=== PATIENT | female | born 1950 | race Caucasian/White ===

== ENCOUNTER → 2016-12-02 | Outpatient (CLI) | payer OTHER ==
[~2016-12-02] MED LIST: ADAL40KI INJ; ALBUAER2 INH; AMIT50TA3 PO; ASPI81TA28 PO; ATOR-14 PO; BENA20TA14 PO; BIOT1CAP3 PO; BUME1TAB PO; BUTA1CAP17 PO; CARB50TA3 PO; CITA20TA9 PO; CLOT10TR2 MT; CLX/20 PO; CMD5 PO; CYAN100073 OG; ENTA200T PO; ERGO500037 PO; EXLP95 TOP; FERR1TAB13 PO; FLUO20CA35 PO; FLUT115A INH; FOLI1TAB8 PO; GLIP1TAB61 PO; HYDR-3419 PO; INSU1INJ15 SQ; INSU3INJ3 SQ; INSUINJ14 SC; ISOS60TA25 PO; LEVE500T PO; LEVO25TA PO; LSX40 PO; METF-384 PO; METH2.5T PO; METO2.5T PO; MRLP17X PO; MULT-506 PO; NRN/300 PO; NTRSL3 UT; OMEP20TA PO; OXGN; POTA-74 PO; RANO500T PO; SPIR25TA PO; SUMA50TA15 PO; WARF-283 PO; WARF2.5T8 PO; WARF5TAB90 PO; [UNRECOGNIZED DRUG - CODE] PO
[2016-12-02 12:55] LABS: BASO % 0.4 %; BASO ABS # 0.03 K/uL (0-0.2); EOS % 2.3 %; HEMATOCRIT 33.1 % (37-47); IG% 0.5 %; LYMPH % 23.5 %; LYMPH ABS # 1.76 K/uL (1.2-3.4); MEAN CELL VOLUME 91.2 fL (80-100); MEAN CORPUSCULAR HEMOGLOBIN 28.7 pg (25-34); MEAN PLATELET VOLUME 9.1 fL (7.4-10.4); MONO % 5.6 %; NEUT % 67.7 %; PLATELET COUNT 214 K/uL (130-400); RED BLOOD COUNT 3.63 M/uL (4.2-5.4); WHITE BLOOD COUNT 7.49 K/uL (4.8-10.8)
[2016-12-02 13:08] LABS: MEAN CORPUSCULAR HGB CONC 31.4 g/dl (32-36)
[2016-12-02 13:16] LABS: ANISOCYTOSIS PRESENT; COMPLETE YES; OVALOCYTES 1+; POLYCHROMASIA 1+
--- NOTE | 2016-12-02 13:24 | DIAGNOSTIC IMAGING REPORT ---
CHEST 2 VIEWS ROUTINE CLINICAL HISTORY: PT TO LAB FIRST, STAT ALSO dyspnea. Pneumonitis. COMPARISON STUDY: 09/02/2016 FINDINGS: The bones soft tissues and hemidiaphragms are normal. The cardiomediastinal silhouette is normal. The lungs are clear. The pulmonary vasculature is normal. Old fracture left clavicle as well as several left ribs unchanged. IMPRESSION: Negative chest. Electronically signed by: Darvin Mesa M.D. 12/02/2016 1:23 PM
[2016-12-02 13:29] LABS: ALB/GLOB RATIO 0.9 (0.9-2); ALKALINE PHOSPHATASE 103 U/L (45-117); ALT/SGPT 8 U/L (12-78); AST/SGOT 16 U/L (15-37); BLOOD UREA NITROGEN 37 mg/dl (7-18); BUN/CREATININE RATIO 17.8 (10-20); CALCIUM 8.7 mg/dl (8.5-10.1); CARBON DIOXIDE 24 mmol/L (21-32); CHLORIDE 108 mmol/L (98-107); GLUCOSE 211 mg/dl (70-99); POTASSIUM 4.5 mmol/L (3.5-5.1); SODIUM 141 mmol/L (136-145)
== END | disposition home or self-care (01) ==
LOC: C.RAD 12:34
PROVIDERS: ATTEND Family Medicine
DX: D68.59 Other primary thrombophilia (principal); K62.5 Hemorrhage of anus and rectum; J69.0 Pneumonitis due to inhalation of food and vomit

== ENCOUNTER 2016-12-03 17:32 | Emergency (ER) | payer OTHER ==
[~2016-12-03 17:32] MED LIST changes: -BENA20TA14 PO; -BUME1TAB PO; -CITA20TA9 PO; -CYAN100073 OG; -EXLP95 TOP; -METO2.5T PO; -MRLP17X PO; -OXGN; -WARF-283 PO; -WARF2.5T8 PO
[2016-12-03 17:48] VITALS: TEMP 37.5; Ht 149.9 cm
[2016-12-03] MEDS ORDERED: SODIUM CHLORIDE 0.9% 250ML 250 ML IV STA (19:22)
--- NOTE | 2016-12-03 19:49 | DIAGNOSTIC IMAGING REPORT ---
CHEST ONE VIEW PORTABLE CLINICAL HISTORY: cp dyspnea COMPARISON STUDY: 12/02/2016 FINDINGS: Lungs are clear. No evidence for cardiac enlargement. Diaphragms smooth. Old left rib fractures. Old left clavicular fracture. IMPRESSION: No acute process Electronically signed by: Darvin Mesa M.D. 12/03/2016 7:47 PM
[2016-12-03 20:57] LABS: BASO % 0.4 %; BASO ABS # 0.03 K/uL (0-0.2); EOS % 3.2 %; IG% 0.6 %; LYMPH % 32.1 %; LYMPH ABS # 2.17 K/uL (1.2-3.4); MEAN CELL VOLUME 93.4 fL (80-100); MEAN CORPUSCULAR HEMOGLOBIN 28.8 pg (25-34); MEAN CORPUSCULAR HGB CONC 30.9 g/dl (32-36); MONO % 11.2 %; NEUT % 52.5 %; PLATELET COUNT 235 K/uL (130-400); RED BLOOD COUNT 3.64 M/uL (4.2-5.4); WHITE BLOOD COUNT 6.77 K/uL (4.8-10.8)
[2016-12-03 21:12] LABS: PARTIAL THROMBOPLASTIN RATIO 1.2; PROTHROMBIN TIME (PATIENT) 22.3 SECONDS (9.0-12.0)
[2016-12-03 21:16] LABS: BLOOD UREA NITROGEN 23 mg/dl (7-18); BUN/CREATININE RATIO 16.6 (10-20); CALCIUM 8.6 mg/dl (8.5-10.1); CARBON DIOXIDE 26 mmol/L (21-32); CHLORIDE 110 mmol/L (98-107); GLUCOSE 192 mg/dl (70-99); POTASSIUM 4.1 mmol/L (3.5-5.1); SODIUM 144 mmol/L (136-145)
[2016-12-03 21:56] LABS: ANISOCYTOSIS PRESENT; COMPLETE YES; POLYCHROMASIA 1+
--- NOTE | 2016-12-03 22:13 | DIAGNOSTIC IMAGING REPORT ---
BILATERAL LOWER EXTREMITY VENOUS DOPPLER HISTORY: Pain. Edema. eval for dv COMPARISON STUDY: None. FINDINGS: There is normal compressibility, flow, and augmentation within the bilateral lower extremity deep venous systems. IMPRESSION: No DVT within the right or left lower extremity. Electronically signed by: Darvin Mesa M.D. 12/03/2016 10:11 PM
[2016-12-03 22:22] VITALS: BP 159/72; PULSE 88; O2SAT 95
--- NOTE | 2016-12-03 23:25 | EMERGENCY ROOM VISIT NOTE ---
History Report prepared by Andrea: La Bertrand Under the Supervision of: Dr. Dominick Martin M.D. First contact with patient: 19:12 Chief Complaint: REFERRED BY DOCTOR Stated Complaint: LOW KIDNEY FUNCTION History of Present Illness The patient is a 66 year old female who presents to the Emergency Room with complaints of an episode of low kidney function beginning yesterday. The patient states that she had a doctors appointment yesterday and had a creatinine level of 2.1. She states that she has been urinating less frequently over the last few weeks despite being on Lasix. She notes that she is on 60mg of Lasix a day and Coumadin. The patient's daughter notes that the patient has not been eating or drinking much at all. The patient notes that she has had chronic leg swelling which has recently improved. She notes some shortness of breath which is also chronic for her. She also notes when asked that she has had intermittent brief jabbing chest pain over the sternum over the past several days. She states it's very transient and she has no chest pain now. Her daughter states that the chest pain is not new. She has had similar chest pain for a long time. She does have a history of pulmonary embolism but is taking Coumadin. She denies any fever, vomiting, and diarrhea. Source of History: patient Onset: yesterday Position: other (global) Quality: other (elevated creatinine) Timing: other (episode) Associated Symptoms: + SOB, + chest pain, No diarrhea, No fevers, No vomiting Note: The patient notes associated leg swelling and urinary infrequency. Review of Systems See HPI for pertinent positives & negatives. A total of 10 systems reviewed and were otherwise negative. Past Medical & Surgical Medical Problems: (1) Anemia (2) Asthma (3) Chest pain (4) Colitis (5) Crohn's disease (6) Diabetes mellitus (7) GI bleeding (8) Hypertension (9) Hypothyroidism (10) Lower GI bleed (11) Personal history of DVT (deep vein thrombosis) (12) Pulmonary embolism Family History Cancer Diabetes mellitus Gallbladder disease Heart disease Hypertension Lung disease Social History Smoking Status: Former Smoker Alcohol Use: none Drug Use: none Marital Status: single Housing Status: lives alone Occupation Status: disabled Current/Historical Medications Scheduled Adalimumab (Humira Pen), 40 MG INJ [id number] Albuterol (Ventolin Hfa), 2 PUFFS INH TID Amitriptyline Hcl (Amitriptyline Hcl), 50 MG PO HS Aspirin (Aspirin Ec), 81 MG PO DAILY Atorvastatin (Lipitor), 10 MG PO HS Benazepril Hcl (Lotensin), 40 MG PO DAILY Biotin (Biotin), 5,000 MCG PO PRN Carbidopa-Levodopa (Carbidopa/Levodopa Er), 25-100 MG PO QID Entacapone (Comtan), 200 MG PO QID Ergocalciferol (Vitamin D 23255 Unit), 50,000 UNIT PO MONTHLY Ferrous Sulfate (Kp Ferrous Sulfate), 1 TAB PO DAILY Fluoxetine (Prozac), 20 MG PO DAILY Folic Acid (Folvite), 3 MG PO DAILY Furosemide (Furosemide), 60 MG PO DAILY Gabapentin (Neurontin), 300 MG PO TID Glipizide Xl (Glucotrol Xl), 10 MG PO BID Insulin Aspart Penfill (Novolog Penfill), 0 SC ACHS Insulin Detemir (Levemir Pen), 10 UNIT SQ QAM Insulin Detemir (Levemir Flextouch), 10-14 UNITS SQ QPM Isosorbide Mononitrate Ext Rel (Imdur Ext Rel), 60 MG PO QAM Levetiractam (Levetiracetam), 500 MG PO BID Levothyroxine Sodium (Synthroid), 25 MCG PO DAILY Metformin Hcl (Glucophage), 1,000 MG PO BID Methotrexate Sodium (Methotrexate), 20 MG PO WK Multivitamin (Multivitamin), 1 TAB PO DAILY Omeprazole (Omeprazole), 20 MG PO DAILY Ranolazine (Ranexa), 500 MG PO BID Warfarin Sod (Coumadin), 7.5 MG PO THURSDAY AND THURSDAY Warfarin Sodium (Coumadin), 5 MG PO 5XWK Scheduled PRN Fluticasone-Salmeterol 115/21 Mcg (Advair Hfa 115/21 Mcg), 2 PUFF INH BID PRN for SOB/Wheezing Hydrocodon/Acetaminophen 5MG/300MG (Vicodin (5MG/300MG)), 1 TAB PO Q4H PRN for Pain Nitroglycerin (Nitrostat), 0.3 MG UT UD PRN Potassium Chloride (Potassium Chloride Er), 10 MEQ PO DAILY PRN for PRN Sumatriptan Succinate (Imitrex), 50 MG PO DAILY PRN for Headache Allergies Coded Allergies: Penicillins (Verified Allergy, Intermediate, HIVES, 12/03/16) Sulfa Antibiotics (Verified Allergy, Intermediate, HIVES, 12/03/16) Lactose. (Verified Allergy, Mild, diarrhea, 12/03/16) Latex (Verified Allergy, Unknown, ., 12/03/16) Adhesives (Verified Adverse Reaction, Severe, "THEY EAT MY SKIN.", 12/03/16) Iodinated Diagnostic Agents (Verified Adverse Reaction, Intermediate, Vomiting, 12/03/16) Quinolones (Verified Adverse Reaction, Mild, YEAST INFECTION, 12/03/16) Ba Pepper (Verified Adverse Reaction, Unknown, GREEN PEPPER = MIGRAINE HEADACHE, 12/03/16) Cephalosporins (Verified Adverse Reaction, Unknown, 12/03/16) Physical Exam Vital Signs Date Time Temp Pulse Resp B/P Pulse Ox O2 Delivery O2 Flow Rate FiO2 12/03/16 22:22 88 20 159/72 95 Room Air 12/03/16 20:41 78 12/03/16 20:05 77 18 131/91 94 12/03/16 17:48 37.5 82 16 128/68 94 Room Air Physical Exam Constitutional: Vital signs reviewed. Eyes: Pupils are equal round reactive to light. Conjunctiva are noninjected. ENT: Pharynx is clear without erythema or exudate. Mucous membranes are moist. Neck supple without meningeal signs. Respiratory: Scattered expiratory wheezing bilaterally. Breath sounds are equal bilaterally. Cardiovascular: Regular rate and rhythm. No rubs or gallops. GI: Soft, nondistended and nontender. Bowel sounds are present. Musculoskeletal: Bilateral pitting edema to the lower extremities. Integumentary: No cyanosis. Neurological: The patient is awake and alert. No focal deficits. Psychiatric: Normal affect. Medical Decision & Procedures ER Provider Diagnostic Interpretation: X-ray results as stated below per interpretation by me and the radiologist: CHEST ONE VIEW PORTABLE FINDINGS: Lungs are clear. No evidence for cardiac enlargement. Diaphragms smooth. Old left rib fractures. Old left clavicular fracture. IMPRESSION: No acute process Electronically signed by: Darvin Mesa M.D. 12/03/2016 7:47 PM BILATERAL LOWER EXTREMITY VENOUS DOPPLER FINDINGS: There is normal compressibility, flow, and augmentation within the bilateral lower extremity deep venous systems. IMPRESSION: No DVT within the right or left lower extremity. Electronically signed by: Darvin Mesa M.D. 12/03/2016 10:11 PM Laboratory Results 12/03/16 20:40 Red Blood Count 3.64, Mean Corpuscular Volume 93.4, Mean Corpuscular Hemoglobin 28.8, Mean Corpuscular Hemoglobin Concent 30.9, Mean Platelet Volume 9.0, Neutrophils (%) (Auto) 52.5, Lymphocytes (%) (Auto) 32.1, Monocytes (%) (Auto) 11.2, Eosinophils (%) (Auto) 3.2, Basophils (%) (Auto) 0.4, Neutrophils # (Auto ) 3.55, Lymphocytes # (Auto) 2.17, Monocytes # (Auto) 0.76, Eosinophils # (Auto ) 0.22, Basophils # (Auto) 0.03 12/03/16 20:40 Test 12/03/16 20:40 12/03/16 20:49 White Blood Count 6.77 K/uL (4.8-10.8) Red Blood Count 3.64 M/uL (4.2-5.4) Hemoglobin 10.5 g/dL (12.0-16.0) Hematocrit 34.0 % (37-47) Mean Corpuscular Volume 93.4 fL (80-100) Mean Corpuscular Hemoglobin 28.8 pg (25-34) Mean Corpuscular Hemoglobin Concent 30.9 g/dl (32-36) Platelet Count 235 K/uL (130-400) Mean Platelet Volume 9.0 fL (7.4-10.4) Neutrophils (%) (Auto) 52.5 % Lymphocytes (%) (Auto) 32.1 % Monocytes (%) (Auto) 11.2 % Eosinophils (%) (Auto) 3.2 % Basophils (%) (Auto) 0.4 % Neutrophils # (Auto) 3.55 K/uL (1.4-6.5) Lymphocytes # (Auto) 2.17 K/uL (1.2-3.4) Monocytes # (Auto) 0.76 K/uL (0.11-0.59) Eosinophils # (Auto) 0.22 K/uL (0-0.5) Basophils # (Auto) 0.03 K/uL (0-0.2) RDW Standard Deviation 74.7 fL (36.4-46.3) RDW Coefficient of Variation 22.2 % (11.5-14.5) Immature Granulocyte % (Auto) 0.6 % Immature Granulocyte # (Auto) 0.04 K/uL (0.00-0.02) Polychromasia 1+ Anisocytosis PRESENT Prothrombin Time 22.3 SECONDS (9.0-12.0) Prothromb Time International Ratio 2.0 (0.9-1.1) Activated Partial Thromboplast Time 31.7 SECONDS (21.0-31.0) Partial Thromboplastin Ratio 1.2 Anion Gap 8.0 mmol/L (3-11) Estimated GFR () 44.9 Estimated GFR (Non- 38.8 BUN/Creatinine Ratio 16.6 (10-20) Calcium Level 8.6 mg/dl (8.5-10.1) Bedside Troponin I 0.000 ng/ml (0-0.045) KY-Ddx-E-Type Natriuretic Peptide 284 pg/ml (0-900) Laboratory results as reviewed by me. Medications Administered Medications (Trade) Dose Ordered Sig/Mariella Route Start Time Stop Time Status Last Admin Dose Admin Sodium Chloride (Nss 250ml) 250 ml @ 999 mls/hr Q16M STAT IV 12/03/16 19:22 12/03/16 19:37 DC 12/03/16 19:22 999 MLS/HR ECG Indication: chest pain Rate (beats per minute): 78 Rhythm: normal sinus Findings: LAFB, RBBB Comparison ECG Date: 09/2016 Change: The RBBB was present September 2016. ED Course 1911: The patient was evaluated in room A4B. A complete history and physical exam was performed. 1921: Sodium Chloride 250 ml @ 999 mls/hr IV. 2121: I talk to the patient about her test results. The plan is to send her home if the US is negative. The patient and her family do not want a CT of her chest because she had problems with her kidneys last time she got a CT scan. 2217: I talked to the patient about her test results. She will follow up with her doctor tomorrow. 2221: Upon reevaluation, the patient appeared to have improvement of her symptoms. I discussed klaudiaight's findings with the patient. She verbalized agreement of the treatment plan. The patient was discharged home. Medical Decision This is a 66-year-old female who presents with increased creatinine, chest pain and leg swelling. Differential diagnosis includes kidney failure, dehydration, hyperkalemia, pulmonary embolism, DVT, NE, CHF, dependent edema. I did perform a limited focused review of portions of the patient's old chart on the electronic medical record. The patient had blood work yesterday that showed a creatinine of 2.1. Her creatinine in September was 0.88. I did evaluate the patient as noted above. She is presenting with elevated creatinine yesterday. She states that she has not been drinking very much or eating very much. She is on 60 of Lasix daily. She also complained of some chest pain but her family states that she has had this for some time and it is not unusual for her. She also has baseline shortness of breath. IV access was established. I did order and personally review the patient's 12-lead EKG and chest x-ray as described above. There is no evidence of acute ischemia on 12- lead EKG. Her chest x-ray does not show any pulmonary edema. She was given normal saline 250 mL IV. I did order and review the patient's blood work as noted in the electronic medical record. BNP and troponin are nonelevated. Her creatinine is 1.4 which is improved since yesterday. Her potassium is unremarkable. Her INR is 2.0. I did order an ultrasound of lower extremities. I did review the images myself as well as the radiology report as described above. There is no evidence of DVT. I did discuss the test results with the patient and her family. While the patient did complain of intermittent chest pain, she states it is brief and she has had this in the past. I have a low suspicion for pulmonary embolus given she is on Coumadin and her INR is 2.0. I did discuss this with the family and they agreed that a CT would not be a good idea she has had problems with her kidneys in the past from IV contrast. Given she was sent here for an issue with her creatinine I did feel it was not prudent to perform a CT. They were in agreement. Again they stated that the chest pain is an ongoing issue for her pain. Given her creatinine has improved today she does not require hospital admission. She did not wish to be admitted in any case. She will increase her fluid intake at home and follow up tomorrow with her doctor. Impression Primary Impression: Creatinine elevation Additional Impressions: Dependent edema, Precordial chest pain Scribe Attestation The scribe's documentation has been prepared under my direct and personally reviewed by me in its entirety. I confirm that the note above accurately reflects all work, treatment, procedures, and medical decision making performed by me. Departure Information Dispostion Home / Self-Care Referrals Sandra Scott D.O. (PCP) Forms HOME CARE DOCUMENTATION FORM, IMPORTANT VISIT INFORMATION, WORK / SCHOOL INSTRUCTIONS Patient Instructions A Signature Page, Chest Pain - [facility], ED Edema Legs Bilateral, My [facility] Additional Instructions You have been examined and treated today on an emergency basis only. This is not a substitute for, or an effort to provide, complete comprehensive medical care. It is impossible to recognize and treat all injuries or illnesses in a single emergency department visit. It is therefore important that you follow up closely with your physician. Call as soon as possible for an appointment. Have your doctor repeat your creatinine. Increase her fluid intake. Return for worsening symptoms or if you develop lightheadedness, profuse sweating, decreased urination or any other concerning symptoms.
[2016-12-15] MEDS ORDERED: BUME1TAB PO (11:16)
[2017-03-12] MEDS ORDERED: EXLP95 TOP (10:40)
[2017-03-12] MEDS ORDERED: CITA20TA9 PO (10:40)
[2017-04-01] MEDS ORDERED: BENA20TA14 PO (12:25)
[2017-06-29] MEDS ORDERED: WARF2.5T8 PO (12:08)
[2017-07-27] MEDS ORDERED: CYAN100073 OG (11:14)
[2017-07-27] MEDS ORDERED: BUME1TAB PO (11:14)
[2017-07-27] MEDS ORDERED: MRLP17X PO (11:14)
[2017-07-27] MEDS ORDERED: HYDR-3419 PO (11:14)
[2017-07-27] MEDS ORDERED: WARF-283 PO (11:18)
[2017-09-03] MEDS ORDERED: WARF2.5T8 PO (11:43)
== END 2016-12-03 22:35 | disposition home or self-care (01) ==
LOC: C.EDB 17:34 → C.EDA 22:35
DX: R79.89 Other specified abnormal findings of blood chemistry (principal); R60.0 Localized edema; R07.2 Precordial pain; Z86.711 Personal history of pulmonary embolism; J45.909 Unspecified asthma, uncomplicated; K50.90 Crohn's disease, unspecified, without complications; E11.9 Type 2 diabetes mellitus without complications; I10 Essential (primary) hypertension; E03.9 Hypothyroidism, unspecified; Z86.718 Personal history of other venous thrombosis and embolism; Z79.01 Long term (current) use of anticoagulants; Z79.82 Long term (current) use of aspirin; Z79.899 Other long term (current) drug therapy; Z80.9 Family history of malignant neoplasm, unspecified; Z83.3 Family history of diabetes mellitus; Z82.49 Family history of ischemic heart disease and other diseases of the circulatory system; Z83.6 Family history of other diseases of the respiratory system; Z87.891 Personal history of nicotine dependence

== ENCOUNTER → 2016-12-25 | Outpatient (CLI) | payer OTHER ==
[~2016-12-25] MED LIST changes: +BENA20TA14 PO; +BUME1TAB PO; -BUTA1CAP17 PO; +CITA20TA9 PO; -CLOT10TR2 MT; -CLX/20 PO; +CYAN100073 OG; +EXLP95 TOP; +FOLI1TAB7 PO; -FOLI1TAB8 PO; -LSX40 PO; +METO2.5T PO; +MRLP17X PO; +OXGN; -SPIR25TA PO; +WARF-283 PO; +WARF2.5T8 PO
--- NOTE | 2016-12-25 11:08 | DIAGNOSTIC IMAGING REPORT ---
DOUBLE CONTRAST BARIUM ENEMA CLINICAL HISTORY: Rectal bleeding. Incomplete colonoscopy. COMPARISON STUDY: Abdominal CT dated 11/16/2015. TECHNIQUE: An AP screen roller radiograph is performed. A rectal tube was then placed and a double contrast barium enema was attempted. Barium was infused into the colon under gravity. There is suboptimal double contrast, as the patient could not tolerate distention and the air continuously leaked from the colon. The patient was unable to fully cooperate for the examination and could not stand or roll on her stomach. Spot compression views and overhead radiographs were obtained. FINDINGS: An abdominal screen roller radiograph shows a nonobstructed abdominal bowel gas pattern. There was no evidence of intraperitoneal free air. No abnormal abdominal calcifications are identified. The skeletal structures are osteopenic. There is advanced lumbosacral spondylosis, as well as advanced arthritic change in the hips. There is normal contrast filling of the colon. There is no evidence of stricture or obvious evidence of mass lesion. The mucosal pattern is suboptimally assessed. There are scattered colonic diverticula. There is mild tortuosity of the sigmoid colon. Fluoroscopy time: 3.9 minutes. Fluoroscopic images: 14 IMPRESSION: 1. Suboptimal examination due to limited patient cooperation/mobility and inability to maintain gas throughout the colon which degraded the double contrast component of the study. 2. There is no evidence of obstruction or stricture. No obvious mass lesion is identified. 3. Mild colonic diverticulosis is observed. Dictated: 12/25/2016 10:28 AM Transcribed: 12/25/2016 10:46 AM [facility] Electronically signed by: Dashawn Wilburn M.D. 12/25/2016 11:10 AM Dictated Date/Time: 12/25/2016 10:28 AM
== END | disposition home or self-care (01) ==
LOC: C.RAD 09:27
PROVIDERS: ATTEND Internal Medicine Gastroenterology
DX: K62.5 Hemorrhage of anus and rectum (principal); Z87.19 Personal history of other diseases of the digestive system

== ENCOUNTER → 2017-01-23 | Outpatient (CLI) | payer OTHER ==
[~2017-01-23] MED LIST changes: -CMD5 PO
[2017-01-23 17:26] LABS: BLOOD UREA NITROGEN 26 mg/dl (7-18); BUN/CREATININE RATIO 18.6 (10-20); CALCIUM 8.6 mg/dl (8.5-10.1); CARBON DIOXIDE 26 mmol/L (21-32); CHLORIDE 104 mmol/L (98-107); GLUCOSE 222 mg/dl (70-99); MAGNESIUM 1.8 mg/dl (1.8-2.4); POTASSIUM 4.1 mmol/L (3.5-5.1); SODIUM 138 mmol/L (136-145)
[2017-01-23 17:27] LABS: PHOSPHORUS 3.4 mg/dl (2.5-4.9)
== END | disposition home or self-care (01) ==
LOC: C.LABPBG 11:55
PROVIDERS: ATTEND Internal Medicine Nephrology
DX: R60.0 Localized edema (principal)

== ENCOUNTER → 2017-02-16 | Outpatient (CLI) | payer OTHER ==
[2017-02-16 13:02] LABS: BLOOD UREA NITROGEN 19 mg/dl (7-18); BUN/CREATININE RATIO 16.1 (10-20); CALCIUM 8.4 mg/dl (8.5-10.1); CARBON DIOXIDE 28 mmol/L (21-32); CHLORIDE 107 mmol/L (98-107); GLUCOSE 224 mg/dl (70-99); MAGNESIUM 1.7 mg/dl (1.8-2.4); SODIUM 141 mmol/L (136-145)
[2017-02-16 13:03] LABS: PHOSPHORUS 2.6 mg/dl (2.5-4.9)
== END | disposition home or self-care (01) ==
LOC: C.LABPBG 10:31
PROVIDERS: ATTEND Internal Medicine Nephrology
DX: N17.9 Acute kidney failure, unspecified (principal)

== ENCOUNTER → 2017-03-30 | Outpatient (CLI) | payer OTHER ==
[~2017-03-30] MED LIST changes: -FLUO20CA35 PO
[2017-03-30 12:40] LABS: BASO % 0.3 %; BASO ABS # 0.02 K/uL (0-0.2); COMPLETE YES; EOS % 1.8 %; HEMATOCRIT 36.9 % (37-47); IG% 0.4 %; LYMPH ABS # 1.97 K/uL (1.2-3.4); MEAN CELL VOLUME 98.7 fL (80-100); MEAN CORPUSCULAR HEMOGLOBIN 30.7 pg (25-34); MEAN CORPUSCULAR HGB CONC 31.2 g/dl (32-36); MEAN PLATELET VOLUME 9.1 fL (7.4-10.4); MONO % 6.9 %; NEUT % 64.6 %; PLATELET COUNT 266 K/uL (130-400); RED BLOOD COUNT 3.74 M/uL (4.2-5.4); WHITE BLOOD COUNT 7.59 K/uL (4.8-10.8)
[2017-03-30 13:17] LABS: URINE PROTIEN/CREAT RATIO 0.1 (0-0.2)
[2017-03-30 13:24] LABS: URINE APPEARANCE CLEAR (CLEAR); URINE COLOR DK YELLOW; URINE NITRITE NEG (NEG); URINE SPECIFIC GRAVITY 1.017 (1.000-1.030); UROBILINOGEN NEG (NEG)
[2017-03-30 13:36] LABS: MANUAL MICROSCOPIC REQUIRED? NO; REVIEW REQ? YES; URINE BILIRUBIN NEG (NEG)
[2017-03-30 14:19] LABS: URINE MUCUS PRESENT (NONE PRSENT)
[2017-03-30 18:00] LABS: ALT/SGPT 17 U/L (12-78); AST/SGOT 19 U/L (15-37); BLOOD UREA NITROGEN 37 mg/dl (7-18); BUN/CREATININE RATIO 20.7 (10-20); CALCIUM 8.8 mg/dl (8.5-10.1); CARBON DIOXIDE 25 mmol/L (21-32); CHLORIDE 104 mmol/L (98-107); GLUCOSE 256 mg/dl (70-99); POTASSIUM 4.6 mmol/L (3.5-5.1); SODIUM 140 mmol/L (136-145)
[2017-03-30 18:03] LABS: ALKALINE PHOSPHATASE 100 U/L (45-117); PHOSPHORUS 4.4 mg/dl (2.5-4.9)
== END | disposition home or self-care (01) ==
LOC: C.LABPBG 10:43
PROVIDERS: ATTEND Internal Medicine Nephrology
DX: L40.50 Arthropathic psoriasis, unspecified (principal); R60.0 Localized edema; Z51.81 Encounter for therapeutic drug level monitoring; Z79.899 Other long term (current) drug therapy

== ENCOUNTER → 2017-04-15 | Outpatient (CLI) | payer OTHER ==
[~2017-04-15] MED LIST changes: -[UNRECOGNIZED DRUG - CODE] PO
[2017-04-15 17:40] LABS: BLOOD UREA NITROGEN 25 mg/dl (7-18); BUN/CREATININE RATIO 17.5 (10-20); CALCIUM 8.2 mg/dl (8.5-10.1); CARBON DIOXIDE 27 mmol/L (21-32); CHLORIDE 111 mmol/L (98-107); GLUCOSE 168 mg/dl (70-99); PHOSPHORUS 3.4 mg/dl (2.5-4.9); POTASSIUM 4.1 mmol/L (3.5-5.1); SODIUM 145 mmol/L (136-145)
== END | disposition home or self-care (01) ==
LOC: C.LABPBG 11:40
PROVIDERS: ATTEND Internal Medicine Nephrology
DX: N17.9 Acute kidney failure, unspecified (principal)

== ENCOUNTER 2017-04-22 19:48 | Emergency (ER) | payer OTHER ==
[~2017-04-22 19:48] MED LIST changes: -CYAN100073 OG; -METO2.5T PO; -MRLP17X PO; -OXGN; -WARF-283 PO; -WARF2.5T8 PO
[2017-04-22 19:52] VITALS: TEMP 36.8; Ht 149.9 cm
[2017-04-22 21:06] LABS: BASO % 0.5 %; BASO ABS # 0.03 K/uL (0-0.2); COMPLETE YES; EOS % 2.6 %; HEMATOCRIT 32.4 % (37-47); LYMPH % 25.8 %; LYMPH ABS # 1.56 K/uL (1.2-3.4); MEAN CELL VOLUME 100.3 fL (80-100); MEAN CORPUSCULAR HEMOGLOBIN 32.2 pg (25-34); MEAN CORPUSCULAR HGB CONC 32.1 g/dl (32-36); MEAN PLATELET VOLUME 8.6 fL (7.4-10.4); MONO % 10.8 %; NEUT % 59.3 %; PLATELET COUNT 250 K/uL (130-400); RED BLOOD COUNT 3.23 M/uL (4.2-5.4); WHITE BLOOD COUNT 6.04 K/uL (4.8-10.8)
[2017-04-22 21:23] LABS: ALT/SGPT 15 U/L (12-78); BLOOD UREA NITROGEN 26 mg/dl (7-18); BUN/CREATININE RATIO 17.3 (10-20); CARBON DIOXIDE 31 mmol/L (21-32); CHLORIDE 109 mmol/L (98-107); GLUCOSE 105 mg/dl (70-99); POTASSIUM 4.3 mmol/L (3.5-5.1); SODIUM 145 mmol/L (136-145)
[2017-04-22 21:26] LABS: ALKALINE PHOSPHATASE 82 U/L (45-117); AST/SGOT 18 U/L (15-37)
[2017-04-22 22:06] LABS: CALCIUM 8.3 mg/dl (8.5-10.1)
--- NOTE | 2017-04-22 22:10 | EMERGENCY ROOM VISIT NOTE ---
ED Visit Note First contact with patient: 20:02 The patient was seen and examined with Stephon Manrique PA-C. I agree with the history, physical and findings. Please see the note for disposition and details.
[2017-04-22 23:34] VITALS: BP 99/46; PULSE 80; O2SAT 92
--- NOTE | 2017-04-24 00:16 | EMERGENCY ROOM VISIT NOTE ---
ED Visit Note First contact with patient: 20:02 Chief Complaint: Leg wounds. History of Present Illness: Ms. Harris is a 66-year-old white female who is brought into the ED via wheelchair accompanied by her daughter. Daughter reports for the last 5 months her mother has been seen by multiple medical practitioners for her chronic problems including chronic kidney disease , leg swelling, anemia. She reports multiple medications have been changed and that multiple medical practitioners are indicating multiple causes of her swelling, anemia, chronic kidney disease and general feeling of not feeling well. The daughter reports her mother was seen and discharged from home nursing support today for her lower leg swelling. She then reports after being discharged from the service she noted a large blisterlike lesion over the lateral aspect of the right lower leg. The blisterlike lesion is what prompted her ED visit today. Currently patient is complaining of the blisterlike lesion over the lateral aspect of the right lower leg. She reports she never had a similar lesion. She denies any trauma to the area. She has no associated symptoms including pain, fever, chills, skin eruptions, skin color changes, shortness of breath, dyspnea on exertion, chest pain, abdominal pain, decreased appetite, nausea, vomiting, numbness/tingling. Review of Systems: As noted above in history of present illness. All body systems were reviewed and found to be negative as noted above. Past Medical History: (1) Anemia (2) Asthma (3) Chest pain (4) Colitis (5) Crohn's disease (6) Diabetes mellitus (7) GI bleeding (8) Hypertension (9) Hypothyroidism (10) Lower GI bleed (11) Personal history of DVT (deep vein thrombosis) (12) Pulmonary embolism Current Medications: Medications Dose Route/Sig Max Daily Dose Days Date Category Dose Instructions Lotensin (Benazepril HCl) 20 Mg Tab 20 Mg PO DAILY 04/01/17 Reported Exelon (Rivastigmine Tartrate) 9.5 Mg Tdsy 4.6 Mg TOP DAILY 30 03/12/17 Reported Celexa (Citalopram Hydrobromide) 20 Mg Tab 20 Mg PO DAILY 03/12/17 Reported Bumex (Bumetanide) 1 Mg Tab 1.5 Mg PO BID 90 12/15/16 Reported Kp Ferrous Sulfate (Ferrous Sulfate) 325 Mg Tab 1 Tab PO DAILY 30 11/20/16 Reported Coumadin (Warfarin Sodium) 5 Mg Tab 5 Mg PO DAILY 90 10/20/16 Reported Advair Hfa 115/21 Mcg (Fluticasone-Salmeterol 115/21 Mcg) 1 Aer Aer 2 Puff INH BID PRN 10/13/16 Reported Potassium Chloride Er (Potassium Chloride) 10 Meq Tab 10 Meq PO DAILY PRN 90 10/13/16 Reported Imitrex (Sumatriptan Succinate) 50 Mg Tab 50 Mg PO DAILY PRN 10/13/16 Reported Multivitamin (Multivitamins) Tab 1 Tab PO DAILY 10/13/16 Reported Levemir Flextouch (Insulin Detemir) 100 Unit/Ml Inj 10-14 Units SQ QPM 10/13/16 Reported Carbidopa/Levodopa Er (Carbidopa-Levodopa) 1 Tab Tab 25-100 Mg PO QID 10/13/16 Reported Aspirin Ec (Aspirin) 81 Mg Tab 81 Mg PO DAILY 09/25/16 Reported Vitamin D 79009 Unit (Ergocalciferol) 50,000 Unit Cap 50,000 Unit PO MONTHLY 09/02/16 Reported Vicodin (5MG/300MG) (Hydrocodon/Acetaminophen 5MG/300MG) 1 Tab Tab 1 Tab PO Q4H PRN 04/21/16 Reported Biotin 5,000 Mcg Cap 5,000 Mcg PO PRN 10/05/15 Reported Glucophage (Metformin Hcl) 1,000 Mg Tab 1,000 Mg PO BID 10/05/15 Reported Comtan (Entacapone) 200 Mg Tab 200 Mg PO QID 10/05/15 Reported Novolog Penfill (Insulin Aspart) Inj 0 SC ACHS 10/05/15 Reported PER SLIDING SCALE Levetiracetam (Levetiractam) 500 Mg Tab 500 Mg PO BID 09/19/14 Reported Levemir Pen (Insulin Detemir) 100 Unit/ Inj 10 Unit SQ QAM 09/19/14 Reported Humira Pen (Adalimumab) 40 Mg/0.8 Ml Kit 40 Mg INJ [id number] 09/19/14 Reported Ventolin Hfa (Albuterol) Aers 2 Puffs INH TID 09/10/13 Reported Folvite (Folic Acid) 1 Mg Tab 3 Mg PO DAILY 09/10/13 Reported Lipitor (Atorvastatin) 10 Mg Tab 10 Mg PO HS 09/10/13 Reported Nitrostat (Nitroglycerin) 0.3 Mg Sub 0.3 Mg UT UD PRN 09/10/13 Reported Ranexa (Ranolazine) 500 Mg Tab 500 Mg PO BID 09/10/13 Reported Methotrexate (Methotrexate Sodium) 2.5 Mg Tab 20 Mg PO WK 09/10/13 Reported TAKES 8 TABS ON FRIDAYS Omeprazole 20 Mg Tab 20 Mg PO DAILY 09/10/13 Reported Neurontin (Gabapentin) 300 Mg Cap 300 Mg PO TID 09/10/13 Reported Amitriptyline Hcl 50 Mg Tab 50 Mg PO HS 09/10/13 Reported Imdur Ext Rel (Isosorbide Mononitrate) 60 Mg Ertab 60 Mg PO QAM 09/10/13 Reported Synthroid (Levothyroxine Sodium) 25 Mcg Tab 25 Mcg PO DAILY 07/20/12 Reported Glucotrol Xl (Glipizide) 10 Mg Tab 10 Mg PO BID 03/18/12 Reported Allergies to Medications: Cephalosporins, radiological diagnostic agents, lactose, latex, penicillin, quinolones, sulfa. Social History: Patient is not currently employed; she feels safe in her home environment; she denies tobacco use. Physical Examination: Vital Signs: Date Time Temp Pulse Resp B/P Pulse Ox O2 Delivery O2 Flow Rate FiO2 04/22/17 23:34 80 20 99/46 92 04/22/17 22:16 86 18 112/55 92 Room Air 04/22/17 19:52 36.8 86 18 108/57 92 Room Air GENERAL: 66-year-old female in mild to moderate distress due to pain, chronically ill-appearing, afebrile and hemodynamically stable. NEUROLOGICAL: Awake, alert and oriented to person, place and time. Answering questions appropriately and following commands. Good hand eye coordination. Cranial nerves II through XII grossly intact. SKIN: Warm, dry and pink. HEENT: Atraumatic and normocephalic. PERRLA. Sclera white and conjunctiva pale. No drainage from naris. Oral cavity moist and pink. Pharynx is nonerythematous or edematous. Airway patent. Speech normal. No lymphadenopathy. Trachea midline. No jugular venous distention. BACK: No tenderness over the bony spine. No CVA tenderness. THORAX: Lungs sounds are clear to auscultation and equal bilaterally with symmetrical chest wall. No wheezing, rales or rhonchi. No crepitus, tenderness , subcutaneous air or deformities noted. HEART: Regular rate and rhythm. No gallops, rubs or murmurs are appreciated. ABDOMEN: Obese, soft and nontender. Positive bowel sounds in all quadrants. No guarding, rigidity or organomegaly. EXTREMITIES: Moves all extremities well on command and with purpose. All distal neurovascular statuses are intact and equal bilaterally. Bilateral dependent edema starting just inferior to the knees and extending down into the ankle and feet. Over the lateral aspect of the right lower leg patient has a 4- 5 cm clear blisterlike lesion. Draining clear fluid. Just superior to this area patient additionally has multiple small blisterlike lesions with mild erythema. I do not appreciate any warmth. The skin does not appear cellulitic. There is no lymphangitis. ED Course: Patient is assessed as noted above. Laboratory Testing: Test 04/22/17 20:50 Range/Units White Blood Count 6.04 4.8-10.8 K/uL Red Blood Count 3.23 4.2-5.4 M/uL Hemoglobin 10.4 12.0-16.0 g/dL Hematocrit 32.4 37-47 % Mean Corpuscular Volume 100.3 80-100 fL Mean Corpuscular Hemoglobin 32.2 25-34 pg Mean Corpuscular Hemoglobin Concent 32.1 32-36 g/dl Platelet Count 250 130-400 K/uL Mean Platelet Volume 8.6 7.4-10.4 fL Neutrophils (%) (Auto) 59.3 % Lymphocytes (%) (Auto) 25.8 % Monocytes (%) (Auto) 10.8 % Eosinophils (%) (Auto) 2.6 % Basophils (%) (Auto) 0.5 % Neutrophils # (Auto) 3.58 1.4-6.5 K/uL Lymphocytes # (Auto) 1.56 1.2-3.4 K/uL Monocytes # (Auto) 0.65 0.11-0.59 K/uL Eosinophils # (Auto) 0.16 0-0.5 K/uL Basophils # (Auto) 0.03 0-0.2 K/uL RDW Standard Deviation 69.5 36.4-46.3 fL RDW Coefficient of Variation 19.6 11.5-14.5 % Immature Granulocyte % (Auto) 1.0 % Immature Granulocyte # (Auto) 0.06 0.00-0.02 K/uL Sodium Level 145 136-145 mmol/L Potassium Level 4.3 3.5-5.1 mmol/L Chloride Level 109 98-107 mmol/L Carbon Dioxide Level 31 21-32 mmol/L Anion Gap 5.0 3-11 mmol/L Blood Urea Nitrogen 26 7-18 mg/dl Creatinine 1.50 0.60-1.20 mg/dl Estimated GFR () 41.4 Estimated GFR (Non- 35.7 BUN/Creatinine Ratio 17.3 10-20 Random Glucose 105 70-99 mg/dl Calcium Level 8.3 8.5-10.1 mg/dl Total Bilirubin 0.3 0.2-1 mg/dl Direct Bilirubin < 0.1 0-0.2 mg/dl Aspartate Amino Transf (AST/SGOT) 18 15-37 U/L Alanine Aminotransferase (ALT/SGPT) 15 12-78 U/L Alkaline Phosphatase 82 45-117 U/L Total Protein 6.0 6.4-8.2 gm/dl Albumin 2.9 3.4-5.0 gm/dl Patient was reassessed multiple times during her stay in the emergency department. I was able to express all the fluid out of the blisterlike lesion on her right leg. The area was then covered with a Kg bandage to prevent reaccumulation. Patient's case was reviewed with Dr. Alvarez; in apparently assessed the patient we agreed on diagnostic approach, treatment, disposition and plan. Patient and family members were educated about today's findings and instructed on her treatment plan; they verbalizes understanding and agreement with this plan. Clinical Impression: Lymphedema. Decision-Making: Initially my differential diagnosis I consider lymphedema, cellulitis, dependent edema and other causes. Disposition: Patient discharged home in stable condition accompanied by her daughter; prior to departure she was reassessed and continued reports she was pain and symptom-free. Plan: Patient and daughter were encouraged to continue current medications as prescribed. Patient and daughter were encouraged to follow-up with primary care provider for recheck. Patient and daughter were given information on local edema clinics and requested to follow-up with those clinics. Patient was encouraged to leave the Kg bandage in place for 2-3 days to see if swelling into the vesicle would be controlled. Patient and daughter were educated to return to the ED for worsening swelling, increasing redness/swelling, fevers, shortness of breath or any new/concerning symptoms.
[2017-06-29] MEDS ORDERED: WARF2.5T8 PO (12:08)
[2017-07-27] MEDS ORDERED: CYAN100073 OG (11:14)
[2017-07-27] MEDS ORDERED: BUME1TAB PO (11:14)
[2017-07-27] MEDS ORDERED: MRLP17X PO (11:14)
[2017-07-27] MEDS ORDERED: HYDR-3419 PO (11:14)
[2017-07-27] MEDS ORDERED: WARF-283 PO (11:18)
[2017-09-03] MEDS ORDERED: WARF2.5T8 PO (11:43)
== END 2017-04-22 23:35 | disposition home or self-care (01) ==
LOC: C.EDB 19:50 → C.EDC 23:35
DX: I89.0 Lymphedema, not elsewhere classified (principal); M79.89 Other specified soft tissue disorders; N18.9 Chronic kidney disease, unspecified; D64.9 Anemia, unspecified; E11.9 Type 2 diabetes mellitus without complications; I12.9 Hypertensive chronic kidney disease with stage 1 through stage 4 chronic kidney disease, or unspecified chronic kidney disease; E30.9 Disorder of puberty, unspecified; E03.9 Hypothyroidism, unspecified; E66.9 Obesity, unspecified; Z79.01 Long term (current) use of anticoagulants; Z79.4 Long term (current) use of insulin; Z79.82 Long term (current) use of aspirin; Z79.899 Other long term (current) drug therapy; Z86.711 Personal history of pulmonary embolism; Z86.718 Personal history of other venous thrombosis and embolism; Z87.19 Personal history of other diseases of the digestive system

== ENCOUNTER → 2017-07-10 | Outpatient (CLI) | payer OTHER ==
[~2017-07-10] MED LIST changes: -BIOT1CAP3 PO; +CYAN100073 OG; +METO2.5T PO; +MRLP17X PO; +OXGN; -POTA-74 PO; +WARF-283 PO; +WARF2.5T8 PO
[2017-07-10 13:38] LABS: BLOOD UREA NITROGEN 29 mg/dl (7-18); BUN/CREATININE RATIO 19.2 (10-20); CALCIUM 8.2 mg/dl (8.5-10.1); CARBON DIOXIDE 28 mmol/L (21-32); CHLORIDE 105 mmol/L (98-107); GLUCOSE 239 mg/dl (70-99); MAGNESIUM 1.7 mg/dl (1.8-2.4); POTASSIUM 4.4 mmol/L (3.5-5.1); SODIUM 140 mmol/L (136-145)
[2017-07-10 13:39] LABS: PHOSPHORUS 3.3 mg/dl (2.5-4.9)
== END | disposition home or self-care (01) ==
LOC: C.LABPBG 10:22
PROVIDERS: ATTEND Internal Medicine Nephrology
DX: N18.3 Chronic kidney disease, stage 3 (moderate) (principal)

== ENCOUNTER 2017-07-23 18:13 | Inpatient (IN) | payer OTHER ==
[~2017-07-23] VITALS: Ht 149.9 cm; Wt 127.0 kg
[~2017-07-23 18:13] MED LIST changes: -CYAN100073 OG; -METO2.5T PO; -MRLP17X PO; -OXGN; -WARF-283 PO
[2017-07-23] MEDS ORDERED: OXGN (19:03)
[2017-07-23] MEDS ORDERED: METO2.5T PO (19:03)
[2017-07-23] MEDS ORDERED: SODIUM CHLORIDE 0.9% 1000ML 1,000 ML IV STA (19:24)
--- NOTE | 2017-07-23 19:53 | DIAGNOSTIC IMAGING REPORT ---
SINGLE VIEW CHEST CLINICAL HISTORY: Dyspnea. FINDINGS: An AP, portable, upright chest radiograph is compared to study dated 12/03/2016 and correlated with chest CT dated 04/09/2016. The examination is degraded by portable technique, large body habitus, and patient rotation. The cardiomediastinal silhouette is top normal for projection. There is atherosclerotic calcification of the thoracic aorta. Bibasilar atelectasis is observed. Emphysematous change is similar to previous. There is no airspace consolidation or pleural effusion. No pneumothorax is seen. The skeletal structures are osteopenic. There are healed left-sided rib fractures. IMPRESSION: Emphysema and chronic changes as above. There is no acute cardiopulmonary abnormality. Electronically signed by: Dashawn Wilburn M.D. 07/23/2017 7:51 PM Dictated Date/Time: 07/23/2017 7:50 PM
[2017-07-23 21:26] LABS: ALT/SGPT 11 U/L (12-78); BLOOD UREA NITROGEN 68 mg/dl (7-18); BUN/CREATININE RATIO 24.3 (10-20); CALCIUM 8.2 mg/dl (8.5-10.1); CARBON DIOXIDE 26 mmol/L (21-32); CHLORIDE 103 mmol/L (98-107); GLUCOSE 129 mg/dl (70-99); MAGNESIUM 1.9 mg/dl (1.8-2.4); POTASSIUM 4.3 mmol/L (3.5-5.1); SODIUM 136 mmol/L (136-145)
[2017-07-23 21:31] LABS: ALKALINE PHOSPHATASE 88 U/L (45-117); AST/SGOT 30 U/L (15-37)
[2017-07-23 22:02] LABS: HEMATOCRIT 29.7 % (37-47); MEAN CELL VOLUME 99.3 fL (80-100); MEAN CORPUSCULAR HEMOGLOBIN 33.8 pg (25-34); MEAN PLATELET VOLUME 9.7 fL (7.4-10.4); PLATELET COUNT 207 K/uL (130-400); RED BLOOD COUNT 2.99 M/uL (4.2-5.4); WHITE BLOOD COUNT 5.49 K/uL (4.8-10.8)
[2017-07-23] MEDS ORDERED: SODIUM CHLORIDE 0.9% 500ML 500 ML IV STA (22:09)
[2017-07-23 22:13] LABS: ANISOCYTOSIS PRESENT; BASO % 0.5 %; BASO ABS # 0.03 K/uL (0-0.2); COMPLETE YES; EOS % 1.3 %; IG% 0.5 %; LYMPH % 15.8 %; LYMPH ABS # 0.87 K/uL (1.2-3.4); MONO % 5.1 %; NEUT % 76.8 %; OVALOCYTES 1+; PLT ESTIMATE NORMAL; TEAR DROP CELLS 1+
[2017-07-23 22:17] LABS: URINE APPEARANCE CLEAR (CLEAR); URINE COLOR DK YELLOW; URINE NITRITE NEG (NEG); URINE SPECIFIC GRAVITY 1.022 (1.000-1.030); UROBILINOGEN NEG (NEG); ZZUR CULT IF INDIC CLEAN CATCH NO
[2017-07-23 22:30] LABS: MANUAL MICROSCOPIC REQUIRED? NO; REVIEW REQ? YES; URINE BILIRUBIN NEG (NEG)
[2017-07-23] MEDS ORDERED: GLUCOSE 40% GEL 15 GM TUBE PO PRN (23:15)
[2017-07-23] MEDS ORDERED: ACETAMINOPHEN 325 MG TAB PO PRN (23:15)
[2017-07-23] MEDS ORDERED: GLUCAGON FOR INJ 1 MG VIAL SQ PRN (23:15)
[2017-07-23] MEDS ORDERED: HYDROCODONE/ACETAMOPHEN 5/325MG TAB PO PRN (23:15)
[2017-07-23] MEDS ORDERED: ALUMINUM/MAGNESIUM/SIMETH (MAALOX MAX) 30 ML UDC PO PRN (23:15)
[2017-07-23] MEDS ORDERED: DEXTROSE 50% 50 ML SYR IV PRN (23:15)
[2017-07-23] MEDS ORDERED: ONDANSETRON INJ 2 MG/ML 2 ML VIAL IV PRN (23:15)
[2017-07-23] MEDS ORDERED: SUMATRIPTAN SUCCINATE 50 MG TAB PO PRN (23:15)
[2017-07-23] MEDS ORDERED: GLUCOSE 10 TABS/TUBE PO PRN (23:15)
[2017-07-23] MEDS ORDERED: MAGNESIUM HYDROXIDE SUSP 30 ML UDC PO PRN (23:15)
[2017-07-23] MEDS ORDERED: NITROGLYCERIN 0.3 MG/1 TAB 100 TAB BTL UT PRN (23:15)
[2017-07-23] MEDS ORDERED: POLYETHYLENE (MIRALAX) 17 GM PACK PO PRN (23:15)
[2017-07-23] MEDS ORDERED: ALBUMIN HUMAN 25% 12.5 GM/50 ML VIAL IV STA (23:37)
[2017-07-24] VITALS (8 sets, daily range): BP systolic 116–137; BP diastolic 38–84; PULSE 78–89; TEMP 36.8–37.1; O2SAT 90–99; Ht 149.9 cm; Wt 127.0 kg
--- NOTE | 2017-07-24 00:06 | History and Physical ---
History & Physical Date & Time of Service: Jul 23, 2017 at 23:41 Chief Complaint: Edema Bed Sore, Sob Primary Care Physician: Sandra Scott D.O. History of Present Illness Source: patient The patient presents on referral from her PCP. She was brought in by EMS She notes having increased swelling for the past several months that has worsened in the past week. She also notes increased shortness of breath at all times. She notes she has O2 at home on 4 L at baseline but admits to being non- compliant. She has a mild productive cough. She feels wheezy at baseline. She was at her PCP today and complained of having increased vulvar edema. PCP referred her to the ED for further evaluation. She denies chest pain, palpitations or syncope. She notes previously being on Lasix but due to renal insufficiency, was changed over Bumex. She is also concerned for poor urine output The patient has a background of Crohn's Disease and always has diarrhea but this is unchanged. Her sister had also voiced concern that she has had low intake and appetite for the past month. The patient denies fevers, chills, nightsweats. Past Medical/Surgical History Medical Problems: (1) Asthma Status: Chronic (2) Colitis Status: Resolved (3) Crohn's disease Status: Chronic (4) Diabetes mellitus Status: Chronic (5) Hypertension Status: Chronic (6) Hypothyroidism Status: Chronic (7) Personal history of DVT (deep vein thrombosis) Status: Chronic Family History Cancer Diabetes mellitus Gallbladder disease Heart disease Hypertension Lung disease Social History Smoking Status: Never Smoker Smokeless Tobacco Use: No Alcohol Use: occasionally Drug Use: none Marital Status: single Housing status: lives with family Occupational Status: disabled Immunizations History of Influenza Vaccine: Yes History of Tetanus Vaccine?: Yes Tetanus Immunization Date: Jul 20, 2011 History of Pneumococcal: Yes Pneumococcal Date: Jul 20, 2009 History of Hepatitis B Vaccine: Yes Multi-Drug Resistant Organisms History of MDRO: No Allergies Coded Allergies: Ciprofloxacin (Unverified Allergy, Severe, RASH, 07/23/17) Penicillins (Verified Allergy, Intermediate, HIVES, 07/23/17) Sulfa Antibiotics (Verified Allergy, Intermediate, HIVES, 07/23/17) Lactose. (Verified Allergy, Mild, diarrhea, 07/23/17) Latex (Verified Allergy, Unknown, ., 07/23/17) Adhesives (Verified Adverse Reaction, Severe, "THEY EAT MY SKIN.", 07/23/17 ) Iodinated Diagnostic Agents (Verified Adverse Reaction, Intermediate, Vomiting, 07/23/17) Quinolones (Verified Adverse Reaction, Mild, YEAST INFECTION, 07/23/17) Ba Pepper (Verified Adverse Reaction, Unknown, GREEN PEPPER = MIGRAINE HEADACHE, 07/23/17) Cephalosporins (Verified Adverse Reaction, Unknown, 07/23/17) Home Medications Scheduled Adalimumab (Humira Pen), 40 MG INJ [id number] Albuterol (Ventolin Hfa), 2 PUFFS INH TID Amitriptyline Hcl (Amitriptyline Hcl), 50 MG PO HS Aspirin (Aspirin Ec), 81 MG PO DAILY Atorvastatin (Lipitor), 10 MG PO HS Benazepril (Lotensin), 20 MG PO DAILY Bumetanide (Bumex), 1.5 MG PO BID Carbidopa-Levodopa (Carbidopa/Levodopa Er), 25-100 MG PO QID Citalopram Hydrobromide (Celexa), 20 MG PO DAILY Entacapone (Comtan), 200 MG PO QID Ergocalciferol (Vitamin D 41486 Unit), 50,000 UNIT PO MONTHLY Ferrous Sulfate (Kp Ferrous Sulfate), 1 TAB PO DAILY Folic Acid (Folvite), 3 MG PO DAILY Gabapentin (Neurontin), 300 MG PO TID Glipizide Xl (Glucotrol Xl), 10 MG PO BID Home O2 Therapy (Oxygen), 4 LITERS NA PRN Insulin Aspart Penfill (Novolog Penfill), 0 SC ACHS Insulin Detemir (Levemir Pen), 10 UNIT SQ QAM Insulin Detemir (Levemir Flextouch), 10-14 UNITS SQ QPM Isosorbide Mononitrate Ext Rel (Imdur Ext Rel), 60 MG PO QAM Levetiractam (Levetiracetam), 1,000 MG PO HS Levothyroxine Sodium (Synthroid), 25 MCG PO DAILY Metformin Hcl (Glucophage), 1,000 MG PO BID Methotrexate Sodium (Methotrexate), 20 MG PO WK Metolazone (Zaroxolyn), 2.5 MG PO 2XWK Multivitamin (Multivitamin), 1 TAB PO DAILY Omeprazole (Omeprazole), 20 MG PO DAILY Ranolazine (Ranexa), 500 MG PO BID Rivastigmine Tartrate (Exelon), 4.6 MG TOP DAILY Warfarin Sod (Jantoven), 2.5 MG PO 2XWK Warfarin Sodium (Coumadin), 5 MG PO 5XWK Scheduled PRN Fluticasone-Salmeterol 115/21 Mcg (Advair Hfa 115/21 Mcg), 2 PUFF INH BID PRN for SOB/Wheezing Hydrocodon/Acetaminophen 5MG/300MG (Vicodin (5MG/300MG)), 1 TAB PO Q4H PRN for Pain Nitroglycerin (Nitrostat), 0.3 MG UT UD PRN Sumatriptan Succinate (Imitrex), 50 MG PO DAILY PRN for Headache Review of Systems A 10 point review of systems was negative unless stated above. Physical Exam Vital Signs Date Time Temp Pulse Resp B/P (MAP) Pulse Ox O2 Delivery O2 Flow Rate FiO2 07/23/17 22:08 77 16 119/47 96 Room Air 07/23/17 21:06 76 20 84/53 93 Nasal Cannula 3.0 07/23/17 19:06 75 07/23/17 18:50 92 Nasal Cannula 07/23/17 18:48 75 16 90/48 88 Room Air 07/23/17 18:43 96 Nasal Cannula 3.0 07/23/17 18:23 36.8 76 22 90/46 93 Room Air General Appearance: WD/WN, no apparent distress, + obese Head: normocephalic, atraumatic Eyes: normal inspection, EOMI ENT: hearing grossly normal, pharynx normal Neck: supple, no adenopathy, no JVD Respiratory/Chest: lungs clear, no respiratory distress, + pertinent finding ( bilateral expiratory wheezing) Cardiovascular: regular rate, rhythm, no gallop, no murmur Abdomen/GI: normal bowel sounds, non tender, soft, + pertinent finding (large ventral hernia; old surgery scars) Genitourinary - Female: + pertinent finding (vulvar edema) Back: no CVA tenderness, no muscle spasm, + pertinent finding (left buttock Decubitus ulcer) Extremities/Musculoskelatal: + pedal edema (1+ bilaterally), + pertinent finding (left wne ulcer) Neurologic/Psych: alert, normal mood/affect, oriented x 3 Skin: normal color, warm/dry, no rash Lymphatic: no adenopathy Diagnostics Laboratory Results Results Past 24 Hours Test 07/23/17 20:50 07/23/17 20:57 07/23/17 22:02 07/23/17 23:30 Range/Units White Blood Count 5.49 4.8-10.8 K/uL Red Blood Count 2.99 4.2-5.4 M/uL Hemoglobin 10.1 12.0-16.0 g/dL Hematocrit 29.7 37-47 % Mean Corpuscular Volume 99.3 80-100 fL Mean Corpuscular Hemoglobin 33.8 25-34 pg Mean Corpuscular Hemoglobin Concent 34.0 32-36 g/dl Platelet Count 207 130-400 K/uL Mean Platelet Volume 9.7 7.4-10.4 fL Neutrophils (%) (Auto) 76.8 % Lymphocytes (%) (Auto) 15.8 % Monocytes (%) (Auto) 5.1 % Eosinophils (%) (Auto) 1.3 % Basophils (%) (Auto) 0.5 % Neutrophils # (Auto) 4.21 1.4-6.5 K/uL Lymphocytes # (Auto) 0.87 1.2-3.4 K/uL Monocytes # (Auto) 0.28 0.11-0.59 K/uL Eosinophils # (Auto) 0.07 0-0.5 K/uL Basophils # (Auto) 0.03 0-0.2 K/uL RDW Standard Deviation 70.9 36.4-46.3 fL RDW Coefficient of Variation 20.2 11.5-14.5 % Immature Granulocyte % (Auto) 0.5 % Immature Granulocyte # (Auto) 0.03 0.00-0.02 K/uL Nucleated RBC Absolute Count (auto) 0.02 0-0 K/uL Nucleated Red Blood Cells % 0.4 % Platelet Estimate NORMAL Anisocytosis PRESENT Tear Drop Cells 1+ Ovalocytes 1+ Sodium Level 136 136-145 mmol/L Potassium Level 4.3 3.5-5.1 mmol/L Chloride Level 103 98-107 mmol/L Carbon Dioxide Level 26 21-32 mmol/L Anion Gap 7.0 3-11 mmol/L Blood Urea Nitrogen 68 7-18 mg/dl Creatinine 2.80 0.60-1.20 mg/dl Estimated GFR () 19.3 Estimated GFR (Non- 16.7 BUN/Creatinine Ratio 24.3 10-20 Random Glucose 129 70-99 mg/dl Calcium Level 8.2 8.5-10.1 mg/dl Magnesium Level 1.9 1.8-2.4 mg/dl Total Bilirubin 0.4 0.2-1 mg/dl Aspartate Amino Transf (AST/SGOT) 30 15-37 U/L Alanine Aminotransferase (ALT/SGPT) 11 12-78 U/L Alkaline Phosphatase 88 45-117 U/L Pro-B-Type Natriuretic Peptide 247 0-900 pg/ml Total Protein 6.0 6.4-8.2 gm/dl Albumin 3.0 3.4-5.0 gm/dl Globulin 3.0 2.5-4.0 gm/dl Albumin/Globulin Ratio 1.0 0.9-2 Bedside Lactic Acid Venous 2.46 0.90-1.70 mmol/L Urine Color DK YELLOW Urine Appearance CLEAR CLEAR Urine pH 5.0 4.5-7.5 Urine Specific [place] 1.022 1.000-1.030 Urine Protein NEG NEG Urine Glucose (UA) NEG NEG Urine Ketones TRACE NEG Urine Occult Blood NEG NEG Urine Nitrite NEG NEG Urine Bilirubin NEG NEG Urine Urobilinogen NEG NEG Urine Leukocyte Esterase TRACE NEG Urine WBC (Auto) 1-5 0-5 /hpf Urine RBC (Auto) 0-4 0-4 /hpf Urine Hyaline Casts (Auto) 10-30 0-5 /lpf Urine Epithelial Cells (Auto) 10-20 0-5 /lpf Urine Bacteria (Auto) NEG NEG Urine Pathogenic Casts 0 /lpf Microbiology Results 07/23/17 Blood Culture, Received Pending 07/23/17 Blood Culture, Received Pending 07/23/17 Urine Culture, Carolin Batch Pending Diagnostic Radiology [~ rep ct add3]] SINGLE VIEW CHEST CLINICAL HISTORY: Dyspnea. FINDINGS: An AP, portable, upright chest radiograph is compared to study dated 12/03/2016 and correlated with chest CT dated 04/09/2016. The examination is degraded by portable technique, large body habitus, and patient rotation. The cardiomediastinal silhouette is top normal for projection. There is atherosclerotic calcification of the thoracic aorta. Bibasilar atelectasis is observed. Emphysematous change is similar to previous. There is no airspace consolidation or pleural effusion. No pneumothorax is seen. The skeletal structures are osteopenic. There are healed left-sided rib fractures. IMPRESSION: Emphysema and chronic changes as above. There is no acute cardiopulmonary abnormality. Electronically signed by: Dashawn Wilburn M.D. 07/23/2017 7:51 PM Dictated Date/Time: 07/23/2017 7:50 PM Impression Assessment and Plan 67 year old female presenting with chronic lower extremity swelling. She also has an WILBERT suggestive of pre-renal etiology The patient is likely to be a combination of intravascular depletion with interstitial overload Our plan for her is as follow: Acute Kidney Injury - Cr. 2.8; baseline 1.4-1.5 - BUN: Cr > 20 - In the setting of poor po intake and output suggests pre-renal etiology - NSS + 20 KCl @ 100 ml/hr Lower Extremity Edema - Patient is interstitially overloaded - Continue Bumex - Continue Metolazone - Echocardiogram was done in 2015 showing hyperdynamic EF 65 - 70% with grade 2 diastolic dysfunction - Will administer 25 g Albumin to help drawn fluid from interstitium into intravascular space Type 2 Diabetes - Hold Home meds - Insulin SSI - AC/HS Accu-checks Sacral Decubitus Ulcer and Left Wen Ulcer - Wound care consult Hypothyroidism - Continue Levothyroxine Depression - Continue Amitriptyline - Continue Citalopram Crohn's Disease - Continue Methotrexate - Humira placed on hold; patient takes every 2 weeks Asthma - Continue Albuterol - Duoneb QID Coronary Artery Disease - [place]ine ASA, Atorvastatin, Imdur, Ranexa DVT Prophylaxis - SCD Knee, ANTHONY Hose - Patient is on Coumadin for history of DVT If subtherapeutic INR; can add on UFH Code Status - Level I Full Code Disposition - Med/Surg - OT and PT evaluations Attending Addendum: I have physically seen and examined this patient, have supervised the medical residents activities, and agree with the H&P as noted above with the following exceptions as noted. The patient denies chest pain, palpitations, shortness of breath, vision change , hearing change, sore throat, fevers, chills, sweats, weight change, fatigue, nausea, vomiting, constipation, abdominal pain, pelvic pain, blood in urine or stool, lightheadedness, dizziness, headache, memory loss, rash, abnormal bruising or bleeding, imbalance, focal weakness, numbness or tingling in arms or legs, generalized arthralgias or myalgias, back or neck pain, night sweats, or allergy symptoms. The review of systems is otherwise negative other than for that already noted above, and at least 10 systems have been reviewed. The patient is awake, well-developed and adequately nourished, alert and oriented 3, normocephalic and atraumatic, lying in bed and in no acute distress. HEENT--PERRL, EOMI, mucous membranes and oropharynx dry. Neck--supple, no JVD or bruits, thyroid normal, trachea midline, no adenopathy. Heart--normal S1 and S2, no extra beats, no murmurs, rubs or gallops. Lungs--coarse breath sounds bilaterally with wheezing, no respiratory distress, no accessory muscle use. Abdomen--normal bowel sounds and soft, nontender and nondistended, large ventral hernia, no organomegaly and obese. Extremities--no cyanosis, clubbing or edema. There are good distal pulses b/l. Dermatologic--left buttock stage II decubitus, and bilateral perineal ulcerations with surrounding erythema and excoriation. Neurologic--cranial nerves II through XII grossly intact, motor and sensory examination normal. Rheumatologic--normal range of motion, nontender, muscles and joints. Psychiatric--normal affect. Assessment and Plan: 1. Acute kidney injury/l edema--baseline creatinine is 1.4 to 1.5, but was 2.[address] on normal saline at 100 mils per hour. Repeat BMP and magnesium in the a.m. Hold metolazone and Bumex. Give albumin 25 g IV. 2. Diabetes mellitus--hold home medications. Place on Accu-Cheks before meals and at bedtime with NovoLog coverage per scale. 3. Decubitus ulcers left buttock and perineal areas--consult wound care. Barrier protection for now. Level of Care Med/Surg Advanced Directives Existing Advance Directive: No Existing Living Will: No Existing Power of Bond Clerk: No Resuscitation Status FULL RESUSCITATION VTE Prophylaxis VTE Risk Assessment Done? Y/N: Yes Risk Level: Moderate Given or contraindicated: Warfarin (Coumadin)
[2017-07-24 01:11] LABS: INR 1.5 (0.9-1.1); PROTHROMBIN TIME (PATIENT) 16.6 SECONDS (9.0-12.0)
[2017-07-24] MEDS ORDERED: NURSING DECISION MEDICATION ORDER SCH (02:00)
[2017-07-24] MEDS ORDERED: ALBUMIN HUMAN 25% 12.5 GM/50 ML VIAL IV STA (02:14)
[2017-07-24] MEDS ORDERED: MICONAZOLE NITRATE POWDER 43 GM EXT PRN (02:15)
[2017-07-24] MEDS: SODIUM CHLORIDE 0.9% 1000ML 1,000 ML IV SCH ×3 (02:27→21:59)
--- NOTE | 2017-07-24 03:13 | EMERGENCY ROOM VISIT NOTE ---
History First contact with patient: 18:53 Chief Complaint: ILLNESS Stated Complaint: ACUTE KIDNEY INJURY, WEAKNESS History of Present Illness The patient is a 67 year old female who presents to the Emergency Room via private vehicle with complaints of "edema, bedsore, shortness of breath". The patient states that she has had worsening shortness of breath and dyspnea on exertion, especially in the past 2 days, that has required supplemental oxygen via nasal cannula. Patient also complains of night sweats, worsening nausea, fatigue. Patient also notes swelling to the legs which has been the worst it is ever been, as well as swelling to the labia majora times the past few months. The patient has significant past medical history is to include multiple MIs, diabetes, Crohn's, Parkinson's, asthma. Patient is also on Coumadin, baby aspirin daily, as well as is prescribed nitroglycerin. Review of Systems A complete 10-point Review of Systems was discussed with the patient, with pertinent positives and negatives listed in the History of Present Illness. All remaining Review of Systems questions can be considered negative unless otherwise specified. Past Medical/Surgical History Medical Problems: (1) Acute kidney injury (2) Anemia (3) Asthma (4) Chest pain (5) Colitis (6) Crohn's disease (7) Diabetes mellitus (8) GI bleeding (9) Hypertension (10) Hypothyroidism (11) Lower GI bleed (12) Personal history of DVT (deep vein thrombosis) (13) Pulmonary embolism (14) Weakness Family History Cancer Diabetes mellitus Gallbladder disease Heart disease Hypertension Lung disease Social History Smoking Status: Never Smoker Smokeless Tobacco Use: No Alcohol Use: none Drug Use: none Marital Status: single Housing Status: lives alone Occupation Status: disabled Current/Historical Medications Scheduled Adalimumab (Humira Pen), 40 MG INJ [id number] Albuterol (Ventolin Hfa), 2 PUFFS INH TID Amitriptyline Hcl (Amitriptyline Hcl), 50 MG PO HS Aspirin (Aspirin Ec), 81 MG PO DAILY Atorvastatin (Lipitor), 10 MG PO HS Benazepril (Lotensin), 20 MG PO DAILY Bumetanide (Bumex), 1.5 MG PO BID Carbidopa-Levodopa (Carbidopa/Levodopa Er), 25-100 MG PO QID Citalopram Hydrobromide (Celexa), 20 MG PO DAILY Entacapone (Comtan), 200 MG PO QID Ergocalciferol (Vitamin D 94784 Unit), 50,000 UNIT PO MONTHLY Ferrous Sulfate (Kp Ferrous Sulfate), 1 TAB PO DAILY Folic Acid (Folvite), 3 MG PO DAILY Gabapentin (Neurontin), 300 MG PO TID Glipizide Xl (Glucotrol Xl), 10 MG PO BID Home O2 Therapy (Oxygen), 4 LITERS NA PRN Insulin Aspart Penfill (Novolog Penfill), 0 SC ACHS Insulin Detemir (Levemir Pen), 10 UNIT SQ QAM Insulin Detemir (Levemir Flextouch), 10-14 UNITS SQ QPM Isosorbide Mononitrate Ext Rel (Imdur Ext Rel), 60 MG PO QAM Levetiractam (Levetiracetam), 1,000 MG PO HS Levothyroxine Sodium (Synthroid), 25 MCG PO DAILY Metformin Hcl (Glucophage), 1,000 MG PO BID Methotrexate Sodium (Methotrexate), 20 MG PO WK Metolazone (Zaroxolyn), 2.5 MG PO 2XWK Multivitamin (Multivitamin), 1 TAB PO DAILY Omeprazole (Omeprazole), 20 MG PO DAILY Ranolazine (Ranexa), 500 MG PO BID Rivastigmine Tartrate (Exelon), 4.6 MG TOP DAILY Warfarin Sod (Jantoven), 2.5 MG PO 2XWK Warfarin Sodium (Coumadin), 5 MG PO 5XWK Scheduled PRN Fluticasone-Salmeterol 115/21 Mcg (Advair Hfa 115/21 Mcg), 2 PUFF INH BID PRN for SOB/Wheezing Hydrocodon/Acetaminophen 5MG/300MG (Vicodin (5MG/300MG)), 1 TAB PO Q4H PRN for Pain Nitroglycerin (Nitrostat), 0.3 MG UT UD PRN Sumatriptan Succinate (Imitrex), 50 MG PO DAILY PRN for Headache Physical Exam Vital Signs Date Time Temp Pulse Resp B/P (MAP) Pulse Ox O2 Delivery O2 Flow Rate FiO2 07/23/17 23:15 82 18 95 07/23/17 23:02 117/71 07/23/17 23:00 77 24 98 07/23/17 22:08 77 16 119/47 96 Room Air 07/23/17 21:06 76 20 84/53 93 Nasal Cannula 3.0 07/23/17 19:06 75 07/23/17 18:50 92 Nasal Cannula 07/23/17 18:48 75 16 90/48 88 Room Air 07/23/17 18:43 96 Nasal Cannula 3.0 07/23/17 18:23 36.8 76 22 90/46 93 Room Air Pain Rating (0-10): 5.0 Physical Exam VITAL SIGNS - Vital signs and nursing notes were reviewed. Afebrile, hypotensive at 90/46, non-tachycardic and is saturating on room air 93%. GENERAL -67-year-old female appearing her stated age who is in no acute distress. Communicates well with provider and answers questions appropriately. SKIN - please refer listed below. No petechial rashes. HEAD - NC/AT. EYES - Sclera anicteric. EARS - No deformities of external structures noted on gross examination bilaterally. NOSE - Midline and without cyanosis. No epistaxis or purulent drainage noted. MOUTH/OROPHARYNX - Without perioral cyanosis. Buccal mucosa pink and moist and without leukoplakia. LUNGS - Chest wall symmetric without accessory muscle use, intercostals retractions, or central cyanosis. Normal vesicular breath sounds CTA B/L. No wheezes, rales, or rhonchi appreciated. CARDIAC - RRR with S1/S2. No murmur, rubs, or gallops appreciated. EXTREMITIES - there is severe pitting edema of the lower extremities, with ruptured blister on the left anterior duarte. +5/5 strength noted in UE/LE bilaterally. NEUROLOGIC - Cranial nerves II through XII grossly intact. PSYCH - A&O.Pt is very pleasant and interacts well with examiner. Under the director statistical programming/supervision of nurse and female physician labia majora are purple in color, and severely engorged. Medical Decision & Procedures ER Provider Diagnostic Interpretation: SINGLE VIEW CHEST CLINICAL HISTORY: Dyspnea. FINDINGS: An AP, portable, upright chest radiograph is compared to study dated 12/03/2016 and correlated with chest CT dated 04/09/2016. The examination is degraded by portable technique, large body habitus, and patient rotation. The cardiomediastinal silhouette is top normal for projection. There is atherosclerotic calcification of the thoracic aorta. Bibasilar atelectasis is observed. Emphysematous change is similar to previous. There is no airspace consolidation or pleural effusion. No pneumothorax is seen. The skeletal structures are osteopenic. There are healed left-sided rib fractures. IMPRESSION: Emphysema and chronic changes as above. There is no acute cardiopulmonary abnormality. Electronically signed by: Dashawn Wilburn M.D. 07/23/2017 7:51 PM Dictated Date/Time: 07/23/2017 7:50 PM Laboratory Results 07/23/17 20:50 Red Blood Count 2.99, Mean Corpuscular Volume 99.3, Mean Corpuscular Hemoglobin 33.8, Mean Corpuscular Hemoglobin Concent 34.0, Mean Platelet Volume 9.7, Neutrophils (%) (Auto) 76.8, Lymphocytes (%) (Auto) 15.8, Monocytes (%) (Auto) 5.1, Eosinophils (%) (Auto) 1.3, Basophils (%) (Auto) 0.5, Neutrophils # (Auto) 4.21, Lymphocytes # (Auto) 0.87, Monocytes # (Auto) 0.28, Eosinophils # (Auto) 0.07, Basophils # (Auto) 0.03 07/23/17 20:50 Test 07/23/17 20:50 07/23/17 20:57 07/23/17 22:02 White Blood Count 5.49 K/uL (4.8-10.8) Red Blood Count 2.99 M/uL (4.2-5.4) Hemoglobin 10.1 g/dL (12.0-16.0) Hematocrit 29.7 % (37-47) Mean Corpuscular Volume 99.3 fL (80-100) Mean Corpuscular Hemoglobin 33.8 pg (25-34) Mean Corpuscular Hemoglobin Concent 34.0 g/dl (32-36) Platelet Count 207 K/uL (130-400) Mean Platelet Volume 9.7 fL (7.4-10.4) Neutrophils (%) (Auto) 76.8 % Lymphocytes (%) (Auto) 15.8 % Monocytes (%) (Auto) 5.1 % Eosinophils (%) (Auto) 1.3 % Basophils (%) (Auto) 0.5 % Neutrophils # (Auto) 4.21 K/uL (1.4-6.5) Lymphocytes # (Auto) 0.87 K/uL (1.2-3.4) Monocytes # (Auto) 0.28 K/uL (0.11-0.59) Eosinophils # (Auto) 0.07 K/uL (0-0.5) Basophils # (Auto) 0.03 K/uL (0-0.2) RDW Standard Deviation 70.9 fL (36.4-46.3) RDW Coefficient of Variation 20.2 % (11.5-14.5) Immature Granulocyte % (Auto) 0.5 % Immature Granulocyte # (Auto) 0.03 K/uL (0.00-0.02) Nucleated RBC Absolute Count (auto) 0.02 K/uL (0-0) Nucleated Red Blood Cells % 0.4 % Platelet Estimate NORMAL Anisocytosis PRESENT Tear Drop Cells 1+ Ovalocytes 1+ Anion Gap 7.0 mmol/L (3-11) Estimated GFR () 19.3 Estimated GFR (Non- 16.7 BUN/Creatinine Ratio 24.3 (10-20) Calcium Level 8.2 mg/dl (8.5-10.1) Magnesium Level 1.9 mg/dl (1.8-2.4) Total Bilirubin 0.4 mg/dl (0.2-1) Aspartate Amino Transf (AST/SGOT) 30 U/L (15-37) Alanine Aminotransferase (ALT/SGPT) 11 U/L (12-78) Alkaline Phosphatase 88 U/L (45-117) Pro-B-Type Natriuretic Peptide 247 pg/ml (0-900) Total Protein 6.0 gm/dl (6.4-8.2) Albumin 3.0 gm/dl (3.4-5.0) Globulin 3.0 gm/dl (2.5-4.0) Albumin/Globulin Ratio 1.0 (0.9-2) Bedside Lactic Acid Venous 2.46 mmol/L (0.90-1.70) Urine Color DK YELLOW Urine Appearance CLEAR (CLEAR) Urine pH 5.0 (4.5-7.5) Urine Specific [place] 1.022 (1.000-1.030) Urine Protein NEG (NEG) Urine Glucose (UA) NEG (NEG) Urine Ketones TRACE (NEG) Urine Occult Blood NEG (NEG) Urine Nitrite NEG (NEG) Urine Bilirubin NEG (NEG) Urine Urobilinogen NEG (NEG) Urine Leukocyte Esterase TRACE (NEG) Urine WBC (Auto) 1-5 /hpf (0-5) Urine RBC (Auto) 0-4 /hpf (0-4) Urine Hyaline Casts (Auto) 10-30 /lpf (0-5) Urine Epithelial Cells (Auto) 10-20 /lpf (0-5) Urine Bacteria (Auto) NEG (NEG) Urine Pathogenic Casts /lpf (0) Medications Administered Medications (Trade) Dose Ordered Sig/Mariella Route Start Time Stop Time Status Last Admin Dose Admin Sodium Chloride 1,000 ml @ 999 mls/hr Q1H1M STAT IV 07/23/17 19:24 07/23/17 20:24 DC 07/23/17 19:24 999 MLS/HR Sodium Chloride 500 ml @ 999 mls/hr Q31M STAT IV 07/23/17 22:09 07/23/17 22:39 DC 07/23/17 22:09 999 MLS/HR Medical Decision Patient was seen and evaluated as above. After obtaining a thorough history and physical examination IV access was initiated, and the above workup was performed. Patient was asked to less today with worsening dyspnea on exertion, and significant comorbidities. Patient also has severely enlarged edematous legs, as well as labia majora. There is also a sacral ulcer on the right gluteal region. Chest x-ray negative for acute process. EKG reads normal sinus rhythm, and compared to previous the right bundle-branch block and left fascicular block are no longer present. No leukocytosis. Hemoglobin is 10.1. INR is 1.5. Creatinine is high at 2.8, this has significantly increased. Lactic is high at 2.46, I suspect this is likely secondary to poor kidney function and dehydration. Calcium is low at 8.2. BNP is 247. Urine reveals trace ketones, trace leukocyte esterase, 10-20 hyalin casts, and 10-20 epithelial cells. POC troponin is reportedly negative by the RN. At this time I do believe that further evaluation and management and inpatient setting is required secondary to her acute kidney injury as well as her weakness/shortness of breath. Please refer to further documentation regarding her stay. Patient was also seen by the attending physician. In evaluation treatment this patient following differential diagnoses were entertained: CT, PE, CVA, CHF, among others. Impression Primary Impression: Acute kidney injury Additional Impressions: Anemia SOB (shortness of breath) Departure Information Dispostion Admitted as an inpatient Condition FAIR Referrals Sandra Scott D.O. (PCP) Forms WORK / SCHOOL INSTRUCTIONS, HOME CARE DOCUMENTATION FORM, IMPORTANT VISIT INFORMATION Patient Instructions [facility] Problem Qualifiers
[2017-07-24] MEDS: LEVOTHYROXINE 25 MCG TAB PO SCH (06:19)
[2017-07-24 06:27] LABS: HEMATOCRIT 30.5 % (37-47); MEAN CELL VOLUME 100.7 fL (80-100); MEAN CORPUSCULAR HEMOGLOBIN 31.7 pg (25-34); MEAN CORPUSCULAR HGB CONC 31.5 g/dl (32-36); MEAN PLATELET VOLUME 8.7 fL (7.4-10.4); PLATELET COUNT 166 K/uL (130-400); RED BLOOD COUNT 3.03 M/uL (4.2-5.4); WHITE BLOOD COUNT 3.68 K/uL (4.8-10.8)
[2017-07-24 06:32] LABS: INR 1.6 (0.9-1.1)
[2017-07-24] MEDS: ALBUT/IPRATROP 3MG/0.5MG NEB 3 ML VIAL INH SCH ×4 (07:01→20:00)
[2017-07-24 07:02] LABS: BUN/CREATININE RATIO 26.8 (10-20); CALCIUM 8.1 mg/dl (8.5-10.1); CREATININE 2.2 mg/dl (0.60-1.20); POTASSIUM 3.6 mmol/L (3.5-5.1)
[2017-07-24] MEDS: GABAPENTIN 300 MG CAP PO SCH ×3 (07:55→21:22)
[2017-07-24] MEDS: CARBIDOPA/LEVODOPA 50/200MG EXT REL TAB PO SCH ×4 (07:57→21:23)
[2017-07-24] MEDS: ASPIRIN 81 MG ECTAB PO SCH (07:57)
[2017-07-24] MEDS: CITALOPRAM 20 MG TAB PO SCH (07:58)
[2017-07-24] MEDS: FERROUS SULFATE 325 MG TAB PO SCH (07:58)
[2017-07-24] MEDS: RANOLAZINE 500 MG ER TAB PO SCH ×2 (07:58→21:26)
[2017-07-24] MEDS: PANTOprazole SOD 40 MG TAB PO SCH (07:58)
[2017-07-24] MEDS: ENTACAPONE 200 MG TAB PO SCH ×4 (07:59→21:24)
[2017-07-24] MEDS ORDERED: METHOTREXATE 2.5 MG TAB PO SCH (08:00)
[2017-07-24] MEDS ORDERED: ENALAPRIL MALEATE 10 MG TAB PO SCH (08:00)
[2017-07-24] MEDS ORDERED: PNEUMOCOCCAL ADMINISTRATION CHARGE ONE (08:00)
[2017-07-24] MEDS ORDERED: PNEUMOCOCCAL POLYSACCHARIDES 25 MCG/0.5 ML VIAL/SYR IM. ONE (08:00)
[2017-07-24] MEDS: EXELON PATCH~ORDER AWAITING ACTION SCH ×2 (08:00)
[2017-07-24] MEDS ORDERED: METOLAZONE 2.5 MG TAB PO SCH (08:00)
[2017-07-24] MEDS: ADVAIR~ORDER AWAITING ACTION SCH (08:00)
[2017-07-24] MEDS: MULTIVITAMIN TAB PO SCH (08:00)
[2017-07-24] MEDS: ISOSORBIDE MONONITRATE 60 MG TABCR PO SCH (08:02)
[2017-07-24] MEDS: ALBUTEROL HFA 8 GM INHALER INH SCH ×3 (08:03→21:22)
[2017-07-24] MEDS: INSULIN ASPART 100 UNITS/ML 3 ML PEN SC SCH ×4 (08:41→21:31)
[2017-07-24] MEDS ORDERED: BUMETANIDE 1 MG TAB PO SCH (09:00)
[2017-07-24] MEDS ORDERED: WARFARIN SOD 2.5 MG TAB PO SCH (16:00)
[2017-07-24] MEDS: ATORVASTATIN 10 MG TAB PO SCH (21:23)
[2017-07-24] MEDS: BOOST BREEZE NUTRITION DRINK 1 BOX PO SCH (21:24)
[2017-07-24] MEDS: LEVETIRACETAM 500 MG TAB PO SCH (21:25)
[2017-07-24] MEDS: AMITRIPTYLINE HCL 25 MG TAB PO SCH (21:25)
[2017-07-25] MEDS: LEVOTHYROXINE 25 MCG TAB PO SCH ×2 (06:44→08:31)
[2017-07-25 07:38] VITALS: BP 136/83; PULSE 84; TEMP 37; O2SAT 94
[2017-07-25] MEDS: ALBUT/IPRATROP 3MG/0.5MG NEB 3 ML VIAL INH SCH ×5 (07:49→19:49)
[2017-07-25] MEDS: EXELON PATCH~ORDER AWAITING ACTION SCH ×4 (08:00→23:01)
[2017-07-25] MEDS: BOOST BREEZE NUTRITION DRINK 1 BOX PO SCH ×2 (08:00→17:00)
[2017-07-25] MEDS: ADVAIR~ORDER AWAITING ACTION SCH ×4 (08:00→23:01)
[2017-07-25] MEDS: MULTIVITAMIN TAB PO SCH (08:00)
[2017-07-25] MEDS: ALBUTEROL HFA 8 GM INHALER INH SCH ×3 (08:31→21:14)
[2017-07-25] MEDS: PANTOprazole SOD 40 MG TAB PO SCH (08:32)
[2017-07-25] MEDS: ENTACAPONE 200 MG TAB PO SCH ×4 (08:32→21:16)
[2017-07-25] MEDS: GABAPENTIN 300 MG CAP PO SCH ×3 (08:33→22:16)
[2017-07-25] MEDS: ISOSORBIDE MONONITRATE 60 MG TABCR PO SCH (08:33)
[2017-07-25] MEDS: CITALOPRAM 20 MG TAB PO SCH (08:33)
[2017-07-25] MEDS: ASPIRIN 81 MG ECTAB PO SCH (08:33)
[2017-07-25] MEDS: CARBIDOPA/LEVODOPA 50/200MG EXT REL TAB PO SCH ×4 (08:33→21:15)
[2017-07-25] MEDS: RANOLAZINE 500 MG ER TAB PO SCH ×2 (08:33→21:17)
[2017-07-25] MEDS: FERROUS SULFATE 325 MG TAB PO SCH (08:33)
[2017-07-25] MEDS: SODIUM CHLORIDE 0.9% 1000ML 1,000 ML IV SCH ×2 (08:37→17:09)
[2017-07-25] MEDS: INSULIN ASPART 100 UNITS/ML 3 ML PEN SC SCH ×4 (08:37→21:20)
[2017-07-25 11:23] VITALS: PULSE 80; O2SAT 95
--- NOTE | 2017-07-25 13:37 | Nephrology Consultation ---
Nephrology Consultation Date & Providers Date of Consultation: Jul 25, 2017. Primary Care Provider: Sandra Scott D.O. Referring Provider: Reason for Consultation Evaluation management for acute kidney injury with history of chronic kidney disease and chronic LE edema requiring high dose of diuretics. History of Present Illness Mattie Is a 67-year-old female with them complex past medical history including chronic kidney disease, hypertension, diabetes, CHF with diastolic dysfunction coronary artery disease requiring high dose of diuretics use admitted to the hospital with worsening lower extremity edema, shortness of breath and acute kidney injury. Nephrologic consult was requested for management of acute kidney injury with history of CKD and adjustment of diuretics. Electronic medical records including labs and imaging were reviewed in detail during patient's visit. She has diastolic dysfunction and chronic lower extremity edema and has been on diuretics. Over time her diuretics needed to be adjusted closely as she easily gets intravascularly volume depleted. She also has hypoalbuminemia which she also complicates the lower extremity edema as well. the recently she was on Bumex 2 milligram twice a day and metolazone 2.5 milligram twice a week however it was unclear whether she has been taking the diuretics appropriately. She presented to her primary care physician saw office with the complaint of above lower extremity edema, and shortness of breath. She was sent to the emergency room for further evaluation. On admission she was found to have acute kidney injury and started on IV fluid and her diuretics has been on hold. Chest x-ray on admission did not show any significant pulmonary congestion. 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 She has history of recurrent acute kidney injury and baseline creatinine is quite variable. Urinalysis was negative for proteinuria hematuria. Prior renal imaging was otherwise unremarkable. Allergies Coded Allergies: Ciprofloxacin (Unverified Allergy, Severe, RASH, 07/23/17) Penicillins (Verified Allergy, Intermediate, HIVES, 07/23/17) Sulfa Antibiotics (Verified Allergy, Intermediate, HIVES, 07/23/17) Latex (Verified Allergy, Unknown, ., 07/23/17) Adhesives (Verified Adverse Reaction, Severe, "THEY EAT MY SKIN.", 07/23/17 ) Iodinated Diagnostic Agents (Verified Adverse Reaction, Intermediate, Vomiting, 07/23/17) Quinolones (Verified Adverse Reaction, Mild, YEAST INFECTION, 07/23/17) Ba Pepper (Verified Adverse Reaction, Unknown, GREEN PEPPER = MIGRAINE HEADACHE, 07/23/17) Cephalosporins (Verified Adverse Reaction, Unknown, 07/23/17) Inpatient Medications Current Inpatient Medications Medications (Trade) Dose Ordered Sig/Mariella Route Start Time Stop Time Status Last Admin Dose Admin Acetaminophen (Tylenol Tab) 650 mg Q4H PRN PO 07/23/17 23:15 08/22/17 23:14 Al Hydrox/Mg Hydrox/Simethicone (Maalox Max Susp) 15 ml Q4H PRN PO 07/23/17 23:15 08/22/17 23:14 Magnesium Hydroxide (Milk Of Magnesia Susp) 30 ml Q6H PRN PO 07/23/17 23:15 08/22/17 23:14 Polyethylene (Miralax Powder Packet) 17 gm DAILY PRN PO 07/23/17 23:15 08/22/17 23:14 Ondansetron HCl (Zofran Inj) 4 mg Q6H PRN IV 07/23/17 23:15 08/22/17 23:14 Insulin Aspart (novoLOG ASPART) SLIDING SCALE If C... ACHS SC 07/24/17 06:30 08/23/17 06:59 07/25/17 08:37 7 UNITS Glucose (Glucose 40% Gel) 15-30 GRAMS 15 GRAMS... UD PRN PO 07/23/17 23:15 08/22/17 23:14 Glucose (Glucose Chew Tab) 4-8 Tablets 4 Tabl... UD PRN PO 07/23/17 23:15 08/22/17 23:14 Dextrose (Dextrose 50% 50ML Syringe) 25-50ML OF 50% DW IV FOR... UD PRN IV 07/23/17 23:15 08/22/17 23:14 Glucagon (Glucagon Inj) 1 mg UD PRN SQ 07/23/17 23:15 08/22/17 23:14 Albuterol (Ventolin Hfa Inhaler) 2 puffs TID INH 07/24/17 08:00 08/23/17 08:59 07/25/17 08:31 2 PUFFS Amitriptyline HCl (Elavil Tab) 50 mg HS PO 07/24/17 21:00 08/23/17 20:59 07/24/17 21:25 50 MG Aspirin (Ecotrin Tab) 81 mg DAILY PO 07/24/17 08:00 08/23/17 08:59 07/25/17 08:33 81 MG Atorvastatin Calcium (Lipitor Tab) 10 mg HS PO 07/24/17 21:00 08/23/17 20:59 07/24/17 21:23 10 MG Carbidopa/Levodopa (Sinemet Cr 50/ 200MG Tab) 1 tab QID PO 07/24/17 08:00 08/23/17 08:59 07/25/17 08:33 1 TAB Citalopram Hydrobromide (celeXA TAB) 20 mg DAILY PO 07/24/17 08:00 08/23/17 08:59 07/25/17 08:33 20 MG Ergocalciferol (Vitamin D Cap) 50,000 interunit Q30D PO 08/14/17 15:00 09/13/17 14:59 Folic Acid (Folvite Tab) 3 mg DAILY PO 07/24/17 08:00 08/23/17 08:59 07/25/17 08:32 3 MG Gabapentin (Neurontin Cap) 300 mg TID PO 07/24/17 08:00 08/23/17 08:59 07/25/17 08:33 300 MG Isosorbide Mononitrate (Imdur Ext Rel Tab) 60 mg QAM PO 07/24/17 08:00 08/23/17 08:59 07/25/17 08:33 60 MG Levetiracetam (Keppra Tab) 1,000 mg HS PO 07/24/17 21:00 08/23/17 20:59 07/24/17 21:25 1,000 MG Levothyroxine Sodium (Synthroid Tab) 25 mcg DAILYBB PO 07/24/17 06:30 08/23/17 06:59 07/25/17 08:31 25 MCG Multivitamins (Multivitamin Tab) 1 tab DAILY PO 07/24/17 08:00 08/23/17 08:59 Nitroglycerin (Nitrostat Tab) 0.3 mg UD PRN UT 07/23/17 23:15 08/22/17 23:14 Sumatriptan Succinate (Imitrex Tab) 50 mg DAILY PRN PO 07/23/17 23:15 08/22/17 23:14 Entacapone (Comtan) 200 mg QID PO 07/24/17 08:00 08/23/17 08:59 07/25/17 08:32 200 MG Ferrous Sulfate (Feosol Tab) 325 mg DAILY PO 07/24/17 08:00 08/23/17 08:59 07/25/17 08:33 325 MG Miscellaneous Information (Order Awaiting Action) 1 ea QS N/A 07/24/17 08:00 08/23/17 07:59 Acetaminophen/ Hydrocodone Bitart ([place] 5/325 Tab) 1 tab Q4H PRN PO 07/23/17 23:15 08/22/17 23:14 Pantoprazole Sodium (Protonix Tab) 40 mg QAM PO 07/24/17 08:00 08/23/17 08:59 07/25/17 08:32 40 MG Ranolazine (Ranexa ER Tab) 500 mg BID PO 07/24/17 08:00 08/23/17 08:59 07/25/17 08:33 500 MG Miscellaneous Information (Order Awaiting Action) 1 ea QS N/A 07/24/17 00:00 08/23/17 00:00 Methotrexate (Methotrexate Tab) 20 mg Fr@0800 PO 07/24/17 08:00 08/23/17 07:59 07/24/17 08:00 20 MG Warfarin Sodium (Coumadin Tab) 2.5 mg MoFr@1600 PO 07/24/17 16:00 08/23/17 15:59 07/24/17 15:29 2.5 MG Warfarin Sodium (Coumadin Tab) 5 mg SuTuWeThSa@1600 PO 07/25/17 16:00 08/24/17 15:59 Albuterol/ Ipratropium (Duoneb) 3 ml QIDR INH 07/24/17 08:00 08/23/17 07:59 07/25/17 11:22 3 ML Sodium Chloride 1,000 ml @ 100 mls/hr Q10H IV 07/24/17 01:30 08/23/17 01:29 07/25/17 08:37 100 MLS/HR Miconazole Nitrate (Desenex Powder) 1 appln PRN PRN EXT 07/24/17 02:15 9/24/17 02:14 Enteral Nutritional Formula (Boost Breeze Nutritional Drink) 1 box BIDM PO 07/24/17 17:00 08/23/17 16:59 Family History Cancer Diabetes mellitus Gallbladder disease Heart disease Hypertension Lung disease Social History Smoking Status: Former Smoker Smokeless Tobacco Use: No Alcohol Use: occasionally Drug Use: none Marital Status: single Housing Status: lives with family Occupation: disabled Review of Systems A complete review of systems was performed. Pertinent positives are noted above. All other systems are negative. Physical Exam Date Time Temp Pulse Resp B/P (MAP) Pulse Ox O2 Delivery O2 Flow Rate FiO2 07/25/17 11:23 80 16 95 Nasal Cannula 3.0 07/25/17 08:00 Nasal Cannula 3.0 07/25/17 07:38 37.0 84 20 136/83 (100) 94 07/24/17 23:59 Nasal Cannula 3.0 07/24/17 23:38 37.1 84 18 129/62 (84) 95 3.0 07/24/17 16:15 99 Nasal Cannula 3.0 07/24/17 15:58 37.1 84 20 137/38 (71) 99 Nasal Cannula 3.0 07/24/17 15:44 83 15 96 Nasal Cannula 3.0 GENERAL: Elderly female AAA x 3, pleasant, healthy-appearing, not in any distress. HEENT: Atraumatic, normocephalic. NECK: Supple, no JVD, no carotid bruit appreciated. ENT: No sinus tenderness MOUTH and THROAT: Moist oral mucosa, no oral ulcer or pharyngeal erythema RESPIRATORY: Normal breathing efforts, no accessory muscle use, clear to auscultation bilaterally, no wheezes or rales. CARDIOVASCULAR: S1, S2 normal, rate rhythm regular. ABDOMEN: Soft, nontender, positive bowel sound. MUSCULOSKELETAL: No CVA tenderness. No joint swelling, erythema or tenderness. Normal range of motion. SKIN: No skin rash EXTREMITY: trace bilateral lower extremity edema NEURO: No gross focal neurological deficit, speech fluent. PSYCHIATRY: Normal mood and judgment Laboratory Results Last 24 Hours Test 07/24/17 16:07 07/24/17 19:53 07/25/17 02:28 07/25/17 07:44 Bedside Glucose 224 mg/dl 296 mg/dl 241 mg/dl 243 mg/dl Test 07/25/17 08:55 07/25/17 11:35 Vitamin B12 Level 255 pg/mL Bedside Glucose 251 mg/dl Impression (1) Acute kidney injury (2) Chronic kidney disease (3) Diastolic dysfunction (4) Hypertension (5) Diabetes mellitus (6) Anemia Mattie is a 67-year-old female with complex past medical history including stage 3 chronic kidney disease secondary to microvascular disease, hypertension, diabetes, coronary artery disease, diastolic dysfunction and history of DVT admitted to the hospital with shortness of breath, worsening lower extremity swelling and acute kidney injury. On admission her physical exam or chest x-ray did not show significant sign of volume overload or lower extremity edema. diuretics has been on hold and she was started on IV fluid. Creatinine on admission was 2.4 with baseline creatinine around 1.5, renal function started to improve, creatinine 2.2 this morning, electrolyte acceptable. Blood pressure and volume status stable. Acute kidney injury seems to be prerenal with intravascular volume depletion although she has recurrent history of worsening lower extremity edema which could be multifactorial including diastolic dysfunction, hypoalbuminemia as well as said venous insufficiency. Recommendations --As patient clinically seems to be volume contracted, will continue on IV fluid for now and continue to hold the diuretics --Will need to monitor volume status closely with her history of diastolic dysfunction and she will eventually need to be on diuretics -- check iron study --hold MICHAEL-inhibitor/ARB and any other nephrotoxins medication --dose medications for GFR less than 30 Thank you for allowing me to participate in your patient's care. It was a pleasure to see Mattie This chart was completed utilizing [employer] Speech and voice recognition software. Grammatical errors, random word insertions, pronoun errors and incomplete sentences are occasional consequences of this system. Any questions or concerns about the content, text or information contained within the body of this dictation should be addressed directly to the physician for clarification.
--- NOTE | 2017-07-25 13:56 | Cardiology Consultation ---
Cardiology Consultation Date of Consultation: Jul 25, 2017. Requesting Physician: George Reason for Consultation: Edema History of Present Illness Patient is a 67-year-old woman with extensive history of cardiac disease to include severe coronary artery disease, chronic angina and stage II diastolic dysfunction who was admitted to [facility] over concerns of worsening edema. Patient states that generally speaking she is able to control any swelling in her lower extremities with diuretic therapy and stockings. Recently however she has noticed some swelling in her labial area as well as bleeding from this site. He has also had some increased edema in her lower extremities. At the recommendation of her daughter she reported to [facility] for an additional evaluation. Patient does not describe recent episodes of chest discomfort. Since intensification of her anti anginal regimen some time ago she has very few and minor episodes of chest discomfort. She does have an element of orthopnea which is chronic. She sleeps in a recliner. She does have some difficulty with breathing, but this is generally related to activity. Overall she thinks that her breathing is better than it has been in the recent past. She denies any sense of palpitations recently. She denies any new dietary indiscretion. She claims to be compliant with her medications. She claims to use oxygen at home on a regular basis. Patient is significantly limited with activity due to breathing difficulty. She also has an element of leg discomfort and weakness which limits her ambulation. She uses a walker for short distances but also has a motorized chair for more extensive travel. Past Medical/Surgical History Coronary artery disease Catheterization in 2011 revealed total occlusion of the LAD. 70% D1. 70% circumflex lesion. Evaluated for bypass or percutaneous intervention but not felt to be a good candidate for either. Chronic angina currently controlled on ranolazine Stage II diastolic dysfunction Crohn's disease Diabetes mellitus type 2 Renal insufficiency Hypertension History of DVT Morbid obesity Chronic hypoxia Family History Cancer Diabetes mellitus Gallbladder disease Heart disease Hypertension Lung disease Renal disease Social History Smoking Status: Former Smoker History of Alcohol Use: No Currently lives independently with her dog Review of Systems Constitutional: + see HPI Respiratory: + see HPI Cardiac: + see HPI Abdomen: + see HPI Female : + see HPI Neurologic: + see HPI Heme: + see HPI Endo: + see HPI Skin: + see HPI Chronic diarrhea, often bloody. Generally little edema in the ankles but more recently. Chronic left leg pain. Two pillow orthopnea. All Other Systems: Reviewed and Negative Allergies Coded Allergies: Ciprofloxacin (Unverified Allergy, Severe, RASH, 07/23/17) Penicillins (Verified Allergy, Intermediate, HIVES, 07/23/17) Sulfa Antibiotics (Verified Allergy, Intermediate, HIVES, 07/23/17) Latex (Verified Allergy, Unknown, ., 07/23/17) Adhesives (Verified Adverse Reaction, Severe, "THEY EAT MY SKIN.", 07/23/17 ) Iodinated Diagnostic Agents (Verified Adverse Reaction, Intermediate, Vomiting, 07/23/17) Quinolones (Verified Adverse Reaction, Mild, YEAST INFECTION, 07/23/17) Ba Pepper (Verified Adverse Reaction, Unknown, GREEN PEPPER = MIGRAINE HEADACHE, 07/23/17) Cephalosporins (Verified Adverse Reaction, Unknown, 07/23/17) Medications Current Inpatient Medications Medications (Trade) Dose Ordered Sig/Mariella Route Start Time Stop Time Status Last Admin Dose Admin Acetaminophen (Tylenol Tab) 650 mg Q4H PRN PO 07/23/17 23:15 08/22/17 23:14 Al Hydrox/Mg Hydrox/Simethicone (Maalox Max Susp) 15 ml Q4H PRN PO 07/23/17 23:15 08/22/17 23:14 Magnesium Hydroxide (Milk Of Magnesia Susp) 30 ml Q6H PRN PO 07/23/17 23:15 08/22/17 23:14 Polyethylene (Miralax Powder Packet) 17 gm DAILY PRN PO 07/23/17 23:15 08/22/17 23:14 Ondansetron HCl (Zofran Inj) 4 mg Q6H PRN IV 07/23/17 23:15 08/22/17 23:14 Insulin Aspart (novoLOG ASPART) SLIDING SCALE If C... ACHS SC 07/24/17 06:30 08/23/17 06:59 07/25/17 13:17 8 UNITS Glucose (Glucose 40% Gel) 15-30 GRAMS 15 GRAMS... UD PRN PO 07/23/17 23:15 08/22/17 23:14 Glucose (Glucose Chew Tab) 4-8 Tablets 4 Tabl... UD PRN PO 07/23/17 23:15 08/22/17 23:14 Dextrose (Dextrose 50% 50ML Syringe) 25-50ML OF 50% DW IV FOR... UD PRN IV 07/23/17 23:15 08/22/17 23:14 Glucagon (Glucagon Inj) 1 mg UD PRN SQ 07/23/17 23:15 08/22/17 23:14 Albuterol (Ventolin Hfa Inhaler) 2 puffs TID INH 07/24/17 08:00 08/23/17 08:59 07/25/17 13:15 2 PUFFS Amitriptyline HCl (Elavil Tab) 50 mg HS PO 07/24/17 21:00 08/23/17 20:59 07/24/17 21:25 50 MG Aspirin (Ecotrin Tab) 81 mg DAILY PO 07/24/17 08:00 08/23/17 08:59 07/25/17 08:33 81 MG Atorvastatin Calcium (Lipitor Tab) 10 mg HS PO 07/24/17 21:00 08/23/17 20:59 07/24/17 21:23 10 MG Carbidopa/Levodopa (Sinemet Cr 50/ 200MG Tab) 1 tab QID PO 07/24/17 08:00 08/23/17 08:59 07/25/17 13:14 1 TAB Citalopram Hydrobromide (celeXA TAB) 20 mg DAILY PO 07/24/17 08:00 08/23/17 08:59 07/25/17 08:33 20 MG Ergocalciferol (Vitamin D Cap) 50,000 interunit Q30D PO 08/14/17 15:00 09/13/17 14:59 Folic Acid (Folvite Tab) 3 mg DAILY PO 07/24/17 08:00 08/23/17 08:59 07/25/17 08:32 3 MG Gabapentin (Neurontin Cap) 300 mg TID PO 07/24/17 08:00 08/23/17 08:59 07/25/17 13:14 300 MG Isosorbide Mononitrate (Imdur Ext Rel Tab) 60 mg QAM PO 07/24/17 08:00 08/23/17 08:59 07/25/17 08:33 60 MG Levetiracetam (Keppra Tab) 1,000 mg HS PO 07/24/17 21:00 08/23/17 20:59 07/24/17 21:25 1,000 MG Levothyroxine Sodium (Synthroid Tab) 25 mcg DAILYBB PO 07/24/17 06:30 08/23/17 06:59 07/25/17 08:31 25 MCG Multivitamins (Multivitamin Tab) 1 tab DAILY PO 07/24/17 08:00 08/23/17 08:59 Nitroglycerin (Nitrostat Tab) 0.3 mg UD PRN UT 07/23/17 23:15 08/22/17 23:14 Sumatriptan Succinate (Imitrex Tab) 50 mg DAILY PRN PO 07/23/17 23:15 08/22/17 23:14 Entacapone (Comtan) 200 mg QID PO 07/24/17 08:00 08/23/17 08:59 07/25/17 13:14 200 MG Ferrous Sulfate (Feosol Tab) 325 mg DAILY PO 07/24/17 08:00 08/23/17 08:59 07/25/17 08:33 325 MG Miscellaneous Information (Order Awaiting Action) 1 ea QS N/A 07/24/17 08:00 08/23/17 07:59 Acetaminophen/ Hydrocodone Bitart ([place] 5/325 Tab) 1 tab Q4H PRN PO 07/23/17 23:15 08/22/17 23:14 Pantoprazole Sodium (Protonix Tab) 40 mg QAM PO 07/24/17 08:00 08/23/17 08:59 07/25/17 08:32 40 MG Ranolazine (Ranexa ER Tab) 500 mg BID PO 07/24/17 08:00 08/23/17 08:59 07/25/17 08:33 500 MG Miscellaneous Information (Order Awaiting Action) 1 ea QS N/A 07/24/17 00:00 08/23/17 00:00 Methotrexate (Methotrexate Tab) 20 mg Fr@0800 PO 07/24/17 08:00 08/23/17 07:59 07/24/17 08:00 20 MG Warfarin Sodium (Coumadin Tab) 2.5 mg MoFr@1600 PO 07/24/17 16:00 08/23/17 15:59 07/24/17 15:29 2.5 MG Warfarin Sodium (Coumadin Tab) 5 mg SuTuWeThSa@1600 PO 07/25/17 16:00 08/24/17 15:59 Albuterol/ Ipratropium (Duoneb) 3 ml QIDR INH 07/24/17 08:00 08/23/17 07:59 07/25/17 11:22 3 ML Sodium Chloride 1,000 ml @ 100 mls/hr Q10H IV 07/24/17 01:30 08/23/17 01:29 07/25/17 08:37 100 MLS/HR Miconazole Nitrate (Desenex Powder) 1 appln PRN PRN EXT 07/24/17 02:15 08/23/17 02:14 Enteral Nutritional Formula (Boost Breeze Nutritional Drink) 1 box BIDM PO 07/24/17 17:00 08/23/17 16:59 Physical Exam Vital Signs Past 12 Hours Date Time Temp Pulse Resp B/P (MAP) Pulse Ox O2 Delivery O2 Flow Rate FiO2 07/25/17 11:23 80 16 95 Nasal Cannula 3.0 07/25/17 08:00 Nasal Cannula 3.0 07/25/17 07:38 37.0 84 20 136/83 (100) 94 She is alert and oriented x3. Mood affect appear normal. She answered all questions appropriately. Morbidly obese HEENT: Sclerae are anicteric. Pupils are equal and reactive to light and accommodation. Extraocular movements were intact. Edentulous Neuro: Cranial nerves intact Neck: Examination of the submandibular region did not reveal any significant lymphadenopathy. Carotids are palpable bilaterally and free of bruits on auscultation. There was no evidence of jugular venous distention. The thyroid was not enlarged. Lungs: Lungs are clear to auscultation bilaterally. There are no rales wheezes or rhonchi. She has normal respiratory effort without use of accessory muscles. There is normal pulmonary excursion. Cardiac: The rhythm was regular. S1 and S2 were normal. There are no murmurs on examination. The PMI was not markedly displaced on palpation. Abdomen: The abdomen was soft and nontender. Extremities: Patient has bilateral radial pulses that are equal in intensity. There is no evidence cyanosis or clubbing. She had some mild pitting edema in the lower extremities. She had intact posterior tibial pulses bilaterally. Skin: There are no rashes noted on examination today. Bandaged lesion on the left anterior tibial surface Data Laboratory Results: Last 24 Hours Test 07/24/17 16:07 07/24/17 19:53 07/25/17 02:28 07/25/17 07:44 Bedside Glucose 224 mg/dl 296 mg/dl 241 mg/dl 243 mg/dl Test 07/25/17 08:55 07/25/17 11:35 07/25/17 13:35 Vitamin B12 Level 255 pg/mL Bedside Glucose 251 mg/dl Imaging: Chest x-ray did not demonstrate any acute cardiopulmonary abnormality Echocardiogram obtained August 2016 revealed preserved LV systolic function with stage II diastolic dysfunction. Mild LVH. Mild mitral regurgitation Assessment & Plan 1. Edema: While the patient is known to have diastolic dysfunction, her normal N terminal proBNP, exam and chest x-ray speaks against decompensated heart failure. She is noted to have an element of venous insufficiency and renal disease which may account for some worsening edema. She is not appear to have other symptoms of acute pulmonary vascular congestion or objective findings of heart failure. At this point continuation of her standard outpatient cardiac regimen as well as adjustment of her diuretics by the primary service would seem appropriate for her edema. 2. Coronary artery disease: Patient was not felt to be a candidate for any form of intervention previously. She currently does not have symptoms of angina or coronary insufficiency. She can be continued on her current outpatient regimen to include ranolazine. He is also on a medical regimen for secondary prevention to include Kg inhibition, daily aspirin, warfarin and Lipitor. She has not been on a beta-cira for some time likely due to adverse pulmonary symptoms. 3. Diastolic heart failure: She appears to be well compensated currently. Blood pressures appear to be reasonably controlled. I do not think there is an indication for adjustment in her medical therapy at this time. 4. Mitral regurgitation: Mild 5. Hypertension: Currently well controlled. 6. History of venous thrombosis: Currently on warfarin for systemic anticoagulation and prophylaxis.
[2017-07-25 14:42] LABS: FERRITIN 74.3 ng/ml (8.0-388.0)
[2017-07-25 14:55] VITALS: BP 119/50; PULSE 86; TEMP 36.7; O2SAT 94
[2017-07-25] MEDS: WARFARIN SOD 5 MG TAB PO SCH (16:03)
[2017-07-25 19:49] VITALS: PULSE 87; O2SAT 95
[2017-07-25] MEDS ORDERED: INSULIN DETEMIR FLEXPEN/FLEX TOUCH 100 UNITS/ML 3ML SC STA (20:40)
[2017-07-25] MEDS ORDERED: PHARMACY GLYCEMIC MGMT CONSULT PRN (20:45)
[2017-07-25] MEDS: LEVETIRACETAM 500 MG TAB PO SCH (21:16)
[2017-07-25] MEDS: ATORVASTATIN 10 MG TAB PO SCH (22:15)
[2017-07-25] MEDS: AMITRIPTYLINE HCL 25 MG TAB PO SCH (22:16)
[2017-07-25 23:30] VITALS: BP 114/68; PULSE 81; TEMP 36.7; O2SAT 99
[2017-07-26] VITALS (7 sets, daily range): BP systolic 124–131; BP diastolic 73–77; PULSE 77–89; TEMP 36.9; O2SAT 96–99
--- NOTE | 2017-07-26 01:04 | Hospitalist Progress Note ---
Hospitalist Progress Note Date of Service Jul 25, 2017. Subjective Pt evaluation today including: conversation w/ patient, chart review, lab review patient feeling better today Objective Vital Signs Date Time Temp Pulse Resp B/P (MAP) Pulse Ox O2 Delivery O2 Flow Rate FiO2 07/24/17 23:38 37.1 84 18 129/62 (84) 95 3.0 07/24/17 16:15 99 Nasal Cannula 3.0 07/24/17 15:58 37.1 84 20 137/38 (71) 99 Nasal Cannula 3.0 07/24/17 15:44 83 15 96 Nasal Cannula 3.0 07/24/17 11:01 89 16 90 Room Air 21 07/24/17 08:00 Nasal Cannula 3.0 07/24/17 07:47 36.8 82 18 116/66 (83) 93 Room Air 07/24/17 07:04 82 16 92 Room Air 21 07/24/17 02:56 36.8 78 20 132/84 96 Nasal Cannula 3.0 Physical Exam General Appearance: no apparent distress ENT: hearing grossly normal Neck: trachea midline Respiratory/Chest: lungs clear Cardiovascular: regular rate, rhythm Abdomen: normal bowel sounds Extremities: non-tender Neurologic/Psychiatric: alert Laboratory Results Last 24 Hours Test 07/24/17 06:00 07/24/17 08:10 07/24/17 11:44 07/24/17 16:07 White Blood Count 3.68 K/uL Red Blood Count 3.03 M/uL Hemoglobin 9.6 g/dL Hematocrit 30.5 % Mean Corpuscular Volume 100.7 fL Mean Corpuscular Hemoglobin 31.7 pg Mean Corpuscular Hemoglobin Concent 31.5 g/dl RDW Standard Deviation 71.8 fL RDW Coefficient of Variation 20.2 % Platelet Count 166 K/uL Mean Platelet Volume 8.7 fL Prothrombin Time 17.0 SECONDS Prothromb Time International Ratio 1.6 Sodium Level 141 mmol/L Potassium Level 3.6 mmol/L Chloride Level 108 mmol/L Carbon Dioxide Level 26 mmol/L Anion Gap 7.0 mmol/L Blood Urea Nitrogen 59 mg/dl Creatinine 2.20 mg/dl Est Creatinine Clear Calc Drug Dose 29.6 ml/min Estimated GFR () 25.8 Estimated GFR (Non- 22.3 BUN/Creatinine Ratio 26.8 Random Glucose 96 mg/dl Calcium Level 8.1 mg/dl Bedside Glucose 159 mg/dl 212 mg/dl 224 mg/dl Test 07/24/17 19:53 Bedside Glucose 296 mg/dl Assessment and Plan (1) Creatinine elevation Assessment & Plan: Improving with hydration continue present tx (2) Dependent edema Assessment & Plan: monitor multifactorial (3) Hypertension (4) Diabetes mellitus
[2017-07-26] MEDS: SODIUM CHLORIDE 0.9% 1000ML 1,000 ML IV SCH (02:26)
[2017-07-26] MEDS ORDERED: INSULIN ASPART 100 UNITS/ML 3 ML PEN SC SCH ×2 (04:00)
[2017-07-26] MEDS: LEVOTHYROXINE 25 MCG TAB PO SCH (06:01)
[2017-07-26] MEDS: ALBUT/IPRATROP 3MG/0.5MG NEB 3 ML VIAL INH SCH ×4 (07:02→19:21)
[2017-07-26] MEDS: ADVAIR~ORDER AWAITING ACTION SCH ×3 (07:12→20:39)
[2017-07-26] MEDS: EXELON PATCH~ORDER AWAITING ACTION SCH ×3 (07:12→20:39)
[2017-07-26] MEDS ORDERED: INSULIN DETEMIR FLEXPEN/FLEX TOUCH 100 UNITS/ML 3ML SC ONE (07:45)
[2017-07-26 07:51] LABS: HEMATOCRIT 27.1 % (37-47); MEAN CORPUSCULAR HEMOGLOBIN 32.5 pg (25-34); MEAN CORPUSCULAR HGB CONC 32.5 g/dl (32-36); MEAN PLATELET VOLUME 8.9 fL (7.4-10.4); PLATELET COUNT 135 K/uL (130-400); RED BLOOD COUNT 2.71 M/uL (4.2-5.4); WHITE BLOOD COUNT 4.85 K/uL (4.8-10.8)
[2017-07-26 07:57] LABS: INR 1.4 (0.9-1.1); PROTHROMBIN TIME (PATIENT) 14.7 SECONDS (9.0-12.0)
[2017-07-26] MEDS ORDERED: INSULIN DETEMIR FLEXPEN/FLEX TOUCH 100 UNITS/ML 3ML SC SCH ×2 (08:00→20:00)
[2017-07-26] MEDS: BOOST BREEZE NUTRITION DRINK 1 BOX PO SCH ×2 (08:00→16:28)
[2017-07-26 08:32] LABS: BUN/CREATININE RATIO 13.6 (10-20); CALCIUM 8.1 mg/dl (8.5-10.1); CREATININE 1.2 mg/dl (0.60-1.20); POTASSIUM 4.1 mmol/L (3.5-5.1)
[2017-07-26] MEDS: MULTIVITAMIN TAB PO SCH (08:57)
[2017-07-26] MEDS: ASPIRIN 81 MG ECTAB PO SCH (08:57)
[2017-07-26] MEDS: RANOLAZINE 500 MG ER TAB PO SCH ×2 (08:57→20:37)
[2017-07-26] MEDS: CARBIDOPA/LEVODOPA 50/200MG EXT REL TAB PO SCH ×4 (08:57→20:37)
[2017-07-26] MEDS: GABAPENTIN 300 MG CAP PO SCH ×3 (08:57→20:37)
[2017-07-26] MEDS: ENTACAPONE 200 MG TAB PO SCH ×4 (08:58→20:36)
[2017-07-26] MEDS: ALBUTEROL HFA 8 GM INHALER INH SCH ×3 (08:59→20:35)
[2017-07-26] MEDS: ISOSORBIDE MONONITRATE 60 MG TABCR PO SCH (09:06)
[2017-07-26] MEDS: FERROUS SULFATE 325 MG TAB PO SCH (09:06)
[2017-07-26] MEDS: PANTOprazole SOD 40 MG TAB PO SCH (09:06)
[2017-07-26] MEDS: CITALOPRAM 20 MG TAB PO SCH (09:07)
[2017-07-26] MEDS: INSULIN ASPART 100 UNITS/ML 3 ML PEN SC SCH ×4 (09:14→20:43)
--- NOTE | 2017-07-26 11:10 | Nephrology Progress Note ---
Nephrology Progress Note Date of Service Jul 26, 2017. Chief Complaint F/U for acute kidney injury with history of chronic kidney disease and chronic LE edema requiring high dose of diuretics. Juaquin Phelps was seen and examined in her room this am. Overall doing well, seems to be at her baseline, denies SOB. LE edema improved. UO decent, dixon with dark, dirty looking urine. Review of Systems A complete review of systems was performed. Pertinent positives are noted above. All other systems are negative. Vital Signs Last 8 Hrs Date Time Temp Pulse Resp B/P (MAP) Pulse Ox O2 Delivery O2 Flow Rate FiO2 07/26/17 07:55 36.9 81 18 124/73 (90) 97 Nasal Cannula 2.0 07/26/17 07:05 78 16 98 Nasal Cannula 3.0 Last Recorded Weight Weight (Kilograms): 127.000 Physical Exam GENERAL: Elderly female , awake, alert, staring at space, did not communicate in a meaningful way however not in any distress. NECK: Supple, no JVD. RESPIRATORY: Normal breathing efforts, no accessory muscle use, clear to auscultation bilaterally, no wheezes or rales. CARDIOVASCULAR: S1, S2 normal, rate rhythm regular. EXTREMITY: trace B/L lower extremity edema NEURO: speech fluent , moves all extremities PSYCHIATRY: normal mood Family History Cancer Diabetes mellitus Gallbladder disease Heart disease Hypertension Lung disease Social History Smoking Status: Former smoker Smokeless Tobacco Use: No Alcohol Use: occasionally Drug Use: none Marital Status: single Housing Status: lives with family Occupation: disabled Laboratory Results Past 24 Hours 07/26/17 07:24 07/26/17 07:24 Test 07/25/17 11:35 07/25/17 15:47 07/25/17 16:55 07/25/17 20:12 Bedside Glucose 251 mg/dl (70-90) 322 mg/dl (70-90) 306 mg/dl (70-90) 260 mg/dl (70-90) Test 07/25/17 23:37 07/26/17 03:42 07/26/17 07:24 07/26/17 08:04 Bedside Glucose 251 mg/dl (70-90) 249 mg/dl (70-90) 253 mg/dl (70-90) Red Blood Count 2.71 M/uL (4.2-5.4) Mean Corpuscular Volume 100.0 fL (80-100) Mean Corpuscular Hemoglobin 32.5 pg (25-34) Mean Corpuscular Hemoglobin Concent 32.5 g/dl (32-36) RDW Standard Deviation 72.7 fL (36.4-46.3) RDW Coefficient of Variation 20.4 % (11.5-14.5) Mean Platelet Volume 8.9 fL (7.4-10.4) Prothrombin Time 14.7 SECONDS (9.0-12.0) Prothromb Time International Ratio 1.4 (0.9-1.1) Anion Gap 3.0 mmol/L (3-11) Est Creatinine Clear Calc Drug Dose 54.3 ml/min Estimated GFR () 53.8 Estimated GFR (Non- 46.4 BUN/Creatinine Ratio 13.6 (10-20) Calcium Level 8.1 mg/dl (8.5-10.1) Allergies Coded Allergies: Ciprofloxacin (Unverified Allergy, Severe, RASH, 07/23/17) Penicillins (Verified Allergy, Intermediate, HIVES, 07/23/17) Sulfa Antibiotics (Verified Allergy, Intermediate, HIVES, 07/23/17) Latex (Verified Allergy, Unknown, ., 07/23/17) Adhesives (Verified Adverse Reaction, Severe, "THEY EAT MY SKIN.", 07/23/17 ) Iodinated Diagnostic Agents (Verified Adverse Reaction, Intermediate, Vomiting, 07/23/17) Quinolones (Verified Adverse Reaction, Mild, YEAST INFECTION, 07/23/17) Ba Pepper (Verified Adverse Reaction, Unknown, GREEN PEPPER = MIGRAINE HEADACHE, 07/23/17) Cephalosporins (Verified Adverse Reaction, Unknown, 07/23/17) Medications Current Inpatient Medications Medications (Trade) Dose Ordered Sig/Mariella Route Start Time Stop Time Status Last Admin Dose Admin Acetaminophen (Tylenol Tab) 650 mg Q4H PRN PO 07/23/17 23:15 08/22/17 23:14 Al Hydrox/Mg Hydrox/Simethicone (Maalox Max Susp) 15 ml Q4H PRN PO 07/23/17 23:15 08/22/17 23:14 Magnesium Hydroxide (Milk Of Magnesia Susp) 30 ml Q6H PRN PO 07/23/17 23:15 08/22/17 23:14 Polyethylene (Miralax Powder Packet) 17 gm DAILY PRN PO 07/23/17 23:15 08/22/17 23:14 Ondansetron HCl (Zofran Inj) 4 mg Q6H PRN IV 07/23/17 23:15 08/22/17 23:14 Insulin Aspart (novoLOG ASPART) SLIDING SCALE If C... ACHS SC 07/24/17 06:30 08/23/17 06:59 07/26/17 09:14 12 UNITS Glucose (Glucose 40% Gel) 15-30 GRAMS 15 GRAMS... UD PRN PO 07/23/17 23:15 08/22/17 23:14 Glucose (Glucose Chew Tab) 4-8 Tablets 4 Tabl... UD PRN PO 07/23/17 23:15 08/22/17 23:14 Dextrose (Dextrose 50% 50ML Syringe) 25-50ML OF 50% DW IV FOR... UD PRN IV 07/23/17 23:15 08/22/17 23:14 Glucagon (Glucagon Inj) 1 mg UD PRN SQ 07/23/17 23:15 08/22/17 23:14 Albuterol (Ventolin Hfa Inhaler) 2 puffs TID INH 07/24/17 08:00 08/23/17 08:59 07/26/17 08:59 2 PUFFS Amitriptyline HCl (Elavil Tab) 50 mg HS PO 07/24/17 21:00 08/23/17 20:59 07/25/17 22:16 50 MG Aspirin (Ecotrin Tab) 81 mg DAILY PO 07/24/17 08:00 08/23/17 08:59 07/26/17 08:57 81 MG Atorvastatin Calcium (Lipitor Tab) 10 mg HS PO 07/24/17 21:00 08/23/17 20:59 07/25/17 22:15 10 MG Carbidopa/Levodopa (Sinemet Cr 50/ 200MG Tab) 1 tab QID PO 07/24/17 08:00 08/23/17 08:59 07/26/17 08:57 1 TAB Citalopram Hydrobromide (celeXA TAB) 20 mg DAILY PO 07/24/17 08:00 08/23/17 08:59 07/26/17 09:07 20 MG Ergocalciferol (Vitamin D Cap) 50,000 interunit Q30D PO 08/14/17 15:00 09/13/17 14:59 Folic Acid (Folvite Tab) 3 mg DAILY PO 07/24/17 08:00 08/23/17 08:59 07/26/17 08:58 3 MG Gabapentin (Neurontin Cap) 300 mg TID PO 07/24/17 08:00 08/23/17 08:59 07/26/17 08:57 300 MG Isosorbide Mononitrate (Imdur Ext Rel Tab) 60 mg QAM PO 07/24/17 08:00 08/23/17 08:59 07/26/17 09:06 60 MG Levetiracetam (Keppra Tab) 1,000 mg HS PO 07/24/17 21:00 08/23/17 20:59 07/25/17 21:16 1,000 MG Levothyroxine Sodium (Synthroid Tab) 25 mcg DAILYBB PO 07/24/17 06:30 08/23/17 06:59 07/26/17 06:01 25 MCG Multivitamins (Multivitamin Tab) 1 tab DAILY PO 07/24/17 08:00 08/23/17 08:59 07/26/17 08:57 1 TAB Nitroglycerin (Nitrostat Tab) 0.3 mg UD PRN UT 07/23/17 23:15 08/22/17 23:14 Sumatriptan Succinate (Imitrex Tab) 50 mg DAILY PRN PO 07/23/17 23:15 08/22/17 23:14 Entacapone (Comtan) 200 mg QID PO 07/24/17 08:00 08/23/17 08:59 07/26/17 08:58 200 MG Ferrous Sulfate (Feosol Tab) 325 mg DAILY PO 07/24/17 08:00 08/23/17 08:59 07/26/17 09:06 325 MG Miscellaneous Information (Order Awaiting Action) 1 ea QS N/A 07/24/17 08:00 08/23/17 07:59 Acetaminophen/ Hydrocodone Bitart ([place] 5/325 Tab) 1 tab Q4H PRN PO 07/23/17 23:15 08/22/17 23:14 07/25/17 22:22 1 TAB Pantoprazole Sodium (Protonix Tab) 40 mg QAM PO 07/24/17 08:00 08/23/17 08:59 07/26/17 09:06 40 MG Ranolazine (Ranexa ER Tab) 500 mg BID PO 07/24/17 08:00 08/23/17 08:59 07/26/17 08:57 500 MG Miscellaneous Information (Order Awaiting Action) 1 ea QS N/A 07/24/17 00:00 08/23/17 00:00 Methotrexate (Methotrexate Tab) 20 mg Fr@0800 PO 07/24/17 08:00 08/23/17 07:59 07/24/17 08:00 20 MG Warfarin Sodium (Coumadin Tab) 2.5 mg MoFr@1600 PO 07/24/17 16:00 08/23/17 15:59 07/24/17 15:29 2.5 MG Warfarin Sodium (Coumadin Tab) 5 mg SuTuWeThSa@1600 PO 07/25/17 16:00 08/24/17 15:59 07/25/17 16:03 5 MG Albuterol/ Ipratropium (Duoneb) 3 ml QIDR INH 07/24/17 08:00 08/23/17 07:59 07/26/17 07:02 3 ML Sodium Chloride 1,000 ml @ 100 mls/hr Q10H IV 07/24/17 01:30 08/23/17 01:29 07/26/17 02:26 100 MLS/HR Miconazole Nitrate (Desenex Powder) 1 appln PRN PRN EXT 07/24/17 02:15 08/23/17 02:14 Enteral Nutritional Formula (Boost Breeze Nutritional Drink) 1 box BIDM PO 07/24/17 17:00 08/23/17 16:59 Miscellaneous Information (Consult Glycemic Management Pharmacy) 1 ea UD PRN N/A 07/25/17 20:45 08/24/17 20:44 Impression (1) Acute kidney injury (2) Chronic kidney disease (3) Diastolic dysfunction (4) Hypertension (5) Diabetes mellitus (6) Anemia Mattie is a 67-year-old female with complex past medical history including stage 3 chronic kidney disease secondary to microvascular disease, hypertension, diabetes, coronary artery disease, diastolic dysfunction and history of DVT admitted to the hospital with shortness of breath, worsening lower extremity swelling and acute kidney injury. On admission her physical exam or chest x-ray did not show significant sign of volume overload or lower extremity edema. diuretics has been on hold and she was started on IV fluid. Creatinine on admission was 2.4 with baseline creatinine around 1.5, renal function started to improve, creatinine 2.2 this morning, electrolyte acceptable. Blood pressure and volume status stable. Acute kidney injury seems to be prerenal with intravascular volume depletion although she has recurrent history of worsening lower extremity edema which could be multifactorial including diastolic dysfunction, hypoalbuminemia as well as said venous insufficiency. Recommendations --DC IV fluid --DC dixon catheter --continue to hold the diuretics for now --Will need to monitor volume status closely with her history of diastolic dysfunction and she will eventually need to be on diuretics -- Hb dropped further, pt has iron deficiency, previously had EGD, colonoscopy in September 2016 showing colonic polyp and angiodysplasia with bleeding at Duodenum. suggest GI evaluation. --hold MICHAEL-inhibitor/ARB and any other nephrotoxins medication --dose medications for GFR less than 30 Will follow This chart was completed utilizing [employer] Speech and voice recognition software. Grammatical errors, random word insertions, pronoun errors and incomplete sentences are occasional consequences of this system. Any questions or concerns about the content, text or information contained within the body of this dictation should be addressed directly to the physician for clarification.
--- NOTE | 2017-07-26 11:33 | Pharmacy Progress Note ---
Glycemic Control Intl Consult Date of Service Jul 26, 2017. Scope Glycemic Pharmacist consulted by Dr Anguiano on 07/25/17 overnight for glycemic control and to write orders per [facility] inpatient glycemic control protocol Objective Weight (Kilograms): 127.000 Accuchecks BSG (last 24hrs): Test 07/25/17 11:35 07/25/17 15:47 07/25/17 16:55 07/25/17 20:12 Bedside Glucose 251 mg/dl (70-90) 322 mg/dl (70-90) 306 mg/dl (70-90) 260 mg/dl (70-90) Test 07/25/17 23:37 07/26/17 03:42 07/26/17 07:24 07/26/17 08:04 Bedside Glucose 251 mg/dl (70-90) 249 mg/dl (70-90) 253 mg/dl (70-90) Random Glucose 211 mg/dl (70-99) Laboratory Data (last 24hrs) Test 07/26/17 07:24 Anion Gap 3.0 mmol/L BUN/Creatinine Ratio 13.6 Blood Urea Nitrogen 16 mg/dl Creatinine 1.20 mg/dl Potassium Level 4.1 mmol/L Sodium Level 140 mmol/L White Blood Count 4.85 K/uL HbA1c Test 07/26/17 07:24 Recent Pertinent Medications Outpatient Anti-diabetic Regimen: * Glipizide XL 10 mg PO BID * Metformin 500 mg PO BID * Levemir 10 units AM, 10-14 units PM * A1c pending for tomorrow The patient is currently receiving: * Basal insulin: none ordered * Correctional Insulin: Novolog Correction per scale ACHS Goal Range: Low 140 mg/dL - High 180 mg/dL Correction Factor: 30 mg/dL/unit * Prandial insulin: Per carb ratio of 1 unit per 10 grams CHO consumed Risk Factors for Insulin Resistance: * Diet Assessment & Plan ASSESSMENT: * 67 yo F admitted 07/24 with edema and WILBERT * Known diabetic on basal insulin plus orals at home * Last A1c on record from 2015; check new A1c tomorrow * Over the past 24 hours, BSGs have been in the upper 200's to 300's despite SQ Novolog * Given patient's diabetic history on basal insulin, this is due to basal deficiency X 48 hours * Pharmacy consulted last night and overnight pharmacist gave 12 units of Levemir X 1 PLUS overnight checks * Pt still 253 mg/dL this AM * Increase basal insulin significantly today to try to "catch up" for missed dosing * Over the next 48 hrs BSGs should respond and come down significantly and patient will likely be able to be on a regimen similar to outpatient * ADA & AACE recommend a goal blood sugar range 140-180 mg/dl for the majority of critically ill & non-critically ill patients. However, more stringent targets may be selected in individual cases. Tighten to 110-140 mg/dL for sustained hyperglycemia PLAN FOR INPATIENT GLYCEMIC CONTROL: * Hold outpatient oral diabetes medications * Basal insulin with LEVEMIR 24 units SQ X 1, then BID * Continue dosing based on BSG trend * 12 units for normal BSG <180 mg/dL * 22 units for BSG >180 mg/dL * Correctional Insulin with NOVOLOG per scale ACHS + 00,04 * Goal Range: Low 110 mg/dL - High 140 mg/dL * Correction Factor: 15 mg/dL/unit * Nutritional / Prandial insulin per carb ratio of 1 unit per 5 grams CHO consumed * Please note that the plan above was derived based on current level of insulin resistance and hospital stress. These recommendations are appropriate for inpatient admission only. Plan of care upon discharge will need to be reassessed to avoid potential outpatient hypo/hyperglycemia. Thank you.
[2017-07-26] MEDS: WARFARIN SOD 5 MG TAB PO SCH (18:22)
[2017-07-26] MEDS: LEVETIRACETAM 500 MG TAB PO SCH (20:38)
[2017-07-26] MEDS: AMITRIPTYLINE HCL 25 MG TAB PO SCH (20:38)
[2017-07-26] MEDS: ATORVASTATIN 10 MG TAB PO SCH (20:38)
[2017-07-27] VITALS: O2SAT 99
[2017-07-27 00:06] VITALS: BP 125/58; PULSE 82; TEMP 36.9; O2SAT 98
[2017-07-27] MEDS: INSULIN ASPART 100 UNITS/ML 3 ML PEN SC SCH ×4 (00:06→12:36)
--- NOTE | 2017-07-27 01:39 | Hospitalist Progress Note ---
Hospitalist Progress Note Date of Service Jul 26, 2017. Subjective Pt evaluation today including: conversation w/ patient Voiding: no voiding problems, dixon catheter in place Patient requesting to go home no complaints Medications Medications (Trade) Dose Ordered Sig/Mariella Route Start Time Stop Time Status Last Admin Dose Admin Insulin Aspart (novoLOG ASPART) SLIDING SCALE If C... 0400 RI 07/26/17 04:00 07/26/17 04:01 DC 07/26/17 03:44 4 UNITS Insulin Detemir (Levemir Flexpen/ FlexTouch) 24 units NOW ONCE RI 07/26/17 07:45 07/26/17 07:46 DC 07/26/17 09:15 24 UNITS Insulin Detemir (Levemir Flexpen/ FlexTouch) SEE PROTOCOL BID RI 07/26/17 20:00 08/25/17 19:59 07/26/17 20:44 22 UNITS Insulin Aspart (novoLOG ASPART) SLIDING SCALE If C... 0000,0400 RI 07/27/17 00:00 08/26/17 00:00 07/27/17 00:06 6 UNITS Objective Vital Signs Date Time Temp Pulse Resp B/P (MAP) Pulse Ox O2 Delivery O2 Flow Rate FiO2 07/25/17 23:50 Nasal Cannula 3.0 07/25/17 23:30 36.7 81 18 114/68 (83) 99 Nasal Cannula 3.0 07/25/17 19:49 87 18 95 Nasal Cannula 3.0 07/25/17 16:00 Nasal Cannula 3.0 07/25/17 14:55 36.7 86 20 119/50 (73) 94 3.0 07/25/17 11:23 80 16 95 Nasal Cannula 3.0 07/25/17 08:00 Nasal Cannula 3.0 07/25/17 07:38 37.0 84 20 136/83 (100) 94 Physical Exam General Appearance: no apparent distress Eyes: normal inspection ENT: hearing grossly normal Neck: supple, trachea midline Respiratory/Chest: chest non-tender, lungs clear Cardiovascular: regular rate, rhythm Abdomen: normal bowel sounds, non tender Laboratory Results Last 24 Hours Test 07/25/17 02:28 07/25/17 07:44 07/25/17 08:55 07/25/17 11:35 Bedside Glucose 241 mg/dl 243 mg/dl 251 mg/dl Iron Level 51 mcg/dl Total Iron Binding Capacity 263 mcg/dl Transferrin 212 mg/dl Transferrin % Saturation 17 % Ferritin 74.3 ng/ml Vitamin B12 Level 255 pg/mL Test 07/25/17 15:47 07/25/17 16:55 07/25/17 20:12 07/25/17 23:37 Bedside Glucose 322 mg/dl 306 mg/dl 260 mg/dl 251 mg/dl Assessment and Plan (1) Creatinine elevation Assessment & Plan: Patient was not adequately eating and drinking prior to admission creatinine has responded well to IV hydration (2) Dependent edema Assessment & Plan: Monitor and start diuretic as needed (3) Hypertension (4) Diabetes mellitus Assessment & Plan: Patient will need short-term rehabilitation based upon to assist of 2 required to take care of her Discharge planning: halfway facility
[2017-07-27 07:37] VITALS: BP 133/77; PULSE 71; PULSE 77; TEMP 36.8; O2SAT 98
[2017-07-27] MEDS: ALBUT/IPRATROP 3MG/0.5MG NEB 3 ML VIAL INH SCH ×2 (07:37→11:34)
[2017-07-27 07:48] LABS: ESTIMATED AVERAGE GLUCOSE 171 mg/dl; HA1C FLAG Normal (Normal)
[2017-07-27] MEDS: ADVAIR~ORDER AWAITING ACTION SCH (08:35)
[2017-07-27] MEDS: BOOST BREEZE NUTRITION DRINK 1 BOX PO SCH (08:36)
[2017-07-27] MEDS: EXELON PATCH~ORDER AWAITING ACTION SCH (08:36)
[2017-07-27 08:39] LABS: BUN/CREATININE RATIO 12.6 (10-20); CALCIUM 8.4 mg/dl (8.5-10.1); POTASSIUM 4.5 mmol/L (3.5-5.1)
[2017-07-27 08:40] LABS: PHOSPHORUS 2.6 mg/dl (2.5-4.9)
[2017-07-27] MEDS: CARBIDOPA/LEVODOPA 50/200MG EXT REL TAB PO SCH ×2 (08:51→12:30)
[2017-07-27] MEDS: RANOLAZINE 500 MG ER TAB PO SCH (08:51)
[2017-07-27] MEDS: ENTACAPONE 200 MG TAB PO SCH ×2 (08:51→12:30)
[2017-07-27] MEDS: ALBUTEROL HFA 8 GM INHALER INH SCH (08:51)
[2017-07-27] MEDS: MULTIVITAMIN TAB PO SCH (08:52)
[2017-07-27] MEDS: ISOSORBIDE MONONITRATE 60 MG TABCR PO SCH (08:52)
[2017-07-27] MEDS: GABAPENTIN 300 MG CAP PO SCH (08:52)
[2017-07-27] MEDS: ASPIRIN 81 MG ECTAB PO SCH (08:52)
[2017-07-27] MEDS: FERROUS SULFATE 325 MG TAB PO SCH (08:52)
[2017-07-27] MEDS: PANTOprazole SOD 40 MG TAB PO SCH (08:52)
[2017-07-27] MEDS: CITALOPRAM 20 MG TAB PO SCH (08:53)
[2017-07-27] MEDS: LEVOTHYROXINE 25 MCG TAB PO SCH (08:53)
--- NOTE | 2017-07-27 09:48 | Pharmacy Progress Note ---
Glycemic Control Progress Note Date of Service Jul 27, 2017. Scope Glycemic Pharmacist consulted for glycemic control to write orders per [facility] inpatient glycemic control protocol. Objective Accuchecks BSG (last 24hrs): Test 07/26/17 11:47 07/26/17 16:18 07/26/17 19:38 07/27/17 00:02 Bedside Glucose 248 mg/dl (70-90) 217 mg/dl (70-90) 257 mg/dl (70-90) 218 mg/dl (70-90) Test 07/27/17 03:54 07/27/17 07:40 07/27/17 07:47 Bedside Glucose 190 mg/dl (70-90) 191 mg/dl (70-90) Random Glucose 164 mg/dl (70-99) HbA1c: Test 07/26/17 07:24 Hemoglobin A1c 7.6 % (4.5-5.6) H Recent Pertinent Medications The patient is currently receiving: * Basal insulin: Levemir 22 units every 12 hours * Correctional Insulin: Novolog Correction per scale ACHS Goal Range: Low 110 mg/dL - High 140 mg/dL Correction Factor: 15 mg/dL/unit * Prandial insulin: Per carb ratio of 1 unit per 5 grams CHO consumed * Oral Agents: On hold for admission Outpatient Anti-Diabetic Meds * Glipizide XL 10 mg PO BID * Metformin 500 mg PO BID * Levemir 10 units AM, 10-14 units PM Assessment & Plan ASSESSMENT: * See progress note from 07/26 for more background info, in short: * Pt receiving SQ basal bolus insulin regimen for hyperglycemia secondary to baseline DM (outpatient regimen on hold) * Patient is currently receiving an average of 106 units of insulin per day * 46 units of basal insulin * BSGs ranging 164 - 257 mg/dl over the past 24hrs * Changes needed to insulin regimen: * Total daily dose = ~110 units. Will need to evenly re-distribute regimen 50% :50% basal:prandial to prevent hypo/hyperglycemia - Will plan to increase basal to 25 units BID for BSG above goal range, but continue the dose range on the Levemir if BSG starts to fall on higher dose. Patient currently requiring double her outpatient dose. PLAN FOR INPATIENT GLYCEMIC CONTROL: * Increase Levemir to 25 units BID for BSG above 180 mg/dL * Correction factor of 15 mg/dl/unit * Carb ratio of 1 unit per 5 grams CHO consumed * Goal range of Low 110 mg/dL - High 140 mg/dL RECOMMENDATIONS FOR DISCHARGE: * A1c has increased slightly from previous result but is still reasonable for age/comorbidities * Recommend to continue current regimen and continue f/u with outpatient provider Thank you.
--- NOTE | 2017-07-27 09:58 | Nephrology Progress Note ---
Nephrology Progress Note Date of Service Jul 27, 2017. Chief Complaint F/U for acute kidney injury with history of chronic kidney disease and chronic LE edema requiring high dose of diuretics. Juaquin Phelps was seen and examined in her room this am. Overall doing well, BP, electrolyte volume status acceptable. Denies anorexia, SOB, CP. WILBERT resolved, great UO Review of Systems A complete review of systems was performed. Pertinent positives are noted above. All other systems are negative. Vital Signs Last 8 Hrs Date Time Temp Pulse Resp B/P (MAP) Pulse Ox O2 Delivery O2 Flow Rate FiO2 07/27/17 07:37 36.8 77 22 133/77 (95) 98 Nasal Cannula 2.0 07/27/17 07:37 71 18 98 Nasal Cannula 2.0 Last Recorded Weight Weight (Kilograms): 127.000 Physical Exam GENERAL: Elderly female , awake, alert, not in any distress. NECK: Supple, no JVD. RESPIRATORY: Normal breathing efforts, no accessory muscle use, clear to auscultation bilaterally, no wheezes or rales. CARDIOVASCULAR: S1, S2 normal, rate rhythm regular. EXTREMITY: trace B/L lower extremity edema NEURO: speech fluent , moves all extremities PSYCHIATRY: normal mood Family History Cancer Diabetes mellitus Gallbladder disease Heart disease Hypertension Lung disease Social History Smoking Status: Former smoker Smokeless Tobacco Use: No Alcohol Use: occasionally Drug Use: none Marital Status: single Housing Status: lives with family Occupation: disabled Laboratory Results Past 24 Hours 07/27/17 07:40 Test 07/26/17 11:47 07/26/17 16:18 07/26/17 19:38 07/27/17 00:02 Bedside Glucose 248 mg/dl (70-90) 217 mg/dl (70-90) 257 mg/dl (70-90) 218 mg/dl (70-90) Test 07/27/17 03:54 07/27/17 07:40 07/27/17 07:47 Bedside Glucose 190 mg/dl (70-90) 191 mg/dl (70-90) Anion Gap 5.0 mmol/L (3-11) Est Creatinine Clear Calc Drug Dose 65.2 ml/min Estimated GFR () 67.0 Estimated GFR (Non- 57.8 BUN/Creatinine Ratio 12.6 (10-20) Calcium Level 8.4 mg/dl (8.5-10.1) Phosphorus Level 2.6 mg/dl (2.5-4.9) Albumin 2.6 gm/dl (3.4-5.0) Allergies Coded Allergies: Ciprofloxacin (Unverified Allergy, Severe, RASH, 07/23/17) Penicillins (Verified Allergy, Intermediate, HIVES, 07/23/17) Sulfa Antibiotics (Verified Allergy, Intermediate, HIVES, 07/23/17) Latex (Verified Allergy, Unknown, ., 07/23/17) Adhesives (Verified Adverse Reaction, Severe, "THEY EAT MY SKIN.", 07/23/17 ) Iodinated Diagnostic Agents (Verified Adverse Reaction, Intermediate, Vomiting, 07/23/17) Quinolones (Verified Adverse Reaction, Mild, YEAST INFECTION, 07/23/17) Ba Pepper (Verified Adverse Reaction, Unknown, GREEN PEPPER = MIGRAINE HEADACHE, 07/23/17) Cephalosporins (Verified Adverse Reaction, Unknown, 07/23/17) Medications Current Inpatient Medications Medications (Trade) Dose Ordered Sig/Mariella Route Start Time Stop Time Status Last Admin Dose Admin Acetaminophen (Tylenol Tab) 650 mg Q4H PRN PO 07/23/17 23:15 08/22/17 23:14 Al Hydrox/Mg Hydrox/Simethicone (Maalox Max Susp) 15 ml Q4H PRN PO 07/23/17 23:15 08/22/17 23:14 Magnesium Hydroxide (Milk Of Magnesia Susp) 30 ml Q6H PRN PO 07/23/17 23:15 08/22/17 23:14 Polyethylene (Miralax Powder Packet) 17 gm DAILY PRN PO 07/23/17 23:15 08/22/17 23:14 Ondansetron HCl (Zofran Inj) 4 mg Q6H PRN IV 07/23/17 23:15 08/22/17 23:14 Insulin Aspart (novoLOG ASPART) SLIDING SCALE If C... ACHS SC 07/24/17 06:30 08/23/17 06:59 07/27/17 09:40 12 UNITS Glucose (Glucose 40% Gel) 15-30 GRAMS 15 GRAMS... UD PRN PO 07/23/17 23:15 08/22/17 23:14 Glucose (Glucose Chew Tab) 4-8 Tablets 4 Tabl... UD PRN PO 07/23/17 23:15 08/22/17 23:14 Dextrose (Dextrose 50% 50ML Syringe) 25-50ML OF 50% DW IV FOR... UD PRN IV 07/23/17 23:15 08/22/17 23:14 Glucagon (Glucagon Inj) 1 mg UD PRN SQ 07/23/17 23:15 08/22/17 23:14 Albuterol (Ventolin Hfa Inhaler) 2 puffs TID INH 07/24/17 08:00 08/23/17 08:59 07/27/17 08:51 2 PUFFS Amitriptyline HCl (Elavil Tab) 50 mg HS PO 07/24/17 21:00 08/23/17 20:59 07/26/17 20:38 50 MG Aspirin (Ecotrin Tab) 81 mg DAILY PO 07/24/17 08:00 08/23/17 08:59 07/27/17 08:52 81 MG Atorvastatin Calcium (Lipitor Tab) 10 mg HS PO 07/24/17 21:00 08/23/17 20:59 07/26/17 20:38 10 MG Carbidopa/Levodopa (Sinemet Cr 50/ 200MG Tab) 1 tab QID PO 07/24/17 08:00 08/23/17 08:59 07/27/17 08:51 1 TAB Citalopram Hydrobromide (celeXA TAB) 20 mg DAILY PO 07/24/17 08:00 08/23/17 08:59 07/27/17 08:53 20 MG Ergocalciferol (Vitamin D Cap) 50,000 interunit Q30D PO 08/14/17 15:00 09/13/17 14:59 Folic Acid (Folvite Tab) 3 mg DAILY PO 07/24/17 08:00 08/23/17 08:59 07/27/17 08:52 3 MG Gabapentin (Neurontin Cap) 300 mg TID PO 07/24/17 08:00 08/23/17 08:59 07/27/17 08:52 300 MG Isosorbide Mononitrate (Imdur Ext Rel Tab) 60 mg QAM PO 07/24/17 08:00 08/23/17 08:59 07/27/17 08:52 60 MG Levetiracetam (Keppra Tab) 1,000 mg HS PO 07/24/17 21:00 08/23/17 20:59 07/26/17 20:38 1,000 MG Levothyroxine Sodium (Synthroid Tab) 25 mcg DAILYBB PO 07/24/17 06:30 08/23/17 06:59 07/27/17 08:53 25 MCG Multivitamins (Multivitamin Tab) 1 tab DAILY PO 07/24/17 08:00 08/23/17 08:59 07/27/17 08:52 1 TAB Nitroglycerin (Nitrostat Tab) 0.3 mg UD PRN UT 07/23/17 23:15 08/22/17 23:14 Sumatriptan Succinate (Imitrex Tab) 50 mg DAILY PRN PO 07/23/17 23:15 08/22/17 23:14 Entacapone (Comtan) 200 mg QID PO 07/24/17 08:00 08/23/17 08:59 07/27/17 08:51 200 MG Ferrous Sulfate (Feosol Tab) 325 mg DAILY PO 07/24/17 08:00 08/23/17 08:59 07/27/17 08:52 325 MG Miscellaneous Information (Order Awaiting Action) 1 ea QS N/A 07/24/17 08:00 08/23/17 07:59 Acetaminophen/ Hydrocodone Bitart ([place] 5/325 Tab) 1 tab Q4H PRN PO 07/23/17 23:15 08/22/17 23:14 07/25/17 22:22 1 TAB Pantoprazole Sodium (Protonix Tab) 40 mg QAM PO 07/24/17 08:00 08/23/17 08:59 07/27/17 08:52 40 MG Ranolazine (Ranexa ER Tab) 500 mg BID PO 07/24/17 08:00 08/23/17 08:59 07/27/17 08:51 500 MG Miscellaneous Information (Order Awaiting Action) 1 ea QS N/A 07/24/17 00:00 08/23/17 00:00 Methotrexate (Methotrexate Tab) 20 mg Fr@0800 PO 07/24/17 08:00 08/23/17 07:59 07/24/17 08:00 20 MG Warfarin Sodium (Coumadin Tab) 2.5 mg MoFr@1600 PO 07/24/17 16:00 08/23/17 15:59 07/24/17 15:29 2.5 MG Warfarin Sodium (Coumadin Tab) 5 mg SuTuWeThSa@1600 PO 07/25/17 16:00 08/24/17 15:59 07/26/17 18:22 5 MG Albuterol/ Ipratropium (Duoneb) 3 ml QIDR INH 07/24/17 08:00 08/23/17 07:59 07/27/17 07:37 3 ML Miconazole Nitrate (Desenex Powder) 1 appln PRN PRN EXT 07/24/17 02:15 08/23/17 02:14 Enteral Nutritional Formula (Boost Breeze Nutritional Drink) 1 box BIDM PO 07/24/17 17:00 08/23/17 16:59 Miscellaneous Information (Consult Glycemic Management Pharmacy) 1 ea UD PRN N/A 07/25/17 20:45 08/24/17 20:44 Insulin Detemir (Levemir Flexpen/ FlexTouch) SEE PROTOCOL BID SC 07/27/17 20:00 08/26/17 19:59 Insulin Aspart (novoLOG ASPART) SLIDING SCALE If C... 0200 ONCE SC 07/28/17 02:00 07/28/17 02:01 Impression (1) Acute kidney injury (2) Chronic kidney disease (3) Diastolic dysfunction (4) Hypertension (5) Diabetes mellitus (6) Anemia Mattie is a 67-year-old female with complex past medical history including stage 3 chronic kidney disease secondary to microvascular disease, hypertension, diabetes, coronary artery disease, diastolic dysfunction and history of DVT admitted to the hospital with shortness of breath, worsening lower extremity swelling and acute kidney injury. On admission her physical exam or chest x-ray did not show significant sign of volume overload or lower extremity edema. diuretics has been on hold and she was started on IV fluid. Creatinine on admission was 2.4 with baseline creatinine around 1.5, renal function started to improve, creatinine 2.2 this morning, electrolyte acceptable. Blood pressure and volume status stable. Acute kidney injury seems to be prerenal with intravascular volume depletion although she has recurrent history of worsening lower extremity edema which could be multifactorial including diastolic dysfunction, hypoalbuminemia as well as said venous insufficiency. Recommendations --WILBERT resolved and cr now 1.0-1.2 ( B/L 1.5 ), BP, electrolyte and volume status acceptable --continue to hold the diuretics for now as pt has been having decent UO, around 2 L /d and has been net even to slightly negative. Will need to monitor volume status closely with her history of diastolic dysfunction and she will eventually need to be on diuretics. Suggest resumiong diuretics on discharge at bumex 1 mg BID --hold MICHAEL-inhibitor/ARB and any other nephrotoxins medication --dose medications for GFR less than 30 Will sign off, will see her in office for F/U as previous schedule This chart was completed utilizing [employer] Interactive Speech and voice recognition software. Grammatical errors, random word insertions, pronoun errors and incomplete sentences are occasional consequences of this system. Any questions or concerns about the content, text or information contained within the body of this dictation should be addressed directly to the physician for clarification.
[2017-07-27] MEDS ORDERED: MRLP17X PO (11:14)
[2017-07-27] MEDS ORDERED: BUME1TAB PO (11:14)
[2017-07-27] MEDS ORDERED: HYDR-3419 PO (11:14)
[2017-07-27] MEDS ORDERED: CYAN100073 OG (11:14)
--- NOTE | 2017-07-27 11:16 | Discharge Instructions ---
Discharge Instructions Date of Service Jul 27, 2017. Admission Reason for Admission: Acute Kidney Injury, Weakness Discharge Discharge Diagnosis / Problem: WILBERT/CKD Discharge Goals Goal(s): Decrease discomfort Activity Recommendations Activity Limitations: resume your previous activity . Instructions / Follow-Up Instructions / Follow-Up follow up with PCP in 2 weeks needs a renal function check in 2 weeks Current Hospital Diet Patient's current hospital diet: Low Sodium Diet (2gm Na), Diabetes Type 2 Diet Discharge Diet Recommended Diet: Low Sodium Diet (2gm Na), Diabetes Type 2 Diet Fluid Restriction: 2000 ml (8 cups) Pending Studies Studies pending at discharge: no Laboratory Results Hemoglobin A1c Test 07/26/17 07:24 Range/Units Estimated Average Glucose 171 mg/dl Hemoglobin A1c 7.6 H 4.5-5.6 % Medical Emergencies . Who to Call and When: Medical Emergencies: If at any time you feel your situation is an emergency, please call 911 immediately. . Non-Emergent Contact Non-Emergency issues call your: Primary Care Provider Call Non-Emergent contact if: you have a fever, your pain is not controlled . . "Provider Documentation" section prepared by Cyndi Roberts. . VTE Core Measure Inpt VTE Proph given/why not?: Warfarin (Coumadin)
[2017-07-27] MEDS ORDERED: WARF-283 PO (11:18)
[2017-07-27 11:34] VITALS: PULSE 77; O2SAT 98
--- NOTE | 2017-07-27 11:37 | Discharge Summary ---
Discharge Summary Date of Service Jul 27, 2017. Discharge Summary Admission Date: Jul 23, 2017 at 23:15 Discharge Date: Jul 27, 2017 Discharge Disposition: [facility] facility Principal Diagnosis: WILBERT/CKD Problems/Secondary Diagnoses: WILBERT on CKD CKD stage 2-3 morbid obesity secondary to caloric intake HTN DMII insulin req, with HgbA1C of 7.5 (dose was not change) Hx of DVT on coumadin INR was 1.4 and coumadin dose was increased B12 deficiency Vit D deficiency Immunizations: Have You Had Influenza Vaccine: Yes History of Tetanus Vaccine?: Yes Tetanus Immunization Date: Jul 20, 2011 History of Pneumococcal: Yes Pneumococcal Date: Jul 20, 2009 History of Hepatitis B Vaccine: Yes Medication Reconciliation New Medications: Cyanocobalamin (B12) 1,000 Mcg Tab 1 TAB OG DAILY for 30 Days, #30 TAB 7 Refills Warfarin Sodium (Warfarin Sodium) 4 Mg Tab 1 TAB PO 2XWK for 30 Days, #8 TAB 1 Refill Polyethylene (Miralax) 17 Gm Pow 17 GM PO DAILY PRN for Constipation for 30 Days, #30 PKT Changed Medications: Bumetanide (Bumex) 1 Mg Tab 1 MG PO DAILY for 30 Days, #30 TAB 1 Refill (Changed from: 1.5 MG; BID; 270; 90) Continued Medications: Adalimumab (Humira Pen) 40 Mg/0.8 Ml Kit 40 MG INJ [id number], #2 Albuterol (Ventolin Hfa) Aers 2 PUFFS INH TID Amitriptyline Hcl (Amitriptyline Hcl) 50 Mg Tab 50 MG PO HS, TAB Aspirin (Aspirin Ec) 81 Mg Tab 81 MG PO DAILY Atorvastatin (Lipitor) 10 Mg Tab 10 MG PO HS, TAB Carbidopa-Levodopa (Carbidopa/Levodopa Er) 1 Tab Tab 25-100 MG PO QID Citalopram Hydrobromide (Celexa) 20 Mg Tab 20 MG PO DAILY, TAB Entacapone (Comtan) 200 Mg Tab 200 MG PO QID, TAB Ergocalciferol (Vitamin D 56209 Unit) 50,000 Unit Cap 98525 UNIT PO MONTHLY, CAP Ferrous Sulfate (Kp Ferrous Sulfate) 325 Mg Tab 1 TAB PO DAILY for 30 Days, #30 TAB 3 Refills Fluticasone-Salmeterol 115/21 Mcg (Advair Hfa 115/21 Mcg) 1 Aer Aer 2 PUFF INH BID PRN for SOB/Wheezing, AER Gabapentin (Neurontin) 300 Mg Cap 300 MG PO TID, CAP Glipizide Xl (Glucotrol Xl) 10 Mg Tab 10 MG PO BID Home O2 Therapy (Oxygen) Gas 4 LITERS NA PRN, BTL Hydrocodon/Acetaminophen 5MG/300MG (Vicodin (5MG/300MG)) 1 Tab Tab 1 TAB PO Q4H PRN for Pain for 7 Days, #28 TAB (This prescription has been renewed) Insulin Aspart Penfill (Novolog Penfill) Inj 0 SC ACHS, BTL PER SLIDING SCALE Insulin Detemir (Levemir Pen) 100 Unit/ Inj 10 UNIT SQ QAM, #15 Insulin Detemir (Levemir Flextouch) 100 Unit/Ml Inj 10-14 UNITS SQ QPM Isosorbide Mononitrate Ext Rel (Imdur Ext Rel) 60 Mg Ertab 60 MG PO QAM, TAB Levetiractam (Levetiracetam) 500 Mg Tab 1000 MG PO HS, #60 Levothyroxine Sodium (Synthroid) 25 Mcg Tab 25 MCG PO DAILY, TAB Metformin Hcl (Glucophage) 1,000 Mg Tab 1000 MG PO BID, TAB Methotrexate Sodium (Methotrexate) 2.5 Mg Tab 20 MG PO WK, TAB TAKES 8 TABS ON FRIDAYS Multivitamin (Multivitamin) Tab 1 TAB PO DAILY, TAB Nitroglycerin (Nitrostat) 0.3 Mg Sub 0.3 MG UT UD PRN, BTL Omeprazole (Omeprazole) 20 Mg Tab 20 MG PO DAILY Ranolazine (Ranexa) 500 Mg Tab 500 MG PO BID Rivastigmine Tartrate (Exelon) 9.5 Mg Tdsy 4.6 MG TOP DAILY for 30 Days, PATCH 2 Refills Sumatriptan Succinate (Imitrex) 50 Mg Tab 50 MG PO DAILY PRN for Headache, TAB Warfarin Sodium (Coumadin) 5 Mg Tab 5 MG PO 5XWK for 90 Days, TAB 1 Refill Discontinued Medications: Benazepril (Lotensin) 20 Mg Tab 20 MG PO DAILY, TAB Folic Acid (Folvite) 1 Mg Tab 3 MG PO DAILY, TAB Metolazone (Zaroxolyn) 2.5 Mg Tab 2.5 MG PO 2XWK, TAB Warfarin Sod (Jantoven) 2.5 Mg Tab 2.5 MG PO 2XWK, TAB Mon/Fri Discharge Exam Review of Systems: Constitutional: No fever, No chills, No sweats, No weight loss, No weakness , No fatigue, No problem reported Eyes: No worsening of vision, No eye pain, No redness, No discharge, No diplopia, No problem reported ENT: No hearing loss, No unusual epistaxis, No nasal symptoms, No sore throat, No tinnitus, No dental problems, No trouble swallowing, No problem reported Respiratory: No cough, No sputum, No wheezing, No shortness of breath, No dyspnea on exertion, No dyspnea at rest, No hemoptysis, No problem reported Cardiovascular: No chest pain, No orthopnea, No PND, No edema, No claudication, No palpitations, No problem reported Abdomen: No pain, No nausea, No vomiting, No diarrhea, No constipation, No GI bleeding, No problem reported Musculoskeletal: No joint pain, No muscle pain, No swelling, No calf pain, No problem reported Neurologic: No memory loss, No paralysis, No weakness, No numbness/tingling , No vertigo, No balance problems, No problem reported Hematologic / Lymphatic: No abnormal bleeding/bruising, No clotting problems , No swollen lymph nodes, No night sweats, No problem reported Physical Exam: General Appearance: WD/WN, no apparent distress, + obese ENT: normal ENT inspection, hearing grossly normal Neck: supple Respiratory/Chest: chest non-tender, lungs clear, normal breath sounds, no respiratory distress, no accessory muscle use Cardiovascular: regular rate, rhythm, no murmur Abdomen / GI: non tender, soft Extremities: normal inspection, no calf tenderness Neurologic/Psychiatric: 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 presented to ED with generalized weakness and SOB. found to have acute kidney injury on CKD. her metolazone and bumex were stopped, on discharge bumex was restarted on a lower dose. she also received IVF hydration. 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 PT/OT saw her and recommended SNF for her deconditioning. today her creatinine is 1 and she appears stable to be discharged she was continued on her home meds and no change on that. labs showed border line B12 deficiency and she was started on B12 supplement. as far as DMII insulin req, with HgbA1C of 7.5 (dose was not change) Hx of DVT on coumadin INR was 1.4 and coumadin dose was increased Total Time Spent: Greater than 30 minutes This includes examination of the patient, discharge planning, medication reconciliation, and communication with other providers. Discharge Instructions Please refer to the electronic Patient Visit Report (Discharge Instructions) for additional information.
[2017-07-27] MEDS ORDERED: INSULIN DETEMIR FLEXPEN/FLEX TOUCH 100 UNITS/ML 3ML SC ONE (12:45)
[2017-07-27 13:02] VITALS: BP 133/77; PULSE 77; TEMP 36.8; O2SAT 98
[2017-07-27] MEDS ORDERED: INSULIN DETEMIR FLEXPEN/FLEX TOUCH 100 UNITS/ML 3ML SC SCH (20:00)
[2017-07-28] MEDS ORDERED: INSULIN ASPART 100 UNITS/ML 3 ML PEN SC ONE (02:00)
--- NOTE | 2017-07-28 08:46 | Palliative Care Progress Note ---
Palliative Care Progress Note Date of Service Jul 27, 2017. Subjective Patient discharged before consult completed.
[2017-08-14] MEDS ORDERED: ERGOCALCIFEROL 50,000 INTER.UNIT CAP PO SCH (15:00)
[2017-09-03] MEDS ORDERED: WARF2.5T8 PO (11:43)
== END 2017-07-27 14:50 | disposition home health service (06) | DRG 683 ==
LOC: C.EDB 18:15 → C.MS4W 23:15 → ENRESERV 23:29
PROVIDERS: ADMIT Student in an Organized Health Care Education/Training Program; ATTEND Internal Medicine
DX: N17.9 Acute kidney failure, unspecified (principal); K50.90 Crohn's disease, unspecified, without complications; I50.30 Unspecified diastolic (congestive) heart failure; I13.0 Hypertensive heart and chronic kidney disease with heart failure and stage 1 through stage 4 chronic kidney disease, or unspecified chronic kidney disease; Z68.43 Body mass index [BMI] 50.0-59.9, adult; J45.909 Unspecified asthma, uncomplicated; E11.21 Type 2 diabetes mellitus with diabetic nephropathy; E66.01 Morbid (severe) obesity due to excess calories; E03.9 Hypothyroidism, unspecified; Z86.711 Personal history of pulmonary embolism; Z79.01 Long term (current) use of anticoagulants; D64.9 Anemia, unspecified; Z88.0 Allergy status to penicillin; Z88.2 Allergy status to sulfonamides; N18.3 Chronic kidney disease, stage 3 (moderate); E53.8 Deficiency of other specified B group vitamins; E55.9 Vitamin D deficiency, unspecified; I25.10 Atherosclerotic heart disease of native coronary artery without angina pectoris

== ENCOUNTER → 2017-08-06 | Outpatient (CLI) | payer OTHER ==
[~2017-08-06] MED LIST changes: -BENA20TA14 PO; +CYAN100073 OG; -FOLI1TAB7 PO; +MRLP17X PO; +OXGN; +WARF-283 PO
[2017-08-06 12:47] LABS: BLOOD UREA NITROGEN 24 mg/dl (7-18); CALCIUM 8.8 mg/dl (8.5-10.1); CARBON DIOXIDE 25 mmol/L (21-32); CHLORIDE 107 mmol/L (98-107); GLUCOSE 189 mg/dl (70-99); POTASSIUM 4.7 mmol/L (3.5-5.1); SODIUM 139 mmol/L (136-145)
[2017-08-06 12:48] LABS: PHOSPHORUS 2.9 mg/dl (2.5-4.9)
== END ==
LOC: C.LABPBG 10:45
PROVIDERS: ATTEND Internal Medicine Nephrology
DX: N18.9 Chronic kidney disease, unspecified (principal)

== ENCOUNTER 2018-01-26 17:52 | Emergency (ER) | payer OTHER ==
[~2018-01-26 17:52] MED LIST changes: -ADAL40KI INJ; -AMIT50TA3 PO; -ISOS60TA25 PO; -LEVE500T PO; -METH2.5T PO; -NRN/300 PO; -NTRSL3 UT; -OMEP20TA PO; -OXGN; -RANO500T PO; -WARF-283 PO; -WARF2.5T8 PO
[2018-01-26 18:10] VITALS: TEMP 37.3; Ht 149.9 cm
[2018-01-26] MEDS ORDERED: SILVER NITR/POTASSIUM NITRATE APPLICATOR ONE (18:34)
[2018-01-26] MEDS ORDERED: OXGN (19:03)
[2018-01-26 19:13] LABS: HEMATOCRIT 35.2 % (37-47); HEMOGLOBIN 10.6 g/dL (12.0-16.0); MEAN CELL VOLUME 92.4 fL (80-100); MEAN CORPUSCULAR HEMOGLOBIN 27.8 pg (25-34); MEAN CORPUSCULAR HGB CONC 30.1 g/dl (32-36); PLATELET COUNT 332 K/uL (130-400); RED CELL DISTRIBUTION WIDTH CV 20.6 % (11.5-14.5); RED CELL DISTRIBUTION WIDTH SD 68.6 fL (36.4-46.3); WHITE BLOOD COUNT 9.65 K/uL (4.8-10.8)
[2018-01-26 19:34] LABS: BLOOD UREA NITROGEN 19 mg/dl (7-18); CALCIUM 8.3 mg/dl (8.5-10.1); CARBON DIOXIDE 29 mmol/L (21-32); CREATININE 1.25 mg/dl (0.60-1.20); GLUCOSE 73 mg/dl (70-99); POTASSIUM 3.8 mmol/L (3.5-5.1); SODIUM 143 mmol/L (136-145)
--- NOTE | 2018-01-26 19:46 | EMERGENCY ROOM VISIT NOTE ---
ED Visit Note First contact with patient: 18:17 The patient was seen and examined with Joyce Bolanos PA-C. I agree with the history, physical and findings. Please see the note for disposition and details.
[2018-01-26 19:59] LABS: PTT PATIENT 31.8 SECONDS (21.0-31.0)
--- NOTE | 2018-01-26 20:18 | EMERGENCY ROOM VISIT NOTE ---
History First contact with patient: 18:17 Chief Complaint: BLEEDING Stated Complaint: BLEEDING Nursing Triage Summary: Patient presents to triage via wheelchair, sister states "She has wounds on her lady business. They are bleeding. She has had multiple nose bleeds today. We have a new INR machine at home. I am concerned that it is not reading right. They increased her Coumadin doses to 7.5mg on Thursday and Thursday. The remaining days, she takes 5mg." History of Present Illness The patient is a 67 year old female who presents to the Emergency Room with complaints of a few nosebleeds out of her left nostril today as well as bleeding from a sore on her labia. Patient states she has swelling and open wounds intermittently on her labia. The patient is here because she is concerned that her INR machine at home is not working properly. The patient is on Coumadin 5 mg daily and 7.5 on Thursday and Thursday. She states she took her INR and it was 1.2 so she should not be bleeding easily therefore she thinks the machine might be wrong. She also states that the last CBC that she had at Dr. Scott's office showed that her hemoglobin and hematocrit were low. She is scheduled to get a repeat one on Thursday. The patient denies any chest pain, shortness of breath, abdominal pain. The patient admits she wears a diaper daily. She does have a home health nurse which takes care of her private area. They apply some type of cream on the area daily. Review of Systems 10 system review was performed and was negative unless stated otherwise history of present illness. Past Medical/Surgical History Medical Problems: (1) Acute kidney injury (2) Anemia (3) Asthma (4) Chest pain (5) Chronic kidney disease (6) Colitis (7) Crohn's disease (8) Diabetes mellitus (9) Diastolic dysfunction (10) GI bleeding (11) Hypertension (12) Hypothyroidism (13) Lower GI bleed (14) Personal history of DVT (deep vein thrombosis) (15) Pulmonary embolism (16) Weakness Family History Cancer Diabetes mellitus Gallbladder disease Heart disease Hypertension Lung disease Social History Smoking Status: Former Smoker Alcohol Use: none Drug Use: none Marital Status: single Housing Status: lives alone Occupation Status: disabled Current/Historical Medications Scheduled Adalimumab (Humira Pen), 40 MG INJ [id number] Albuterol (Ventolin Hfa), 2 PUFFS INH TID Amitriptyline Hcl (Amitriptyline Hcl), 50 MG PO HS Aspirin (Aspirin Ec), 81 MG PO DAILY Atorvastatin (Lipitor), 10 MG PO HS Bumetanide (Bumex), 1 MG PO DAILY Carbidopa-Levodopa (Carbidopa/Levodopa Er), 25-100 MG PO QID Citalopram Hydrobromide (Celexa), 20 MG PO DAILY Cyanocobalamin (B12), 1 TAB OG DAILY Entacapone (Comtan), 200 MG PO QID Ergocalciferol (Vitamin D 35366 Unit), 50,000 UNIT PO MONTHLY Ferrous Sulfate (Kp Ferrous Sulfate), 1 TAB PO DAILY Gabapentin (Neurontin), 300 MG PO TID Glipizide Xl (Glucotrol Xl), 10 MG PO BID Home O2 Therapy (Oxygen), 4 LITERS NA PRN Insulin Aspart Penfill (Novolog Penfill), 0 SC ACHS Insulin Detemir (Levemir Pen), 10 UNIT SQ QAM Insulin Detemir (Levemir Flextouch), 10-14 UNITS SQ QPM Isosorbide Mononitrate Ext Rel (Imdur Ext Rel), 60 MG PO QAM Levetiractam (Levetiracetam), 1,000 MG PO HS Levothyroxine Sodium (Synthroid), 25 MCG PO DAILY Metformin Hcl (Glucophage), 1,000 MG PO BID Methotrexate Sodium (Methotrexate), 20 MG PO WK Multivitamin (Multivitamin), 1 TAB PO DAILY Omeprazole (Omeprazole), 20 MG PO DAILY Ranolazine (Ranexa), 500 MG PO BID Rivastigmine Tartrate (Exelon), 4.6 MG TOP DAILY Warfarin Sodium (Coumadin), 5 MG PO DAILY Scheduled PRN Fluticasone-Salmeterol 115/21 Mcg (Advair Hfa 115/21 Mcg), 2 PUFF INH BID PRN for SOB/Wheezing Hydrocodon/Acetaminophen 5MG/300MG (Vicodin (5MG/300MG)), 1 TAB PO Q4H PRN for Pain Nitroglycerin (Nitrostat), 0.3 MG UT UD PRN Polyethylene (Miralax), 17 GM PO DAILY PRN for Constipation Sumatriptan Succinate (Imitrex), 50 MG PO DAILY PRN for Headache Physical Exam Vital Signs Date Time Temp Pulse Resp B/P (MAP) Pulse Ox O2 Delivery O2 Flow Rate FiO2 01/26/18 18:10 37.3 83 22 152/70 94 Room Air Physical Exam GENERAL: Morbidly obese 67-year-old white female appears older than stated age. MENTAL Status: Patient is alert and oriented 3. NOSE: Nasal passages are clear. No area of active bleeding bilaterally. I do not see dried blood within the nasal passages. MOUTH: Mucosa is moist NECK: Supple, no lymphadenopathy noted. No carotid bruits noted. LUNGS: Clear auscultation without wheezes rales or rhonchi. CARDIAC: Regular rate and rhythm without murmur. Pulses is full and equal throughout. BACK: No CVA tenderness noted. ABDOMEN: Positive bowel sounds all 4 quadrants. Soft, nontender to palpation . Cannot evaluate for organomegaly or masses secondary to patient's size. GENITALIA: The patient has large hematomas on the posterior aspect of both labia majora. On the right side there is a small area which is oozing blood. This is only a pinpoint area. On the left labia there is a healed ulcer without any signs of infection. Medical Decision & Procedures Laboratory Results 01/26/18 19:00 Red Blood Count 3.81, Mean Corpuscular Volume 92.4, Mean Corpuscular Hemoglobin 27.8, Mean Corpuscular Hemoglobin Concent 30.1, Mean Platelet Volume 9.0, Neutrophils (%) (Auto) , Lymphocytes (%) (Auto) , Monocytes (%) (Auto) , Eosinophils (%) (Auto) , Basophils (%) (Auto) , Neutrophils # (Auto) , Lymphocytes # (Auto) , Monocytes # (Auto) , Eosinophils # (Auto) , Basophils # ( Auto) 01/26/18 19:00 Test 01/26/18 19:00 01/26/18 19:38 White Blood Count 9.65 K/uL (4.8-10.8) Red Blood Count 3.81 M/uL (4.2-5.4) Hemoglobin 10.6 g/dL (12.0-16.0) Hematocrit 35.2 % (37-47) Mean Corpuscular Volume 92.4 fL (80-100) Mean Corpuscular Hemoglobin 27.8 pg (25-34) Mean Corpuscular Hemoglobin Concent 30.1 g/dl (32-36) Platelet Count 332 K/uL (130-400) Mean Platelet Volume 9.0 fL (7.4-10.4) Neutrophils (%) (Auto) % Lymphocytes (%) (Auto) % Monocytes (%) (Auto) % Eosinophils (%) (Auto) % Basophils (%) (Auto) % Neutrophils # (Auto) K/uL (1.4-6.5) Lymphocytes # (Auto) K/uL (1.2-3.4) Monocytes # (Auto) K/uL (0.11-0.59) Eosinophils # (Auto) K/uL (0-0.5) Basophils # (Auto) K/uL (0-0.2) RDW Standard Deviation 68.6 fL (36.4-46.3) RDW Coefficient of Variation 20.6 % (11.5-14.5) Immature Granulocyte % (Auto) % Immature Granulocyte # (Auto) K/uL (0.00-0.02) Nucleated RBC Absolute Count (auto) K/uL (0-0) Neutrophils % (Manual) 38.9 % Lymphocytes % (Manual) 29.2 % Monocytes % (Manual) 7.1 % Eosinophils % (Manual) 0.9 % Basophils % (Manual) 0.9 % Nucleated Red Blood Cells % % Neutrophils # (Manual) 3.75 K/uL (1.4-6.5) Total Absolute Neutrophils 3.75 K/uL (1.4-6.5) Lymphocytes # (Manual) 2.82 K/uL (1.2-3.4) Total Absolute Lymphocytes 5.04 K/uL (1.2-3.4) Monocytes # (Manual) 0.69 K/uL (0.11-0.59) Eosinophils # (Manual) 0.09 K/uL (0-0.5) Basophils # (Manual) 0.09 K/uL (0-0.2) Percent Large Granular Lymphocytes 23.0 % Absolute Large Granular Lymphocytes 2.22 K/uL Anisocytosis PRESENT Anion Gap 4.0 mmol/L (3-11) Estimated GFR () 51.2 Estimated GFR (Non- 44.2 BUN/Creatinine Ratio 15.3 (10-20) Calcium Level 8.3 mg/dl (8.5-10.1) Chemistry Specimen Hemolysis Prothrombin Time 21.0 SECONDS (9.0-12.0) Prothromb Time International Ratio 2.0 (0.9-1.1) Activated Partial Thromboplast Time 31.8 SECONDS (21.0-31.0) Partial Thromboplastin Ratio 1.2 ED Course Patient was evaluated. We do not have the patient's prior CBC available on our EMR therefore I asked the secretaries if they were able to get the patient's prior CBC. IV access was obtained. CBC and differential, renal profile and coags were ordered. I also applied silver nitrate to the bleeding area on the right labia with complete hemostasis. Labs are reviewed. The patient's hemoglobin and hematocrit were slightly low actually on the high side for the patient. INR was 2.0. The patient was independently evaluated by Dr. Case who agrees with treatment plan. The patient was discharged home in stable condition. Medical Decision The patient presented stating she was concerned that her machine at home might be incorrect and that her INR was higher than it was at home. Repeat INR was obtained. Also she had some bleeding from her labia which was cauterized with good results. [place] Drug Monitoring Program Search Results: patient reviewed within database Blood Pressure Screening Patient's blood pressure: Elevated blood pressure Blood pressure disposition: Elevated BP felt to be situational Impression Primary Impression: Hematoma of labia majora Departure Information Dispostion Home / Self-Care Condition GOOD Referrals No Doctor, Assigned (PCP) Forms HOME CARE DOCUMENTATION FORM, IMPORTANT VISIT INFORMATION Patient Instructions My SiOx Additional Instructions Your INR was therapeutic at 2.0. Continue Coumadin as previously directed. Recommend putting Neosporin in both nostrils daily with a Q-tip to prevent nosebleeds. Also recommend that someone checks the area on your labia daily to make sure there is no signs of infection. If any should occur, follow-up with your family doctor or return to ER.
[2018-01-26] MEDS ORDERED: LVMI SQ (20:22)
[2018-01-26] MEDS ORDERED: VNTHFA/IN INH (20:22)
[2018-01-26] MEDS ORDERED: ATOR10TA82 PO (20:22)
[2018-01-26] MEDS ORDERED: WARF5TAB90 PO (20:22)
[2018-01-26] MEDS ORDERED: BUME1TAB PO (20:22)
[2018-01-26] MEDS ORDERED: NVLGIPEN SQ (20:22)
[2018-01-26] MEDS ORDERED: ADAL40KI INJ (21:08)
[2018-01-26] MEDS ORDERED: LEVE500T PO (21:11)
[2018-01-26 22:38] VITALS: BP 126/74; PULSE 101; O2SAT 93
[2018-01-26] MEDS ORDERED: ISOS60TA25 PO (22:43)
[2018-01-26] MEDS ORDERED: AMIT50TA3 PO (22:43)
[2018-01-26] MEDS ORDERED: OMEP20TA PO (22:56)
[2018-01-26] MEDS ORDERED: NRN/300 PO (22:56)
[2018-01-26] MEDS ORDERED: RANO500T PO (23:02)
[2018-01-26] MEDS ORDERED: METH2.5T PO (23:02)
[2018-01-26] MEDS ORDERED: NTRSL3 UT (23:02)
== END 2018-01-26 22:40 | disposition home or self-care (01) ==
LOC: C.EDB 17:53 → C.EDC 22:40
DX: N90.89 Other specified noninflammatory disorders of vulva and perineum (principal); Z79.01 Long term (current) use of anticoagulants; D64.9 Anemia, unspecified; J45.909 Unspecified asthma, uncomplicated; N18.9 Chronic kidney disease, unspecified; E11.9 Type 2 diabetes mellitus without complications; I12.9 Hypertensive chronic kidney disease with stage 1 through stage 4 chronic kidney disease, or unspecified chronic kidney disease; E03.9 Hypothyroidism, unspecified; Z86.718 Personal history of other venous thrombosis and embolism; Z86.711 Personal history of pulmonary embolism; Z80.9 Family history of malignant neoplasm, unspecified; Z83.3 Family history of diabetes mellitus; Z82.49 Family history of ischemic heart disease and other diseases of the circulatory system; Z87.891 Personal history of nicotine dependence; Z79.82 Long term (current) use of aspirin; Z79.84 Long term (current) use of oral hypoglycemic drugs; Z79.899 Other long term (current) drug therapy; Z79.4 Long term (current) use of insulin

== ENCOUNTER → 2018-02-18 | Outpatient (CLI) | payer OTHER ==
[~2018-02-18] MED LIST changes: +ADAL40KI INJ; -ALBUAER2 INH; +AMIT50TA3 PO; -ATOR-14 PO; +ATOR10TA82 PO; -FLUT115A INH; -INSU1INJ15 SQ; -INSUINJ14 SC; +ISOS60TA25 PO; +LEVE500T PO; +LVMI SQ; +METH2.5T PO; +NRN/300 PO; +NTRSL3 UT; +NVLGIPEN SQ; +OMEP20TA PO; +OXGN; +RANO500T PO; -SUMA50TA15 PO; +VNTHFA/IN INH
== END | disposition home or self-care (01) ==
LOC: C.PATHSPEC 13:13
PROVIDERS: ATTEND Obstetrics & Gynecology
DX: N94.89 Other specified conditions associated with female genital organs and menstrual cycle (principal)

== ENCOUNTER → 2018-06-30 | Outpatient (CLI) | payer OTHER ==
[~2018-06-30] MED LIST changes: +FERR324T4 PO; +FOLI1TAB8 PO; +NTRGSL/4 UT
[2018-06-30 17:19] LABS: HEMATOCRIT 27.6 % (37-47); HEMOGLOBIN 7.4 g/dL (12.0-16.0); MEAN CELL VOLUME 83.1 fL (80-100); MEAN CORPUSCULAR HEMOGLOBIN 22.3 pg (25-34); MEAN CORPUSCULAR HGB CONC 26.8 g/dl (32-36); MEAN PLATELET VOLUME 9.2 fL (7.4-10.4); PLATELET COUNT 279 K/uL (130-400); RED CELL DISTRIBUTION WIDTH CV 20.7 % (11.5-14.5); RED CELL DISTRIBUTION WIDTH SD 63.4 fL (36.4-46.3); WHITE BLOOD COUNT 6.01 K/uL (4.8-10.8)
[2018-06-30 17:24] LABS: BASO % 0.3 %; BASO ABS # 0.02 K/uL (0-0.2); EOS ABS # 0.06 K/uL (0-0.5); IG# 0.01 K/uL (0.00-0.02); LYMPH % 21.8 %; LYMPH ABS # 1.31 K/uL (1.2-3.4); MONO % 11.5 %; MONO ABS # 0.69 K/uL (0.11-0.59); NEUT % 65.2 %; NEUT ABS # 3.92 K/uL (1.4-6.5)
[2018-07-01 05:49] LABS: HEMOGLOBIN A1C 7.2 % (4.5-5.6)
== END | disposition home or self-care (01) ==
LOC: C.LABPBG 12:05
PROVIDERS: ATTEND Family Medicine
DX: E11.9 Type 2 diabetes mellitus without complications (principal)

== ENCOUNTER 2018-07-01 12:04 | Inpatient (IN) | payer OTHER ==
[~2018-07-01] VITALS: Ht 149.9 cm; Wt 113.6 kg
[2018-07-01] VITALS (7 sets, daily range): BP systolic 134–171; BP diastolic 59–74; PULSE 64–88; TEMP 36.8–37.3; O2SAT 90–97; Ht 149.9 cm; Wt 113.6 kg
[~2018-07-01 12:04] MED LIST changes: -FERR324T4 PO; -FOLI1TAB8 PO; -NTRGSL/4 UT
[2018-07-01] MEDS ORDERED: FUROSEMIDE 40 MG/4 ML VIAL IV STA (12:51)
[2018-07-01 12:56] LABS: INR 1.4 (0.9-1.1); PTT PATIENT 28.2 SECONDS (21.0-31.0)
--- NOTE | 2018-07-01 13:00 | DIAGNOSTIC IMAGING REPORT ---
CHEST ONE VIEW PORTABLE CLINICAL HISTORY: shortness of breath dyspnea COMPARISON STUDY: 07/23/2017 FINDINGS: The bones soft tissues and hemidiaphragms are normal. The cardiomediastinal silhouette is normal. The lungs are clear. The pulmonary vasculature is normal. IMPRESSION: Negative chest. The above report was generated using voice recognition software. It may contain grammatical, syntax or spelling errors. Electronically signed by: Darvin Mesa M.D. 07/01/2018 12:59 PM Dictated Date/Time: 07/01/2018 12:58 PM
[2018-07-01 13:01] LABS: HEMATOCRIT 27.3 % (37-47); HEMOGLOBIN 7.7 g/dL (12.0-16.0); MEAN CORPUSCULAR HEMOGLOBIN 23.1 pg (25-34); MEAN CORPUSCULAR HGB CONC 28.2 g/dl (32-36); MEAN PLATELET VOLUME 8.4 fL (7.4-10.4); PLATELET COUNT 244 K/uL (130-400); RED CELL DISTRIBUTION WIDTH CV 20.2 % (11.5-14.5); RED CELL DISTRIBUTION WIDTH SD 61.2 fL (36.4-46.3); WHITE BLOOD COUNT 6.21 K/uL (4.8-10.8)
[2018-07-01 13:13] LABS: ALKALINE PHOSPHATASE 90 U/L (45-117); ALT/SGPT 13 U/L (12-78); AST/SGOT 26 U/L (15-37); BLOOD UREA NITROGEN 10 mg/dl (7-18); CALCIUM 8.4 mg/dl (8.5-10.1); CARBON DIOXIDE 24 mmol/L (21-32); CREATININE 1.01 mg/dl (0.60-1.20); GLUCOSE 203 mg/dl (70-99); POTASSIUM 4.2 mmol/L (3.5-5.1); SODIUM 141 mmol/L (136-145); TOTAL PROTEIN 6.5 gm/dl (6.4-8.2)
[2018-07-01 13:27] LABS: BASO % 0.5 %; BASO ABS # 0.03 K/uL (0-0.2); EOS % 1.6 %; IG# 0.01 K/uL (0.00-0.02); LYMPH % 31.7 %; LYMPH ABS # 1.97 K/uL (1.2-3.4); MONO % 10.5 %; MONO ABS # 0.65 K/uL (0.11-0.59); NEUT % 55.5 %; NEUT ABS # 3.45 K/uL (1.4-6.5)
[2018-07-01] MEDS ORDERED: OPTIRAY 320 IV PRN (14:30)
[2018-07-01] MEDS ORDERED: NTRGSL/4 UT ×2 (14:51)
[2018-07-01] MEDS ORDERED: FOLI1TAB8 PO ×2 (14:51)
--- NOTE | 2018-07-01 15:05 | DIAGNOSTIC IMAGING REPORT ---
CT ANGIOGRAM OF THE CHEST CLINICAL HISTORY: Atypical chest pain and shortness of breath. History of prior pulmonary embolism. COMPARISON STUDY: Conventional radiographic study dated July 01, 2018, CT scan dated 04/09/2016 TECHNIQUE: Following the IV administration of 114 mL of [id number]-320, CT angiogram of the thorax was performed from the thoracic inlet to the lung bases utilizing the pulmonary embolus protocol. Images are reviewed in the axial, sagittal, and coronal planes. IV contrast was administered without complication. MIP imaging was performed. A dose lowering technique was utilized adhering to the principles of ALARA. CT DOSE: 601.51 mGy.cm FINDINGS: There is an 8mm right lobe thyroid nodule containing a calcification. No pathologically enlarged axillary mediastinal or hilar lymph nodes were visualized. There is dilatation of the ascending thoracic aorta which measures 41 mm. There were no pulmonary artery filling defects to indicate acute pulmonary embolism. No pleural effusions are visualized. There is a 39 mm left lower lobe lung cyst. A few additional smaller lung cysts are visualized. There is pulmonary emphysema. There are left lower lobe dependent atelectatic changes. There are few scattered micronodules. Addition there is a 4 mm right upper lobe pulmonary nodule as visualized in image #[id number]. There is a 4 mm right apical pulmonary nodule as visualized in image #[id number]. There is a stable 6 mm right upper lobe pulmonary nodule as visualized in image #[id number]. These nodules remain similar to the prior 2015 examination There is minor right lower lobe bronchial wall thickening. IMPRESSION: 1. No evidence of acute pulmonary embolism 2. Emphysema 3. No evidence of focal pulmonary consolidation 4. 41 mm ascending thoracic aorta 5. Scattered subcentimeter pulmonary nodules, relatively similar to the prior March 2016 study 6. Minor right lower lobe bronchial wall thickening. Electronically signed by: Fady Pineda M.D. 07/01/2018 3:04 PM Dictated Date/Time: 07/01/2018 2:55 PM
[2018-07-01] MEDS ORDERED: ONDANSETRON INJ 2 MG/ML 2 ML VIAL IV PRN (15:30)
[2018-07-01] MEDS ORDERED: ALBUTEROL HFA 8 GM INHALER INH PRN (15:30)
[2018-07-01] MEDS ORDERED: MAGNESIUM HYDROXIDE SUSP 30 ML UDC PO PRN (15:30)
[2018-07-01] MEDS ORDERED: ALUMINUM/MAGNESIUM/SIMETH (MAALOX MAX) 30 ML UDC PO PRN (15:30)
[2018-07-01] MEDS ORDERED: POLYETHYLENE (MIRALAX) 17 GM PACK PO PRN (15:30)
[2018-07-01] MEDS ORDERED: NITROGLYCERIN 0.4 MG SL PER TAB CHARGE UT PRN (15:30)
[2018-07-01] MEDS: INSULIN ASPART 100 UNITS/ML 3 ML PEN SQ SCH ×3 (16:00→22:02)
[2018-07-01] MEDS ORDERED: CARBOHYDRATES FOR HYPOGLYCEMIA PO PRN (16:00)
[2018-07-01] MEDS ORDERED: GLUCAGON FOR INJ 1 MG VIAL IM PRN (16:00)
[2018-07-01] MEDS ORDERED: DEXTROSE 50% 50 ML SYR IV PRN (16:00)
[2018-07-01] MEDS ORDERED: GLUCOSE 40% GEL 15 GM TUBE PO PRN (16:00)
[2018-07-01] MEDS ORDERED: GLUCOSE 10 TABS/TUBE PO PRN (16:00)
[2018-07-01] MEDS ORDERED: IRON SUCROSE INJ 300 MG in SODIUM CHLORIDE 0.9% 250ML 250 ML IV ONE (17:00)
[2018-07-01] MEDS: CARBIDOPA/LEVODOPA 50/200MG EXT REL TAB PO SCH ×2 (17:00→20:59)
--- NOTE | 2018-07-01 17:08 | EMERGENCY ROOM VISIT NOTE ---
History Report prepared by Andrea: Mable Lee Under the Supervision of: Dr. Dominick Martin M.D. First contact with patient: 12:41 Chief Complaint: SHORTNESS OF BREATH Stated Complaint: SOB History of Present Illness The patient is a 67 year old female who presents to the Emergency Room with complaints of persistent shortness of breath and weakness that started 1 week ago. The patient rates her discomfort a 7/10 in severity. She is normally on oxygen at home. The patient reports she has occasional chest pain in the center of her chest. She notes the last episode was yesterday and describes the pain as a "cramp." She states the pain did not last very long. The patient reports she is bleeding from her labia every day and she has to wear pads in her pull ups. She notes she goes through about 5-10 pads per day. She states this has been ongoing for a couple of months. She reports she saw a Dr. Lee at the wound clinic and was told if it started bleeding again to call him. She was then sent to a [facility] doctor and had a biopsy done a couple of months ago. The patient denies hematochezia or melena. She has not taken her Lasix in the past two days. She notes she took her last dose of Coumadin last night. She reports she is on Coumadin for a major blood clot in her left lung and smaller clots in her right lung. The patient has a history of Parkinson's and was falling quite often so they took her off Coumadin but when she developed the blood clots she was put back on Coumadin. The patient states she has a history of asthma. Source of History: patient Onset: 1 week ago Symptom Intensity: 7/10 Quality: cramping Timing: other (persistent) Associated Symptoms: + chest pain, No melena, No hematochezia Review of Systems See HPI for pertinent positives & negatives. A total of 10 systems reviewed and were otherwise negative. Past Medical & Surgical Medical Problems: (1) Acute kidney injury (2) Anemia (3) Asthma (4) Chest pain (5) Chronic kidney disease (6) Colitis (7) Crohn's disease (8) Diabetes mellitus (9) Diastolic dysfunction (10) GI bleeding (11) Hypertension (12) Hypothyroidism (13) Lower GI bleed (14) Personal history of DVT (deep vein thrombosis) (15) Pulmonary embolism (16) Weakness Family History Cancer Diabetes mellitus Gallbladder disease Heart disease Hypertension Lung disease Social History Smoking Status: Former Smoker Alcohol Use: none Drug Use: none Marital Status: single Housing Status: lives alone Occupation Status: disabled Current/Historical Medications Scheduled Adalimumab (Humira Pen), 40 MG INJ [id number] Amitriptyline Hcl (Amitriptyline Hcl), 50 MG PO HS Aspirin (Aspirin Ec), 81 MG PO DAILY Atorvastatin (Lipitor), 10 MG PO DAILY Bumetanide (Bumex), 1 MG PO DAILY Carbidopa-Levodopa (Carbidopa/Levodopa Er), 25-100 MG PO QID Citalopram Hydrobromide (Celexa), 20 MG PO DAILY Entacapone (Comtan), 200 MG PO QID Ergocalciferol (Vitamin D 68982 Unit), 50,000 UNIT PO MONTHLY Folic Acid (Folvite), 1 MG PO QAM Gabapentin (Neurontin), 300 MG PO TID Glipizide Xl (Glucotrol Xl), 10 MG PO BID Insulin Aspart (Novolog Flexpen), SQ ACHS Insulin Detemir (Levemir Flextouch), 18 UNITS SQ BID Isosorbide Mononitrate Ext Rel (Imdur Ext Rel), 60 MG PO QAM Levetiractam (Levetiracetam), 500 MG PO BID Levothyroxine Sodium (Synthroid), 25 MCG PO DAILY Metformin Hcl (Glucophage), 1,000 MG PO BIDM Nitroglycerin (Nitrostat), 0.4 MG UT PRN Omeprazole (Omeprazole), 20 MG PO DAILY Ranolazine (Ranexa), 500 MG PO BID Rivastigmine Tartrate (Exelon), 4.6 MG TOP DAILY Warfarin Sodium (Coumadin), 5 MG PO [id number] Warfarin Sodium (Coumadin), 7.5 MG PO THURSDAY Scheduled PRN Albuterol Hfa (Ventolin Hfa), 2 PUFFS INH TID PRN for SOB/Wheezing Allergies Coded Allergies: Ciprofloxacin (Unverified Allergy, Severe, RASH, 07/01/18) Penicillins (Verified Allergy, Intermediate, HIVES, 07/01/18) Sulfa Antibiotics (Verified Allergy, Intermediate, HIVES, 07/01/18) Latex (Verified Allergy, Unknown, ., 07/01/18) Adhesives (Verified Adverse Reaction, Severe, "THEY EAT MY SKIN.", 07/01/18) Iodinated Diagnostic Agents (Verified Adverse Reaction, Intermediate, Vomiting, 07/01/18) Quinolones (Verified Adverse Reaction, Mild, YEAST INFECTION, 07/01/18) Ba Pepper (Verified Adverse Reaction, Unknown, GREEN PEPPER = MIGRAINE HEADACHE, 07/01/18) Cephalosporins (Verified Adverse Reaction, Unknown, 07/01/18) Physical Exam Vital Signs Date Time Temp Pulse Resp B/P (MAP) Pulse Ox O2 Delivery O2 Flow Rate FiO2 07/01/18 15:29 36.8 80 16 171/70 94 07/01/18 13:16 94 Room Air 07/01/18 13:04 80 19 95 07/01/18 13:02 158/69 07/01/18 12:58 67/55 07/01/18 12:37 74 07/01/18 12:35 94 Room Air 07/01/18 12:35 94 Room Air 07/01/18 12:12 36.8 79 22 143/72 96 Room Air Physical Exam Constitutional: Vital signs reviewed. Eyes: Pupils are equal round reactive to light. Conjunctiva are noninjected. ENT: Pharynx is clear without erythema or exudate. Mucous membranes are moist. Neck supple without meningeal signs. Respiratory: Clear to auscultation bilaterally. Breath sounds are equal bilaterally. Cardiovascular: Regular rate and rhythm. No rubs or gallops. GI: Soft, nondistended and nontender. Bowel sounds are present. Musculoskeletal: Bilateral lower extremity pitting edema. No lower extremity tenderness. Integumentary: No cyanosis. Pelvic: Vulva enlarged bilaterally, small abrasion to the right labia with no active bleeding. Rectal: Guaiac negative, brown stool. Neurological: The patient is awake and alert. No focal deficits. Psychiatric: Normal affect. Medical Decision & Procedures ER Provider Diagnostic Interpretation: Radiology results as stated below per my review and the radiologist's interpretation: CHEST ONE VIEW PORTABLE CLINICAL HISTORY: shortness of breath dyspnea COMPARISON STUDY: 07/23/2017 FINDINGS: The bones soft tissues and hemidiaphragms are normal. The cardiomediastinal silhouette is normal. The lungs are clear. The pulmonary vasculature is normal. IMPRESSION: Negative chest. The above report was generated using voice recognition software. It may contain grammatical, syntax or spelling errors. Electronically signed by: Darvin Mesa M.D. 07/01/2018 12:59 PM Dictated Date/Time: 07/01/2018 12:[address] ANGIOGRAM OF THE CHEST CLINICAL HISTORY: Atypical chest pain and shortness of breath. History of prior pulmonary embolism. COMPARISON STUDY: Conventional radiographic study dated July 01, 2018, CT scan dated 04/09/2016 TECHNIQUE: Following the IV administration of 114 mL of [id number]-320, CT angiogram of the thorax was performed from the thoracic inlet to the lung bases utilizing the pulmonary embolus protocol. Images are reviewed in the axial, sagittal, and coronal planes. IV contrast was administered without complication. MIP imaging was performed. A dose lowering technique was utilized adhering to the principles of ALARA. CT DOSE: 601.51 mGy.cm FINDINGS: There is an 8mm right lobe thyroid nodule containing a calcification. No pathologically enlarged axillary mediastinal or hilar lymph nodes were visualized. There is dilatation of the ascending thoracic aorta which measures 41 mm. There were no pulmonary artery filling defects to indicate acute pulmonary embolism. No pleural effusions are visualized. There is a 39 mm left lower lobe lung cyst. A few additional smaller lung cysts are visualized. There is pulmonary emphysema. There are left lower lobe dependent atelectatic changes. There are few scattered micronodules. Addition there is a 4 mm right upper lobe pulmonary nodule as visualized in image #[id number]. There is a 4 mm right apical pulmonary nodule as visualized in image #[id number]. There is a stable 6 mm right upper lobe pulmonary nodule as visualized in image #[id number]. These nodules remain similar to the prior 2015 examination There is minor right lower lobe bronchial wall thickening. IMPRESSION: 1. No evidence of acute pulmonary embolism 2. Emphysema 3. No evidence of focal pulmonary consolidation 4. 41 mm ascending thoracic aorta 5. Scattered subcentimeter pulmonary nodules, relatively similar to the prior March 2016 study 6. Minor right lower lobe bronchial wall thickening. Electronically signed by: Fady Pineda M.D. 07/01/2018 3:04 PM Dictated Date/Time: 07/01/2018 2:55 PM Laboratory Results 07/01/18 12:37 Red Blood Count 3.33, Mean Corpuscular Volume 82.0, Mean Corpuscular Hemoglobin 23.1, Mean Corpuscular Hemoglobin Concent 28.2, Mean Platelet Volume 8.4, Neutrophils (%) (Auto) 55.5, Lymphocytes (%) (Auto) 31.7, Monocytes (%) (Auto) 10.5, Eosinophils (%) (Auto) 1.6, Basophils (%) (Auto) 0.5, Neutrophils # (Auto ) 3.45, Lymphocytes # (Auto) 1.97, Monocytes # (Auto) 0.65, Eosinophils # (Auto ) 0.10, Basophils # (Auto) 0.03 07/01/18 12:37 Test 07/01/18 12:37 07/01/18 12:53 White Blood Count 6.21 K/uL (4.8-10.8) Red Blood Count 3.33 M/uL (4.2-5.4) Hemoglobin 7.7 g/dL (12.0-16.0) Hematocrit 27.3 % (37-47) Mean Corpuscular Volume 82.0 fL (80-100) Mean Corpuscular Hemoglobin 23.1 pg (25-34) Mean Corpuscular Hemoglobin Concent 28.2 g/dl (32-36) Platelet Count 244 K/uL (130-400) Mean Platelet Volume 8.4 fL (7.4-10.4) Neutrophils (%) (Auto) 55.5 % Lymphocytes (%) (Auto) 31.7 % Monocytes (%) (Auto) 10.5 % Eosinophils (%) (Auto) 1.6 % Basophils (%) (Auto) 0.5 % Neutrophils # (Auto) 3.45 K/uL (1.4-6.5) Lymphocytes # (Auto) 1.97 K/uL (1.2-3.4) Monocytes # (Auto) 0.65 K/uL (0.11-0.59) Eosinophils # (Auto) 0.10 K/uL (0-0.5) Basophils # (Auto) 0.03 K/uL (0-0.2) RDW Standard Deviation 61.2 fL (36.4-46.3) RDW Coefficient of Variation 20.2 % (11.5-14.5) Immature Granulocyte % (Auto) 0.2 % Immature Granulocyte # (Auto) 0.01 K/uL (0.00-0.02) Anisocytosis PRESENT Prothrombin Time 14.1 SECONDS (9.0-12.0) Prothromb Time International Ratio 1.4 (0.9-1.1) Activated Partial Thromboplast Time 28.2 SECONDS (21.0-31.0) Partial Thromboplastin Ratio 1.1 Anion Gap 7.0 mmol/L (3-11) Estimated GFR () 66.2 Estimated GFR (Non- 57.2 BUN/Creatinine Ratio 10.3 (10-20) Calcium Level 8.4 mg/dl (8.5-10.1) Total Bilirubin 0.3 mg/dl (0.2-1) Aspartate Amino Transf (AST/SGOT) 26 U/L (15-37) Alanine Aminotransferase (ALT/SGPT) 13 U/L (12-78) Alkaline Phosphatase 90 U/L (45-117) Total Protein 6.5 gm/dl (6.4-8.2) Albumin 3.0 gm/dl (3.4-5.0) Globulin 3.5 gm/dl (2.5-4.0) Albumin/Globulin Ratio 0.9 (0.9-2) Bedside Troponin I < 0.030 ng/ml (0-0.045) Laboratory results as reviewed by me. Medications Administered Medications (Trade) Dose Ordered Sig/Mariella Route Start Time Stop Time Status Last Admin Dose Admin Furosemide (Lasix Inj) 40 mg NOW STAT IV 07/01/18 12:51 07/01/18 12:53 DC 07/01/18 13:10 40 MG ECG Per My Interpretation Indication: SOB/dyspnea Rate (beats per minute): 78 Rhythm: normal sinus Findings: RBBB, no ectopy ED Course 1241: The patient was evaluated in room C8. A complete history and physical exam was performed. 1251: Ordered Lasix Inj 40 mg IV. 1315: I discussed test results with the patient and obtained verbal and written consent for blood transfusion. 1320: The patient is hemodynamically stable. 1325: I spoke with Dashawn May PA-C, [facility] Hospitalist. He agrees to evaluate the patient for further management. Medical Decision This is a 67-year-old female who presents with generalized weakness, chest discomfort and shortness of breath. Differential diagnosis includes severe anemia, GI bleed, vaginal bleed, ACS, supratherapeutic INR, pneumonia. I did perform a limited focused review of portions of the patient's old chart on the electronic medical record. The patient had hemoglobin drawn yesterday of 7.4 and it was 10.6 in December. I did evaluate the patient as noted above. The patient states that she has been having bleeding from her vulva for over a month since biopsy was done. She is presenting with a hemoglobin less than 8. She has had generalized weakness with shortness of breath. She did not take her diuretics recently. IV access was established. The patient was placed on a continuous monitoring specialist. I did order and personally review the patient's 12-lead EKG and chest x-ray as described above. I did order and review the patient's blood work as noted in the electronic medical record. She is severely anemic. I did obtain consent for blood transfusion. I did order 2 units of packed red blood cells. I did give her 40 mg of Lasix IV. Her INR is 1.4. Pelvic examination demonstrated no active bleeding from the vulva or vagina. She has guaiac negative brown stool. I did discuss the test results with the patient and discussed case with the hospitalist and case planner. Medication Reconcilliation Current Medication List: was personally reviewed by me Blood Pressure Screening Patient's blood pressure: Elevated blood pressure Blood pressure disposition: Referred to PCP Consults Time Called: 1320 Consulting Physician: Dashawn May PA-C, [facility] Hospitalist Returned Call: 1325 I spoke with Dashawn May PA-C, [facility] Hospitalist. He agrees to evaluate the patient for further management. Impression Primary Impression: Severe anemia Additional Impressions: Precordial chest pain Vulvar bleeding Anticoagulated on Coumadin Scribe Attestation The scribe's documentation has been prepared under my direct and personally reviewed by me in its entirety. I confirm that the note above accurately reflects all work, treatment, procedures, and medical decision making performed by me. Departure Information Dispostion Being Evaluated By Hospitalist Referrals Sandra Scott D.O. (PCP) Patient Instructions My [facility] Problem Qualifiers
[2018-07-01] MEDS ORDERED: WARFARIN SOD 5 MG TAB PO ONE (18:15)
--- NOTE | 2018-07-01 20:09 | History and Physical ---
History & Physical Date & Time of Service: Jul 01, 2018 at 18:13 Chief Complaint: Sob, Anemia Primary Care Physician: Sandra Scott D.O. History of Present Illness Source: patient Patient presents today under advisement of her PCP, Dr. Scott, after routine outpatient labwork showed a hemoglobin of 7.3. She states that Dr. Scott told her she needed to come here to get blood transfused. Patient believes she needs blood because of an open sore on her labia which has been bothering her for several months. A lesion was recently biopsied and showed psoriasis, but she states the lesion never healed correctly. She had been seeing wound care but has not seen them for 2 months. She states that her labia are so swollen and that is why it will not heal. Mattie reports she will pull her underwear down and will have blood dripping from her garments and into the toilet. She also reports that she has had some shortness of breath with productive cough for the past 2 weeks. Patient does have a h/o asthma but states this feels different than her asthma exacerbations. She does state, however, that she has been using her asthma meds more frequently in the last few weeks and this has helped her symptoms. She does state she has not taken her bumex yesterday or today because it makes her urinate and she had a lot of errands to run these past two days and she didn't want to have to stop for "potty breaks". She also states that she cannot walk from her chair to the bathroom without becoming short of breath, but that in the past few months this has been typical for her. She uses a walker and has difficulty mobilizing due to her dependent edema /wrapped legs and body habitus. Patient takes coumadin and daily ASA. She reports a PMH of Crohn's, MS, Parkinsons. Past Medical/Surgical History Medical Problems: (1) Acute asthma exacerbation (2) Acute kidney injury (3) Anemia (4) Asthma (5) Chest pain (6) Chest pain (7) Chronic kidney disease (8) Colitis (9) Contusion of left leg (10) Contusion of left leg (11) Creatinine elevation (12) Crohn's disease (13) Dependent edema (14) Diabetes mellitus (15) Diarrhea (16) Diastolic dysfunction (17) Fall (18) Fall (19) GI bleed (20) GI bleeding (21) Head injury (22) Hematoma of labia majora (23) Hematoma of left lower extremity (24) Hematoma of left lower extremity (25) History of pulmonary infarction (26) Hyperkalemia (27) Hypertension (28) Hypothyroidism (29) Hypoxia (30) Lower GI bleed (31) Lymphedema (32) Multiple trauma (33) Multiple trauma (34) Personal history of DVT (deep vein thrombosis) (35) Pneumonia (36) Precordial chest pain (37) Precordial chest pain (38) Precordial chest pain (39) Pulmonary embolism (40) SOB (shortness of breath) (41) Syncope and collapse (42) Weakness (43) Weakness Family History Cancer Diabetes mellitus Gallbladder disease Heart disease Hypertension Lung disease Social History Smoking Status: Former Smoker Drug Use: none Marital Status: single Housing status: lives with family Occupational Status: disabled Immunizations History of Influenza Vaccine: Yes History of Tetanus Vaccine?: Yes Tetanus Immunization Date: Jul 20, 2011 History of Pneumococcal: Yes Pneumococcal Date: Jul 20, 2009 History of Hepatitis B Vaccine: Yes Allergies Coded Allergies: Ciprofloxacin (Unverified Allergy, Severe, RASH, 07/01/18) Penicillins (Verified Allergy, Intermediate, HIVES, 07/01/18) Sulfa Antibiotics (Verified Allergy, Intermediate, HIVES, 07/01/18) Latex (Verified Allergy, Unknown, ., 07/01/18) Adhesives (Verified Adverse Reaction, Severe, "THEY EAT MY SKIN.", 07/01/18) Iodinated Diagnostic Agents (Verified Adverse Reaction, Intermediate, Vomiting, 07/01/18) Quinolones (Verified Adverse Reaction, Mild, YEAST INFECTION, 07/01/18) Ba Pepper (Verified Adverse Reaction, Unknown, GREEN PEPPER = MIGRAINE HEADACHE, 07/01/18) Cephalosporins (Verified Adverse Reaction, Unknown, 07/01/18) Home Medications Scheduled Adalimumab (Humira Pen), 40 MG INJ [id number] Amitriptyline Hcl (Amitriptyline Hcl), 50 MG PO HS Aspirin (Aspirin Ec), 81 MG PO DAILY Atorvastatin (Lipitor), 10 MG PO DAILY Bumetanide (Bumex), 1 MG PO DAILY Carbidopa-Levodopa (Carbidopa/Levodopa Er), 25-100 MG PO QID Citalopram Hydrobromide (Celexa), 20 MG PO DAILY Entacapone (Comtan), 200 MG PO QID Ergocalciferol (Vitamin D 09498 Unit), 50,000 UNIT PO MONTHLY Ferrous Sulfate (Ferrous Sulfate), 1 TAB PO DAILY Folic Acid (Folvite), 1 MG PO QAM Gabapentin (Neurontin), 300 MG PO TID Glipizide Xl (Glucotrol Xl), 10 MG PO BID Insulin Aspart (Novolog Flexpen), SQ ACHS Insulin Detemir (Levemir Flextouch), 18 UNITS SQ BID Isosorbide Mononitrate Ext Rel (Imdur Ext Rel), 60 MG PO QAM Levetiractam (Levetiracetam), 500 MG PO BID Levothyroxine Sodium (Synthroid), 25 MCG PO DAILY Metformin Hcl (Glucophage), 1,000 MG PO BIDM Nitroglycerin (Nitrostat), 0.4 MG UT PRN Omeprazole (Omeprazole), 20 MG PO DAILY Ranolazine (Ranexa), 500 MG PO BID Rivastigmine Tartrate (Exelon), 4.6 MG TOP DAILY Warfarin Sodium (Coumadin), 5 MG PO [id number] Warfarin Sodium (Coumadin), 7.5 MG PO THURSDAY Scheduled PRN Albuterol Hfa (Ventolin Hfa), 2 PUFFS INH TID PRN for SOB/Wheezing Review of Systems Constitutional: + weakness, + fatigue, No fever, No chills ENT: No sore throat Respiratory: + cough, + shortness of breath, + dyspnea on exertion, + dyspnea at rest Cardiovascular: No chest pain Abdomen: + diarrhea, No nausea, No vomiting Musculoskeletal: + swelling Genitourinary - Female: + vulvodynia Neurologic: + weakness, + numbness/tingling, + balance problems Hematologic / Lymphatic: + abnormal bleeding/bruising Integumentary: + new/changing skin lesions (States her dry skin on her feet has been drastically improving with OTC oils.) Allergic / Immunologic: + poor healing Physical Exam Vital Signs Date Time Temp Pulse Resp B/P (MAP) Pulse Ox O2 Delivery O2 Flow Rate FiO2 07/01/18 16:45 36.8 72 19 134/67 97 07/01/18 16:19 37.1 82 16 154/71 96 07/01/18 16:15 36.8 64 19 138/59 96 07/01/18 15:56 96 Room Air 07/01/18 15:44 37.1 82 16 154/71 96 07/01/18 15:29 36.8 80 16 171/70 94 07/01/18 13:16 94 Room Air 07/01/18 13:04 80 19 95 07/01/18 13:02 158/69 07/01/18 12:58 67/55 07/01/18 12:37 74 07/01/18 12:35 94 Room Air 07/01/18 12:35 94 Room Air 07/01/18 12:12 36.8 79 22 143/72 96 Room Air General Appearance: WD/WN, no apparent distress Head: normocephalic Eyes: EOMI, sclerae normal ENT: hearing grossly normal, + pharyngeal erythema Neck: no carotid bruits, trachea midline Respiratory/Chest: chest non-tender, normal breath sounds, no respiratory distress, no accessory muscle use, + decreased breath sounds (RLL) Cardiovascular: regular rate, rhythm, no murmur Abdomen/GI: normal bowel sounds, non tender, + distended, + hernia (ventral ) Genitourinary - Female: + pertinent finding (swollen labia, patient unable to position herself to show labial sore.) Extremities/Musculoskelatal: + pedal edema (2+ bilaterally), + pertinent finding (Chronic venous insufficiency) Neurologic/Psych: alert, normal mood/affect, oriented x 3 Skin: + pertinent finding (excoriations under breast, pannus) Diagnostics Laboratory Results Results Past 24 Hours Test 07/01/18 12:37 07/01/18 12:53 07/01/18 17:35 Range/Units White Blood Count 6.21 4.8-10.8 K/uL Red Blood Count 3.33 4.2-5.4 M/uL Hemoglobin 7.7 12.0-16.0 g/dL Hematocrit 27.3 37-47 % Mean Corpuscular Volume 82.0 80-100 fL Mean Corpuscular Hemoglobin 23.1 25-34 pg Mean Corpuscular Hemoglobin Concent 28.2 32-36 g/dl Platelet Count 244 130-400 K/uL Mean Platelet Volume 8.4 7.4-10.4 fL Neutrophils (%) (Auto) 55.5 % Lymphocytes (%) (Auto) 31.7 % Monocytes (%) (Auto) 10.5 % Eosinophils (%) (Auto) 1.6 % Basophils (%) (Auto) 0.5 % Neutrophils # (Auto) 3.45 1.4-6.5 K/uL Lymphocytes # (Auto) 1.97 1.2-3.4 K/uL Monocytes # (Auto) 0.65 0.11-0.59 K/uL Eosinophils # (Auto) 0.10 0-0.5 K/uL Basophils # (Auto) 0.03 0-0.2 K/uL RDW Standard Deviation 61.2 36.4-46.3 fL RDW Coefficient of Variation 20.2 11.5-14.5 % Immature Granulocyte % (Auto) 0.2 % Immature Granulocyte # (Auto) 0.01 0.00-0.02 K/uL Anisocytosis PRESENT Prothrombin Time 14.1 9.0-12.0 SECONDS Prothromb Time International Ratio 1.4 0.9-1.1 Activated Partial Thromboplast Time 28.2 21.0-31.0 SECONDS Partial Thromboplastin Ratio 1.1 Sodium Level 141 136-145 mmol/L Potassium Level 4.2 3.5-5.1 mmol/L Chloride Level 110 98-107 mmol/L Carbon Dioxide Level 24 21-32 mmol/L Anion Gap 7.0 3-11 mmol/L Blood Urea Nitrogen 10 7-18 mg/dl Creatinine 1.01 0.60-1.20 mg/dl Estimated GFR () 66.2 Estimated GFR (Non- 57.2 BUN/Creatinine Ratio 10.3 10-20 Random Glucose 203 70-99 mg/dl Calcium Level 8.4 8.5-10.1 mg/dl Total Bilirubin 0.3 0.2-1 mg/dl Aspartate Amino Transf (AST/SGOT) 26 15-37 U/L Alanine Aminotransferase (ALT/SGPT) 13 12-78 U/L Alkaline Phosphatase 90 45-117 U/L Total Protein 6.5 6.4-8.2 gm/dl Albumin 3.0 3.4-5.0 gm/dl Globulin 3.5 2.5-4.0 gm/dl Albumin/Globulin Ratio 0.9 0.9-2 Bedside Troponin I < 0.030 0-0.045 ng/ml Bedside Glucose 179 70-90 mg/dl Diagnostic Radiology CHEST ONE VIEW PORTABLE CLINICAL HISTORY: shortness of breath dyspnea COMPARISON STUDY: 07/23/2017 FINDINGS: The bones soft tissues and hemidiaphragms are normal. The cardiomediastinal silhouette is normal. The lungs are clear. The pulmonary vasculature is normal. IMPRESSION: Negative chest. The above report was generated using voice recognition software. It may contain grammatical, syntax or spelling errors. Electronically signed by: Darvin Mesa M.D. 07/01/2018 12:59 PM Dictated Date/Time: 07/01/2018 12:[address] ANGIOGRAM OF THE CHEST CLINICAL HISTORY: Atypical chest pain and shortness of breath. History of prior pulmonary embolism. COMPARISON STUDY: Conventional radiographic study dated July 01, 2018, CT scan dated 04/09/2016 TECHNIQUE: Following the IV administration of 114 mL of Optiray-320, CT angiogram of the thorax was performed from the thoracic inlet to the lung bases utilizing the pulmonary embolus protocol. Images are reviewed in the axial, sagittal, and coronal planes. IV contrast was administered without complication. MIP imaging was performed. A dose lowering technique was utilized adhering to the principles of ALARA. CT DOSE: 601.51 mGy.cm FINDINGS: There is an 8mm right lobe thyroid nodule containing a calcification. No pathologically enlarged axillary mediastinal or hilar lymph nodes were visualized. There is dilatation of the ascending thoracic aorta which measures 41 mm. There were no pulmonary artery filling defects to indicate acute pulmonary embolism. No pleural effusions are visualized. There is a 39 mm left lower lobe lung cyst. A few additional smaller lung cysts are visualized. There is pulmonary emphysema. There are left lower lobe dependent atelectatic changes. There are few scattered micronodules. Addition there is a 4 mm right upper lobe pulmonary nodule as visualized in image #[id number]. There is a 4 mm right apical pulmonary nodule as visualized in image #[id number]. There is a stable 6 mm right upper lobe pulmonary nodule as visualized in image #[id number]. These nodules remain similar to the prior 2016 examination There is minor right lower lobe bronchial wall thickening. IMPRESSION: 1. No evidence of acute pulmonary embolism 2. Emphysema 3. No evidence of focal pulmonary consolidation 4. 41 mm ascending thoracic aorta 5. Scattered subcentimeter pulmonary nodules, relatively similar to the prior March 2016 study 6. Minor right lower lobe bronchial wall thickening. other (New RBBB from previous in June 2017) Impression Assessment and Plan Patient is a 67yoF with extensive PMH who presents with dyspnea and anemia from her PCP. Shortness of breath - r/o PE in setting of subtherapeutic INR - Stat Chest CT - came back neg. - ? symptoms sec to bronchitis/and anemia Microcytic Anemia - Possibly related to chronic labial bleed - 1 U PRBCs transfused in ED, 1U on hold - 300mg Venofer transfused - Monitor hemoglobin Labial bleed - Consult wound care Coronary Artery Disease Chronic Diastolic Heart failure - Contine ASA, Atorvastatin, Imdur, Ranexa - Euvolemic at this time Lower Extremity Edema - Continue Bumex - Echocardiogram was done in 2015 showing hyperdynamic EF 65 - 70% with grade 2 diastolic dysfunction CKD-3 - follow Type 2 Diabetes, diabetic neuropathy - Hold Home meds - Insulin SSI - AC/HS Accu-checks - Continue gabapentin for neuropathy Parkinsons - Continue sinemet Morbid Obesity - supportive care Hypothyroidism - Continue Levothyroxine Depression - Continue Amitriptyline - Continue Citalopram Crohn's Disease - Continue folic acid - Humira placed on hold; patient takes every 2 weeks - Immodium prn for diarrhea Asthma - Continue Albuterol - Duoneb QID prn DVTP: Coumadin (If subtherapeutic INR; can add on UFH) Code: Full Disposition: Med/Surg Advanced Directives Existing Living Will: No Existing Power of Geodetic Engineer: No Resuscitation Status VTE Prophylaxis Will order VTE Prophylaxis: Yes Resident Tracking Resident Involvement: Resident Care Provided Care Provided: Adult Hospital Medicine Reviewed: Pt Seen/Exam by Me History 67 y/o F sent to ED for shortness of breath and anemia Constitutional: denies: fever Respiratory: positive: short of breath Cardiovascular: denies chest pain General Appearance: no apparent distress Respiratory: no respiratory distress, rhonchi (occasional rhonchi) Cardiovascular: regular rate, rhythm Neurologic/Psychiatric: alert, oriented x 3 Skin Characteristics: warm/dry Assessment/Plan Resident Physician Supervision Note: I independently interviewed and examined the patient and verified the syed history and physical, reviewed labs and image studies, discussed the case with the resident Dr. Guerrier and agree with the findings and care plan.
[2018-07-01] MEDS: GABAPENTIN 300 MG CAP PO SCH (20:59)
[2018-07-01] MEDS: LEVETIRACETAM 500 MG TAB PO SCH (20:59)
[2018-07-01] MEDS: RANOLAZINE 500 MG ER TAB PO SCH (20:59)
[2018-07-01] MEDS ORDERED: AMITRIPTYLINE HCL 50 MG TAB PO SCH (21:00)
[2018-07-01] MEDS: INSULIN DETEMIR FLEXPEN/FLEX TOUCH 100 UNITS/ML 3ML SQ SCH (22:03)
[2018-07-01] MEDS: ACETAMINOPHEN 325 MG TAB PO PRN (22:48)
[2018-07-01] MEDS: LOPERAMIDE HCL 2 MG CAP PO PRN (22:49)
[2018-07-02] MEDS ORDERED: LEVOTHYROXINE 25 MCG TAB PO SCH (06:30)
--- NOTE | 2018-07-02 07:28 | Family Medicine Progress Note ---
Progress Note Date of Service Jul 02, 2018. Subjective Pt evaluation today including: conversation w/ patient, physical exam, chart review, lab review Pain: Denies pain PO Intake: Toelrating well Voiding: no voiding problems Constitutional: No fever, No chills ENT: + sore throat Respiratory: + cough Cardiovascular: No chest pain Abdomen: No pain, No nausea Musculoskeletal: No joint pain Female : No dysuria Heme: No abnormal bleeding/bruising All Other Systems: Reviewed and Negative Medications Current Inpatient Medications Medications (Trade) Dose Ordered Sig/Mariella Route Start Time Stop Time Status Last Admin Dose Admin Ioversol (Optiray 320) 100 ml UD PRN IV 07/01/18 14:30 07/05/18 14:29 Acetaminophen (Tylenol Tab) 650 mg Q4H PRN PO 07/01/18 15:30 07/31/18 15:29 07/01/18 22:48 650 MG Al Hydrox/Mg Hydrox/Simethicone (Maalox Max Susp) 15 ml Q4H PRN PO 07/01/18 15:30 07/31/18 15:29 Magnesium Hydroxide (Milk Of Magnesia Susp) 30 ml Q6H PRN PO 07/01/18 15:30 07/31/18 15:29 Polyethylene (Miralax Powder Packet) 17 gm DAILY PRN PO 07/01/18 15:30 07/31/18 15:29 Ondansetron HCl (Zofran Inj) 4 mg Q6H PRN IV 07/01/18 15:30 07/31/18 15:29 Albuterol (Ventolin Hfa Inhaler) 2 puffs TID PRN INH 07/01/18 15:30 07/31/18 15:29 Amitriptyline HCl (Elavil Tab) 50 mg HS PO 07/01/18 21:00 07/31/18 20:59 07/01/18 20:59 50 MG Aspirin (Ecotrin Tab) 81 mg DAILY PO 07/02/18 09:00 08/01/18 08:59 Atorvastatin Calcium (Lipitor Tab) 10 mg DAILY PO 07/02/18 09:00 08/01/18 08:59 Bumetanide (Bumex Tab) 1 mg DAILY PO 07/02/18 09:00 08/01/18 08:59 Carbidopa/Levodopa (Sinemet Cr 50/ 200MG Tab) 1 tab QID PO 07/01/18 17:00 07/31/18 16:59 07/01/18 20:59 1 TAB Citalopram Hydrobromide (celeXA TAB) 20 mg DAILY PO 07/02/18 09:00 08/01/18 08:59 Folic Acid (Folvite Tab) 1 mg QAM PO 07/02/18 09:00 08/01/18 08:59 Gabapentin (Neurontin Cap) 300 mg TID PO 07/01/18 21:00 07/31/18 20:59 07/01/18 20:59 300 MG Insulin Aspart (novoLOG ASPART) ACHS SQ 07/01/18 16:00 07/31/18 15:59 07/01/18 22:02 3 UNITS Insulin Detemir (Levemir Flexpen/ FlexTouch) 18 units BID SQ 07/01/18 21:00 07/31/18 20:59 07/01/18 22:03 18 UNITS Isosorbide Mononitrate (Imdur Ext Rel Tab) 60 mg QAM PO 07/02/18 09:00 08/01/18 08:59 Levetiracetam (Keppra Tab) 500 mg BID PO 07/01/18 21:00 07/31/18 20:59 07/01/18 20:59 500 MG Levothyroxine Sodium (Synthroid Tab) 25 mcg DAILYBB PO 07/02/18 06:30 08/01/18 06:59 07/02/18 06:07 25 MCG Nitroglycerin (Nitrostat Tab) 0.4 mg UD PRN UT 07/01/18 15:30 07/31/18 15:29 Ranolazine (Ranexa ER Tab) 500 mg BID PO 07/01/18 21:00 07/31/18 20:59 07/01/18 20:59 500 MG Warfarin Sodium (Coumadin Tab) 5 mg MoTuWeFrSa@1600 PO 07/02/18 16:00 08/01/18 15:59 Warfarin Sodium (Coumadin Tab) 7.5 mg Landry@1600 PO 07/04/18 16:00 08/03/18 15:59 Pantoprazole Sodium (Protonix Tab) 40 mg QAM PO 07/02/18 09:00 07/05/18 09:01 Glucose (Glucose 40% Gel) 15-30 GRAMS 15 GRAMS... UD PRN PO 07/01/18 16:00 07/31/18 15:59 Glucose (Glucose Chew Tab) 4-8 Tablets 4 Tabl... UD PRN PO 07/01/18 16:00 07/31/18 15:59 Dextrose (Dextrose 50% 50ML Syringe) 25-50ML 25ML FOR ... UD PRN IV 07/01/18 16:00 07/31/18 15:59 Glucagon (Glucagon Inj) 1 mg UD PRN IM 07/01/18 16:00 07/31/18 15:59 Carbohydrates (Carbohydrates For Hypoglycemia) 15-30 GRAMS 15 grams if BSG 54-69... UD PRN PO 07/01/18 16:00 07/31/18 15:59 Loperamide HCl (Imodium Cap) 2 mg Q4H PRN PO 07/01/18 19:30 07/31/18 19:29 07/01/18 22:49 2 MG Objective Vital Signs Date Time Temp Pulse Resp B/P (MAP) Pulse Ox O2 Delivery O2 Flow Rate FiO2 07/02/18 00:00 Room Air 07/01/18 23:54 37.3 88 20 150/74 (99) 90 Room Air 07/01/18 16:45 36.8 72 19 134/67 97 07/01/18 16:19 37.1 82 16 154/71 96 07/01/18 16:15 36.8 64 19 138/59 96 07/01/18 16:00 Room Air 07/01/18 15:56 96 Room Air 07/01/18 15:44 37.1 82 16 154/71 96 07/01/18 15:29 36.8 80 16 171/70 94 07/01/18 13:16 94 Room Air 07/01/18 13:04 80 19 95 07/01/18 13:02 158/69 07/01/18 12:58 67/55 07/01/18 12:37 74 07/01/18 12:35 94 Room Air 07/01/18 12:35 94 Room Air 07/01/18 12:12 36.8 79 22 143/72 96 Room Air Physical Exam General Appearance: WD/WN, no apparent distress, + obese Eyes: PERRL ENT: hearing grossly normal Neck: supple, no adenopathy, trachea midline Respiratory/Chest: no respiratory distress, no accessory muscle use, + decreased breath sounds Cardiovascular: regular rate, rhythm, + systolic murmur Abdomen: non tender, soft, + distended Extremities: + pedal edema Neurologic/Psychiatric: alert, normal mood/affect, oriented x 3 Skin: + pertinent finding (irritated skin under breasts and abdominal folds) Laboratory Results Last Resulted 07/01/18 12:37 Past 24 Hours Test 07/01/18 12:37 07/02/18 07:19 Range/Units Prothromb Time International Ratio 1.4 H 0.9-1.1 Prothrombin Time 14.1 H 9.0-12.0 SECONDS Assessment and Plan Patient is a 67yoF with extensive PMH who presents with dyspnea and anemia from her PCP. Microcytic Anemia - Possibly related to chronic labial bleed - 1 U PRBCs transfused in ED, 1U on hold - 300mg Venofer transfused - Monitor hemoglobin Labial swelling, morbid obesity - Consulted wound care: appears to be varicose veins in labia, recommend outpatient f/u Coronary Artery Disease, chronic diastolic CHF - Contine ASA, Atorvastatin, Imdur, Ranexa Parkinsons - Continue sinemet Lower Extremity Edema, CKDIII, CDCHF - Continue Bumex - Echocardiogram was done in 2016 showing hyperdynamic EF 65 - 70% with grade 2 diastolic dysfunction Type 2 Diabetes, diabetic neuropathy - Hold Home meds - Insulin SSI - AC/HS Accu-checks - Continue gabapentin for neuropathy Hypothyroidism - Continue Levothyroxine Depression - Continue Amitriptyline - Continue Citalopram Crohn's Disease - Continue folic acid - Humira placed on hold; patient takes every 2 weeks - Immodium prn for diarrhea Asthma - Continue Albuterol - Duoneb QID prn DVTP: Coumadin (If subtherapeutic INR; can add on UFH) Code: Full Disposition: Med/Surg Resident Tracking Resident Involvement: Resident Care Provided Care Provided: Adult Hospital Medicine
[2018-07-02 08:11] LABS: HEMATOCRIT 30.6 % (37-47); HEMOGLOBIN 8.8 g/dL (12.0-16.0); MEAN CELL VOLUME 82.5 fL (80-100); MEAN CORPUSCULAR HEMOGLOBIN 23.7 pg (25-34); MEAN CORPUSCULAR HGB CONC 28.8 g/dl (32-36); MEAN PLATELET VOLUME 8.6 fL (7.4-10.4); PLATELET COUNT 247 K/uL (130-400); RED CELL DISTRIBUTION WIDTH CV 19.6 % (11.5-14.5); RED CELL DISTRIBUTION WIDTH SD 59.3 fL (36.4-46.3); WHITE BLOOD COUNT 6.76 K/uL (4.8-10.8)
[2018-07-02 08:15] VITALS: BP 146/74; PULSE 84; TEMP 36.9; O2SAT 90
[2018-07-02 08:15] LABS: INR 1.3 (0.9-1.1)
[2018-07-02] MEDS: CARBIDOPA/LEVODOPA 50/200MG EXT REL TAB PO SCH ×3 (08:34→17:14)
[2018-07-02] MEDS: RANOLAZINE 500 MG ER TAB PO SCH (08:34)
[2018-07-02] MEDS: LEVETIRACETAM 500 MG TAB PO SCH (08:35)
[2018-07-02] MEDS: GABAPENTIN 300 MG CAP PO SCH ×2 (08:37→14:00)
[2018-07-02] MEDS: INSULIN ASPART 100 UNITS/ML 3 ML PEN SQ SCH ×3 (08:39→17:16)
[2018-07-02] MEDS: INSULIN DETEMIR FLEXPEN/FLEX TOUCH 100 UNITS/ML 3ML SQ SCH (08:40)
[2018-07-02 08:43] LABS: BASO % 0.3 %; BASO ABS # 0.02 K/uL (0-0.2); EOS % 2.8 %; EOS ABS # 0.19 K/uL (0-0.5); IG# 0.02 K/uL (0.00-0.02); LYMPH % 23.8 %; LYMPH ABS # 1.61 K/uL (1.2-3.4); MONO % 8.9 %; NEUT % 63.9 %; NEUT ABS # 4.32 K/uL (1.4-6.5)
[2018-07-02] MEDS: ACETAMINOPHEN 325 MG TAB PO PRN (08:55)
[2018-07-02] MEDS ORDERED: BUMETANIDE 1 MG TAB PO SCH (09:00)
[2018-07-02] MEDS ORDERED: CITALOPRAM 20 MG TAB PO SCH (09:00)
[2018-07-02] MEDS ORDERED: ISOSORBIDE MONONITRATE 60 MG TABCR PO SCH (09:00)
[2018-07-02] MEDS ORDERED: ATORVASTATIN 10 MG TAB PO SCH (09:00)
[2018-07-02] MEDS ORDERED: ASPIRIN 81 MG ECTAB PO SCH (09:00)
[2018-07-02] MEDS ORDERED: PANTOprazole SOD 40 MG TAB PO SCH (09:00)
[2018-07-02] MEDS: LOPERAMIDE HCL 2 MG CAP PO PRN ×2 (09:04→17:25)
[2018-07-02] MEDS ORDERED: COUGH DROP (SUGAR FREE) LOZ 24 LOZ/1 BOX LOZ PRN (09:15)
--- NOTE | 2018-07-02 10:13 | Clinical Documentation Query ---
CLINICAL DOCUMENTATION QUERY QUERY 1 OF 3 67 yo female admitted with SOB and microcytic anemia. Echo in 2016 showed hyperdynamic EF 65-70% with Grade II diastolic dysfunction. Problem list shows history of "diastolic dysfunction". Patient takes Bumex 1mg PO at home and was given Lasix 40mg IV in the ED. In your clinical opinion is this patient being managed for: (x ) Chronic diastolic (congestive) heart failure ( ) Not Agree ( ) Other explanation of clinical findings (No explanation is considered a No Response) ( ) Unable to determine ( ) Need to Discuss (Phone CDS or qliq) (No discussion is considered a No Response) The medical record reflects the following clinical findings, treatment, and risk factors. Clinical Indicators: As above Treatment: As above, chest CT Risk Factors: HTN, CKD QUERY 2 OF 3 Patient's GFR range over past year averaged 35.4 to 57.2, In your clinical opinion is this patient being managed for: ( x ) Chronic kidney disease, stage 3 ( ) Not Agree ( ) Other explanation of clinical findings (No explanation is considered a No Response) ( ) Unable to determine ( ) Need to Discuss (Phone CDS or qliq) (No discussion is considered a No Response) The medical record reflects the following clinical findings, treatment, and risk factors. Clinical Indicators: As above Treatment: I&O, serial PRPs Risk Factors: HTN, CHF, hx WILBERT on CKD QUERY 3 OF 3 Patient's BMI = 50.6. In order for coders to capture the BMI, documentation of overweight, obesity or morbid obesity must exist in the medical record. In your clinical opinion is this patient being managed for: ( x) Morbid obesity ( ) Obesity ( ) Overweight ( ) Not Agree ( ) Other explanation of clinical findings (No explanation is considered a No Response) ( ) Unable to determine ( ) Need to Discuss (Phone CDS or qliq) (No discussion is considered a No Response) The medical record reflects the following clinical findings, treatment, and risk factors. Clinical Indicators: As above Treatment: Patient weight, diet Risk Factors: BMI 50, DM, CHF, HTN Please clarify and document your clinical opinion in the progress notes and discharge summary. Terms such as "probable", "suspected", "likely", "questionable", "possible", or "still to be ruled out" are acceptable. IF IN AGREEMENT, YOU MUST DOCUMENT ABOVE DIAGNOSTIC STATEMENT IN DAILY PROGRESS NOTES AND DISCHARGE SUMMARY. This document is not part of the patient's record. Thank You, Verna West RN, MSN [phone]
[2018-07-02] MEDS ORDERED: FERR324T4 PO ×2 (12:44)
[2018-07-02] MEDS ORDERED: NURSING DECISION MEDICATION ORDER SCH (13:45)
[2018-07-02] MEDS ORDERED: MICONAZOLE NITRATE POWDER 43 GM EXT PRN (13:45)
--- NOTE | 2018-07-02 14:07 | Discharge Instructions ---
Discharge Instructions Date of Service Jul 02, 2018. Admission Reason for Admission: Sob, Anemia Discharge Discharge Diagnosis / Problem: Anemia Discharge Goals Goal(s): Improve function, Improve disease control, Therapeutic intervention Activity Recommendations Activity Limitations: per Instructions/Follow-up section . Instructions / Follow-Up Instructions / Follow-Up During this admission, you were evaluated and treated for a low blood count. You were given one unit of blood and one infusion of iron. We recommend you take a daily iron tablet to rebuild your stores of iron. Dr Scott will be checking your bloodwork. Your INR was found to be low during your admission. Please check your INR daily for the next few days and report your numbers to your provider. Your provider may decide to make changes to your coumadin level on Thursday. We recommend you apply some desenex powder under your breasts and within your abdominal folds to help with the skin breakdown. The wound care nurses thought your labial bleeding may be related to varicose veins which can occur in your labia. Discuss this with your primary care provider who may offer some suggestions. Continue to use cough lozenges for your sore throat and cough. Current Hospital Diet Patient's current hospital diet: AHA Diet (Heart Healthy) Discharge Diet Recommended Diet: AHA Diet (Heart Healthy) Pending Studies Studies pending at discharge: no Laboratory Results Hemoglobin A1c Test 06/30/18 12:12 Range/Units Estimated Average Glucose 160 mg/dl Hemoglobin A1c 7.2 H 4.5-5.6 % Medical Emergencies . Who to Call and When: Medical Emergencies: If at any time you feel your situation is an emergency, please call 911 immediately. . Non-Emergent Contact Non-Emergency issues call your: Primary Care Provider . . "Provider Documentation" section prepared by Sahara Guerrier. .
[2018-07-02 14:56] VITALS: BP 109/66; PULSE 83; TEMP 36.8; O2SAT 88
[2018-07-02] MEDS ORDERED: WARFARIN SOD 5 MG TAB PO SCH (16:00)
[2018-07-02 16:57] VITALS: BP 109/66; PULSE 83; TEMP 36.8; O2SAT 88
[2018-07-04] MEDS ORDERED: WARFARIN SOD 7.5 MG TAB PO SCH (16:00)
--- NOTE | 2018-07-04 19:14 | Discharge Summary ---
Discharge Summary Date of Service Jul 02, 2018. Discharge Summary Admission Date: Jul 01, 2018 at 15:31 Discharge Date: Jul 02, 2018 Discharge Disposition: Home Principal Diagnosis: Anemia Problems/Secondary Diagnoses: Labial swelling, morbid obesity Coronary Artery Disease, chronic diastolic CHF Parkinsons Lower Extremity Edema, CKDIII Type 2 Diabetes, diabetic neuropathy Hypothyroidism Depression Crohn's Disease Asthma Immunizations: Have You Had Influenza Vaccine: Yes History of Tetanus Vaccine?: Yes Tetanus Immunization Date: Jul 20, 2011 History of Pneumococcal: Yes Pneumococcal Date: Jul 20, 2009 History of Hepatitis B Vaccine: Yes Medication Reconciliation New Medications: Ferrous Sulfate (Ferrous Sulfate) 324 Mg Tab 1 TAB PO DAILY for 30 Days, #30 TAB Continued Medications: Adalimumab (Humira Pen) 40 Mg/0.8 Ml Kit 40 MG INJ [id number] Albuterol Hfa (Ventolin Hfa) 200 Puffs/49407 Mcg Aers 2 PUFFS INH TID PRN for SOB/Wheezing Amitriptyline Hcl (Amitriptyline Hcl) 50 Mg Tab 50 MG PO HS Aspirin (Aspirin Ec) 81 Mg Tab 81 MG PO DAILY Atorvastatin (Lipitor) 10 Mg Tab 10 MG PO DAILY Bumetanide (Bumex) 1 Mg Tab 1 MG PO DAILY Carbidopa-Levodopa (Carbidopa/Levodopa Er) 1 Tab Tab 25-100 MG PO QID Citalopram Hydrobromide (Celexa) 20 Mg Tab 20 MG PO DAILY Entacapone (Comtan) 200 Mg Tab 200 MG PO QID Ergocalciferol (Vitamin D 96154 Unit) 50,000 Unit Cap 57409 UNIT PO MONTHLY Folic Acid (Folvite) 1 Mg Tab 1 MG PO QAM Gabapentin (Neurontin) 300 Mg Cap 300 MG PO TID Glipizide Xl (Glucotrol Xl) 10 Mg Tab 10 MG PO BID Insulin Aspart (Novolog Flexpen) 100 Units/Ml Inj SQ ACHS for PER SLIDING SCALE Insulin Detemir (Levemir Flextouch) 100 Unit/Ml Inj 18 UNITS SQ BID Isosorbide Mononitrate Ext Rel (Imdur Ext Rel) 60 Mg Ertab 60 MG PO QAM Levetiractam (Levetiracetam) 500 Mg Tab 500 MG PO BID Levothyroxine Sodium (Synthroid) 25 Mcg Tab 25 MCG PO DAILY Metformin Hcl (Glucophage) 1,000 Mg Tab 1000 MG PO BIDM Nitroglycerin (Nitrostat) 0.4 Mg Tab 0.4 MG UT PRN Omeprazole (Omeprazole) 20 Mg Tab 20 MG PO DAILY Ranolazine (Ranexa) 500 Mg Tab 500 MG PO BID Rivastigmine Tartrate (Exelon) 9.5 Mg Tdsy 4.6 MG TOP DAILY Warfarin Sodium (Coumadin) 5 Mg Tab 5 MG PO [id number] [id number]-THURSDAY Warfarin Sodium (Coumadin) 5 Mg Tab 7.5 MG PO THURSDAY TAKE SUNDAYS Discharge Exam Review of Systems: Constitutional: No fever, No chills ENT: + sore throat Respiratory: + cough Cardiovascular: + edema, No chest pain Abdomen: No pain, No nausea, No vomiting Genitourinary - Female: + vulvodynia Neurologic: + numbness/tingling Hematologic / Lymphatic: + abnormal bleeding/bruising Integumentary: + rash, + itch Physical Exam: General Appearance: no apparent distress, + obese Eyes: PERRL, EOMI ENT: hearing grossly normal, + nasal drainage, + pharyngeal erythema Neck: no adenopathy, no carotid bruits, trachea midline Respiratory/Chest: no respiratory distress, no accessory muscle use, + decreased breath sounds Cardiovascular: regular rate, rhythm, + systolic murmur Abdomen / GI: normal bowel sounds, non tender, soft, + distended, + hernia Extremities: + pedal edema, + swelling (legs wrapped bilaterally) Neurologic/Psychiatric: alert, normal mood/affect, oriented x 3 Skin: + rash (beneath breasts and abdominal folds) Hospital Course Patient is a 67yoF with extensive PMH who presents with dyspnea and anemia from PCP's office. Microcytic Anemia - Possibly related to varicosities in labia, recommend outpatient f/u for support devices - 1 U PRBCs transfused in ED - 300mg Venofer transfused during admission - Recommend follow up as outpatient Dyspnea - Patient anemic, PE ruled out. No fluid overload clinically. No infiltrate noted on imaging. Labial swelling, morbid obesity - Consulted wound care: appears to be varicose veins in labia, recommend outpatient f/u as above Coronary Artery Disease, chronic diastolic CHF - Contine ASA, Atorvastatin, Imdur, Ranexa Parkinsons - Continue sinemet Lower Extremity Edema, CKDIII - Continue Bumex - Echocardiogram was done in 2015 showing hyperdynamic EF 65 - 70% with grade 2 diastolic dysfunction Type 2 Diabetes, diabetic neuropathy - Resume home meds on discharge - Continue gabapentin for neuropathy Hypothyroidism - Continue Levothyroxine Depression - Continue Amitriptyline - Continue Citalopram Crohn's Disease - Continue folic acid - Humira placed on hold while on inpatient; patient takes every 2 weeks Asthma - Continue Albuterol - In setting of cough and sore throat with improvement with lozenges, cough likely related to viral URI. - F/U as outpatient DVTP: Coumadin (If subtherapeutic INR; can add on UFH) Code: Full Disposition: Med/Surg Total Time Spent: Greater than 30 minutes This includes examination of the patient, discharge planning, medication reconciliation, and communication with other providers. Discharge Instructions Please refer to the electronic Patient Visit Report (Discharge Instructions) for additional information. Additional Copies To Sandra Scott D.O. Resident Tracking Resident Involvement: Resident Care Provided Care Provided: Adult Hospital Medicine Reviewed: Pt Seen/Exam by Me History no chest pain, shortness of breath, bleeding Constitutional: denies: fever Respiratory: negative: short of breath Cardiovascular: denies chest pain General Appearance: no apparent distress Respiratory: lungs clear, no respiratory distress Cardiovascular: regular rate, rhythm Neurologic/Psychiatric: alert, oriented x 3 Skin Characteristics: warm/dry Assessment/Plan Resident Physician Supervision Note: I independently interviewed and examined the patient and verified the syed history and physical, reviewed labs and image studies, discussed the case with the resident Dr. Guerrier and agree with the findings and care plan. Time spent in discharge 35 min
== END 2018-07-02 17:20 | disposition home health service (06) | DRG 812 ==
LOC: C.EDB 12:04 → C.MS2W 15:31 → ENRESERV 15:41
PROVIDERS: ADMIT Family Medicine; ATTEND Family Medicine
DX: D50.0 Iron deficiency anemia secondary to blood loss (chronic) (principal); I50.32 Chronic diastolic (congestive) heart failure; I86.3 Vulval varices; E66.01 Morbid (severe) obesity due to excess calories; Z68.43 Body mass index [BMI] 50.0-59.9, adult; E11.22 Type 2 diabetes mellitus with diabetic chronic kidney disease; I12.9 Hypertensive chronic kidney disease with stage 1 through stage 4 chronic kidney disease, or unspecified chronic kidney disease; N18.3 Chronic kidney disease, stage 3 (moderate); E03.9 Hypothyroidism, unspecified; G20 Parkinson's disease; F32.9 Major depressive disorder, single episode, unspecified; Z79.01 Long term (current) use of anticoagulants; Z79.4 Long term (current) use of insulin; Z79.82 Long term (current) use of aspirin; Z79.84 Long term (current) use of oral hypoglycemic drugs; Z79.899 Other long term (current) drug therapy; Z88.0 Allergy status to penicillin; Z88.2 Allergy status to sulfonamides

== ENCOUNTER → 2018-07-14 | Outpatient (CLI) | payer OTHER ==
[~2018-07-14] MED LIST changes: -CYAN100073 OG; -FERR1TAB13 PO; +FERR324T4 PO; +FOLI1TAB8 PO; -HYDR-3419 PO; -LVMI SQ; -METH2.5T PO; -MRLP17X PO; -MULT-506 PO; +NTRGSL/4 UT; -NTRSL3 UT; -OXGN
[2018-07-14 16:45] LABS: HEMATOCRIT 35.2 % (37-47); HEMOGLOBIN 10.1 g/dL (12.0-16.0); MEAN CELL VOLUME 88.4 fL (80-100); MEAN CORPUSCULAR HEMOGLOBIN 25.4 pg (25-34); MEAN CORPUSCULAR HGB CONC 28.7 g/dl (32-36); MEAN PLATELET VOLUME 9.1 fL (7.4-10.4); PLATELET COUNT 271 K/uL (130-400); RED CELL DISTRIBUTION WIDTH CV 23.2 % (11.5-14.5); RED CELL DISTRIBUTION WIDTH SD 73.9 fL (36.4-46.3); WHITE BLOOD COUNT 8.03 K/uL (4.8-10.8)
[2018-07-14 17:16] LABS: BASO % 0.4 %; BASO ABS # 0.03 K/uL (0-0.2); EOS % 2.1 %; EOS ABS # 0.17 K/uL (0-0.5); IG# 0.03 K/uL (0.00-0.02); LYMPH % 26.3 %; LYMPH ABS # 2.11 K/uL (1.2-3.4); MONO % 6.2 %; NEUT % 64.6 %; NEUT ABS # 5.19 K/uL (1.4-6.5)
[2018-07-15 06:00] LABS: HEMOGLOBIN A1C 6.6 % (4.5-5.6)
== END | disposition home or self-care (01) ==
LOC: C.LABPBG 12:14
PROVIDERS: ATTEND Family Medicine
DX: E11.9 Type 2 diabetes mellitus without complications (principal)

== ENCOUNTER 2018-12-23 00:25 | Inpatient (IN) ==
[2018-12-23 01:00] LABS: Basophils # (auto) 0.02 K/uL (0-0.2); Basophils % (auto) 0.1 %; Eosinophils # (auto) 0.03 K/uL (0-0.5); Eosinophils % (auto) 0.2 %; Hematocrit (blood only) 42.1 % (37-47); Hemoglobin 13.4 g/dL (12.0-16.0); Immature Granulocytes # (auto) 0.04 K/uL (0.00-0.02); Immature Granulocytes % (auto) 0.2 %; Lymphocytes # (auto) 0.97 K/uL (1.2-3.4); Lymphocytes % (auto) 5.4 %; Mean Corpuscular Hgb Conc 31.8 g/dL (32-36); Mean Corpuscular Volume 98.4 fL (80-100); Mean Platelet Volume 9.4 fL (7.4-10.4); Monocytes # (auto) 1.37 K/uL (0.11-0.59); Monocytes % (auto) 7.6 %; Neutrophils # (auto) 15.58 K/uL (1.4-6.5); Neutrophils % (auto) 86.5 %; Platelet Count 223 K/uL (130-400); RDW Standard Deviation 57.5 fL (36.4-46.3); Red Blood Count 4.28 M/uL (4.2-5.4); White Blood Count 18.01 K/uL (4.8-10.8)
[2018-12-23 01:18] LABS: BUN Creatinine Ratio 14.5 (10-20); Calcium 8.6 mg/dl (8.5-10.1); Est GFR (African American) 65.8; Est GFR (Non-African American) 56.8; Potassium 4.2 mmol/L (3.5-5.1)
[2018-12-23 01:19] LABS: INR 1.7 (0.9-1.1); Partial Thromboplastin Ratio 1.1; Partial Thromboplastin Time 28.2 Seconds (21.0-31.0); Prothrombin Time 16.6 Seconds (9.0-12.0)
[2018-12-23 01:20] LABS: iSTAT Hemoglobin 14.6 g/dl (12.0-16.0); iSTAT Ionized Calcium 1.16 mmol/l (1.12-1.32)
[2018-12-23 01:23] LABS: Albumin Globulin Ratio 0.8 (0.9-2); Bilirubin,Total 0.3 mg/dl (0.2-1); Creatine Kinase MB 1.1 ng/ml (0.5-3.6); Globulin 3.6 gm/dl (2.5-4.0); Total Protein 6.6 gm/dl (6.4-8.2); Troponin I 0.02 ng/ml (0-0.045)
[2018-12-23 01:28] LABS: Salicylate 6.6 mg/dl (2.8-20)
[2018-12-23 01:56] LABS: Influenza A virus by PCR Neg for Influ A (Neg); Influenza B virus by PCR Neg for Influ B (Neg)
[2018-12-23] MEDS ORDERED: SODIUM CHLORIDE 0.9% 1000ML 1,000 ML IV SCH (02:30)
[2018-12-23] MEDS ORDERED: VANCOMYCIN CONSULT ACTIVE PRN (03:07)
[2018-12-23] MEDS ORDERED: VANCOMYCIN HCL 2,250 MG in SODIUM CHLORIDE 0.9% 500 ML IV ONE (03:07)
[2018-12-23] MEDS ORDERED: AZTREONAM 1,000 MG in DEXTROSE 5% 100 ML IV STA (03:08)
[2018-12-23 03:09] LABS: Appearance Urine Clear (Clear); Bacteria Urine Automated Negative (Negative); Bilirubin Urine Negative (Negative); Color Urine Dark Yellow; Epithelial Cell Urine Auto >30 /lpf (0-5); Glucose Urine UA Negative (Negative); Ketones Urine 1+ (Negative); Leukocyte Esterase Urine 2+ (Negative); Nitrite Urine Negative (Negative); Protein Urine Trace (Negative); Specific Gravity Urine 1.026 (1.000-1.030); Urobilinogen Urine Negative (Negative)
[2018-12-23 03:19] LABS: Mucus Urine Present (None Prsent)
[2018-12-23 03:24] LABS: Amphetamines+Metham, Urine Neg (Neg); Barbiturates, Urine Neg (Neg); Benzodiazepine, Urine Neg (Neg); Cocaine, Urine Neg (Neg); MDMA (Ecstacy), Urine Neg (Neg); Methadone, Urine Neg (Neg); Opiate, Urine Pos (Neg); Phencyclidine, Urine Neg (Neg)
--- NOTE | 2018-12-23 05:44 | History & Physical Report ---
Date of Service December 23, 2018 Assessment & Plan (1) Altered mental status: 68-year-old female with a past medical history of Parkinson's, aspiration pneumonia presents to the hospital accompanied by her family with altered mental status. By the time I went into the room to admit the patient, the family had already left. I was unable to obtain history from the patient. Following assessment and plan are based on review of patient's outpatient charts , physical exam and emergency room diagnostic testing. Altered mental status and possible aspiration pneumonia versus intoxication Family was concerned that the patient had overdosed on Tylenolwe will continue to follow Tylenol level, currently within normal limits. Follow final read of head CT Ordered a speech consultno diet currently ordered for the patient White count was 18.01 and lactate was 2.8 Attending admitting physician read possible pneumonia on CT scanawaiting final radiologic read We will empirically treat community acquired pneumonia with Levaquin 750 mg daily Reported history of ciprofloxacin allergyreviewed patient's chart on previous hospitalization she received Levaquin without reaction. Urine is equivocal for infectionawaiting urine cultures Blood cultures pending x2 Parkinson's disease Continue home medicinesRanexa, Sinemet, Keppra Entacapone, Exelon is not found on our formularycurrently holding. -Recommend following up with family in regards to bringing these medicines into the hospital Depression Continue citalopram, amitriptyline COPD Continue albuterol/advair Diabetes Continue atorvastatin 10 mg, aspirin 81 mg Basal--10 qam, 12 qhs-- sliding scale insulin per protocol History of DVT Continue warfarin INR subtherapeuticcontinue to follow PT/INR in the setting of Levaquin use GI prophylaxis Prilosec 20 mg daily Migraine prophylaxis Imitrex, 50 mg p.o. as needed CODE STATUSprevious hospitalization of the patient a full code. Unable to obtain patient's wishes secondary to altered mental status. Recommend following up with family (2) Parkinson's disease: (3) Asthma: (4) Hypertension: (5) Diabetes mellitus: (6) Personal history of DVT (deep vein thrombosis): (7) Hypothyroidism: (8) Depression: (9) Coronary artery disease: (10) Aspiration of food: History of Present Illness Primary Care Provider: Sandra Scott DO 68-year-old female presents to [facility] with altered mental status and complaining of abdominal pain. Patient was brought in by her family who state that she was confused and potentially had taken double dosing of Tylenol. The patient was ultimately admitted after CT scan showed possible pneumonia. I was unable to obtain history secondary to patient's altered mental status. She was alert to person and place, but not time and was unable to answer questions appropriately. Allergies Allergy/AdvReac Type Severity Reaction Status Date / Time Cipro Allergy Severe RASH Unverified 07/01/18 14:03 ciprofloxacin Allergy Severe RASH Verified 12/23/18 03:28 Penicillins Allergy Intermediate HIVES Verified 12/23/18 03:28 Sulfa (Sulfonamide Allergy Intermediate HIVES Verified 12/23/18 03:28 Antibiotics) latex Allergy Unknown Unknown Verified 12/23/18 03:28 adhesive AdvReac Severe "THEY EAT Verified 12/23/18 03:28 MY SKIN." Iodinated Contrast- Oral and AdvReac Intermediate Vomiting Verified 12/23/18 03: 28 IV Dye Quinolones AdvReac Mild YEAST Verified 12/23/18 03:28 INFECTION Cephalosporins AdvReac Unknown Unknown Verified 12/23/18 03:28 Ba Pepper AdvReac Intermediate GREEN Uncoded 12/23/18 03:28 PEPPER = MIGRAINE HEADACHE Home Medications Home Medications Medication Instructions Recorded Confirmed Type adalimumab [Humira] 80 mg SUBCUT DIRECTED 10/01/18 12/23/18 History albuterol sulfate [Ventolin HFA] 2 puff INHALATION TID PRN 10/01/18 12/23/18 History amitriptyline 50 mg PO HS 10/01/18 12/23/18 History aspirin [Aspirin Low Dose] 81 mg PO DAILY 10/01/18 12/23/18 History atorvastatin 10 mg PO DAILY 10/01/18 12/23/18 History bumetanide 1 mg PO DAILY 10/01/18 12/23/18 History carbidopa-levodopa [Sinemet] 1 tab PO QID 10/01/18 12/23/18 History citalopram [Celexa] 20 mg PO HS 10/01/18 12/23/18 History cyanocobalamin (vitamin B-12) 1,000 mcg PO DAILY 10/01/18 12/23/18 History [Vitamin B-12] entacapone 200 mg PO QID 10/01/18 12/23/18 History ergocalciferol (vitamin D2) 50,000 unit PO DAILY 10/01/18 12/23/18 History [Vitamin D2] ferrous sulfate 325 mg PO DAILY 10/01/18 12/23/18 History fluticasone-salmeterol [Advair HFA] 2 puff INHALATION BID 10/01/18 12/23/18 History glipizide 10 mg PO BID 10/01/18 12/23/18 History hydrocodone-acetaminophen [Vicodin] 2 tab PO DIRECTED PRN 10/01/18 12/23/18 History insulin asp prt-insulin aspart 1 sliding scale dose SUBCUT ACHS 10/01/18 History [Novolog Mix 70-30 U-100 Insuln] insulin detemir U-100 [Levemir 10 - 14 unit SUBCUT HS 10/01/18 12/23/18 History FlexTouch U-100 Insuln] insulin detemir U-100 [Levemir 10 unit SUBCUT QAM 10/01/18 12/23/18 History FlexTouch U-100 Insuln] isosorbide mononitrate 60 mg PO DAILY 10/01/18 12/23/18 History levetiracetam [Keppra] 1,000 mg PO HS 10/01/18 12/23/18 History levothyroxine 25 mcg PO DAILY 10/01/18 12/23/18 History metformin 1,000 mg PO BID 10/01/18 12/23/18 History nitroglycerin 0.3 mg SUBLINGUAL DIRECTED PRN 10/01/18 12/23/18 History omeprazole magnesium [Prilosec OTC] 20 mg PO DAILY 10/01/18 12/23/18 History ranolazine [Ranexa] 500 mg PO BID 10/01/18 12/23/18 History rivastigmine [Exelon] 4.6 mg TRANSDERMAL DIRECTED 10/01/18 12/23/18 History sumatriptan succinate [Imitrex] 50 mg PO DIRECTED PRN 10/01/18 12/23/18 History warfarin [Jantoven] 2.5 mg PO WK 10/01/18 12/23/18 History benazepril 5 mg PO DAILY 10/31/18 12/23/18 History warfarin 5 mg PO 6XWK 10/31/18 12/23/18 History Past Med/Surg History Social History Current Living Situation: Alone Current Living Situation Comment: Per patient (Patient is confused) Other Information That Helps Us Care for You: No (unknown) Feels Safe at Home: Yes Safety Concerns: Feels Safe At This Time Smoking Status: Unknown if ever smoked Hx Alcohol Use: No Hx Substance Use: No Beliefs That Will Affect Care: None Preferred Language: Arabic Review of Systems Patient was unable to provide review of systems secondary to altered mental status Physical Exam 2 Vital Signs (Past 24 Hours): Last Vital Signs Temp 36.6 C 12/23/18 00:42 Pulse 108 H 12/23/18 04:25 Resp 24 12/23/18 04:25 BP 156/93 H 12/23/18 04:25 Pulse Ox 92 12/23/18 04:25 Constitutional: WD/WN, vitals as above + obese and + altered mental status ENMT: external ear and nose normal, oropharynx normal Mouth: + dry oral mucous membranes Neck: trachea midline, no thyromegaly Respiratory: normal respiratory effort, lungs clear to auscultation Diminished breath sounds in bilateral bases Cardiovascular: RRR, no murmur, no edema Gastrointestinal (Abdomen): normal bowel sounds, soft, nontender, no hepatosplenomegaly Skin: no rashes, warm and dry Neurologic: awake and + confused Psychiatric: Orientation: oriented to person and oriented to place; + not oriented to time and + uncooperative Results & Data Laboratory Results Laboratory Last Values WBC 18.01 K/uL (4.8-10.8) H 12/23/18 00:47 RBC 4.28 M/uL (4.2-5.4) 12/23/18 00:47 Hgb 13.4 g/dL (12.0-16.0) 12/23/18 00:47 POC Hgb 14.6 g/dl (12.0-16.0) 12/23/18 01:08 Hct 42.1 % (37-47) 12/23/18 00:47 POC Hct 43 % (37-47) 12/23/18 01:08 MCV 98.4 fL (80-100) 12/23/18 00:47 MCH 31.3 pg (25-34) 12/23/18 00:47 MCHC 31.8 g/dL (32-36) L 12/23/18 00:47 RDW Std Deviation 57.5 fL (36.4-46.3) H 12/23/18 00:47 RDW Coeff of Taj 16.0 % (11.5-14.5) H 12/23/18 00:47 Plt Count 223 K/uL (130-400) 12/23/18 00:47 MPV 9.4 fL (7.4-10.4) 12/23/18 00:47 Immature Gran % (Auto) 0.2 % 12/23/18 00:47 Neut % (Auto) 86.5 % 12/23/18 00:47 Lymph % (Auto) 5.4 % 12/23/18 00:47 [place] % (Auto) 7.6 % 12/23/18 00:47 Eos % (Auto) 0.2 % 12/23/18 00:47 Baso % (Auto) 0.1 % 12/23/18 00:47 Immature Gran # (Auto) 0.04 K/uL (0.00-0.02) H 12/23/18 00:47 Neut # (Auto) 15.58 K/uL (1.4-6.5) H 12/23/18 00:47 Lymph # (Auto) 0.97 K/uL (1.2-3.4) L 12/23/18 00:47 [place] # (Auto) 1.37 K/uL (0.11-0.59) H 12/23/18 00:47 Eos # (Auto) 0.03 K/uL (0-0.5) 12/23/18 00:47 Baso # (Auto) 0.02 K/uL (0-0.2) 12/23/18 00:47 PT 16.6 Seconds (9.0-12.0) H 12/23/18 00:47 INR 1.7 (0.9-1.1) H 12/23/18 00:47 APTT 28.2 Seconds (21.0-31.0) 12/23/18 00:47 PTT Ratio 1.1 12/23/18 00:47 POC Sodium 143 mEq/L (135-144) 12/23/18 01:08 Sodium 138 mmol/L (136-145) 12/23/18 00:47 POC Potassium 4.0 mEq/L (3.3-5.0) 12/23/18 01:08 Potassium 4.2 mmol/L (3.5-5.1) 12/23/18 00:47 POC Chloride 108 mEq/L (101-112) 12/23/18 01:08 Chloride 112 mmol/L (98-107) H 12/23/18 00:47 Carbon Dioxide 22 mmol/L (21-32) 12/23/18 00:47 POC Total CO2 22 mEq/l (24-31) L 12/23/18 01:08 Anion Gap 4.0 (3-11) 12/23/18 00:47 POC Anion Gap 18.0 mmol/L (16-25) 12/23/18 01:08 POC BUN 14 mg/dl (7-18) 12/23/18 01:08 BUN 15 mg/dl (7-18) 12/23/18 00:47 Creatinine 1.01 mg/dl (0.6-1.2) 12/23/18 00:47 POC Creatinine 0.9 mg/dl (0.6-1.3) 12/23/18 01:08 Est Cr Clr Drug Dosing 58.0 ml/min 12/23/18 00:47 Est GFR ( Amer) 65.8 12/23/18 00:47 Est GFR (Non-Af Amer) 56.8 12/23/18 00:47 BUN/Creatinine Ratio 14.5 (10-20) 12/23/18 00:47 Glucose 138 mg/dl (70-99) H 12/23/18 00:47 POC Glucose (other) 113 mg/dl (70-99) H 12/23/18 01:08 Lactate 2.8 mmol/L (0.4-2.0) H* 12/23/18 00:47 Calcium 8.6 mg/dl (8.5-10.1) 12/23/18 00:47 POC Ioniz Calcium Reagan 1.16 mmol/l (1.12-1.32) 12/23/18 01:08 Total Bilirubin 0.3 mg/dl (0.2-1) 12/23/18 00:47 AST 16 U/L (15-37) 12/23/18 00:47 ALT 9 U/L (12-78) L 12/23/18 00:47 Alkaline Phosphatase 99 U/L (45-117) 12/23/18 00:47 Total Creatine Kinase 56 U/L (26-192) 12/23/18 00:47 CK-MB (CK-2) 1.1 ng/ml (0.5-3.6) 12/23/18 00:47 CK/CKMB % Calc 2.0 (0-3.0) 12/23/18 00:47 Troponin I 0.020 ng/ml (0-0.045) 12/23/18 00:47 Total Protein 6.6 gm/dl (6.4-8.2) 12/23/18 00:47 Albumin 3.0 gm/dl (3.4-5.0) L 12/23/18 00:47 Globulin 3.6 gm/dl (2.5-4.0) 12/23/18 00:47 Albumin/Globulin Ratio 0.8 (0.9-2) L 12/23/18 00:47 Urine Color Dark Yellow 12/23/18 02:53 Urine Appearance Clear (Clear) 12/23/18 02:53 Urine pH 5.0 (4.5-7.5) 12/23/18 02:53 Ur Specific Cameron 1.026 (1.000-1.030) 12/23/18 02:53 Urine Protein Trace (Negative) H 12/23/18 02:53 Urine Glucose (UA) Negative (Negative) 12/23/18 02:53 Urine Ketones 1+ (Negative) H 12/23/18 02:53 Urine Blood 1+ (Negative) H 12/23/18 02:53 Urine Nitrite Negative (Negative) 12/23/18 02:53 Urine Bilirubin Negative (Negative) 12/23/18 02:53 Urine Urobilinogen Negative (Negative) 12/23/18 02:53 Ur Leukocyte Esterase 2+ (Negative) H 12/23/18 02:53 Urine WBC (Auto) 5-10 /hpf (0-5) H 12/23/18 02:53 Urine RBC (Auto) 5-10 /hpf (0-4) H 12/23/18 02:53 U Hyaline Cast (Auto) 1-5 /lpf (0-5) 12/23/18 02:53 U Epithel Cells (Auto) >30 /lpf (0-5) H 12/23/18 02:53 Urine Bacteria (Auto) Negative (Negative) 12/23/18 02:53 Ur Renal Epithelial Cell Not Reportable 12/23/18 02:53 Urine Mucus Present (None Prsent) H 12/23/18 02:53 Urine Yeast Not Reportable 12/23/18 02:53 Salicylates 6.6 mg/dl (2.8-20) 12/23/18 00:47 Urine Opiates Screen Pos (Neg) H 12/23/18 02:53 Ur Methadone, Qual Neg (Neg) 12/23/18 02:53 Acetaminophen 11 ug/ml (10-30) 12/23/18 02:56 Urine Barbiturates Neg (Neg) 12/23/18 02:53 Ur Phencyclidine (PCP) Neg (Neg) 12/23/18 02:53 U Amphetamin/Meth Scrn Neg (Neg) 12/23/18 02:53 MDMA (Ecstasy) Screen Neg (Neg) 12/23/18 02:53 U Benzodiazepines Scrn Neg (Neg) 12/23/18 02:53 Ur Cocaine Metabolite Neg (Neg) 12/23/18 02:53 U Marijuana (THC) Screen Neg (Neg) 12/23/18 02:53 Ethyl Alcohol mg/dL < 3.0 mg/dl (0-3) 12/23/18 00:47 Influenza Type A (PCR) Neg for Influ A (Neg) 12/23/18 01:08 Influenza Type B (PCR) Neg for Influ B (Neg) 12/23/18 01:08 Supervising Physician Co-Signing Physician Notes Attending addendum: I have physically seen this patient, have supervised the medical residents activities, and agree with the H&P unless as otherwise noted. Assessment and Plan: Altered mental status-- Unclear etiology at this time. Potentially related to pneumonia, treat empirically with levofloxacin IV. Follow urine culture and sensitivities. Follow blood cultures. History of Parkinson's and depression-if no clear infectious etiology, may need to consider medication side effect and/or need for adjustment. Consult neurology for their opinion. Remainder of orders and notations as noted. _ (1) Altered mental status Altered mental status type: unspecified Coma depth: Coma timing: Qualified Code(s): R41.82 - Altered mental status, unspecified
--- NOTE | 2018-12-23 06:36 | CT Scan Report ---
CT head/brain wo con CLINICAL HISTORY: Acute change in mental status COMPARISON STUDY: 10-17 TECHNIQUE: Axial CT of the brain is performed from the vertex to the skull base. IV contrast was not administered for this examination. A dose lowering technique was utilized adhering to the principles of ALARA. CT DOSE: 614.27 mGy.cm FINDINGS: No intra or extra-axial mass lesions are visualized. There is no CT evidence of acute cortical infarc tion. There is no evidence of midline shift. There is no acute hemorrhage. No calvarial fractures ar e visualized. There are moderately extensive white matter hypodensities likely on a small vessel basis. There is no evidence of pathologic ventricular dilatation. There are choroid plexus cysts. There is no evidence of acute sinusitis IMPRESSION: No acute intracranial findings Electronically signed by: Fady Pineda M.D. 12/23/2018 6:34 AM
[2018-12-23] MEDS ORDERED: CARBOHYDRATES FOR HYPOGLYCEMIA PO PRN (06:44)
[2018-12-23] MEDS ORDERED: GLUCAGON FOR INJ 1 MG VIAL SQ PRN (06:44)
[2018-12-23] MEDS ORDERED: GLUCOSE 40% GEL 15 GM TUBE PO PRN (06:44)
[2018-12-23] MEDS ORDERED: DEXTROSE 50% 50 ML SYRINGE IV PRN (06:44)
[2018-12-23] MEDS ORDERED: GLUCOSE 10 TABS/TUBE PO PRN (06:44)
[2018-12-23] MEDS ORDERED: ALUMINUM/MAGNESIUM SUSP 30 ML UDC PO PRN (06:53)
[2018-12-23] MEDS ORDERED: NITROGLYCERIN 0.3 MG/1 TAB 100 TAB BTL SL PRN (06:53)
[2018-12-23] MEDS ORDERED: ALBUTEROL HFA 8 GM INHALER INH PRN (06:53)
[2018-12-23] MEDS ORDERED: MAGNESIUM HYDROXIDE SUSP 30 ML UDC PO PRN (06:53)
[2018-12-23] MEDS ORDERED: SUMAtriptan succinate 50 MG TAB PO PRN (06:53)
[2018-12-23] MEDS ORDERED: POLYETHYLENE (MIRALAX) 17 GM PACK PO PRN (06:53)
--- NOTE | 2018-12-23 07:05 | CT Scan Report ---
CT OF THE ABDOMEN AND PELVIS WITHOUT CONTRAST CLINICAL HISTORY: Abdominal pain. COMPARISON STUDY: CT of the abdomen and pelvis November 16, 2015. TECHNIQUE: Axial images of the abdomen and pelvis were obtained without IV contrast. Images were revi ewed in the axial, sagittal, and coronal planes. Automated exposure control was utilized for the chastity dy. A dose lowering technique was utilized adhering to the principles of ALARA. FINDINGS: A 1.3 cm calculus within the lower pole the right kidney is noted. No ureteral calculi are present. There is no hydronephrosis or hydroureter. This exam is, must by motion artifact. Unenhanced images of the liver, spleen, adrenal glands and pancreas are unremarkable. There is a diverticulum o f the second portion of the duodenum. There are are large bowel containing ventral hernias. The more superior hernia contains a portion of the transverse colon. The lower hernia contains multiple loops of small and large bowel. The appearance is similar to exam of November 16, 2015. Colonic diverticulo sis is noted without evidence for acute diverticulitis. There is no evidence for a bowel obstruction. No suspicious osseous lesions are noted. There is extensive atherosclerotic plaque. There is no lymp hadenopathy. Severe osteoarthritis of both hips, greater on the left, is incidentally noted. IMPRESSION: 1. Right-sided nephrolithiasis. No ureteral calculi or hydronephrosis. 2. Two large bowel containing ventral hernias without bowel obstruction, similar in appearance to exa m of November 16, 2015. 3. Colonic diverticulosis without evidence for acute diverticulitis. Electronically signed by: Alejo Mott M.D. 12/23/2018 7:04 AM
--- NOTE | 2018-12-23 07:10 | XRay Report ---
XR chest 1V portable CLINICAL HISTORY: Sepsis COMPARISON STUDY: Chest CT October 01, 2018 and chest radiograph October 31, 2018. FINDINGS: There is no pneumothorax or pleural effusion. A cyst within the left lower lobe is again no edith. There is no consolidation or evidence for pulmonary edema. Cardiomegaly is unchanged. The appear ance of the chest is unchanged. Old left clavicular fracture and old left-sided rib fractures are not ed. IMPRESSION: No acute cardiopulmonary findings. No change since previous exam. Electronically signed by: Alejo Mott M.D. 12/23/2018 7:08 AM
--- NOTE | 2018-12-23 07:15 | Emergency Department Note ---
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 As per EMS the patient took 4 500 mg pills of acetaminophen and 2 5 300 mg (2600 mg total) at 2300 last night. Pt has chest pain, malaise, and dizziness. Home Medications Home Medications Medication Instructions Recorded Confirmed Type adalimumab [Humira] 80 mg SUBCUT DIRECTED 10/01/18 12/23/18 History albuterol sulfate [Ventolin HFA] 2 puff INHALATION TID PRN 10/01/18 12/23/18 History amitriptyline 50 mg PO HS 10/01/18 12/23/18 History aspirin [Aspirin Low Dose] 81 mg PO DAILY 10/01/18 12/23/18 History atorvastatin 10 mg PO DAILY 10/01/18 12/23/18 History bumetanide 1 mg PO DAILY 10/01/18 12/23/18 History carbidopa-levodopa [Sinemet] 1 tab PO QID 10/01/18 12/23/18 History citalopram [Celexa] 20 mg PO HS 10/01/18 12/23/18 History cyanocobalamin (vitamin B-12) 1,000 mcg PO DAILY 10/01/18 12/23/18 History [Vitamin B-12] entacapone 200 mg PO QID 10/01/18 12/23/18 History ergocalciferol (vitamin D2) 50,000 unit PO DAILY 10/01/18 12/23/18 History [Vitamin D2] ferrous sulfate 325 mg PO DAILY 10/01/18 12/23/18 History fluticasone-salmeterol [Advair HFA] 2 puff INHALATION BID 10/01/18 12/23/18 History glipizide 10 mg PO BID 10/01/18 12/23/18 History hydrocodone-acetaminophen [Vicodin] 2 tab PO DIRECTED PRN 10/01/18 12/23/18 History insulin asp prt-insulin aspart 1 sliding scale dose SUBCUT ACHS 10/01/18 History [Novolog Mix 70-30 U-100 Insuln] insulin detemir U-100 [Levemir 10 - 14 unit SUBCUT HS 10/01/18 12/23/18 History FlexTouch U-100 Insuln] insulin detemir U-100 [Levemir 10 unit SUBCUT QAM 10/01/18 12/23/18 History FlexTouch U-100 Insuln] isosorbide mononitrate 60 mg PO DAILY 10/01/18 12/23/18 History levetiracetam [Keppra] 1,000 mg PO HS 10/01/18 12/23/18 History levothyroxine 25 mcg PO DAILY 10/01/18 12/23/18 History metformin 1,000 mg PO BID 10/01/18 12/23/18 History nitroglycerin 0.3 mg SUBLINGUAL DIRECTED PRN 10/01/18 12/23/18 History omeprazole magnesium [Prilosec OTC] 20 mg PO DAILY 10/01/18 12/23/18 History ranolazine [Ranexa] 500 mg PO BID 10/01/18 12/23/18 History rivastigmine [Exelon] 4.6 mg TRANSDERMAL DIRECTED 10/01/18 12/23/18 History sumatriptan succinate [Imitrex] 50 mg PO DIRECTED PRN 10/01/18 12/23/18 History warfarin [Jantoven] 2.5 mg PO WK 10/01/18 12/23/18 History benazepril 5 mg PO DAILY 10/31/18 12/23/18 History warfarin 5 mg PO 6XWK 10/31/18 12/23/18 History Allergies Allergy/AdvReac Type Severity Reaction Status Date / Time Cipro Allergy Severe RASH Unverified 07/01/18 14:03 ciprofloxacin Allergy Severe RASH Verified 12/23/18 03:28 Penicillins Allergy Intermediate HIVES Verified 12/23/18 03:28 Sulfa (Sulfonamide Allergy Intermediate HIVES Verified 12/23/18 03:28 Antibiotics) latex Allergy Unknown Unknown Verified 12/23/18 03:28 adhesive AdvReac Severe "THEY EAT Verified 12/23/18 03:28 MY SKIN." Iodinated Contrast- Oral and AdvReac Intermediate Vomiting Verified 12/23/18 03: 28 IV Dye Quinolones AdvReac Mild YEAST Verified 12/23/18 03:28 INFECTION Cephalosporins AdvReac Unknown Unknown Verified 12/23/18 03:28 Ba Pepper AdvReac Intermediate GREEN Uncoded 12/23/18 03:28 PEPPER = MIGRAINE HEADACHE Past Med/Surg History Social History Current Living Situation: Alone Feels Safe at Home: Yes Smoking Status: Former smoker Second Hand Exposure: No Hx Alcohol Use: No Hx Substance Use: No Beliefs That Will Affect Care: None Preferred Language: Bolivian Review of Systems See HPI for pertinent positives & negatives. and A total of 10 systems reviewed and were otherwise negative Physical Exam Vital Signs Vital Signs - 24 hr 12/23/18 00:41 12/23/18 00:42 12/23/18 00:56 Temperature 36.6 C Temperature Source Oral Sepsis Recent Fever Within 48 Hours No Sepsis New/Unexplained Change in Mental Status No Sepsis Action Taken by Nursing No Action Required Pulse Rate 120 H 106 H Pulse Rate [Right Finger] 107 H Respiratory Rate 22 22 Respiratory Effort / Characteristics Non-Labored Spontaneous Non-Labored Spontaneous Respiratory Depth Normal Normal Respiratory Pattern Blood Pressure 176/81 H Blood Pressure [Right Arm] Blood Pressure Mean 112 Blood Pressure Mean [Right Arm] Blood Pressure Position [Right Arm] Pulse Oximetry 88 L 96 98 Oxygen Delivery Method Room Air Nasal Cannula Nasal Cannula Oxygen Flow Rate 0 6 3 12/23/18 01:12 12/23/18 02:02 12/23/18 02:25 Temperature Temperature Source Sepsis Recent Fever Within 48 Hours Sepsis New/Unexplained Change in Mental Status Sepsis Action Taken by Nursing Pulse Rate Pulse Rate [Right Finger] 105 H 102 H 107 H Respiratory Rate 22 24 22 Respiratory Effort / Characteristics Non-Labored Spontaneous Non-Labored Spontaneous Non-Labored Spontaneous Respiratory Depth Normal Normal Normal Respiratory Pattern Blood Pressure Blood Pressure [Right Arm] 174/74 H 143/110 H Blood Pressure Mean Blood Pressure Mean [Right Arm] 107 121 Blood Pressure Position [Right Arm] Pulse Oximetry 96 94 96 Oxygen Delivery Method Nasal Cannula Nasal Cannula Nasal Cannula Oxygen Flow Rate 3 3 3 12/23/18 03:02 12/23/18 04:25 12/23/18 06:13 Temperature 37.6 C H Temperature Source Oral Sepsis Recent Fever Within 48 Hours Sepsis New/Unexplained Change in Mental Status Sepsis Action Taken by Nursing Pulse Rate Pulse Rate [Right Finger] 111 H 108 H 103 H Respiratory Rate 20 24 28 H Respiratory Effort / Characteristics Non-Labored Spontaneous Spontaneous Non-Labored Spontaneous Respiratory Depth Normal Normal Normal Respiratory Pattern Regular Blood Pressure Blood Pressure [Right Arm] 156/93 H 156/93 H Blood Pressure Mean Blood Pressure Mean [Right Arm] 114 114 Blood Pressure Position [Right Arm] Lying Lying Pulse Oximetry 96 92 93 Oxygen Delivery Method Nasal Cannula Room Air Nasal Cannula Oxygen Flow Rate 3 2.5 GENERAL: Awake, alert, well-appearing, in no distress HENT: Normocephalic, atraumatic. Oropharynx unremarkable. EYES: Normal conjunctiva. Sclera non-icteric. NECK: Supple. No nuchal rigidity. FROM. No masses. RESPIRATORY: Clear to auscultation. No wheezes. No rales. Normal respiratory effort. CARDIAC: Normal rate. Normal rhythm. No murmurs. No rubs. Extremities warm and well perfused. Pulses equal. No JVD. GI: Soft, non-distended. Tender in epigastric area. No rebound or guarding. No masses. RECTAL: Deferred. MUSCULOSKELETAL: Atraumatic. Chest examination reveals no tenderness. The back is symmetrical on inspection without obvious abnormality. There is no CVA tenderness to palpation. No joint edema. LOWER EXTREMITIES: Calves are equal size bilaterally and non-tender. No edema. No discoloration. NEURO: Normal sensorium. No sensory or motor deficits noted. Course 0030: Past medical records reviewed. The patient was evaluated in room C11, and a complete history and physical examination were performed. 0330: I reviewed the patient's case with Dr. Ross [facility] Hospitalist. He will evaluate the patient for further management. Consultations Consultation #1: I reviewed the patient's case with Dr. Ross [facility] Hospitalist. He will evaluate the patient for further management. Time: 03:30 Administered Medications Discontinued Medications Sodium Chloride (Nss 1000ml) 1,000 mls @ 999 mls/hr IV .Q1H1M [facility] Stop: 12/23/18 03:30 Last Infusion: 12/23/18 05:33 Dose: 0 mls/hr Admin: 12/23/18 04:19 Dose: 999 mls/hr Vancomycin HCl 2,250 mg/ (Sodium Chloride) 545 mls @ 200 mls/hr IV NOW ONE Stop: 12/23/18 05:50 Last Admin: 12/23/18 04:19 Dose: 200 mls/hr Aztreonam 1,000 mg/ Dextrose 110 mls @ 100 mls/hr IV NOW STA Stop: 12/23/18 04:13 Last Infusion: 12/23/18 04:19 Dose: Admin: 12/23/18 03:16 Dose: 100 mls/hr Medical Decision Making Differential Diagnosis Differential diagnosis: Etiologies such as metabolic, infection, hypo/hyperglycemia, electrolyte abnormalities, cardiac sources, intracerebral event, toxicologic, neurologic, as well as others were entertained. Medical Records Attestation: I reviewed the patient's medical records. Home Medications Current Medication List: was personally reviewed by me Laboratory Data Attestation: I reviewed the patient's lab results. Result diagrams: 12/23/18 00:47 12/23/18 00:47 Lab Results 12/23/18 12/23/18 12/23/18 Range/Units 00:47 00:47 00:47 WBC 18.01 H (4.8-10.8) K/uL RBC 4.28 (4.2-5.4) M/uL Hgb 13.4 (12.0-16.0) g/dL POC Hgb (12.0-16.0) g/dl Hct 42.1 (37-47) % POC Hct (37-47) % MCV 98.4 (80-100) fL MCH 31.3 (25-34) pg MCHC 31.8 L (32-36) g/dL RDW Std Deviation 57.5 H (36.4-46.3) fL RDW Coeff of Taj 16.0 H (11.5-14.5) % Plt Count 223 (130-400) K/uL MPV 9.4 (7.4-10.4) fL Immature Gran % (Auto) 0.2 % Neut % (Auto) 86.5 % Lymph % (Auto) 5.4 % [place] % (Auto) 7.6 % Eos % (Auto) 0.2 % Baso % (Auto) 0.1 % Immature Gran # (Auto) 0.04 H (0.00-0.02) K/uL Neut # (Auto) 15.58 H (1.4-6.5) K/uL Lymph # (Auto) 0.97 L (1.2-3.4) K/uL [place] # (Auto) 1.37 H (0.11-0.59) K/uL Eos # (Auto) 0.03 (0-0.5) K/uL Baso # (Auto) 0.02 (0-0.2) K/uL PT 16.6 H (9.0-12.0) Seconds INR 1.7 H (0.9-1.1) APTT 28.2 (21.0-31.0) Seconds PTT Ratio 1.1 POC Sodium (135-144) mEq/L Sodium 138 (136-145) mmol/L POC Potassium (3.3-5.0) mEq/L Potassium 4.2 (3.5-5.1) mmol/L POC Chloride (101-112) mEq/L Chloride 112 H (98-107) mmol/L Carbon Dioxide 22 (21-32) mmol/L POC Total CO2 (24-31) mEq/l Anion Gap 4.0 (3-11) POC Anion Gap (16-25) mmol/L POC BUN (7-18) mg/dl BUN 15 (7-18) mg/dl Creatinine 1.01 (0.6-1.2) mg/dl POC Creatinine (0.6-1.3) mg/dl Est Cr Clr Drug Dosing 58.0 ml/min Est GFR ( Amer) 65.8 Est GFR (Non-Af Amer) 56.8 BUN/Creatinine Ratio 14.5 (10-20) Glucose 138 H (70-99) mg/dl POC Glucose (other) (70-99) mg/dl Lactate (0.4-2.0) mmol/L Calcium 8.6 (8.5-10.1) mg/dl POC Ioniz Calcium Reagan (1.12-1.32) mmol/l Total Bilirubin 0.3 (0.2-1) mg/dl AST 16 (15-37) U/L ALT 9 L (12-78) U/L Alkaline Phosphatase 99 (45-117) U/L Total Creatine Kinase 56 (26-192) U/L CK-MB (CK-2) 1.1 (0.5-3.6) ng/ml CK/CKMB % Calc 2.0 (0-3.0) Troponin I 0.020 (0-0.045) ng/ml Total Protein 6.6 (6.4-8.2) gm/dl Albumin 3.0 L (3.4-5.0) gm/dl Globulin 3.6 (2.5-4.0) gm/dl Albumin/Globulin Ratio 0.8 L (0.9-2) Urine Color Urine Appearance (Clear) Urine pH (4.5-7.5) Ur Specific Ulman (1.000-1.030) Urine Protein (Negative) Urine Glucose (UA) (Negative) Urine Ketones (Negative) Urine Blood (Negative) Urine Nitrite (Negative) Urine Bilirubin (Negative) Urine Urobilinogen (Negative) Ur Leukocyte Esterase (Negative) Urine WBC (Auto) (0-5) /hpf Urine RBC (Auto) (0-4) /hpf U Hyaline Cast (Auto) (0-5) /lpf U Epithel Cells (Auto) (0-5) /lpf Urine Bacteria (Auto) (Negative) Ur Renal Epithelial Cell Urine Mucus (None Prsent) Urine Yeast Salicylates (2.8-20) mg/dl Urine Opiates Screen (Neg) Ur Methadone, Qual (Neg) Acetaminophen (10-30) ug/ml Urine Barbiturates (Neg) Ur Phencyclidine (PCP) (Neg) U Amphetamin/Meth Scrn (Neg) MDMA (Ecstasy) Screen (Neg) U Benzodiazepines Scrn (Neg) Ur Cocaine Metabolite (Neg) U Marijuana (THC) Screen (Neg) Ethyl Alcohol mg/dL (0-3) mg/dl Influenza Type A (PCR) (Neg) Influenza Type B (PCR) (Neg) 12/23/18 12/23/18 12/23/18 Range/Units 00:47 00:47 00:47 WBC (4.8-10.8) K/uL RBC (4.2-5.4) M/uL Hgb (12.0-16.0) g/dL POC Hgb (12.0-16.0) g/dl Hct (37-47) % POC Hct (37-47) % MCV (80-100) fL MCH (25-34) pg MCHC (32-36) g/dL RDW Std Deviation (36.4-46.3) fL RDW Coeff of Taj (11.5-14.5) % Plt Count (130-400) K/uL MPV (7.4-10.4) fL Immature Gran % (Auto) % Neut % (Auto) % Lymph % (Auto) % [place] % (Auto) % Eos % (Auto) % Baso % (Auto) % Immature Gran # (Auto) (0.00-0.02) K/uL Neut # (Auto) (1.4-6.5) K/uL Lymph # (Auto) (1.2-3.4) K/uL [place] # (Auto) (0.11-0.59) K/uL Eos # (Auto) (0-0.5) K/uL Baso # (Auto) (0-0.2) K/uL PT (9.0-12.0) Seconds INR (0.9-1.1) APTT (21.0-31.0) Seconds PTT Ratio POC Sodium (135-144) mEq/L Sodium (136-145) mmol/L POC Potassium (3.3-5.0) mEq/L Potassium (3.5-5.1) mmol/L POC Chloride (101-112) mEq/L Chloride (98-107) mmol/L Carbon Dioxide (21-32) mmol/L POC Total CO2 (24-31) mEq/l Anion Gap (3-11) POC Anion Gap (16-25) mmol/L POC BUN (7-18) mg/dl BUN (7-18) mg/dl Creatinine (0.6-1.2) mg/dl POC Creatinine (0.6-1.3) mg/dl Est Cr Clr Drug Dosing ml/min Est GFR ( Amer) Est GFR (Non-Af Amer) BUN/Creatinine Ratio (10-20) Glucose (70-99) mg/dl POC Glucose (other) (70-99) mg/dl Lactate 2.8 H* (0.4-2.0) mmol/L Calcium (8.5-10.1) mg/dl POC Ioniz Calcium Reagan (1.12-1.32) mmol/l Total Bilirubin (0.2-1) mg/dl AST (15-37) U/L ALT (12-78) U/L Alkaline Phosphatase (45-117) U/L Total Creatine Kinase (26-192) U/L CK-MB (CK-2) (0.5-3.6) ng/ml CK/CKMB % Calc (0-3.0) Troponin I (0-0.045) ng/ml Total Protein (6.4-8.2) gm/dl Albumin (3.4-5.0) gm/dl Globulin (2.5-4.0) gm/dl Albumin/Globulin Ratio (0.9-2) Urine Color Urine Appearance (Clear) Urine pH (4.5-7.5) Ur Specific [place] (1.000-1.030) Urine Protein (Negative) Urine Glucose (UA) (Negative) Urine Ketones (Negative) Urine Blood (Negative) Urine Nitrite (Negative) Urine Bilirubin (Negative) Urine Urobilinogen (Negative) Ur Leukocyte Esterase (Negative) Urine WBC (Auto) (0-5) /hpf Urine RBC (Auto) (0-4) /hpf U Hyaline Cast (Auto) (0-5) /lpf U Epithel Cells (Auto) (0-5) /lpf Urine Bacteria (Auto) (Negative) Ur Renal Epithelial Cell Urine Mucus (None Prsent) Urine Yeast Salicylates 6.6 (2.8-20) mg/dl Urine Opiates Screen (Neg) Ur Methadone, Qual (Neg) Acetaminophen 8 L (10-30) ug/ml Urine Barbiturates (Neg) Ur Phencyclidine (PCP) (Neg) U Amphetamin/Meth Scrn (Neg) MDMA (Ecstasy) Screen (Neg) U Benzodiazepines Scrn (Neg) Ur Cocaine Metabolite (Neg) U Marijuana (THC) Screen (Neg) Ethyl Alcohol mg/dL < 3.0 (0-3) mg/dl Influenza Type A (PCR) (Neg) Influenza Type B (PCR) (Neg) 12/23/18 12/23/18 12/23/18 Range/Units 01:08 01:08 02:53 WBC (4.8-10.8) K/uL RBC (4.2-5.4) M/uL Hgb (12.0-16.0) g/dL POC Hgb 14.6 (12.0-16.0) g/dl Hct (37-47) % POC Hct 43 (37-47) % MCV (80-100) fL MCH (25-34) pg MCHC (32-36) g/dL RDW Std Deviation (36.4-46.3) fL RDW Coeff of Taj (11.5-14.5) % Plt Count (130-400) K/uL MPV (7.4-10.4) fL Immature Gran % (Auto) % Neut % (Auto) % Lymph % (Auto) % [place] % (Auto) % Eos % (Auto) % Baso % (Auto) % Immature Gran # (Auto) (0.00-0.02) K/uL Neut # (Auto) (1.4-6.5) K/uL Lymph # (Auto) (1.2-3.4) K/uL [place] # (Auto) (0.11-0.59) K/uL Eos # (Auto) (0-0.5) K/uL Baso # (Auto) (0-0.2) K/uL PT (9.0-12.0) Seconds INR (0.9-1.1) APTT (21.0-31.0) Seconds PTT Ratio POC Sodium 143 (135-144) mEq/L Sodium (136-145) mmol/L POC Potassium 4.0 (3.3-5.0) mEq/L Potassium (3.5-5.1) mmol/L POC Chloride 108 (101-112) mEq/L Chloride (98-107) mmol/L Carbon Dioxide (21-32) mmol/L POC Total CO2 22 L (24-31) mEq/l Anion Gap (3-11) POC Anion Gap 18.0 (16-25) mmol/L POC BUN 14 (7-18) mg/dl BUN (7-18) mg/dl Creatinine (0.6-1.2) mg/dl POC Creatinine 0.9 (0.6-1.3) mg/dl Est Cr Clr Drug Dosing ml/min Est GFR ( Amer) Est GFR (Non-Af Amer) BUN/Creatinine Ratio (10-20) Glucose (70-99) mg/dl POC Glucose (other) 113 H (70-99) mg/dl Lactate (0.4-2.0) mmol/L Calcium (8.5-10.1) mg/dl POC Ioniz Calcium Reagan 1.16 (1.12-1.32) mmol/l Total Bilirubin (0.2-1) mg/dl AST (15-37) U/L ALT (12-78) U/L Alkaline Phosphatase (45-117) U/L Total Creatine Kinase (26-192) U/L CK-MB (CK-2) (0.5-3.6) ng/ml CK/CKMB % Calc (0-3.0) Troponin I (0-0.045) ng/ml Total Protein (6.4-8.2) gm/dl Albumin (3.4-5.0) gm/dl Globulin (2.5-4.0) gm/dl Albumin/Globulin Ratio (0.9-2) Urine Color Urine Appearance (Clear) Urine pH (4.5-7.5) Ur Specific [place] (1.000-1.030) Urine Protein (Negative) Urine Glucose (UA) (Negative) Urine Ketones (Negative) Urine Blood (Negative) Urine Nitrite (Negative) Urine Bilirubin (Negative) Urine Urobilinogen (Negative) Ur Leukocyte Esterase (Negative) Urine WBC (Auto) (0-5) /hpf Urine RBC (Auto) (0-4) /hpf U Hyaline Cast (Auto) (0-5) /lpf U Epithel Cells (Auto) (0-5) /lpf Urine Bacteria (Auto) (Negative) Ur Renal Epithelial Cell Urine Mucus (None Prsent) Urine Yeast Salicylates (2.8-20) mg/dl Urine Opiates Screen Pos H (Neg) Ur Methadone, Qual Neg (Neg) Acetaminophen (10-30) ug/ml Urine Barbiturates Neg (Neg) Ur Phencyclidine (PCP) Neg (Neg) U Amphetamin/Meth Scrn Neg (Neg) MDMA (Ecstasy) Screen Neg (Neg) U Benzodiazepines Scrn Neg (Neg) Ur Cocaine Metabolite Neg (Neg) U Marijuana (THC) Screen Neg (Neg) Ethyl Alcohol mg/dL (0-3) mg/dl Influenza Type A (PCR) Neg for Influ A (Neg) Influenza Type B (PCR) Neg for Influ B (Neg) 12/23/18 12/23/18 Range/Units 02:53 02:56 WBC (4.8-10.8) K/uL RBC (4.2-5.4) M/uL Hgb (12.0-16.0) g/dL POC Hgb (12.0-16.0) g/dl Hct (37-47) % POC Hct (37-47) % MCV (80-100) fL MCH (25-34) pg MCHC (32-36) g/dL RDW Std Deviation (36.4-46.3) fL RDW Coeff of Taj (11.5-14.5) % Plt Count (130-400) K/uL MPV (7.4-10.4) fL Immature Gran % (Auto) % Neut % (Auto) % Lymph % (Auto) % [place] % (Auto) % Eos % (Auto) % Baso % (Auto) % Immature Gran # (Auto) (0.00-0.02) K/uL Neut # (Auto) (1.4-6.5) K/uL Lymph # (Auto) (1.2-3.4) K/uL [place] # (Auto) (0.11-0.59) K/uL Eos # (Auto) (0-0.5) K/uL Baso # (Auto) (0-0.2) K/uL PT (9.0-12.0) Seconds INR (0.9-1.1) APTT (21.0-31.0) Seconds PTT Ratio POC Sodium (135-144) mEq/L Sodium (136-145) mmol/L POC Potassium (3.3-5.0) mEq/L Potassium (3.5-5.1) mmol/L POC Chloride (101-112) mEq/L Chloride (98-107) mmol/L Carbon Dioxide (21-32) mmol/L POC Total CO2 (24-31) mEq/l Anion Gap (3-11) POC Anion Gap (16-25) mmol/L POC BUN (7-18) mg/dl BUN (7-18) mg/dl Creatinine (0.6-1.2) mg/dl POC Creatinine (0.6-1.3) mg/dl Est Cr Clr Drug Dosing ml/min Est GFR ( Amer) Est GFR (Non-Af Amer) BUN/Creatinine Ratio (10-20) Glucose (70-99) mg/dl POC Glucose (other) (70-99) mg/dl Lactate (0.4-2.0) mmol/L Calcium (8.5-10.1) mg/dl POC Ioniz Calcium Reagan (1.12-1.32) mmol/l Total Bilirubin (0.2-1) mg/dl AST (15-37) U/L ALT (12-78) U/L Alkaline Phosphatase (45-117) U/L Total Creatine Kinase (26-192) U/L CK-MB (CK-2) (0.5-3.6) ng/ml CK/CKMB % Calc (0-3.0) Troponin I (0-0.045) ng/ml Total Protein (6.4-8.2) gm/dl Albumin (3.4-5.0) gm/dl Globulin (2.5-4.0) gm/dl Albumin/Globulin Ratio (0.9-2) Urine Color Dark Yellow Urine Appearance Clear (Clear) Urine pH 5.0 (4.5-7.5) Ur Specific [place] 1.026 (1.000-1.030) Urine Protein Trace H (Negative) Urine Glucose (UA) Negative (Negative) Urine Ketones 1+ H (Negative) Urine Blood 1+ H (Negative) Urine Nitrite Negative (Negative) Urine Bilirubin Negative (Negative) Urine Urobilinogen Negative (Negative) Ur Leukocyte Esterase 2+ H (Negative) Urine WBC (Auto) 5-10 H (0-5) /hpf Urine RBC (Auto) 5-10 H (0-4) /hpf U Hyaline Cast (Auto) 1-5 (0-5) /lpf U Epithel Cells (Auto) >30 H (0-5) /lpf Urine Bacteria (Auto) Negative (Negative) Ur Renal Epithelial Cell Not Reportable Urine Mucus Present H (None Prsent) Urine Yeast Not Reportable Salicylates (2.8-20) mg/dl Urine Opiates Screen (Neg) Ur Methadone, Qual (Neg) Acetaminophen 11 (10-30) ug/ml Urine Barbiturates (Neg) Ur Phencyclidine (PCP) (Neg) U Amphetamin/Meth Scrn (Neg) MDMA (Ecstasy) Screen (Neg) U Benzodiazepines Scrn (Neg) Ur Cocaine Metabolite (Neg) U Marijuana (THC) Screen (Neg) Ethyl Alcohol mg/dL (0-3) mg/dl Influenza Type A (PCR) (Neg) Influenza Type B (PCR) (Neg) Imaging Data My Impression: Radiology results as stated below per my review and interpretation: 1 VIEW CHEST XRAY No evidence of pneumonia, congestion, or pneumothorax. Radiologist's Impression: Radiology results as stated below per my review and the radiologist's interpretation: CT HEAD: Comparison: CT dated 10/01/2018 No evidence of acute intracranial abnormality. Atrophy and chronic small vessel ishemic disease. Radiologist: Wanda Gordon MD CT ABDOMEN & PELVIS Without Contrast Comparison: CT dated 11/16/2015 Two large ventral hernia containing large and small bowel without evidence of bowel obstruction related to hernias. Hernias appear similar compared to prior CT dated 11/16/2015. Recommend clinical correlation for associated symptoms and/ or reducibility. Scattered colonic diverticula without evidence of acute diverticulitis. Status post cholecystectomy. 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 Osseous degenerative changes. Radiologist: Wanda Gordon MD ECG Data Attestation: I personally reviewed and interpreted this ECG as follows: Rate (beats per minute): 108 Rhythm: sinus tachycardia Findings: + RBBB; no ST depression and no ST elevation Blood Pressure Blood Pressure Findings: Elevated blood pressure Blood Pressure Disposition: further management by hospitalist [facility] Narrative This is a 68-year-old female who presents to the emergency department complaining of altered mental status. The patient is so confused she took multiple doses of Tylenol within an hour time period. Patient is complaining of abdominal pain therefore she was sent for a CAT scan of the abdomen pelvis. This does not show any acute process. Chest x-ray is concerning for small pneumonia. Blood cultures were obtained and the patient was found to have an elevation in her lactate. She was given a normal saline bolus and started on aztreonam as well as vancomycin. I did discuss the case with the hospitalist service who agreed to see the patient. Patient's Tylenol level was not felt to be high enough to require N-acetylcysteine. A 4-hour level was also obtained which was also found to be low. Family was in agreement with the treatment plan. Impression & Plan Altered mental status, UTI (urinary tract infection) Discharge Plan Visit Data Chief Complaint: Weakness Other Complaint: Illness ED Provider: Lc Campo Discharge Problem: Altered mental status, UTI (urinary tract infection) Patient Disposition: Being Evaluated by Hospitalist Discharge Instructions Interventions: ED Discharge Assessment Last Done: 12/23/18 06:21 The scribe's documentation has been prepared under my direction and personally reviewed by me in its entirety. I confirm that the note above accurately reflects all work, treatment, procedures, and medical decision making performed by me.
[2018-12-23] MEDS ORDERED: glipiZIDE 5 MG TAB PO SCH (09:00)
[2018-12-23] MEDS: FLUTICASONE/SALMETEROL 100/50 (ADVAIR) 14 PUFF/1 INHALER INH SCH ×2 (09:33→20:55)
[2018-12-23] MEDS: LEVOTHYROXINE SODIUM 25 MCG TABLET PO SCH (09:34)
[2018-12-23] MEDS: BUMETANIDE 1 MG TAB PO SCH (09:34)
[2018-12-23] MEDS: LEVOFLOXACIN/D5W 750 MG/150 ML BAG IV SCH (09:34)
[2018-12-23] MEDS: ISOSORBIDE MONO EXTENDED REL 60 MG TABCR PO SCH (09:35)
[2018-12-23] MEDS: RANOLAZINE 500 MG ER TAB PO SCH ×2 (09:35→20:55)
[2018-12-23] MEDS: CARBIDOPA/LEVODOPA 25/100MG TAB PO SCH ×4 (09:35→20:55)
[2018-12-23] MEDS: ATORVASTATIN 10 MG TAB PO SCH (09:35)
[2018-12-23] MEDS: ASPIRIN 81 MG ECTAB PO SCH (09:35)
--- NOTE | 2018-12-23 09:49 | Hospitalist Progress Note ---
Date of Service December 23, 2018 Assessment & Plan (1) Altered mental status: Altered mental status and possible aspiration pneumonia versus intoxication Family was concerned that the patient had overdosed on Tylenol acetaminophen level was normal head CT normal Ordered a speech consult patient has refused thickened liquids in the past when oriented and continues to refuse here. Given her history of CHF, will hold off on IV fluids and monitor renal function. White count was 18.01 and lactate was 2.8 Continue to empirically treat with Levaquin 750 mg until cultures resulted - concern on admission for CAP however radiologist did not read any on images. - Abdominal CT on admission showed: Right-sided nephrolithiasis. No ureteral calculi or hydronephrosis, Colonic diverticulosis without evidence for acute diverticulitis. Urine is equivocal for infectionawaiting urine cultures Blood cultures pending x2 - PT/OT (2) Parkinson's disease: Continue home medicinesRanexa, Sinemet, Keppra Entacapone, Exelon is not found on our formularycurrently holding. -Recommend following up with family in regards to bringing these medicines into the hospital (3) Asthma: Continue albuterol/advair (4) Hypertension: Patient's pressure running 160s - 170s systolically, will monitor for now , hold on IVF (5) Diabetes mellitus: DMII hold home glipizide and metformin Basal--10 qam, 12 qhs-- sliding scale insulin per protocol (6) Personal history of DVT (deep vein thrombosis): Continue warfarin INR subtherapeuticcontinue to follow PT/INR in the setting of Levaquin use - it appears from past labwork patient is frequently subtherapeutic, compliance issues? May want to discuss alternatives with her pcp after discharge (7) Hypothyroidism: (8) Depression: Continue citalopram, amitriptyline (9) Coronary artery disease: Continue atorvastatin 10 mg, aspirin 81 mg, isosorbide, ranolazine (10) History of migraine: Imitrex, 50 mg p.o. as needed (11) Diastolic dysfunction: History of diastolic CHF - continue bumex (12) DVT prophylaxis: warfarin Subjective Ms. Harris is drowsy, able to answer some questions but then drifts back to sleep for others. She reports pain in her abdomen, cough, sob, and nausea. Review of Systems All systems reviewed & are unremarkable except as noted in HPI & below Physical Exam 2 Vital Signs (Past 24 Hours): Last Vital Signs Temp 37.2 C 12/23/18 08:46 Pulse 100 H 12/23/18 08:46 Resp 20 12/23/18 08:46 BP 172/69 H 12/23/18 08:46 Pulse Ox 97 12/23/18 08:46 Physical Exam: General: no distress Eyes: normal inspection, PERLL Respiratory: chest non tender, clear to auscultation, normal breath sounds, no respiratory distress, no accessory muscle use Cardiac: irregular rate and rhythm, no rub or gallop, no murmur, no edema, no jvd GI/: active bowel sounds, no abd pain or tenderness, soft, non distended Extremities: normal range of motion, normal strength, non tender Neuro:oriented to person and place, moves all extremities Psych: drowsy, normal mood and affect Skin: pale, moist skin _ (1) Altered mental status Altered mental status type: unspecified Coma depth: Coma timing: Qualified Code(s): R41.82 - Altered mental status, unspecified
[2018-12-23] MEDS: INSULIN DETEMIR FLEXPEN/FLEX TOUCH 100 UNITS/ML 3ML SC SCH ×2 (10:51→21:00)
[2018-12-23] MEDS: INSULIN ASPART 100 UNITS/ML 3 ML PEN SC SCH ×4 (10:52→21:00)
[2018-12-23] MEDS ORDERED: MICONAZOLE NITRATE POWDER 43 GM EXT PRN (15:07)
[2018-12-23] MEDS: WARFARIN SOD 5 MG TAB PO SCH (15:38)
[2018-12-23] MEDS: AMITRIPTYLINE HCL 50 MG TAB PO SCH (20:55)
[2018-12-23] MEDS: CITALOPRAM 20 MG TAB PO SCH (20:55)
[2018-12-23] MEDS: levETIRAcetam 500 MG TAB PO SCH (20:55)
[2018-12-23] MEDS: PANTOprazole 40 MG TAB PO SCH (22:30)
[2018-12-23] MEDS: ACETAMINOPHEN 325 MG TAB PO PRN (22:30)
[2018-12-24] MEDS: LEVOTHYROXINE SODIUM 25 MCG TABLET PO SCH (06:04)
[2018-12-24 06:10] LABS: Basophils # (auto) 0.02 K/uL (0-0.2); Basophils % (auto) 0.2 %; Eosinophils # (auto) 0.06 K/uL (0-0.5); Eosinophils % (auto) 0.5 %; Hematocrit (blood only) 40.7 % (37-47); Hemoglobin 13.4 g/dL (12.0-16.0); Immature Granulocytes # (auto) 0.03 K/uL (0.00-0.02); Immature Granulocytes % (auto) 0.2 %; Lymphocytes # (auto) 1.93 K/uL (1.2-3.4); Lymphocytes % (auto) 15.7 %; Mean Corpuscular Hgb Conc 32.9 g/dL (32-36); Mean Corpuscular Volume 97.8 fL (80-100); Mean Platelet Volume 9.1 fL (7.4-10.4); Monocytes % (auto) 9.8 %; Neutrophils # (auto) 9.03 K/uL (1.4-6.5); Neutrophils % (auto) 73.6 %; Platelet Count 176 K/uL (130-400); RDW Coefficient of Variation 15.9 % (11.5-14.5); RDW Standard Deviation 57.6 fL (36.4-46.3); Red Blood Count 4.16 M/uL (4.2-5.4); White Blood Count 12.27 K/uL (4.8-10.8)
[2018-12-24 06:39] LABS: BUN Creatinine Ratio 11.8 (10-20); Calcium 8.6 mg/dl (8.5-10.1); Creatinine Clr Calc Pharmacy 64.8 ml/min; Est GFR (African American) 78.8; Potassium 4.1 mmol/L (3.5-5.1)
[2018-12-24 06:45] LABS: INR 1.4 (0.9-1.1); Prothrombin Time 13.8 Seconds (9.0-12.0)
[2018-12-24] MEDS: LEVOFLOXACIN/D5W 750 MG/150 ML BAG IV SCH (08:08)
[2018-12-24] MEDS: ATORVASTATIN 10 MG TAB PO SCH (08:09)
[2018-12-24] MEDS: CARBIDOPA/LEVODOPA 25/100MG TAB PO SCH ×4 (08:10→20:38)
[2018-12-24] MEDS: ISOSORBIDE MONO EXTENDED REL 60 MG TABCR PO SCH (08:10)
[2018-12-24] MEDS: BUMETANIDE 1 MG TAB PO SCH (08:11)
[2018-12-24] MEDS: ASPIRIN 81 MG ECTAB PO SCH (08:12)
[2018-12-24] MEDS: RANOLAZINE 500 MG ER TAB PO SCH ×2 (08:13→20:38)
[2018-12-24] MEDS: FLUTICASONE/SALMETEROL 100/50 (ADVAIR) 14 PUFF/1 INHALER INH SCH ×2 (08:14→20:35)
[2018-12-24] MEDS ORDERED: WARFARIN SOD 5 MG TAB PO ONE (08:15)
[2018-12-24] MEDS: INSULIN DETEMIR FLEXPEN/FLEX TOUCH 100 UNITS/ML 3ML SC SCH ×2 (08:17→20:36)
[2018-12-24] MEDS: PANTOprazole 40 MG TAB PO SCH (08:40)
[2018-12-24] MEDS: INSULIN ASPART 100 UNITS/ML 3 ML PEN SC SCH ×4 (08:42→20:36)
--- NOTE | 2018-12-24 10:01 | Hospitalist Progress Note ---
Date of Service December 24, 2018 Assessment & Plan (1) Altered mental status: Altered mental status and possible aspiration pneumonia versus intoxication Family was concerned that the patient had overdosed on Tylenol acetaminophen level was normal head CT normal Ordered a speech consult patient has refused thickened liquids in the past when oriented and continues to refuse here. Given her history of CHF, will hold off on IV fluids and monitor renal function. Patient has some confusion but is a good historian and does verbalize that she has a problem with aspirating. I think she understands the ramifications of not drinking the thickened liquids but has decided she cannot tolerate them. White count is trending down, BC pending Continue to empirically treat with Levaquin 750 mg until cultures resulted - concern on admission for CAP however radiologist did not read any on images. - Abdominal CT on admission showed: Right-sided nephrolithiasis. No ureteral calculi or hydronephrosis, Colonic diverticulosis without evidence for acute diverticulitis. Urine is equivocal for infectionawaiting urine cultures - PT/OT (2) Parkinson's disease: Continue home medicinesRanexa, Sinemet, Keppra Entacapone, Exelon is not found on our formularycurrently holding. (3) Asthma: Continue albuterol/advair (4) Hypertension: Patient's pressure running 160s - 170s/100, will monitor for now as patient is not having symptoms, hold on IVF (5) Diabetes mellitus: DMII hold home glipizide and metformin Basal--10 qam, 12 qhs-- sliding scale insulin per protocol (6) Personal history of DVT (deep vein thrombosis): Continue warfarin INR subtherapeuticcontinue to follow PT/INR in the setting of Levaquin use - will give extra dose of 5 mg warfarin this morning - it appears from past labwork patient is frequently subtherapeutic, compliance issues? May want to discuss alternatives with her pcp after discharge (7) Hypothyroidism: (8) Depression: Continue citalopram, amitriptyline (9) Coronary artery disease: Continue atorvastatin 10 mg, aspirin 81 mg, isosorbide, ranolazine (10) Aspiration of food: Speech therapy evaluation - recommending swallow study (11) DVT prophylaxis: Warfarin Subjective Ms. Harris is much more alert today. She is a bit sob but feels it's at her baseline. She is unhappy about the thickened liquids and doesnt want to to drink them. She is hoping to go home today. Review of Systems All systems reviewed & are unremarkable except as noted in HPI & below Physical Exam 2 Vital Signs (Past 24 Hours): Last Vital Signs Temp 37.4 C 12/24/18 07:00 Pulse 82 12/24/18 07:00 Resp 18 12/24/18 07:00 BP 177/102 H 12/24/18 07:00 Pulse Ox 95 12/24/18 07:00 Physical Exam: General: no distress Eyes: normal inspection, PERLL Respiratory: chest non tender, clear to auscultation, normal breath sounds, no respiratory distress, no accessory muscle use Cardiac: regular rate and rhythm, no rub or gallop, no murmur, no edema, no jvd GI/: active bowel sounds, no abd pain or tenderness, soft, non distended Extremities: normal range of motion, normal strength, non tender Neuro/Psych: alert and oriented to person and place, normal mood and affect Skin: normal color, dry Results & Data Laboratory Results Abnormal lab results 12/23/18 12/23/18 12/23/18 Range/Units 11:34 16:35 20:31 WBC (4.8-10.8) K/uL RBC (4.2-5.4) M/uL RDW Std Deviation (36.4-46.3) fL RDW Coeff of Taj (11.5-14.5) % Immature Gran # (Auto) (0.00-0.02) K/uL Neut # (Auto) (1.4-6.5) K/uL [place] # (Auto) (0.11-0.59) K/uL PT (9.0-12.0) Seconds INR (0.9-1.1) Glucose (70-99) mg/dl POC Glucose 223 H 149 H 206 H (70-99) 12/24/18 12/24/18 12/24/18 Range/Units 05:57 05:57 05:57 WBC 12.27 H (4.8-10.8) K/uL RBC 4.16 L (4.2-5.4) M/uL RDW Std Deviation 57.6 H (36.4-46.3) fL RDW Coeff of Taj 15.9 H (11.5-14.5) % Immature Gran # (Auto) 0.03 H (0.00-0.02) K/uL Neut # (Auto) 9.03 H (1.4-6.5) K/uL [place] # (Auto) 1.20 H (0.11-0.59) K/uL PT 13.8 H (9.0-12.0) Seconds INR 1.4 H (0.9-1.1) Glucose 169 H (70-99) mg/dl POC Glucose (70-99) 12/24/18 Range/Units 07:31 WBC (4.8-10.8) K/uL RBC (4.2-5.4) M/uL RDW Std Deviation (36.4-46.3) fL RDW Coeff of Taj (11.5-14.5) % Immature Gran # (Auto) (0.00-0.02) K/uL Neut # (Auto) (1.4-6.5) K/uL [place] # (Auto) (0.11-0.59) K/uL PT (9.0-12.0) Seconds INR (0.9-1.1) Glucose (70-99) mg/dl POC Glucose 193 H (70-99) _ (1) Altered mental status Altered mental status type: unspecified Coma depth: Coma timing: Qualified Code(s): R41.82 - Altered mental status, unspecified
[2018-12-24] MEDS: WARFARIN SOD 5 MG TAB PO SCH (15:51)
[2018-12-24] MEDS: levETIRAcetam 500 MG TAB PO SCH (20:35)
[2018-12-24] MEDS: AMITRIPTYLINE HCL 50 MG TAB PO SCH (20:35)
[2018-12-24] MEDS: CITALOPRAM 20 MG TAB PO SCH (20:35)
[2018-12-25] MEDS: ACETAMINOPHEN 325 MG TAB PO PRN (00:17)
[2018-12-25] MEDS: LEVOTHYROXINE SODIUM 25 MCG TABLET PO SCH (06:37)
[2018-12-25 08:03] LABS: Basophils # (auto) 0.02 K/uL (0-0.2); Basophils % (auto) 0.2 %; Eosinophils # (auto) 0.19 K/uL (0-0.5); Eosinophils % (auto) 2.3 %; Hematocrit (blood only) 38.6 % (37-47); Hemoglobin 12.3 g/dL (12.0-16.0); Immature Granulocytes # (auto) 0.02 K/uL (0.00-0.02); Immature Granulocytes % (auto) 0.2 %; Lymphocytes # (auto) 1.87 K/uL (1.2-3.4); Lymphocytes % (auto) 23.1 %; Mean Corpuscular Hgb Conc 31.9 g/dL (32-36); Mean Corpuscular Volume 98.5 fL (80-100); Mean Platelet Volume 9.5 fL (7.4-10.4); Monocytes # (auto) 0.92 K/uL (0.11-0.59); Monocytes % (auto) 11.4 %; Neutrophils # (auto) 5.07 K/uL (1.4-6.5); Neutrophils % (auto) 62.8 %; Platelet Count 176 K/uL (130-400); RDW Coefficient of Variation 15.9 % (11.5-14.5); RDW Standard Deviation 56.9 fL (36.4-46.3); Red Blood Count 3.92 M/uL (4.2-5.4); White Blood Count 8.09 K/uL (4.8-10.8)
[2018-12-25] MEDS: LEVOFLOXACIN/D5W 750 MG/150 ML BAG IV SCH (08:11)
[2018-12-25] MEDS: ATORVASTATIN 10 MG TAB PO SCH (08:12)
[2018-12-25] MEDS: CARBIDOPA/LEVODOPA 25/100MG TAB PO SCH ×4 (08:12→20:23)
[2018-12-25] MEDS: FLUTICASONE/SALMETEROL 100/50 (ADVAIR) 14 PUFF/1 INHALER INH SCH ×2 (08:12→20:23)
[2018-12-25] MEDS: BUMETANIDE 1 MG TAB PO SCH (08:12)
[2018-12-25] MEDS: RANOLAZINE 500 MG ER TAB PO SCH ×2 (08:13→20:24)
[2018-12-25] MEDS: PANTOprazole 40 MG TAB PO SCH (08:13)
[2018-12-25] MEDS: ISOSORBIDE MONO EXTENDED REL 60 MG TABCR PO SCH (08:13)
[2018-12-25] MEDS: ASPIRIN 81 MG ECTAB PO SCH (08:14)
[2018-12-25] MEDS: INSULIN ASPART 100 UNITS/ML 3 ML PEN SC SCH ×4 (08:16→20:36)
[2018-12-25 08:17] LABS: INR 1.6 (0.9-1.1); Prothrombin Time 16.1 Seconds (9.0-12.0)
[2018-12-25] MEDS: INSULIN DETEMIR FLEXPEN/FLEX TOUCH 100 UNITS/ML 3ML SC SCH ×2 (08:17→20:36)
[2018-12-25 08:32] LABS: BUN Creatinine Ratio 17.1 (10-20); Calcium 8.8 mg/dl (8.5-10.1); Creatinine Clr Calc Pharmacy 59.9 ml/min; Est GFR (African American) 70.8; Est GFR (Non-African American) 61.1
[2018-12-25 14:21] LABS: Hydrocodone Urine 877 NG/ML (CUTOFF=50); Hydromor Urine NEGATIVE NG/ML (CUTOFF=50); Morphine Urine NEGATIVE NG/ML (CUTOFF=50); Norhydrocodone Conf Ur 479 NG/ML (CUTOFF=50); Noroxycodone Urine NEGATIVE NG/ML (CUTOFF=50); Oxycodone Urine NEGATIVE NG/ML (CUTOFF=50)
[2018-12-25] MEDS ORDERED: WARFARIN SOD 2.5 MG TAB PO SCH (16:00)
--- NOTE | 2018-12-25 16:01 | Hospitalist Progress Note ---
Date of Service December 25, 2018 Assessment & Plan (1) Altered mental status: Metabolic encephalopathy - secondary to cellulitis? Family was concerned that the patient had overdosed on Tylenol acetaminophen level was normal head CT normal Speech consult for history of aspiration - swallow is improving White 18 on admission now normal, BC ngtd Continue Levaquin - transition to po - concern on admission for CAP however radiologist did not read any on images. - Abdominal CT on admission showed: Right-sided nephrolithiasis. No ureteral calculi or hydronephrosis, Colonic diverticulosis without evidence for acute diverticulitis. Urine is equivocal for infectionuc negative for infection - left flank cellulitis - will transition off levaquin to doxycycline - PT/OT (2) Parkinson's disease: Continue home medicinesRanexa, Sinemet, Keppra Entacapone, Exelon is not found on our formularycurrently holding - discussed with pharmacy, these are ok to hold until patient returns home (3) Asthma: Continue albuterol/advair (4) Hypertension: Improved (5) Diabetes mellitus: DMII hold home glipizide and metformin Basal--10 qam, 12 qhs-- sliding scale insulin per protocol (6) Personal history of DVT (deep vein thrombosis): Continue warfarin - INR improving, given extra dose yesterday of 5mg, today patient takes her weekly extra dose of 2.5. Will monitor tomorrow and then titrate dose if continues to be subtherapeutic INR subtherapeuticcontinue to follow PT/INR in the setting of abx use - will give extra dose of 5 mg warfarin this morning - it appears from past labwork patient is frequently subtherapeutic, compliance issues? May want to discuss alternatives with her pcp after discharge (7) Hypothyroidism: (8) Depression: Continue citalopram, amitriptyline (9) Coronary artery disease: Continue atorvastatin 10 mg, aspirin 81 mg, isosorbide, ranolazine (10) Aspiration of food: Speech therapy evaluation (11) DVT prophylaxis: Warfarin Subjective Ms. Harris is feeling better today. She continues to be more alert Review of Systems All systems reviewed & are unremarkable except as noted in HPI & below Physical Exam 2 Vital Signs (Past 24 Hours): Last Vital Signs Temp 37.2 C 12/25/18 15:00 Pulse 83 12/25/18 15:00 Resp 20 01/26/19 15:00 BP 152/78 H 12/25/18 15:00 Pulse Ox 90 12/25/18 15:00 Physical Exam: General: no distress Eyes: normal inspection, PERLL Respiratory: chest non tender, clear to auscultation, normal breath sounds, no respiratory distress, no accessory muscle use Cardiac: regular rate and rhythm, no rub or gallop, no murmur, no edema, no jvd GI/: active bowel sounds, no abd pain or tenderness, soft, non distended Extremities: generalized weakness Neuro/Psych: alert and oriented x 3, normal mood and affect Skin: normal color, dry, left abdominal/ flank erythema Results & Data Laboratory Results Abnormal lab results 12/23/18 12/24/18 12/24/18 Range/Units 02:53 16:20 20:33 RBC (4.2-5.4) M/uL MCHC (32-36) g/dL RDW Std Deviation (36.4-46.3) fL RDW Coeff of Taj (11.5-14.5) % [place] # (Auto) (0.11-0.59) K/uL PT (9.0-12.0) Seconds INR (0.9-1.1) Glucose (70-99) mg/dl POC Glucose 170 H 218 H (70-99) Ur Hydrocodone (GC/MS) 877 A (CUTOFF=50) NG/ML Ur Norhydrocodone 479 A (CUTOFF=50) NG/ML 12/25/18 12/25/18 12/25/18 Range/Units 07:26 07:33 07:33 RBC 3.92 L (4.2-5.4) M/uL MCHC 31.9 L (32-36) g/dL RDW Std Deviation 56.9 H (36.4-46.3) fL RDW Coeff of Taj 15.9 H (11.5-14.5) % [place] # (Auto) 0.92 H (0.11-0.59) K/uL PT 16.1 H (9.0-12.0) Seconds INR 1.6 H (0.9-1.1) Glucose (70-99) mg/dl POC Glucose 179 H (70-99) Ur Hydrocodone (GC/MS) (CUTOFF=50) NG/ML Ur Norhydrocodone (CUTOFF=50) NG/ML 12/25/18 12/25/18 Range/Units 07:33 11:17 RBC (4.2-5.4) M/uL MCHC (32-36) g/dL RDW Std Deviation (36.4-46.3) fL RDW Coeff of Taj (11.5-14.5) % [place] # (Auto) (0.11-0.59) K/uL PT (9.0-12.0) Seconds INR (0.9-1.1) Glucose 171 H (70-99) mg/dl POC Glucose 274 H (70-99) Ur Hydrocodone (GC/MS) (CUTOFF=50) NG/ML Ur Norhydrocodone (CUTOFF=50) NG/ML _ (1) Altered mental status Altered mental status type: unspecified Coma depth: Coma timing: Qualified Code(s): R41.82 - Altered mental status, unspecified
[2018-12-25] MEDS: CITALOPRAM 20 MG TAB PO SCH (20:22)
[2018-12-25] MEDS: levETIRAcetam 500 MG TAB PO SCH (20:23)
[2018-12-25] MEDS: AMITRIPTYLINE HCL 50 MG TAB PO SCH (20:23)
[2018-12-25] MEDS: DOXYCYCLINE HYCLATE 100 MG CAP PO SCH (21:24)
[2018-12-26] MEDS: LEVOTHYROXINE SODIUM 25 MCG TABLET PO SCH (06:19)
[2018-12-26 06:54] LABS: Basophils # (auto) 0.01 K/uL (0-0.2); Basophils % (auto) 0.1 %; Eosinophils # (auto) 0.16 K/uL (0-0.5); Eosinophils % (auto) 2.2 %; Hematocrit (blood only) 38.8 % (37-47); Hemoglobin 12.5 g/dL (12.0-16.0); Immature Granulocytes # (auto) 0.02 K/uL (0.00-0.02); Immature Granulocytes % (auto) 0.3 %; Mean Corpuscular Hgb Conc 32.2 g/dL (32-36); Mean Corpuscular Volume 96.8 fL (80-100); Mean Platelet Volume 9.1 fL (7.4-10.4); Monocytes # (auto) 0.78 K/uL (0.11-0.59); Monocytes % (auto) 10.5 %; Neutrophils # (auto) 4.43 K/uL (1.4-6.5); Neutrophils % (auto) 59.9 %; Platelet Count 187 K/uL (130-400); RDW Coefficient of Variation 15.3 % (11.5-14.5); RDW Standard Deviation 54.5 fL (36.4-46.3); Red Blood Count 4.01 M/uL (4.2-5.4)
[2018-12-26 07:10] LABS: INR 1.4 (0.9-1.1); Prothrombin Time 14.3 Seconds (9.0-12.0)
[2018-12-26 07:32] LABS: Potassium 3.9 mmol/L (3.5-5.1)
[2018-12-26 07:33] LABS: BUN Creatinine Ratio 21.8 (10-20); Calcium 8.4 mg/dl (8.5-10.1); Creatinine Clr Calc Pharmacy 62.5 ml/min; Est GFR (African American) 74.6; Est GFR (Non-African American) 64.4
[2018-12-26] MEDS ORDERED: WARFARIN SOD 5 MG TAB PO ONE (08:20)
[2018-12-26] MEDS: INSULIN ASPART 100 UNITS/ML 3 ML PEN SC SCH ×2 (08:45→12:32)
[2018-12-26] MEDS: FLUTICASONE/SALMETEROL 100/50 (ADVAIR) 14 PUFF/1 INHALER INH SCH (08:46)
[2018-12-26] MEDS: ASPIRIN 81 MG ECTAB PO SCH (08:47)
[2018-12-26] MEDS: BUMETANIDE 1 MG TAB PO SCH (08:47)
[2018-12-26] MEDS: ISOSORBIDE MONO EXTENDED REL 60 MG TABCR PO SCH (08:48)
[2018-12-26] MEDS: INSULIN DETEMIR FLEXPEN/FLEX TOUCH 100 UNITS/ML 3ML SC SCH (08:48)
[2018-12-26] MEDS: CARBIDOPA/LEVODOPA 25/100MG TAB PO SCH ×2 (08:49→14:35)
[2018-12-26] MEDS: ATORVASTATIN 10 MG TAB PO SCH (08:49)
[2018-12-26] MEDS: PANTOprazole 40 MG TAB PO SCH (08:49)
[2018-12-26] MEDS: RANOLAZINE 500 MG ER TAB PO SCH (08:49)
[2018-12-26] MEDS: DOXYCYCLINE HYCLATE 100 MG CAP PO SCH (08:50)
[2018-12-26] MEDS ORDERED: levoFLOXacin 750 MG TAB PO SCH (11:00)
--- NOTE | 2018-12-26 11:49 | Discharge Summary ---
Date of Service December 26, 2018 Admission HPI Per Admitting Provider 68-year-old female presents to [facility] with altered mental status and complaining of abdominal pain. Patient was brought in by her family who state that she was confused and potentially had taken double dosing of Tylenol. The patient was ultimately admitted after CT scan showed possible pneumonia. I was unable to obtain history secondary to patient's altered mental status. She was alert to person and place, but not time and was unable to answer questions appropriately. Principal Diagnosis metabolic encephalopathy Discharge Exam Constitutional WD/WN, vitals as above Eyes PERRL, conjunctivae normal, anicteric sclerae Respiratory normal respiratory effort, lungs clear to auscultation Cardiovascular RRR, no murmur, no edema Gastrointestinal (Abdomen) normal bowel sounds, soft, nontender, no hepatosplenomegaly Skin lower extremity dry skin and reddened lower extremities secondary to vascular disease. Left flank erythema Neurologic moves all extremities and awake Psychiatric A+Ox3, euthymic affect Discharge Data Allergies Allergy/AdvReac Type Severity Reaction Status Date / Time Cipro Allergy Severe RASH Unverified 07/01/18 14:03 ciprofloxacin Allergy Severe RASH Verified 12/23/18 03:28 Penicillins Allergy Intermediate HIVES Verified 12/23/18 03:28 Sulfa (Sulfonamide Allergy Intermediate HIVES Verified 12/23/18 03:28 Antibiotics) latex Allergy Unknown Unknown Verified 12/23/18 03:28 adhesive AdvReac Severe "THEY EAT Verified 12/23/18 03:28 MY SKIN." Iodinated Contrast- Oral and AdvReac Intermediate Vomiting Verified 12/23/18 03: 28 IV Dye Quinolones AdvReac Mild YEAST Verified 12/23/18 03:28 INFECTION Cephalosporins AdvReac Unknown Unknown Verified 12/23/18 03:28 Ba Pepper AdvReac Intermediate GREEN Uncoded 12/23/18 03:28 PEPPER = MIGRAINE HEADACHE Consultations 12/23/18 03:23 ED Decision to Admit Stat 12/23/18 06:53 Consult Case Management - Discharge Planning Routine Ordered Studies 12/23/18 00:36 CT abd pelvis wo con Urgent 12/23/18 01:38 CT head/brain wo con Urgent Hospital Course (1) Altered mental status: Metabolic encephalopathy - secondary to cellulitis? Family was concerned that the patient had overdosed on Tylenol acetaminophen level was normal head CT normal Speech consult for history of aspiration - swallow is improving White 18 on admission now normal, BC ngtd Given IV Levaquin - transition to po doxycycline- concern on admission for CAP however radiologist did not read any on images. - Abdominal CT on admission showed: Right-sided nephrolithiasis. No ureteral calculi or hydronephrosis, Colonic diverticulosis without evidence for acute diverticulitis. Urine is equivocal for infectionuc negative for infection - left flank cellulitis vs skin irritation from excoriated folds - will transition off levaquin to doxycycline - PT/OT - can return home and resume home services - Hold narcotics until follows up with pcp (2) Parkinson's disease: Continue home medicinesRanexa, Sinemet, Keppra Entacapone, Exelon is not found on our formularycurrently holding - discussed with pharmacy, these are ok to hold until patient returns home (3) Asthma: Continue albuterol/advair (4) Hypertension: Improved (5) Diabetes mellitus: DMII held home glipizide and metformin - resume outpatient Basal--10 qam, 12 qhs-- sliding scale insulin per protocol (6) Personal history of DVT (deep vein thrombosis): Continue warfarin - 1.4-1.6 while inpatient. Patient reports this is the therapeutic window that her pcp wants her to be in. Encouraged her to discuss with her pcp. May also want to consider change to NOAC for ease of management (7) Hypothyroidism: (8) Depression: Continue citalopram, amitriptyline (9) Coronary artery disease: Continue atorvastatin 10 mg, aspirin 81 mg, isosorbide, ranolazine (10) Aspiration of food: Speech therapy evaluation - swallow improved (11) DVT prophylaxis: Warfarin Total Time Total Time Spent Total Time Spent (In Minutes): >30 minutes Total Time Includes: Examination of the Patient, Discharge Planning and Medication Reconciliation Discharge Plan Discharge Items Patient Disposition: Home - Home Health Services Reason For Visit: ALTERED MENTAL STATUS Discharge Diagnosis: Altered mental status, cellulitis left abdomen Discharge Goals: Decrease discomfort and Improve disease control Activity: Resume your previous activity Non-emergency contact: Primary Care Provider Call non-emergency contact if: you have any medication questions, your symptoms worsen, your pain is not controlled and you have a fever Diet: Carb Consistent or DM2 Addtl Provider Instructions: Please keep your appointment with Dr. Scott next week. I have held your Vicodin until you follow up with Dr. Scott as it may have contributed to your change in mental status. You will complete 1 week of doxycycline Prescriptions: New doxycycline hyclate 100 mg Capsule 100 mg PO BID 7 Days Qty: 14 RF: 0 Continue benazepril 5 mg Tablet 5 mg PO DAILY RF: 0 warfarin 5 mg Tablet 5 mg PO [id number] RF: 0 atorvastatin 10 mg Tablet 10 mg PO DAILY RF: 0 nitroglycerin 0.3 mg Tablet, Sublingual 0.3 mg Sublingual DIRECTED PRN (Reason: Chest Pain) RF: 0 levetiracetam [Keppra] 500 mg Tablet 1,000 mg PO HS RF: 0 glipizide 10 mg Tablet 10 mg PO BID RF: 0 sumatriptan succinate [Imitrex] 50 mg Tablet 50 mg PO DIRECTED PRN (Reason: Migraine Headache) RF: 0 cyanocobalamin (vitamin B-12) [Vitamin B-12] 1,000 mcg Tablet 1,000 mcg PO DAILY RF: 0 aspirin [Aspirin Low Dose] 81 mg Tablet,Delayed Release (Dr/Ec) 81 mg PO DAILY RF: 0 amitriptyline 50 mg Tablet 50 mg PO HS RF: 0 levothyroxine 25 mcg Tablet 25 mcg PO DAILY RF: 0 isosorbide mononitrate 60 mg Tablet Extended Release 24 Hr 60 mg PO DAILY RF: 0 entacapone 200 mg tablet 200 mg PO QID RF: 0 citalopram [Celexa] 20 mg Tablet 20 mg PO HS RF: 0 ferrous sulfate 325 mg (65 mg iron) Tablet 325 mg PO DAILY RF: 0 metformin 1,000 mg Tablet 1,000 mg PO BID RF: 0 warfarin [Jantoven] 5 mg Tablet 2.5 mg PO WK RF: 0 bumetanide 1 mg tablet 1 mg PO DAILY RF: 0 ergocalciferol (vitamin D2) [Vitamin D2] 50,000 unit Capsule 50,000 unit PO DAILY RF: 0 albuterol sulfate [Ventolin HFA] 90 mcg/actuation Hfa Aerosol Inhaler 2 puff INHALATION TID PRN (Reason: Shortness Of Breath) RF: 0 carbidopa-levodopa [Sinemet] 25-100 mg Tablet 1 tab PO QID RF: 0 adalimumab [Humira] 40 mg/0.8 mL Syringe Kit 80 mg SUBCUT DIRECTED RF: 0 omeprazole magnesium [Prilosec OTC] 20 mg Tablet,Delayed Release (Dr/Ec) 20 mg PO DAILY RF: 0 ranolazine [Ranexa] 500 mg Tablet Extended Release 12 Hr 500 mg PO BID RF: 0 insulin detemir U-100 [Levemir FlexTouch U-100 Insuln] 100 unit/mL (3 mL) Insulin Pen 10 unit SUBCUT QAM RF: 0 insulin detemir U-100 [Levemir FlexTouch U-100 Insuln] 100 unit/mL (3 mL) Insulin Pen 10 - 14 unit SUBCUT HS RF: 0 fluticasone-salmeterol [Advair HFA] 115-21 mcg/actuation Hfa Aerosol Inhaler 2 puff INHALATION BID RF: 0 rivastigmine [Exelon] 4.6 mg/24 hr Patch 24 Hour 4.6 mg TRANSDERMAL DIRECTED RF: 0 insulin asp prt-insulin aspart [Novolog Mix 70-30 U-100 Insuln] 100 unit/mL ( 70-30) Solution 1 sliding scale dose SUBCUT ACHS RF: 0 Discontinued hydrocodone-acetaminophen [Vicodin] 5-300 mg Tablet 2 tab PO DIRECTED PRN (Reason: Pain) RF: 0 Stand-Alone Forms: [facility] Discharge Orders: Discharge Order (Routine); Ordered 12/26/18 Ordered By: Jeimy Smith Admission Data Admit Date/Time: 12/23/18 05:13 Attending Provider: Dominick Geiger Admit Provider: Sanjiv Pryor Primary Care Provider: Sandra Scott Other Providers: Will Ross Service: Telemetry Medical
== END 2018-12-26 15:45 | disposition home health service (06) | DRG 602 ==
LOC: ED 00:25 → SUATTDRO 05:13 → 2N 05:13

== ENCOUNTER 2019-11-09 14:54 | Inpatient (IN) ==
[2019-11-09] MEDS ORDERED: SODIUM CHLORIDE 0.9% 1000ML 500 ML IV ONE ×2 (15:29→17:27)
[2019-11-09 15:51] LABS: Basophils # (auto) 0.03 K/uL (0-0.2); Basophils % (auto) 0.4 %; Eosinophils # (auto) 0.03 K/uL (0-0.5); Eosinophils % (auto) 0.4 %; Hematocrit (blood only) 40.9 % (37-47); Hemoglobin 13.9 g/dL (12.0-16.0); Immature Granulocytes # (auto) 0.04 K/uL (0.00-0.02); Immature Granulocytes % (auto) 0.5 %; Lymphocytes # (auto) 0.97 K/uL (1.2-3.4); Lymphocytes % (auto) 11.5 %; Mean Corpuscular Hemoglobin 34.4 pg (25-34); Mean Corpuscular Volume 101.2 fL (80-100); Mean Platelet Volume 9.6 fL (7.4-10.4); Monocytes # (auto) 0.68 K/uL (0.11-0.59); Monocytes % (auto) 8.1 %; Neutrophils # (auto) 6.68 K/uL (1.4-6.5); Neutrophils % (auto) 79.1 %; Platelet Count 202 K/uL (130-400); RDW Coefficient of Variation 14.3 % (11.5-14.5); RDW Standard Deviation 51.9 fL (36.4-46.3); Red Blood Count 4.04 M/uL (4.2-5.4); White Blood Count 8.43 K/uL (4.8-10.8)
[2019-11-09 16:06] LABS: Partial Thromboplastin Ratio 0.9; Partial Thromboplastin Time 24.3 Seconds (21.0-31.0)
[2019-11-09 16:10] LABS: Alanine Aminotransferase 7 U/L (12-78); Albumin Globulin Ratio 0.8 (0.9-2); Albumin Level 3.1 gm/dl (3.4-5.0); Alkaline Phosphatase 134 U/L (45-117); Aspartate Aminotransferase 21 U/L (15-37); BUN Creatinine Ratio 24.1 (10-20); Bilirubin,Total 0.5 mg/dl (0.2-1); Blood Urea Nitrogen 23 mg/dl (7-18); Calcium 9.4 mg/dl (8.5-10.1); Carbon Dioxide 20 mmol/L (21-32); Chloride 108 mmol/L (98-107); Creatine Kinase MB < 1.0 ng/ml (0.5-3.6); Creatinine Clr Calc Pharmacy 52.6 ml/min; Est GFR (African American) 70.3; Est GFR (Non-African American) 60.7; Globulin 3.8 gm/dl (2.5-4.0); Glucose 133 mg/dl (70-99); Potassium 4.6 mmol/L (3.5-5.1); Sodium 137 mmol/L (136-145); Total Protein 6.9 gm/dl (6.4-8.2); Troponin I < 0.015 ng/ml (0-0.045)
--- NOTE | 2019-11-09 17:11 | CT Scan Report ---
CT head/brain wo con CT DOSE: 769.00 mGy.cm HISTORY: Mental status change AMS TECHNIQUE: Multiaxial CT images of the head were performed without the use of intravenous contrast. A dose lowering technique was utilized adhering to the principles of ALARA. Comparison: 04/08/2019 Findings: The paranasal sinuses and mastoid air cells are clear. Considerable chronic small vessel ch jose. Atrophy. Mild compensatory ventricular prominence. Impression: No acute intracranial abnormality. Considerable atrophy and degenerative change The above report was generated using voice recognition software. It may contain grammatical, syntax or spelling errors. Electronically signed by: Darvin Mesa M.D. 11/09/2019 5:08 PM
--- NOTE | 2019-11-09 17:12 | XRay Report ---
XR chest 1V portable CLINICAL HISTORY: Pt AMS dyspnea COMPARISON STUDY: 06/13/2019 FINDINGS: Infiltrative process left lung base. Lungs otherwise appear clear. Diaphragms are smooth. IMPRESSION: Infiltrate left base. The above report was generated using voice recognition software. It may contain grammatical, syntax or spelling errors. Electronically signed by: Darvin Mesa M.D. 11/09/2019 5:11 PM
[2019-11-09] MEDS ORDERED: AZTREONAM 2,000 MG in DEXTROSE 5% 100 ML IV STA (17:48)
[2019-11-09] MEDS ORDERED: LEVOFLOXACIN/D5W 750 MG/150 ML BAG IV STA (17:49)
[2019-11-09 18:42] LABS: Appearance Urine Clear (Clear); Bilirubin Urine Negative (Negative); Blood Urine Negative (Negative); Color Urine Orange; Glucose Urine UA Negative (Negative); Ketones Urine Trace (Negative); Leukocyte Esterase Urine Negative (Negative); Nitrite Urine Negative (Negative); Protein Urine Negative (Negative); Urobilinogen Urine Negative (Negative)
[2019-11-09] MEDS ORDERED: NITROGLYCERIN SL 0.4 MG/TAB TAB SL PRN (20:01)
[2019-11-09] MEDS ORDERED: ALBUTEROL HFA 8 GM INHALER INH PRN (20:01)
[2019-11-09] MEDS ORDERED: GLUCOSE 40% GEL 15 GM TUBE PO PRN (20:05)
[2019-11-09] MEDS ORDERED: GLUCAGON FOR INJ 1 MG VIAL SQ PRN (20:05)
[2019-11-09] MEDS ORDERED: DEXTROSE 50% 50 ML SYRINGE IV PRN (20:05)
[2019-11-09] MEDS ORDERED: GLUCOSE 10 TABS/TUBE PO PRN (20:05)
[2019-11-09] MEDS ORDERED: CARBOHYDRATES FOR HYPOGLYCEMIA PO PRN (20:05)
[2019-11-09] MEDS ORDERED: ZOLPIDEM TARTRATE 5 MG TAB PO PRN (20:10)
[2019-11-09] MEDS ORDERED: POLYETHYLENE (MIRALAX) 17 GM PACK PO PRN (20:10)
[2019-11-09] MEDS ORDERED: ALUMINUM/MAGNESIUM SUSP 30 ML UDC PO PRN (20:10)
[2019-11-09] MEDS ORDERED: MAGNESIUM HYDROXIDE SUSP 30 ML UDC PO PRN (20:10)
[2019-11-09] MEDS ORDERED: cefTRIAXone SODIUM 1,000 MG in DEXTROSE 5% 50 ML IV SCH (20:15)
--- NOTE | 2019-11-09 20:20 | History & Physical Report ---
Date of Service November 09, 2019 Assessment & Plan (1) Left lower lobe pneumonia: Plan Admit patient to telemetry Oxygen supplement as per protocol Blood culture/sputum culture Influenza virus screen and PCR Urine legionella antigen Initiate broad-spectrum antibiotics covering, ceftriaxone/her allergy to Keflex is developing yeast, will give her prophylactic nystatin powder, will also give her doxycycline to cover atypical infections, as her QTC is borderline prolonged we will avoid azithromycin/levofloxacin Start patient on lactobacillus to prevent C. difficile Continue home medications Monitor labs in a.m. Bronchodilators Monitor oxygen saturation DVT prophylaxis/heparin subcutaneous Consulted physical therapy/Occupational Therapy as patient baseline with ability to transfer from bed to chair. And currently she cannot (2) Coronary artery disease: Continue Ranexa and Lipitor (3) Parkinson's disease: Continue Sinemet (4) Pulmonary embolism: Continue heparin 5000 subcu twice daily, patient has history of intracranial bleed and was taking of her oral anticoagulation (5) Crohn's disease: Currently will hold Humira, but continue methotrexate (6) Hypothyroidism: Continue Synthroid and check TSH (7) Personal history of DVT (deep vein thrombosis): Continue heparin subcu (8) Diabetes mellitus: Hold oral hypoglycemic, start her on sliding scale insulin. As an outpatient she was taking of her long-acting insulin due to an episode of hypoglycemia Check A1c (9) Hypertension: Stable continue home meds (10) Asthma: Started on DuoNeb 4 times daily Appears to be mild intermittent with mild exacerbation now secondary to pneumonia History of Present Illness Chief Complaint: Generalized fatigue weakness and productive cough Primary Care Provider: Sandra Scott DO 69 years old female with past medical history of Crohn's disease currently controlled and Humira and methotrexate, hypothyroidism, Parkinson's disease, essential hypertension, osteoporosis, diabetes mellitus type 2 on oral hypoglycemic, severe arthritis in both knees and left hip, congestive heart failure unspecified, CAD status post stent, peripheral vascular disease status post stent in her lower extremity as per patient, patient has thrombophilia so she is on heparin subcu 5000 units twice a day, she used to be on oral anticoagulant but she had a fall and intracranial bleed, hence her anticoagulation and aspirin has been stopped currently she is only on heparin 5000 subcu twice a day. She was in her regular state of health which basically she is almost bedbound but she can stand up and help herself to transfer from bed to chair. Patient said that she has been coughing yellowish sputum for the last 2 weeks and today she was extremely weak she could not stand up. Her sister at home states she was slightly off but it has not spoke with the sister herself and the patient now seems to be fully oriented and alert. She was brought to the ED and initial work-up revealed some left lower lobe density on chest x-ray. Patient will be admitted for further evaluation Allergies Allergy/AdvReac Type Severity Reaction Status Date / Time Cipro Allergy Severe RASH Unverified 07/01/18 14:03 ciprofloxacin Allergy Severe RASH Verified 11/09/19 18:00 Penicillins Allergy Intermediate HIVES Verified 11/09/19 18:00 Sulfa (Sulfonamide Allergy Intermediate HIVES Verified 11/09/19 18:00 Antibiotics) latex Allergy Unknown Unknown Verified 11/09/19 18:00 cephalexin [From Keflex] Allergy Unknown Unverified 11/09/19 18:00 adhesive AdvReac Severe "THEY EAT Verified 11/09/19 18:00 MY SKIN." Iodinated Contrast Media AdvReac Intermediate Vomiting Verified 11/09/19 18:00 Quinolones AdvReac Mild YEAST Verified 11/09/19 18:00 INFECTION Cephalosporins AdvReac Unknown Unknown Verified 11/09/19 18:00 Ba Pepper AdvReac Intermediate GREEN Uncoded 11/09/19 18:00 PEPPER = MIGRAINE HEADACHE Home Medications Home Medications Medication Instructions Recorded Confirmed Type atorvastatin [Lipitor] 10 mg PO HS 06/13/19 11/09/19 History benazepril 5 mg PO QAM 06/13/19 11/09/19 History bumetanide 1 mg PO DAILY PRN 06/13/19 11/09/19 History carbidopa-levodopa [Sinemet CR] 1 tab PO QID 06/13/19 11/09/19 History citalopram [Celexa] 20 mg PO QAM 06/13/19 11/09/19 History cyanocobalamin (vitamin B-12) 1,000 mcg PO QAM 06/13/19 11/09/19 History [Vitamin B-12] glipizide [Glucotrol] 10 mg PO BID 06/13/19 11/09/19 History heparin (porcine) 5,000 unit SUBCUT Q12 06/13/19 11/09/19 History isosorbide dinitrate 20 mg PO TID 06/13/19 11/09/19 History levetiracetam [Keppra] 1,000 mg PO HS 06/13/19 11/09/19 History levothyroxine 25 mcg PO QAM 06/13/19 11/09/19 History metformin [Glucophage] 850 mg PO BID 06/13/19 11/09/19 History methotrexate sodium 15 mg PO FR 06/13/19 11/09/19 History nitroglycerin [Nitrostat] 0.4 mg SUBLINGUAL UD PRN 06/13/19 11/09/19 History omeprazole 40 mg PO QAM 06/13/19 11/09/19 History ranolazine [Ranexa] 500 mg PO BID 06/13/19 11/09/19 History rivastigmine [Exelon] 4.6 mg TOPICAL DAILY 06/13/19 11/09/19 History buprenorphine 1 patch TRANSDERMAL TU 08/25/19 11/09/19 History acetaminophen-codeine 1 tab PO Q6H PRN 11/09/19 11/09/19 History adalimumab 0.4 mg SUBCUT DIRECTED 11/09/19 11/09/19 History albuterol sulfate [Ventolin HFA] 1 puff INHALATION Q6H PRN 11/09/19 11/09/19 History amitriptyline 50 mg PO DAILY 11/09/19 11/09/19 History hydrocortisone 1 applic TOPICAL BID 11/09/19 11/09/19 History insulin aspart U-100 [Novolog 0 unit SUBCUT DIRECTED 11/09/19 11/09/19 History U-100 Insulin aspart] Past Med/Surg History Medical History Acute asthma exacerbation (Acute) Acute kidney injury Anemia Asthma (Chronic) Chest pain (Acute) Chronic kidney disease Colitis (Resolved) Crohn's disease (Chronic) Diabetes mellitus (Chronic) GI bleeding Hypertension (Chronic) Hypothyroidism (Chronic) Personal history of DVT (deep vein thrombosis) (Chronic) Pneumonia (Acute) Pulmonary embolism Family History Other Family history non-contributory Social History Preferred Language: Sinhala Communication 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 Beliefs That Will Affect Care: None Current Living Situation: Alone Current Living Situation Comment: Per patient (Patient is confused) Feels Safe at Home: Yes Smoking Status: Former smoker Second Hand Exposure: No ; Hx Alcohol Use: No Hx Substance Use: No Review of Systems Review of Systems: Review of system Constitutional: No fever / no chills / no sweats /positive for weakness and fatigue Eyes: no blurring of vision / no eye pain / no discharge / no redness ENT: no hearing loss / no epistaxis /no swallowing problems Respiratory: Positive for productive cough with yellowish sputum/ no wheezing / no SOB / no hemoptysis Cardiovascular: no Chest pain / no lower extremity edema / no palpitation Abdomen: no pain / no nausea / no vomiting / no constipation Musculoskeletal: no joint pain / no muscle pain / no joint swelling Genitourinary: no dysuria / no incontinence / no urinary retention Neurologic: Generalized weakness, patient has baseline able only to stand up supported. Psychiatric: no depression symptoms / no anxiety / no insomnia Endocrine: no excessive thirst / no excessive urination Skin: No rash / no pallor Physical Exam Physical Exam: Physical examination General patient appears morbidly obese not in acute distress HEENT: Atraumatic , normocephalic /no jaundice /no pallor /anicteric /no dry mucous membrane /normal external ear inspection Neck: Supple /no swelling /central trach Heart: S1/S2 normal/regular rate and rhythm/no gallop /no rub /no murmur Lungs: Poor inspiratory effort, decreased air entry at the bases bilaterally, scattered rhonchi, no rales/no wheezing/no use of accessory muscles of respiration Abdomen: Large ventral hernia, reducible and nontender, overall abdomen is soft/nontender/no guarding/no rebound/no organomegaly/no pulsatile mass Musculoskeletal: No edema in both feet, but muscles in both lower extremity appears to be slightly atrophied Neuro exam: Awake alert oriented 3/cranial nerves II through XII appear to be intact/sensation intact/moves all extremities, although both lower extremity are very weak as baseline/no abnormal movements Psychiatric evaluation: No depressed mood/normal affect Skin: No rash on exposed skin area/no erythema Extremity: Faint pulse/no pitting edema/no clubbing or cyanosis Results & Data Vital Signs (Past 12 Hours) Vital Signs Temp Pulse Pulse Resp BP BP Pulse Ox 12/11/19 18:57 84 18 137/68 96 11/09/19 18:31 10 L 11/09/19 18:30 16 143/65 H 11/09/19 18:01 81 21 11/09/19 18:00 81 18 130/67 11/09/19 17:31 89 16 11/09/19 17:30 85 20 120/55 L 92 11/09/19 17:01 86 12 11/09/19 17:00 85 14 116/51 L 91 11/09/19 16:31 83 17 11/09/19 16:30 84 17 120/49 L 11/09/19 16:11 86 22 11/09/19 15:31 86 19 92 11/09/19 15:30 91 H 18 117/53 L 93 11/09/19 15:17 91 H 18 95 11/09/19 15:16 92 H 23 118/60 94 11/09/19 15:10 36.8 C 91 H 13 125/70 91 Code Status & VTE Plan Code Status As per discussion with patient she is full code VTE Prophylaxis Plan VTE Prophylaxis will be ordered: Yes PG Care Time/CCT Total # of Minutes Spent Total Time Spent with Patient: 35 minutes total time spent is greater than 50% in coordination of care (as documented) at patient's floor/unit and/or counseling patient/family discussion of care with nursing staff
--- NOTE | 2019-11-09 20:36 | Emergency Department Note ---
Entered by Jesica Fink acting as a scribe for Lc Campo MD History of Present Illness General Chief complaint: Leg Weakness, Bilateral Time Seen by Provider: 11/09/19 15:06 Source: patient History of Present Illness Provider complaint: Bilateral Leg Weakness Onset (ago): day(s) 1 Location: lower extremity, left and right Relieved By: + none Exacerbated By: + movement Associated symptoms: + other (Fatigue) The patient is a 69 year old female who presents to the Emergency Room with complaints of bilateral leg weakness that began this morning. The patient states the symptoms are exacerbated by movement and not relieved by anything specific. The patient reports experiencing fatigue and is having trouble walking. The patient mentioned that she ended Macrobid for a UTI yesterday and is on Heparin for a previous brain bleed. The patient also notes that she has a history of Parkinson's. Home Medications Home Medications Medication Instructions Recorded Confirmed Type atorvastatin [Lipitor] 10 mg PO HS 06/13/19 11/09/19 History benazepril 5 mg PO QAM 06/13/19 11/09/19 History bumetanide 1 mg PO DAILY PRN 06/13/19 11/09/19 History carbidopa-levodopa [Sinemet CR] 1 tab PO QID 06/13/19 11/09/19 History citalopram [Celexa] 20 mg PO QAM 06/13/19 11/09/19 History cyanocobalamin (vitamin B-12) 1,000 mcg PO QAM 06/13/19 11/09/19 History [Vitamin B-12] glipizide [Glucotrol] 10 mg PO BID 06/13/19 11/09/19 History heparin (porcine) 5,000 unit SUBCUT Q12 06/13/19 11/09/19 History isosorbide dinitrate 20 mg PO TID 06/13/19 11/09/19 History levetiracetam [Keppra] 1,000 mg PO HS 06/13/19 11/09/19 History levothyroxine 25 mcg PO QAM 06/13/19 11/09/19 History metformin [Glucophage] 850 mg PO BID 06/13/19 11/09/19 History methotrexate sodium 15 mg PO FR 06/13/19 11/09/19 History nitroglycerin [Nitrostat] 0.4 mg SUBLINGUAL UD PRN 06/13/19 11/09/19 History omeprazole 40 mg PO QAM 06/13/19 11/09/19 History ranolazine [Ranexa] 500 mg PO BID 06/13/19 11/09/19 History rivastigmine [Exelon] 4.6 mg TOPICAL DAILY 06/13/19 11/09/19 History buprenorphine 1 patch TRANSDERMAL TU 08/25/19 11/09/19 History acetaminophen-codeine 1 tab PO Q6H PRN 11/09/19 11/09/19 History adalimumab 0.4 mg SUBCUT DIRECTED 11/09/19 11/09/19 History albuterol sulfate [Ventolin HFA] 1 puff INHALATION Q6H PRN 11/09/19 11/09/19 History amitriptyline 50 mg PO DAILY 11/09/19 11/09/19 History hydrocortisone 1 applic TOPICAL BID 11/09/19 11/09/19 History insulin aspart U-100 [Novolog 0 unit SUBCUT DIRECTED 11/09/19 11/09/19 His tory U-100 Insulin aspart] Allergies Allergy/AdvReac Type Severity Reaction Status Date / Time Cipro Allergy Severe RASH Unverified 07/01/18 14:03 ciprofloxacin Allergy Severe RASH Verified 11/09/19 18:00 Penicillins Allergy Intermediate HIVES Verified 11/09/19 18:00 Sulfa (Sulfonamide Allergy Intermediate HIVES Verified 11/09/19 18:00 Antibiotics) latex Allergy Unknown Unknown Verified 11/09/19 18:00 cephalexin [From Keflex] Allergy Unknown Unverified 11/09/19 18:00 adhesive AdvReac Severe "THEY EAT Verified 11/09/19 18:00 MY SKIN." Iodinated Contrast Media AdvReac Intermediate Vomiting Verified 11/09/19 18:00 Quinolones AdvReac Mild YEAST Verified 11/09/19 18:00 INFECTION Cephalosporins AdvReac Unknown Unknown Verified 11/09/19 18:00 Ba Pepper AdvReac Intermediate GREEN Uncoded 11/09/19 18:00 PEPPER = MIGRAINE HEADACHE Past Med/Surg History Medical History Acute asthma exacerbation (Acute) Acute kidney injury Anemia Asthma (Chronic) Chest pain (Acute) Chronic kidney disease Colitis (Resolved) Crohn's disease (Chronic) Diabetes mellitus (Chronic) GI bleeding Hypertension (Chronic) Hypothyroidism (Chronic) Personal history of DVT (deep vein thrombosis) (Chronic) Pneumonia (Acute) Pulmonary embolism Family History Other Family history non-contributory Social History Preferred Language: Faroese Communication Ability: Effective Skin Lifter Bacon Required: No Beliefs That Will Affect Care: None Current Living Situation: Alone Current Living Situation Comment: Per patient (Patient is confused) Feels Safe at Home: Yes Smoking Status: Former smoker Second Hand Exposure: No ; Hx Alcohol Use: No Hx Substance Use: No Review of Systems See HPI for pertinent positives & negatives. and A total of 10 systems reviewed and were otherwise negative Physical Exam Vital Signs Vital Signs - 24 hr 11/09/19 15:10 11/09/19 15:16 11/09/19 15:17 Temperature 36.8 C Temperature Source Oral Pulse Rate 91 H 92 H 91 H Pulse Rate [Finger] Pulse Rate from SpO2 Sensor 91 H 102 H Respiratory Rate 13 23 18 Respiratory Effort / Characteristics Non-Labored Spontaneous Respiratory Depth Normal Respiratory Pattern Regular Blood Pressure 125/70 118/60 Blood Pressure [Left Arm] Blood Pressure Mean 88 78 Blood Pressure Mean [Left Arm] Pulse Oximetry 91 94 95 Oxygen Delivery Method Room Air Sepsis Recent Fever Within 48 Hours No Sepsis New/Unexplained Change in Mental Status No Sepsis Action Taken by Nursing No Action Required 11/09/19 15:30 11/09/19 15:31 11/09/19 16:11 Temperature Temperature Source Pulse Rate 91 H 86 86 Pulse Rate [Finger] Pulse Rate from SpO2 Sensor 88 88 Respiratory Rate 18 19 22 Respiratory Effort / Characteristics Respiratory Depth Respiratory Pattern Blood Pressure 117/53 L Blood Pressure [Left Arm] Blood Pressure Mean 74 Blood Pressure Mean [Left Arm] Pulse Oximetry 93 92 Oxygen Delivery Method Sepsis Recent Fever Within 48 Hours Sepsis New/Unexplained Change in Mental Status Sepsis Action Taken by Nursing 11/09/19 16:30 11/09/19 16:31 11/09/19 17:00 Temperature Temperature Source Pulse Rate 84 83 85 Pulse Rate [Finger] Pulse Rate from SpO2 Sensor Respiratory Rate 17 17 14 Respiratory Effort / Characteristics Respiratory Depth Respiratory Pattern Blood Pressure 120/49 L 116/51 L Blood Pressure [Left Arm] Blood Pressure Mean 75 62 Blood Pressure Mean [Left Arm] Pulse Oximetry 91 Oxygen Delivery Method Sepsis Recent Fever Within 48 Hours Sepsis New/Unexplained Change in Mental Status Sepsis Action Taken by Nursing 11/09/19 17:01 11/09/19 17:30 11/09/19 17:31 Temperature Temperature Source Pulse Rate 86 85 89 Pulse Rate [Finger] Pulse Rate from SpO2 Sensor Respiratory Rate 12 20 16 Respiratory Effort / Characteristics Respiratory Depth Respiratory Pattern Blood Pressure 120/55 L Blood Pressure [Left Arm] Blood Pressure Mean 74 Blood Pressure Mean [Left Arm] Pulse Oximetry 92 Oxygen Delivery Method Sepsis Recent Fever Within 48 Hours Sepsis New/Unexplained Change in Mental Status Sepsis Action Taken by Nursing 11/09/19 18:00 11/09/19 18:01 11/09/19 18:30 Temperature Temperature Source Pulse Rate 81 81 Pulse Rate [Finger] Pulse Rate from SpO2 Sensor Respiratory Rate 18 21 16 Respiratory Effort / Characteristics Respiratory Depth Respiratory Pattern Blood Pressure 130/67 143/65 H Blood Pressure [Left Arm] Blood Pressure Mean 95 100 Blood Pressure Mean [Left Arm] Pulse Oximetry Oxygen Delivery Method Sepsis Recent Fever Within 48 Hours Sepsis New/Unexplained Change in Mental Status Sepsis Action Taken by Nursing 11/09/19 18:31 11/09/19 18:57 Temperature Temperature Source Pulse Rate Pulse Rate [Finger] 84 Pulse Rate from SpO2 Sensor Respiratory Rate 10 L 18 Respiratory Effort / Characteristics Respiratory Depth Respiratory Pattern Blood Pressure Blood Pressure [Left Arm] 137/68 Blood Pressure Mean Blood Pressure Mean [Left Arm] 91 Pulse Oximetry 96 Oxygen Delivery Method Room Air Sepsis Recent Fever Within 48 Hours Sepsis New/Unexplained Change in Mental Status Sepsis Action Taken by Nursing GENERAL: Awake, alert, well-appearing, in no acute distress HENT: Normocephalic, atraumatic. Oropharynx unremarkable. EYES: Normal conjunctiva. Sclera non-icteric. NECK: Supple. No nuchal rigidity. FROM. No JVD. RESPIRATORY: Clear to auscultation. CARDIAC: Regular rate, normal rhythm. Extremities warm and well perfused. Pulses equal. ABDOMEN: Soft, non-distended. No tenderness to palpation. No rebound or guarding. No masses. RECTAL: Deferred. MUSCULOSKELETAL: Chest examination reveals no tenderness. The back is sy mmetrical on inspection without obvious abnormality. There is no CVA tenderness to palpation. No joint edema. LOWER EXTREMITIES: Calves are equal size bilaterally and non-tender. No edema. No discoloration. NEURO: Normal sensorium. No sensory or motor deficits noted. SKIN: No rash or jaundice noted. Course Course 1509: Past medical records reviewed. The patient was evaluated in room B06. A complete history and physical exam was performed. 1812: I spoke with Dr. Bradford- Hospitalist about the patient's case and he will accept her for further evaluation. Administered Medications Discontinued Medications Sodium Chloride (Nss 1000ml) 500 mls @ 999 mls/hr IV .Q31M ONE Stop: 11/09/19 15:59 Last Infusion: 11/09/19 16:33 Dose: 0 mls/hr Documented by: [id number] Admin: 11/09/19 15:57 Dose: 999 mls/hr Documented by: [id number] Sodium Chloride (Nss 1000ml) 500 mls @ 999 mls/hr IV .Q31M ONE Stop: 11/09/19 17:57 Last Infusion: 11/09/19 18:31 Dose: 0 mls/hr Documented by: [id number] Admin: 11/09/19 17:37 Dose: 999 mls/hr Documented by: [id number] Aztreonam 2,000 mg/ Dextrose 110 mls @ 100 mls/hr IV NOW STA; Protocol Stop: 11/09/19 18:53 Last Infusion: 11/09/19 19:38 Dose: 0 mls/hr Documented by: [id number] Admin: 11/09/19 18:31 Dose: 100 mls/hr Documented by: [id number] Levofloxacin/Dextrose (Levaquin/D5w) 750 mg in 150 mls @ 100 mls/hr IV NOW STA Stop: 11/09/19 19:18 Last Admin: 11/09/19 19:34 Dose: 100 mls/hr Documented by: [id number] Medical Decision Making Differential Diagnosis Differential Diagnosis includes but is not limited to dehydration, stroke, anemia, hypoglycemia, hyponatremia, hypernatremia, urinary tract infection, pneumonia, bronchitis, sepsis, gastroenteritis, additional abdominal pathology, metabolic abnormalities and infections. Medical Records Attestation: I reviewed the patient's medical records. Home Medications Current Medication List: was personally reviewed by me Laboratory Data Attestation: I reviewed the patient's lab results. Result diagrams: 11/09/19 15:29 11/09/19 15:29 Lab Results 11/09/19 11/09/19 11/09/19 Range/Units 15:29 15:29 15:29 WBC 8.43 (4.8-10.8) K/uL RBC 4.04 L (4.2-5.4) M/uL Hgb 13.9 (12.0-16.0) g/dL Hct 40.9 (37-47) % MCV 101.2 H (80-100) fL MCH 34.4 H (25-34) pg MCHC 34.0 (32-36) g/dL RDW Std Deviation 51.9 H (36.4-46.3) fL RDW Coeff of Taj 14.3 (11.5-14.5) % Plt Count 202 (130-400) K/uL MPV 9.6 (7.4-10.4) fL Immature Gran % (Auto) 0.5 % Neut % (Auto) 79.1 % Lymph % (Auto) 11.5 % [place] % (Auto) 8.1 % Eos % (Auto) 0.4 % Baso % (Auto) 0.4 % Immature Gran # (Auto) 0.04 H (0.00-0.02) K/uL Neut # (Auto) 6.68 H (1.4-6.5) K/uL Lymph # (Auto) 0.97 L (1.2-3.4) K/uL [place] # (Auto) 0.68 H (0.11-0.59) K/uL Eos # (Auto) 0.03 (0-0.5) K/uL Baso # (Auto) 0.03 (0-0.2) K/uL APTT 24.3 (21.0-31.0) Seconds PTT Ratio 0.9 Sodium 137 (136-145) mmol/L Potassium 4.6 (3.5-5.1) mmol/L Chloride 108 H (98-107) mmol/L Carbon Dioxide 20 L (21-32) mmol/L Anion Gap 9.0 (3-11) BUN 23 H (7-18) mg/dl Creatinine 0.95 (0.6-1.2) mg/dl Est Cr Clr Drug Dosing 52.6 ml/min Est GFR ( Amer) 70.3 Est GFR (Non-Af Amer) 60.7 BUN/Creatinine Ratio 24.1 H (10-20) Glucose 133 H (70-99) mg/dl Calcium 9.4 (8.5-10.1) mg/dl Total Bilirubin 0.5 (0.2-1) mg/dl AST 21 (15-37) U/L ALT 7 L (12-78) U/L Alkaline Phosphatase 134 H (45-117) U/L CK-MB (CK-2) < 1.0 (0.5-3.6) ng/ml Troponin I < 0.015 (0-0.045) ng/ml Total Protein 6.9 (6.4-8.2) gm/dl Albumin 3.1 L (3.4-5.0) gm/dl Globulin 3.8 (2.5-4.0) gm/dl Albumin/Globulin Ratio 0.8 L (0.9-2) Specimen Hemolysis Urine Color Urine Appearance (Clear) Urine pH (4.5-7.5) Ur Specific [place] (1.000-1.030) Urine Protein (Negative) Urine Glucose (UA) (Negative) Urine Ketones (Negative) Urine Blood (Negative) Urine Nitrite (Negative) Urine Bilirubin (Negative) Urine Urobilinogen (Negative) Ur Leukocyte Esterase (Negative) 11/09/19 Range/Units 18:10 WBC (4.8-10.8) K/uL RBC (4.2-5.4) M/uL Hgb (12.0-16.0) g/dL Hct (37-47) % MCV (80-100) fL MCH (25-34) pg MCHC (32-36) g/dL RDW Std Deviation (36.4-46.3) fL RDW Coeff of Taj (11.5-14.5) % Plt Count (130-400) K/uL MPV (7.4-10.4) fL Immature Gran % (Auto) % Neut % (Auto) % Lymph % (Auto) % [place] % (Auto) % Eos % (Auto) % Baso % (Auto) % Immature Gran # (Auto) (0.00-0.02) K/uL Neut # (Auto) (1.4-6.5) K/uL Lymph # (Auto) (1.2-3.4) K/uL [place] # (Auto) (0.11-0.59) K/uL Eos # (Auto) (0-0.5) K/uL Baso # (Auto) (0-0.2) K/uL APTT (21.0-31.0) Seconds PTT Ratio Sodium (136-145) mmol/L Potassium (3.5-5.1) mmol/L Chloride (98-107) mmol/L Carbon Dioxide (21-32) mmol/L Anion Gap (3-11) BUN (7-18) mg/dl Creatinine (0.6-1.2) mg/dl Est Cr Clr Drug Dosing ml/min Est GFR ( Amer) Est GFR (Non-Af Amer) BUN/Creatinine Ratio (10-20) Glucose (70-99) mg/dl Calcium (8.5-10.1) mg/dl Total Bilirubin (0.2-1) mg/dl AST (15-37) U/L ALT (12-78) U/L Alkaline Phosphatase (45-117) U/L CK-MB (CK-2) (0.5-3.6) ng/ml Troponin I (0-0.045) ng/ml Total Protein (6.4-8.2) gm/dl Albumin (3.4-5.0) gm/dl Globulin (2.5-4.0) gm/dl Albumin/Globulin Ratio (0.9-2) Specimen Hemolysis Urine Color [place] Urine Appearance Clear (Clear) Urine pH 5.0 (4.5-7.5) Ur Specific [place] 1.020 (1.000-1.030) Urine Protein Negative (Negative) Urine Glucose (UA) Negative (Negative) Urine Ketones Trace H (Negative) Urine Blood Negative (Negative) Urine Nitrite Negative (Negative) Urine Bilirubin Negative (Negative) Urine Urobilinogen Negative (Negative) Ur Leukocyte Esterase Negative (Negative) Imaging Data Radiologist's Impression: Radiology results as stated below per my review and the radiologist's interpretation: XR chest 1V portable CLINICAL HISTORY: Pt AMS dyspnea COMPARISON STUDY: 06/13/2019 FINDINGS: Infiltrative process left lung base. Lungs otherwise appear clear. Diaphragms are smooth. IMPRESSION: Infiltrate left base. The above report was generated using voice recognition software. It may contain grammatical, syntax or spelling errors. Electronically signed by: Darvin Mesa M.D. 11/09/2019 5:[address] head/brain wo con CT DOSE: 769.00 mGy.cm HISTORY: Mental status change AMS TECHNIQUE: Multiaxial CT images of the head were performed without the use of intravenous contrast. A dose lowering technique was utilized adhering to the principles of ALARA. Comparison: 04/08/2019 Findings: The paranasal sinuses and mastoid air cells are clear. Considerable chronic small vessel change. Atrophy. Mild compensatory ventricular prominence. Impression: No acute intracranial abnormality. Considerable atrophy and degenerative change The above report was generated using voice recognition software. It may contain grammatical, syntax or spelling errors. Electronically signed by: Darvin Mesa M.D. 11/09/2019 5:08 PM ECG Data Attestation: I personally reviewed and interpreted this ECG as follows: Indication: + weakness Rate (beats per minute): 87 Rhythm: + sinus rhythm ECG Intervals/blocks: + Right Bundle branch block and + Normal QT-c (QTC 498) ECG ST segments: + Normal ST segments ECG Findings: + Other (Old lateral infarct ) Blood Pressure Blood Pressure Findings: Elevated blood pressure Blood Pressure Disposition: further management by hospitalist MDM Narrative This is a 69-year-old female who presents emergency department complaining of ge neralized weakness. Patient reports she can not walk today. She was being treated for a urinary tract infection with Macrobid at home. Here in the emergency department the patient appears to have pneumonia on chest x-ray therefore she was pancultured and started on antibiotics including aztreonam and Levaquin. Due to the patient's inability to walk as well as her oxygen need we did discuss the case with the hospitalist service who did agree to meet the patient. Patient was in agreement with treatment plan. Impression & Plan Hypoxia, Pneumonia, Weakness Discharge Plan Visit Data Chief Complaint: Leg Weakness, Bilateral ED Provider: Lc Campo ED Midlevel Provider: Lee Blanco Discharge Problem: Hypoxia, Pneumonia, Weakness Forms Stand Alone Forms: [facility] [id number] Prescriptions Prescriptions: No Action carbidopa-levodopa [Sinemet CR] 25-100 mg tablet extended release 1 tab PO QID RF: 0 atorvastatin [Lipitor] 10 mg tablet 10 mg PO HS RF: 0 benazepril 5 mg tablet 5 mg PO QAM RF: 0 levetiracetam [Keppra] 500 mg tablet 1,000 mg PO HS RF: 0 glipizide [Glucotrol] 10 mg tablet 10 mg PO BID RF: 0 metformin [Glucophage] 850 mg tablet 850 mg PO BID RF: 0 cyanocobalamin (vitamin B-12) [Vitamin B-12] 1,000 mcg tablet 1,000 mcg PO QAM RF: 0 levothyroxine 25 mcg tablet 25 mcg PO QAM RF: 0 citalopram [Celexa] 20 mg tablet 20 mg PO QAM RF: 0 methotrexate sodium 2.5 mg tablet 15 mg PO FR RF: 0 isosorbide dinitrate 20 mg tablet 20 mg PO TID RF: 0 nitroglycerin [Nitrostat] 0.4 mg Tablet, Sublingual 0.4 mg sublingual UD PRN (Reason: Chest Pain) RF: 0 omeprazole 20 mg capsule,delayed release(DR/EC) 40 mg PO QAM RF: 0 bumetanide 1 mg tablet 1 mg PO DAILY PRN (Reason: FLUID BUILDUP) RF: 0 heparin (porcine) 5,000 unit/mL solution 5,000 unit subcut Q12 RF: 0 ranolazine [Ranexa] 500 mg tablet extended release 12 hr 500 mg PO BID RF: 0 rivastigmine [Exelon] 4.6 mg/24 hr patch 24 hour 4.6 mg topical DAILY RF: 0 buprenorphine 5 mcg/hour patch weekly 1 patch transdermal TU RF: 0 hydrocortisone 0.5 % Cream 1 applic TOPICAL BID RF: 0 acetaminophen-codeine 300-15 mg Tablet 1 tab PO Q6H PRN (Reason: Pain) RF: 0 Novolog U-100 Insulin aspart 100 unit/mL Solution 0 unit SUBCUT DIRECTED RF: 0 albuterol sulfate [Ventolin HFA] 90 mcg/actuation Hfa Aerosol Inhaler 1 puff INHALATION Q6H PRN (Reason: Shortness Of Breath) RF: 0 amitriptyline 50 mg Tablet 50 mg PO DAILY RF: 0 adalimumab 40 mg/0.4 mL Pen Injector Kit 0.4 mg SUBCUT DIRECTED RF: 0 Discharge Problem: Pneumonia Qualifiers: Pneumonia type: due to unspecified organism Laterality: unspecified laterality Lung location: unspecified part of lung Qualified Code(s): J18.9 - Pneumonia, unspecified organism The scribe's documentation has been prepared under my direction and personally reviewed by me in its entirety. I confirm that the note above accurately reflects all work, treatment, procedures, and medical decision making performed by me.
[2019-11-09] MEDS ORDERED: HEPARIN SOD 5,000 UNIT/0.5 ML VIAL SQ SCH (21:00)
[2019-11-09] MEDS ORDERED: AMITRIPTYLINE HCL 50 MG TAB PO SCH (21:00)
[2019-11-09] MEDS ORDERED: ACETAMINOPHEN W/CODEINE #3 1 TAB PO PRN (21:18)
[2019-11-09] MEDS: levETIRAcetam 500 MG TAB PO SCH (22:15)
[2019-11-09] MEDS: RANOLAZINE 500 MG ER TAB PO SCH (22:16)
[2019-11-09] MEDS: ATORVASTATIN 10 MG TAB PO SCH (22:16)
[2019-11-09] MEDS: DOXYCYCLINE HYCLATE 50 MG CAP PO SCH (22:17)
[2019-11-09] MEDS: CARBIDOPA/LEVODOPA 25/100MG EXT REL TAB PO SCH (22:17)
[2019-11-09 22:20] LABS: Influenza A virus by PCR Neg for Influ A (Neg); Influenza B virus by PCR Neg for Influ B (Neg)
[2019-11-09] MEDS: HEPARIN SOD (PORCINE) 5,000 UNITS/ML VIAL SQ SCH (22:22)
[2019-11-09] MEDS: INSULIN ASPART 100 UNITS/ML 3 ML PEN SC SCH (22:23)
[2019-11-09] MEDS: NYSTATIN POWDER 15GM BTL EXT SCH (23:55)
[2019-11-09] MEDS: EXELON PATCH~ORDER AWAITING ACTION SCH (23:55)
[2019-11-09] MEDS: ISOSORBIDE DINITRATE 20 MG TAB PO SCH (23:59)
[2019-11-10] MEDS ORDERED: cefTRIAXone SODIUM 2,000 MG in DEXTROSE 5% 50 ML IV SCH
[2019-11-10] MEDS: EXELON PATCH~ORDER AWAITING ACTION SCH ×3 (00:18→15:12)
[2019-11-10] MEDS: LEVOTHYROXINE SODIUM 25 MCG TABLET PO SCH (06:24)
[2019-11-10] MEDS: ALBUT/IPRATROP 3MG/0.5MG NEB 3 ML VIAL NEB SCH ×4 (06:58→19:27)
[2019-11-10 08:19] LABS: Basophils # (auto) 0.01 K/uL (0-0.2); Basophils % (auto) 0.2 %; Eosinophils # (auto) 0.09 K/uL (0-0.5); Eosinophils % (auto) 1.4 %; Hematocrit (blood only) 36.2 % (37-47); Hemoglobin 11.9 g/dL (12.0-16.0); Immature Granulocytes # (auto) 0.02 K/uL (0.00-0.02); Immature Granulocytes % (auto) 0.3 %; Lymphocytes # (auto) 1.42 K/uL (1.2-3.4); Lymphocytes % (auto) 22.5 %; Mean Corpuscular Hemoglobin 33.7 pg (25-34); Mean Corpuscular Hgb Conc 32.9 g/dL (32-36); Mean Corpuscular Volume 102.5 fL (80-100); Mean Platelet Volume 9.3 fL (7.4-10.4); Monocytes # (auto) 0.77 K/uL (0.11-0.59); Monocytes % (auto) 12.2 %; Neutrophils % (auto) 63.4 %; Platelet Count 148 K/uL (130-400); RDW Coefficient of Variation 14.9 % (11.5-14.5); Red Blood Count 3.53 M/uL (4.2-5.4); White Blood Count 6.31 K/uL (4.8-10.8)
[2019-11-10 08:50] LABS: Estimated Average Glucose 120 mg/dl; Hemoglobin A1C 5.8 % (4.5-5.6)
[2019-11-10 08:54] LABS: BUN Creatinine Ratio 20.1 (10-20); Calcium 8.1 mg/dl (8.5-10.1); Est GFR (African American) 87.9; Est GFR (Non-African American) 75.8; Magnesium 1.9 mg/dl (1.8-2.4); Potassium 3.8 mmol/L (3.5-5.1)
[2019-11-10] MEDS: CITALOPRAM 20 MG TAB PO SCH (09:18)
[2019-11-10] MEDS: DOXYCYCLINE HYCLATE 50 MG CAP PO SCH (09:18)
[2019-11-10] MEDS: LACTOBACILLUS ACIDOPHILUS 1 GM PACK PO SCH ×3 (09:18→17:49)
[2019-11-10] MEDS: CYANOCOBALAMIN 500 MCG TABLET (VITAMIN B-12) PO SCH (09:18)
[2019-11-10] MEDS: CARBIDOPA/LEVODOPA 25/100MG EXT REL TAB PO SCH ×4 (09:18→21:43)
[2019-11-10] MEDS: ISOSORBIDE DINITRATE 20 MG TAB PO SCH ×3 (09:18→17:49)
[2019-11-10] MEDS: PANTOprazole 40 MG TAB PO SCH (09:19)
[2019-11-10] MEDS: NYSTATIN POWDER 15GM BTL EXT SCH ×2 (09:19→21:44)
[2019-11-10] MEDS: ENALAPRIL MALEATE 5 MG TAB PO SCH (09:19)
[2019-11-10] MEDS: INSULIN ASPART 100 UNITS/ML 3 ML PEN SC SCH ×4 (09:20→21:45)
[2019-11-10] MEDS: HYDROCORTISONE 1% CRM 30 GM TUBE EXT SCH ×2 (09:20→21:44)
[2019-11-10] MEDS: HEPARIN SOD (PORCINE) 5,000 UNITS/ML VIAL SQ SCH ×2 (09:21→22:11)
[2019-11-10] MEDS: RANOLAZINE 500 MG ER TAB PO SCH ×2 (09:21→21:43)
--- NOTE | 2019-11-10 10:12 | XRay Report ---
XR chest 2V PA/lateral CLINICAL HISTORY: Shortness of breath. Possible pneumonia. COMPARISON STUDY: 11/09/2019 FINDINGS: The cardiac and mediastinal contours remain stable. There is persistent aortic tortuosity/e ctasia. There is mild interstitial thickening, finding which may be accentuated given the AP techniqu e and patient's body habitus. There is no lobar consolidation. Increased density at the left posterio r lung bases visualized the lateral view, likely represents a summation with ribs and atelectasis. Po sttraumatic changes involve the left ribs and clavicle.[ IMPRESSION: 1. Mild cardiomegaly 2. Mild interstitial thickening. No evidence of focal pulmonary consolidation Electronically signed by: Fady Pineda M.D. 11/10/2019 10:10 AM
[2019-11-10] MEDS ORDERED: BUPRENORPHINE 10 MCG/HR TDSY TD SCH (17:30)
--- NOTE | 2019-11-10 18:15 | Hospitalist Progress Note ---
Date of Service November 10, 2019 Assessment & Plan (1) Drug reaction: Fatigue and generalized pain secondary to Reclast. No new pains that need re-imaging for potential fracture as per patient. Given recent questionable fracture I advised patient if she does think she has something new or if less able to weight bear we should re-image that area. 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 Repeat CXR 2 view showed no PNA. (2) Coronary artery disease: Continue isosorbide dinitrate, Ranexa and Lipitor (3) Parkinson's disease: Continue Sinemet (4) Pulmonary embolism: Continue heparin 5000 subcu twice daily, patient has history of intracranial bleed and was taking of her oral anticoagulation (5) Crohn's disease: Continue methotrexate and folic acid. She will continue Humira once discharged. (6) Hypothyroidism: TSH 1.31. Continue levothyroxine 25 mcg daily. (7) Personal history of DVT (deep vein thrombosis): Continue heparin subcu 5000 units BID (8) Diabetes mellitus: Hold oral hypoglycemic, start her on sliding scale insulin. HbA1C 5.8 (9) Hypertension: Stable continue home meds (10) Asthma: Started on DuoNeb 4 times daily Previously on Symbicort but unsure why she stopped this. Using albuterol daily at home. Will restart symbicort and advised to follow up once well for PFTs (11) B12 deficiency: Continue supplementation. Mild macrocytic anemia. Since PCP on [facility] will not re-order at this time as not acute issue. She reports having occasional B12 injections and has good follow up for this. (12) Seizure disorder: Continue Keppra 1000 mg HS (13) Osteoporosis: On Reclast yearly. Admission for adverse reaction to this. (14) Discharge planning issues: PT/OT evals. Suspect home tomorrow. Subjective Discussed with patient in the morning. She reports no cough, shortness of breath, chest pain, fevers or chills. Diagnosed with pneumonia on admission on chest XR. She also reports recurrent urine tract infections. She has a number of chronic conditions including crohn's and Parksinson but reports no recent changes in medications and her baseline mobility is pivoting on one leg. Use a wheelchair for mobilization. Generalized pain now resolved. Around 5pm I was able to discuss history with her sister present at bedside. She reports patient had Reclast earlier in the day and later that night had sudden onset weakness and pain. Pain was all over, not specific to joints or muscles. Never had Reclast before. Review of Systems Review of Systems: All systems reviewed & are unremarkable except as noted in HPI & below Physical Exam Constitutional: well developed and + ill appearing (chronically); + not well nourished and no acute distress Eyes: + anicteric sclerae; normal pupil size ENMT: external ear and nose normal, oropharynx normal Neck: trachea midline Respiratory: normal respiratory effort, lungs clear to auscultation Auscultation: + diminished lung sounds (decreased due to body habitus) Cardiovascular: Rate/Rhythm: regular rate and regular rhythm Heart Sounds: + murmur Extremities: normal capillary refill and + pedal edema (1+ to knees) Gastrointestinal (Abdomen): Inspection/Auscultation: normal bowel sounds Percussion/Palpation: abdomen soft; abdomen nontender, no guarding and abdomen not rigid No cellulitic changes under large pannus Musculoskeletal: Very limited movement and unable to weight bear on left leg due to advanced arthritis in hip and knee, questionable non-displaced fracture of fibula previously on this side Skin: mild blanching erythematous area on left lower extremity, discussed with patient and sister and they report always there, no worse than usual, not concerning for cellulitis Neurologic: awake; not confused Speech / Cognition: normal speech Motor/Sensory: + tremor (appears action > resting); no pronator drift Psychiatric: A+Ox3, euthymic affect Genitourinary: Speculum/Bimanual Exam: + vaginal swelling (with chronic ecchymosis changes R > L, no cellulitic changes) RN as chapvic, pt consented to labial inspection Results & Data Vital Signs (Past 12 Hours) Vital Signs Temp Pulse Resp BP Pulse Ox 11/10/19 15:32 36.3 C L 73 18 113/55 L 100 11/10/19 15:21 69 18 95 11/10/19 11:54 37.2 C 82 16 124/73 92 11/10/19 10:58 81 18 93 11/10/19 07:00 37 C 86 16 126/70 94 PG Care Time/CCT Total # of Minutes Spent Total Time Spent: 60 Total Time Spent with Patient: Total time spent is greater than 50% in coordination of care (as documented) at patient's floor/unit and/or counseling patient: (1) Osteoporosis Osteoporosis type: unspecified Presence of current pathological fracture: unspecified Qualified Code(s): M81.0 - Age-related osteoporosis without current pathological fracture (2) Drug reaction Encounter type: initial encounter Qualified Code(s): T50.905A - Adverse effect of unspecified drugs, medicaments and biological substances, initial encounter (3) Pulmonary embolism Acute cor pulmonale presence: unspecified Chronicity: unspecified Pulmonary embolism type: unspecified Qualified Code(s): I26.99 - Other pulmonary embolism without acute cor pulmonale (4) Hypertension Hypertension type: essential hypertension Qualified Code(s): I10 - Essential (primary) hypertension (5) Asthma Asthma complication type: uncomplicated Asthma persistence: persistent Asthma severity: moderate Qualified Code(s): J45.40 - Moderate persistent asthma, uncomplicated
[2019-11-10] MEDS: ACETAMINOPHEN 325 MG TAB PO PRN (21:12)
[2019-11-10] MEDS: ATORVASTATIN 10 MG TAB PO SCH (21:42)
[2019-11-10] MEDS: levETIRAcetam 500 MG TAB PO SCH (21:43)
[2019-11-10] MEDS: BUDESONIDE/FORMOTEROL FUMARATE 80/4.5 60 PUFFS/INHALER INH SCH (21:45)
[2019-11-10] MEDS: HEPARIN SOD 5,000 UNIT/0.5 ML VIAL SQ SCH (22:14)
[2019-11-11] MEDS: ISOSORBIDE DINITRATE 20 MG TAB PO SCH ×2 (06:37→12:54)
[2019-11-11] MEDS: LEVOTHYROXINE SODIUM 25 MCG TABLET PO SCH (06:38)
[2019-11-11 06:50] LABS: Basophils # (auto) 0.02 K/uL (0-0.2); Basophils % (auto) 0.3 %; Eosinophils # (auto) 0.15 K/uL (0-0.5); Eosinophils % (auto) 2.5 %; Hematocrit (blood only) 36.4 % (37-47); Immature Granulocytes # (auto) 0.04 K/uL (0.00-0.02); Immature Granulocytes % (auto) 0.7 %; Lymphocytes # (auto) 1.76 K/uL (1.2-3.4); Lymphocytes % (auto) 29.6 %; Mean Corpuscular Hemoglobin 33.7 pg (25-34); Mean Corpuscular Volume 102.2 fL (80-100); Mean Platelet Volume 9.1 fL (7.4-10.4); Monocytes % (auto) 13.4 %; Neutrophils # (auto) 3.18 K/uL (1.4-6.5); Neutrophils % (auto) 53.5 %; Platelet Count 154 K/uL (130-400); RDW Standard Deviation 54.6 fL (36.4-46.3); Red Blood Count 3.56 M/uL (4.2-5.4); White Blood Count 5.95 K/uL (4.8-10.8)
[2019-11-11 07:29] LABS: Albumin Level 2.7 gm/dl (3.4-5.0); Calcium 8.1 mg/dl (8.5-10.1); Creatinine Clr Calc Pharmacy 54.1 ml/min; Est GFR (African American) 73.1; Est GFR (Non-African American) 63.1; Potassium 3.9 mmol/L (3.5-5.1)
[2019-11-11 07:31] LABS: Albumin Globulin Ratio 0.8 (0.9-2); Bilirubin,Total 0.4 mg/dl (0.2-1); Globulin 3.4 gm/dl (2.5-4.0); Total Protein 6.1 gm/dl (6.4-8.2)
[2019-11-11] MEDS: ALBUT/IPRATROP 3MG/0.5MG NEB 3 ML VIAL NEB SCH ×3 (07:50→15:38)
[2019-11-11] MEDS ORDERED: MICONAZOLE NITRATE POWDER 43 GM ONE (08:41)
[2019-11-11] MEDS: CARBIDOPA/LEVODOPA 25/100MG EXT REL TAB PO SCH ×2 (08:52→12:54)
[2019-11-11] MEDS: ACETAMINOPHEN 325 MG TAB PO PRN (08:53)
[2019-11-11] MEDS: RANOLAZINE 500 MG ER TAB PO SCH (08:53)
[2019-11-11] MEDS ORDERED: metHOTREXate sodium 2.5 MG TAB PO SCH (09:00)
[2019-11-11] MEDS: HYDROCORTISONE 1% CRM 30 GM TUBE EXT SCH (09:02)
[2019-11-11] MEDS: NYSTATIN POWDER 15GM BTL EXT SCH (09:02)
[2019-11-11] MEDS: BUDESONIDE/FORMOTEROL FUMARATE 80/4.5 60 PUFFS/INHALER INH SCH (09:03)
[2019-11-11] MEDS: PANTOprazole 40 MG TAB PO SCH (09:37)
[2019-11-11] MEDS: CYANOCOBALAMIN 500 MCG TABLET (VITAMIN B-12) PO SCH (09:38)
[2019-11-11] MEDS: CITALOPRAM 20 MG TAB PO SCH (09:39)
[2019-11-11] MEDS: ENALAPRIL MALEATE 5 MG TAB PO SCH (09:39)
[2019-11-11] MEDS: HEPARIN SOD 5,000 UNIT/0.5 ML VIAL SQ SCH (09:42)
[2019-11-11] MEDS: INSULIN ASPART 100 UNITS/ML 3 ML PEN SC SCH ×2 (09:52→12:56)
[2019-11-11] MEDS ORDERED: CHOLECALCIFEROL 1,000 UNITS TAB PO SCH (10:00)
--- NOTE | 2019-11-15 16:22 | Discharge Summary ---
Date of Service November 11, 2019 Admission HPI Per Admitting Provider 69 years old female with past medical history of Crohn's disease currently controlled and Humira and methotrexate, hypothyroidism, Parkinson's disease, essential hypertension, osteoporosis, diabetes mellitus type 2 on oral hypoglycemic, severe arthritis in both knees and left hip, congestive heart failure unspecified, CAD status post stent, peripheral vascular disease status post stent in her lower extremity as per patient, patient has thrombophilia so she is on heparin subcu 5000 units twice a day, she used to be on oral anticoagulant but she had a fall and intracranial bleed, hence her anticoagulation and aspirin has been stopped currently she is only on heparin 5000 subcu twice a day. She was in her regular state of health which basically she is almost bedbound but she can stand up and help herself to transfer from bed to chair. Patient said that she has been coughing yellowish sputum for the last 2 weeks and today she was extremely weak she could not stand up. Her sister at home states she was slightly off but it has not spoke with the sister herself and the patient now seems to be fully oriented and alert. She was brought to the ED and initial work-up revealed some left lower lobe density on chest x-ray. Patient will be admitted for further evaluation Admission Exam Per Admitting Provider General patient appears morbidly obese not in acute distress HEENT: Atraumatic , normocephalic /no jaundice /no pallor /anicteric /no dry mucous membrane /normal external ear inspection Neck: Supple /no swelling /central trach Heart: S1/S2 normal/regular rate and rhythm/no gallop /no rub /no murmur Lungs: Poor inspiratory effort, decreased air entry at the bases bilaterally, scattered rhonchi, no rales/no wheezing/no use of accessory muscles of respiration Abdomen: Large ventral hernia, reducible and nontender, overall abdomen is soft/nontender/no guarding/no rebound/no organomegaly/no pulsatile mass Musculoskeletal: No edema in both feet, but muscles in both lower extremity appears to be slightly atrophied Neuro exam: Awake alert oriented 3/cranial nerves II through XII appear to be intact/sensation intact/moves all extremities, although both lower extremity are very weak as baseline/no abnormal movements Psychiatric evaluation: No depressed mood/normal affect Skin: No rash on exposed skin area/no erythema Extremity: Faint pulse/no pitting edema/no clubbing or cyanosis Principal Diagnosis Adverse reaction to Reclast Vitamin D deficiency Mild persistent asthma Discharge Exam Constitutional well developed and + ill appearing (chronically); + not well nourished and no acute distress Eyes + anicteric sclerae; normal pupil size ENMT external ear and nose normal, oropharynx normal Neck trachea midline Respiratory normal respiratory effort, lungs clear to auscultation Auscultation: + diminished lung sounds (decreased due to body habitus) Cardiovascular Rate/Rhythm: regular rate and regular rhythm Heart Sounds: + murmur Extremities: normal capillary refill and + pedal edema (1+ to knees) Gastrointestinal (Abdomen) Inspection/Auscultation: normal bowel sounds Percussion/Palpation: abdomen soft; abdomen nontender, no guarding and abdomen not rigid Skin Erythema on left duarte appears similar, no warmth Neurologic awake; not confused Speech / Cognition: normal speech Motor/Sensory: + tremor (appears action > resting); no pronator drift Psychiatric A+Ox3, euthymic affect Discharge Data Allergies Allergy/AdvReac Type Severity Reaction Status Date / Time Cipro Allergy Severe RASH Unverified 07/01/18 14:03 ciprofloxacin Allergy Severe RASH Verified 11/09/19 18:00 Penicillins Allergy Intermediate HIVES Verified 11/09/19 18:00 Sulfa (Sulfonamide Allergy Intermediate HIVES Verified 11/09/19 18:00 Antibiotics) latex Allergy Unknown Unknown Verified 11/09/19 18:00 cephalexin [From Keflex] Allergy Unknown Unverified 11/09/19 18:00 adhesive AdvReac Severe "THEY EAT Verified 11/09/19 18:00 MY SKIN." Iodinated Contrast Media AdvReac Intermediate Vomiting Verified 11/09/19 18:00 Quinolones AdvReac Mild YEAST Verified 11/09/19 18:00 INFECTION Cephalosporins AdvReac Unknown Unknown Verified 11/09/19 18:00 Ba Pepper AdvReac Intermediate GREEN Uncoded 11/09/19 18:00 PEPPER = MIGRAINE HEADACHE Consultations 11/09/19 18:00 ED Decision to Admit Stat Ordered Studies 11/09/19 15:29 CT head/brain wo con Stat Hospital Course (1) Drug reaction: Mattie Harris is a 69 year old female admitted to the [facility] from November 09 to 2018 for sudden onset fatigue, generalized pain and weakness. No significant acute abnormalities found on lab work, chest x-ray or urinalysis. She was diagnosed with adverse reaction to intravenous Reclast taken earlier in the day and appeared to improve without medical intervention. No significant hypocalcemia on lab work however vitamin D level was noted to be low at 23.7 (she reports not taking her previously prescribed supplementation). In addition HbA1C noted to be 5.8 and given good glucose control off oral medication while admitted recommended reducing glipizide in half and following up with her PCP to determine if this medication is still required as she has been having some hypoglycemic episodes. GERD - improved with switching her to hospital formulary pantoprazole and recommended possibility of switching with her PCP. Asthma - she notes taking her albuterol inhaler daily due to chest tightness and night time cough. Previously on Symbicort but she cannot remember why this was discontinued. Therefore she was restarted on Symbicort and recommend performing PFTs in approximately 2-4 weeks to help with ongoing treatment, no acute exacerbation noted. (2) Coronary artery disease: (3) Parkinson's disease: (4) Pulmonary embolism: (5) Crohn's disease: (6) Hypothyroidism: (7) Personal history of DVT (deep vein thrombosis): (8) Diabetes mellitus: (9) Hypertension: (10) Asthma: (11) B12 deficiency: (12) Seizure disorder: (13) Osteoporosis: Total Time Total Time Spent Total Time Spent (In Minutes): 50 Total Time Includes: Examination of the Patient, Discharge Planning and Medication Reconciliation Discharge Plan Discharge Items Patient Disposition: Home - Self-Care Reason For Visit: Fatigue, Generalized weakness and pain Discharge Diagnosis: Adverse reaction to Reclast Vitamin D deficiency Activity: Resume your previous activity Non-emergency contact: Primary Care Provider Call non-emergency contact if: you have any medication questions, your symptoms worsen and your temperature is above 101 Follow-up/Referrals: Sandra Scott DO [Primary Care Provider] - 11/17/19 11:10 am (Please, follow up with Dr. Sandra Scott on November 17 at 11:10 am. *If you need to change this appointment, call the office at [phone].) Diet: Carb Consistent or DM2 Addtl Attending Provider Instructions: You are admitted to the [facility] from November 09 to 2018 for sudden onset fatigue, generalized pain and weakness. No significant acute abnormalities found on lab work, chest x-ray or urinalysis. You were diagnosed with adverse reaction to intravenous Reclast and appeared to improve without medical intervention for this. No significant hypocalcemia on lab work however your vitamin D level was noted to be low at 23.7. Recommend taking supplementation as prescribed below. You also had a HbA1C of 5.8 and given good glucose control off your oral me dication in hospital recommend cutting back on your glipizide in half to that prescribed below. Also your reflux appeared improved on pantoprazole rather than your home omeprazole. Recommend discussing this further with your primary care physician. In addition you were noted to be taking your albuterol inhaler regularly > once a day with night time cough suggesting your asthma is not well controlled. You have been started on Symbicort for this and recommend following up with your primary care provider to possibly arrange lung function tests. Kind regards, Dr Dustin Navarrete Pending Studies at Discharge: No Stand-Alone Forms: My [facility], Smoking Cessation Medications and DC Order Prescriptions: New Symbicort 80-4.5 mcg/actuation Hfa Aerosol Inhaler 2 puff inhalation BID Qty: 10.2 RF: 0 cholecalciferol (vitamin D3) 25 mcg (1,000 unit) Capsule 1,000 unit PO QAM Qty: 90 RF: 0 Continued carbidopa-levodopa [Sinemet CR] 25-100 mg tablet extended release 1 tab PO QID RF: 0 atorvastatin [Lipitor] 10 mg tablet 10 mg PO HS RF: 0 benazepril 5 mg tablet 5 mg PO QAM RF: 0 levetiracetam [Keppra] 500 mg tablet 1,000 mg PO HS RF: 0 metformin [Glucophage] 850 mg tablet 850 mg PO BID RF: 0 cyanocobalamin (vitamin B-12) [Vitamin B-12] 1,000 mcg tablet 1,000 mcg PO QAM RF: 0 levothyroxine 25 mcg tablet 25 mcg PO QAM RF: 0 citalopram [Celexa] 20 mg tablet 20 mg PO QAM RF: 0 methotrexate sodium 2.5 mg tablet 15 mg PO FR RF: 0 isosorbide dinitrate 20 mg tablet 20 mg PO TID RF: 0 nitroglycerin [Nitrostat] 0.4 mg Tablet, Sublingual 0.4 mg sublingual UD PRN (Reason: Chest Pain) RF: 0 omeprazole 20 mg capsule,delayed release(DR/EC) 40 mg PO QAM RF: 0 bumetanide 1 mg tablet 1 mg PO DAILY RF: 0 heparin (porcine) 5,000 unit/mL solution 5,000 unit subcut Q12 RF: 0 ranolazine [Ranexa] 500 mg tablet extended release 12 hr 500 mg PO BID RF: 0 rivastigmine [Exelon] 4.6 mg/24 hr patch 24 hour 4.6 mg topical DAILY RF: 0 buprenorphine 5 mcg/hour patch weekly 1 patch transdermal TU RF: 0 hydrocortisone 0.5 % Cream 1 applic TOPICAL BID RF: 0 acetaminophen-codeine 300-15 mg Tablet 1 tab PO Q6H PRN (Reason: Pain) RF: 0 albuterol sulfate [Ventolin HFA] 90 mcg/actuation Hfa Aerosol Inhaler 1 puff INHALATION Q6H PRN (Reason: Shortness Of Breath) RF: 0 adalimumab 40 mg/0.4 mL Pen Injector Kit 0.4 mg SUBCUT DIRECTED RF: 0 entacapone 200 mg tablet 200 mg PO QID RF: 0 Changed glipizide [Glucotrol] 10 mg tablet 5 mg PO BID Qty: 0 RF: 0 Discharge Orders: Discharge Order (Routine); Ordered 11/11/19 Ordered By: Dustin Navarrete Admission Data Admit Date/Time: 11/09/19 20:09 Attending Provider: Dustin Navarrete Admit Provider: Cyndi Hinds Primary Care Provider: Sandra Scott Other Providers: [facility] ; Cyndi Hinds Other Interventions: Discharge Summary Assessment (RN) Last Done: 11/11/19 14:30 DC Date/Time DO NOT enter until pt leaves facility: 11/11/19 16:30
--- NOTE | 2019-11-17 13:15 | Coding Query ---
CODING QUERY To promote full compliance with coding requirements relating to patient care, provider participation is requested in all cases of health information coder uncertainty. Please assist us with the question(s) below: Coding Question: Pneumonia was documented in the chart but didnt make it to the discharge summary. Please indicate below if the patient was treated for PNA during their stay. Thank you so much for your help with this! ( ) Pneumonia, present on admission ( ) Pneumonia, not present on admission (X) Pneumonia, ruled-out ( ) Other, explain Thank you! Silvia Mccain Principal Diagnosis: "that condition established after study, to be chiefly responsible for occasioning the admission of the patient to the hospital for care." Co-Existing Principal Diagnosis: "when two or more diagnoses equally meet the criteria for principal diagnosis as determined by the circumstances of admission, diagnostic work up, and/or therapy provided, and the Alphabetic Index, Tabular List, or another coding guideline does not provide sequencing direction, any one of the diagnoses may be sequenced first." "When the physician has documented what appears to be a current diagnosis in the body of the record, but has not included the diagnosis in the final diagnostic statement, the physician should be asked whether the diagnosis should be added." (Source Coding [facility] 2 QTR90. p3-4) MALENA
== END 2019-11-11 16:30 | disposition home health service (06) | DRG 948 ==
LOC: ED 14:54 → SUATTDRO 20:09 → 2S 20:09 → 4W 11-10 15:03

== ENCOUNTER 2021-06-20 20:57 | Inpatient (IN) ==
[2021-06-20] MEDS ORDERED: SODIUM CHLORIDE 0.9% 1000ML 1,000 ML IV SCH (21:45)
[2021-06-20 22:05] LABS: iSTAT Arterial Blood Gas HCO3 33 meg/L (19-24); iSTAT Arterial Blood Gas pCO2 50 mmHg (35-46); iSTAT Arterial Blood Gas pH 7.43 (7.35-7.45); iSTAT Arterial Blood Gas pO2 133 mmHg (80-95); iSTAT Carbon Dioxide 35 mmol/L (24-31); iSTAT Hematocrit 33 % (37-47); iSTAT Hemoglobin 11.2 g/dl (12.0-16.0); iSTAT Sodium 152 mmol/L (135-144)
[2021-06-20] MEDS ORDERED: cefTRIAXone SODIUM 2,000 MG/70 ML BAG IV STA (22:12)
[2021-06-20 22:51] LABS: Basophils # (auto) 0.01 K/uL (0-0.2); Basophils % (auto) 0.2 %; Hematocrit (blood only) 35.8 % (37-47); Hemoglobin 10.9 g/dL (12.0-16.0); Immature Granulocytes # (auto) 0.03 K/uL (0.00-0.02); Immature Granulocytes % (auto) 0.7 %; Lymphocytes # (auto) 0.66 K/uL (1.2-3.4); Mean Corpuscular Hemoglobin 34.7 pg (25-34); Mean Corpuscular Hgb Conc 30.4 g/dL (32-36); Mean Platelet Volume 10.8 fL (7.4-10.4); Monocytes # (auto) 0.74 K/uL (0.11-0.59); Monocytes % (auto) 16.8 %; Neutrophils # (auto) 2.97 K/uL (1.4-6.5); Neutrophils % (auto) 67.3 %; Platelet Count 134 K/uL (130-400); RDW Coefficient of Variation 17.1 % (11.5-14.5); Red Blood Count 3.14 M/uL (4.2-5.4); White Blood Count 4.41 K/uL (4.8-10.8)
[2021-06-20 23:06] LABS: Partial Thromboplastin Ratio 0.8; Partial Thromboplastin Time 22.2 Seconds (21.0-31.0); Prothrombin Time 10.1 Seconds (9.0-12.0)
[2021-06-20 23:12] LABS: Macrocytosis Present
[2021-06-20 23:25] LABS: Alanine Aminotransferase 17 U/L (12-78); Albumin Globulin Ratio 0.5 (0.9-2); Albumin Level 2.1 gm/dl (3.4-5.0); Alkaline Phosphatase 89 U/L (45-117); Aspartate Aminotransferase 13 U/L (15-37); BUN Creatinine Ratio 18.4 (10-20); Bilirubin,Total 0.4 mg/dl (0.2-1); Blood Urea Nitrogen 48 mg/dl (7-18); Calcium 8.9 mg/dl (8.5-10.1); Carbon Dioxide 29 mmol/L (21-32); Chloride 119 mmol/L (98-107); Est GFR (African American) 20.5 ml/min; Est GFR (Non-African American) 17.7 ml/min; Globulin 3.9 gm/dl (2.5-4.0); Glucose 712 mg/dl (70-99); Magnesium 3.1 mg/dl (1.8-2.4); Potassium 4.1 mmol/L (3.5-5.1); Sodium 155 mmol/L (136-145); Troponin I 0.044 ng/ml (0-0.045)
[2021-06-20] MEDS ORDERED: SODIUM CHLORIDE 0.9% 1000ML 1,000 ML IV ONE (23:41)
[2021-06-20] MEDS ORDERED: NovoLIN-R INSULIN PER UNIT CHARGE IV STA (23:41)
[2021-06-20 23:44] LABS: Beta-Hydroxybutyrate 0.99 mg/dl (0.2-2.81)
--- NOTE | 2021-06-21 00:52 | Emergency Department Note ---
ED Visit Note I have personally seen and evaluated the patient with the PA. I agree with the diagnosis and management decisions and have been personally involved in the case. Upon my evaluation the patient, she was responsive to verbal stimuli. She did require significant assistance to sit up in the bed however also seem to be purposefully withdrawn at times. Patient was receiving IV hydration. She did receive a dose of IV insulin for glucose in the 700s. Although the patient does not appear to be acidotic, she will require more stringent glucose man agement. Patient will be referred to the hospitalist service for further management. Please see Jessica Tarango PA-C's notes for further details of the history, physical and visit. .
--- NOTE | 2021-06-21 01:06 | Emergency Department Note ---
History of Present Illness General Chief complaint: Unresponsive Stated complaint: HYPERGLYCEMIC Time Seen by Provider: 06/20/21 21:28 History of Present Illness This 70-[facility] patient who is a DNR presents to the ER complaining of increased confusion with hyperglycemia who is currently being venus ated for a UTI with ertapenem Location: Generalized Quality: Confused Severity: Moderate Duration: Past few days Timing: Symptoms started over the weekend Context: custodial was concerned and sent her in Modifying factors: better with nothing; worse with dextrose Patient was given extra dextrose for her confusion. Patient is altered and unable to obtain history. History is obtained from EMS and the [facility]. I spoke to the nurse at the [facility] who states the patient's been receiving meropenem for a UTI. She did send over the urine culture results. It is E. coli. She has had a fever. Patient normally is more interactive. She was sent in for her altered mental status. Home Medications Medication Instructions Recorded Confirmed Type acetaminophen 325 mg tablet 650 mg PO Q4 PRN 06/20/21 06/20/21 History (Tylenol) aspirin 81 mg tablet,delayed 81 mg PO DAILY 06/20/21 06/20/21 History release atorvastatin 10 mg tablet (Lipitor) 10 mg PO HS 06/20/21 06/20/21 History bumetanide 1 mg tablet 1 mg PO QAM 06/20/21 06/20/21 History cholecalciferol (vitamin D3) 25 25 mcg PO DAILY 06/20/21 06/20/21 History mcg (1,000 unit) tablet (Vitamin D3) citalopram 20 mg tablet 20 mg PO HS 06/20/21 06/20/21 History cyanocobalamin (vitamin B-12) 1,000 mcg PO DAILY 06/20/21 06/20/21 History 1,000 mcg tablet (Vitamin B-12) ertapenem 1 gram solution for 1 g IM UD 06/20/21 06/20/21 History injection famotidine 20 mg tablet 20 mg PO BID 06/20/21 06/20/21 History fluticasone furoate 100 1 ea INHALATION DAILY 06/20/21 06/20/21 History mcg-vilanterol 25 mcg/dose inhalation powder (Breo Ellipta) folic acid 1 mg tablet 1 mg PO DAILY 06/20/21 06/20/21 History heparin (porcine) 5,000 unit/mL 5,000 unit SUBCUT BID 06/20/21 06/20/21 History injection solution insulin aspart U-100 100 unit/mL 12 unit SUBCUT .ONCE TODAY 06/20/21 06/20/21 Hi story subcutaneous solution (Novolog U-100 Insulin aspart) isosorbide dinitrate 20 mg tablet 20 mg PO TID 06/20/21 06/20/21 History levetiracetam 500 mg tablet 500 mg PO AMPM 06/20/21 06/20/21 History levothyroxine 25 mcg tablet 25 mcg PO DAILY 06/20/21 06/20/21 History magnesium hydroxide 400 mg/5 mL 30 ml PO DAILY PRN 06/20/21 06/20/21 History oral suspension (Milk of Magnesia) magnesium oxide 400 mg PO DAILY 06/20/21 06/20/21 History methotrexate sodium 2.5 mg tablet 15 mg PO .QFRI 06/20/21 06/20/21 History pantoprazole 40 mg tablet,delayed 40 mg PO DAILY 06/20/21 06/20/21 History release (Protonix) ranolazine 500 mg tablet,extended 500 mg PO AMHS 06/20/21 06/20/21 History release,12 hr rivastigmine 1 patch TOPICAL DAILY 06/20/21 06/20/21 History Allergies Allergy/AdvReac Type Severity Reaction Status Date / Time Cipro Allergy Severe RASH Unverified 07/01/18 14:03 ciprofloxacin Allergy Severe RASH Verified 06/20/21 23:19 Penicillins Allergy Intermediate HIVES Verified 06/20/21 23:19 Sulfa (Sulfonamide Allergy Intermediate HIVES Verified 06/20/21 23:19 Antibiotics) latex Allergy Unknown Unknown Verified 06/20/21 23:19 cephalexin [From Keflex] Allergy Unknown Unverified 06/20/21 23:19 adhesive AdvReac Severe "THEY EAT Verified 06/20/21 23:19 MY SKIN." Iodinated Contrast Media AdvReac Intermediate Vomiting Verified 06/20/21 23:19 Quinolones AdvReac Mild YEAST Verified 06/20/21 23:19 INFECTION Cephalosporins AdvReac Unknown Unknown Verified 06/20/21 23:19 Ba Pepper AdvReac Intermediate GREEN Uncoded 03/16/21 14:43 PEPPER = MIGRAINE HEADACHE Past Med/Surg History Medical History (Updated 06/21/21 @ 01:14 by Elvie Tarango PA-C) Acute asthma exacerbation Acute kidney injury Anemia Asthma Chest pain Chronic kidney disease Colitis Crohn's disease Diabetes mellitus GI bleeding Hypertension Hypothyroidism Personal history of DVT (deep vein thrombosis) Pneumonia Pulmonary embolism Family History Other Family history non-contributory Social History Smoking Status: Unknown if ever smoked Second Hand Exposure: No; Hx Alcohol Use: No (rarely) Hx Substance Use: No Preferred Language: Khmer Communication Ability: Effective Global Sales Director Required: No Beliefs That Will Affect Care: None Current Living Situation: Alone Current Living Situation Comment: Per patient (Patient is confused) Feels Safe at Home: Yes Assistive Devices: Glasses Review of Systems Unobtainable due to reduced consciousness Physical Exam Vital Signs Vital Signs - 24 hr 06/20/21 21:03 06/20/21 21:20 06/20/21 21:27 Temperature 36.8 C 36.9 C Temperature Source Oral Pulse Rate 93 H 94 H Pulse Rate from SpO2 Sensor 93 H Pulse Rhythm Regular Respiratory Rate 30 H 20 Respiratory Effort / Characteristics Non-Labored Respiratory Depth Normal Blood Pressure 160/94 H 164/72 H Blood Pressure Mean 116 102 Blood Pressure Position Lying Pulse Oximetry 90 92 90 Oxygen Delivery Method Room Air Room Air Oxygen Flow Rate Sepsis Recent Fever Within 48 Hours No Sepsis New/Unexplained Change in Mental Status N/A Sepsis Action Taken by Nursing No Action Required 06/20/21 21:32 06/20/21 21:45 06/20/21 22:00 Temperature Temperature Source Pulse Rate 93 H 91 H 99 H Pulse Rate from SpO2 Sensor 93 H 91 H 93 H Pulse Rhythm Respiratory Rate 30 H 27 H 27 H Respiratory Effort / Characteristics Respiratory Depth Blood Pressure 147/96 H 143/91 H 147/84 H Blood Pressure Mean 113 108 105 Blood Pressure Position Pulse Oximetry 89 L 100 100 Oxygen Delivery Method Oxymask Oxymask Oxygen Flow Rate 5 5 Sepsis Recent Fever Within 48 Hours Sepsis New/Unexplained Change in Mental Status Sepsis Action Taken by Nursing 06/20/21 22:11 06/20/21 22:14 06/20/21 22:15 Temperature Temperature Source Pulse Rate 92 H Pulse Rate from SpO2 Sensor Pulse Rhythm Respiratory Rate 21 22 Respiratory Effort / Characteristics Spontaneous Respiratory Depth Blood Pressure 132/92 Blood Pressure Mean 105 Blood Pressure Position Pulse Oximetry 96 95 Oxygen Delivery Method Oxymask Oxymask Oxygen Flow Rate 5 3 Sepsis Recent Fever Within 48 Hours Sepsis New/Unexplained Change in Mental Status Sepsis Action Taken by Nursing 06/20/21 22:45 06/20/21 23:00 06/20/21 23:15 Temperature Temperature Source Pulse Rate 90 88 89 Pulse Rate from SpO2 Sensor Pulse Rhythm Respiratory Rate 29 H 30 H 26 H Respiratory Effort / Characteristics Non-Labored Spontaneous Respiratory Depth Blood Pressure 144/77 H 139/77 138/72 Blood Pressure Mean 99 97 94 Blood Pressure Position Pulse Oximetry 85 L 98 Oxygen Delivery Method Room Air Oxymask Oxygen Flow Rate 4 4 Sepsis Recent Fever Within 48 Hours Sepsis New/Unexplained Change in Mental Status Sepsis Action Taken by Nursing 06/20/21 23:30 06/20/21 23:48 06/21/21 00:00 Temperature Temperature Source Pulse Rate 88 Pulse Rate from SpO2 Sensor 86 88 91 H Pulse Rhythm Respiratory Rate 30 H Respiratory Effort / Characteristics Non-Labored Spontaneous Respiratory Depth Blood Pressure 137/83 133/100 121/75 Blood Pressure Mean 101 111 90 Blood Pressure Position Pulse Oximetry 97 100 100 Oxygen Delivery Method Oxymask Oxygen Flow Rate 4 Sepsis Recent Fever Within 48 Hours Sepsis New/Unexplained Change in Mental Status Sepsis Action Taken by Nursing VITALS: Vitals are noted on the nurse's note and reviewed by myself. Vital signs reviewed. GENERAL: Elderly female confused response to sternal rub SKIN: The skin was without rashes, erythema, edema, or bruising. There is no tenting of the skin. Capillary reflex less than 2 seconds. HEAD: Normocephalic atraumatic. EARS: External auditory canals clear EYES: Pupils equal round and reactive to light and accommodation. Conjunctivae without injection, sclerae without icterus. Extraocular movements intact. NOSE: Patent, turbinates without inflammation or discharge. MOUTH: Mucous membranes dry. Pharynx without erythema or exudate. Uvula midline. Airway patent. Tongue does not deviate. NECK: Supple without nuchal rigidity. No lymphadenopathy. No thyromegaly. Cervical spine is nontender. No JVD. HEART: Regular rate and rhythm LUNGS: Clear to auscultation bilaterally without wheezes, rales or rhonchi. No retractions or accessory muscle use. ABDOMEN: Positive bowel sounds x 4. Normal tympanic percussion. Soft, diffusely tender to palpation, without masses or organomegaly. Rey sign negative. No guarding or rebound tenderness. No CVA tenderness MUSCULOSKELETAL: No muscle atrophy, erythema, or edema noted. NEURO: Patient was alert to sternal rub and did follow commands but was confused appearing Course Administered Medications Discontinued Medications Sodium Chloride (Nss 1000ml) 1,000 mls @ 999 mls/hr IV .Q1H1M CAROL Stop: 06/20/21 22:45 Last Admin: 06/20/21 22:38 Dose: 999 mls/hr Documented by: [id number] Ceftriaxone Sodium (Rocephin) 2,000 mg in 70 mls @ 140 mls/hr IV NOW STA Stop: 06/20/21 22:41 Last Infusion: 06/21/21 00:28 Dose: 0 mls/hr Documented by: [id number] Admin: 06/20/21 22:38 Dose: 140 mls/hr Documented by: [id number] Sodium Chloride (Nss 1000ml) 1,000 mls @ 999 mls/hr IV .Q1H1M ONE Stop: 06/21/21 00:41 Last Admin: 06/20/21 23:58 Dose: 999 mls/hr Documented by: [id number] Insulin Human Regular (Novolin-R Insulin Per Unit Charge) 10 units IV NOW STA Stop: 06/20/21 23:42 Last Admin: 06/20/21 23:57 Dose: 10 units Documented by: [id number] Cosigned by: [id number] Impression & Plan Sepsis, AMS (altered mental status), Acute UTI, Lung mass, Acute hyperglycemia Discharge Plan Visit Data Chief Complaint: Unresponsive Stated Complaint: HYPERGLYCEMIC ED Provider: Ale Deleon ED Midlevel Provider: Elvie Tarango Discharge Problem: Sepsis, AMS (altered mental status), Acute UTI, Lung mass, Acute hyperglycemia Patient Disposition: Admitted As Inpatient Condition: Fair Forms Stand Alone Forms: [employer] Prescriptions Prescriptions: No Action acetaminophen [Tylenol] 325 mg Tablet 650 mg PO Q4 PRN (Reason: Fever Or Pain) RF: 0 atorvastatin [Lipitor] 10 mg Tablet 10 mg PO HS RF: 0 levetiracetam 500 mg tablet 500 mg PO AMPM RF: 0 cyanocobalamin (vitamin B-12) [Vitamin B-12] 1,000 mcg Tablet 1,000 mcg PO DAILY RF: 0 aspirin [Aspir-Low] 81 mg Tablet,Delayed Release (Dr/Ec) 81 mg PO DAILY RF: 0 levothyroxine 25 mcg tablet 25 mcg PO DAILY RF: 0 citalopram 20 mg tablet 20 mg PO HS RF: 0 famotidine 20 mg Tablet 20 mg PO BID RF: 0 magnesium hydroxide [Milk of Magnesia] 400 mg/5 mL Suspension 30 ml PO DAILY PRN (Reason: .NO BM 3 DAYS) RF: 0 methotrexate sodium 2.5 mg tablet 15 mg PO .QFRI RF: 0 insulin aspart U-100 [Novolog U-100 Insulin aspart] 100 unit/mL Solution 12 unit SUBCUT .ONCE TODAY RF: 0 pantoprazole [Protonix] 40 mg Tablet,Delayed Release (Dr/Ec) 40 mg PO DAILY RF: 0 isosorbide dinitrate 20 mg tablet 20 mg PO TID RF: 0 bumetanide 1 mg tablet 1 mg PO QAM RF: 0 folic acid 1 mg Tablet 1 mg PO DAILY RF: 0 heparin (porcine) 5,000 unit/mL solution 5,000 unit subcut BID RF: 0 ertapenem 1 gram recon soln 1 g IM UD RF: 0 ranolazine 500 mg tablet extended release 12 hr 500 mg PO AMHS RF: 0 cholecalciferol (vitamin D3) [Vitamin D3] 25 mcg (1,000 unit) Tablet 25 mcg PO DAILY RF: 0 rivastigmine 4.6 mg/24 hour patch 24 hour 1 patch topical DAILY RF: 0 Breo Ellipta 100-25 mcg/dose blister with device 1 ea INHALATION DAILY RF: 0 magnesium oxide 400 mg magnesium Tablet 400 mg PO DAILY RF: 0 Referrals Referrals: Sandra Scott DO [Primary Care Provider] - Medical Decision Making Medical Records Attestation: I reviewed the patient's medical records. Home Medications Current Medication List: was personally reviewed by me Laboratory Data Attestation: I reviewed the patient's lab results. Result diagrams: 06/20/21 22:14 06/20/21 22:14 Lab Results 06/20/21 06/20/21 06/20/21 Range/Units 21:07 21:52 22:14 WBC 4.41 L (4.8-10.8) K/uL RBC 3.14 L (4.2-5.4) M/uL Hgb 10.9 L (12.0-16.0) g/dL POC Hgb 11.2 L (12.0-16.0) g/dl Hct 35.8 L (37-47) % POC Hct 33 L (37-47) % MCV 114.0 H (80-100) fL MCH 34.7 H (25-34) pg MCHC 30.4 L (32-36) g/dL RDW Std Deviation 70.0 H (36.4-46.3) fL RDW Coeff of Taj 17.1 H (11.5-14.5) % Plt Count 134 (130-400) K/uL MPV 10.8 H (7.4-10.4) fL Immature Gran % (Auto) 0.7 % Neut % (Auto) 67.3 % Lymph % (Auto) 15.0 % Gonzales % (Auto) 16.8 % Eos % (Auto) 0.0 % Baso % (Auto) 0.2 % Neut # (Auto) 2.97 (1.4-6.5) K/uL Lymph # (Auto) 0.66 L (1.2-3.4) K/uL Gonzales # (Auto) 0.74 H (0.11-0.59) K/uL Eos # (Auto) 0.00 (0-0.5) K/uL Baso # (Auto) 0.01 (0-0.2) K/uL Immature Gran # (Auto) 0.03 H (0.00-0.02) K/uL Macrocytosis Present PT (9.0-12.0) Seconds INR (0.9-1.1) APTT (21.0-31.0) Seconds PTT Ratio POC pH 7.43 (7.35-7.45) POC pCO2 50 H (35-46) mmHg POC pO2 133 H (80-95) mmHg POC HCO3 33 H (19-24) mary kate/L POC Total CO2 35 H (24-31) mmol/L POC Base Excess 9.0 H (-9-1.8) mary kate/L POC ABG O2 Sat 99.0 H (90-95) % POC Sodium 152 H (135-144) mmol/L Sodium (136-145) mmol/L POC Potassium 4.0 (3.3-5.0) mmol/L Potassium (3.5-5.1) mmol/L Chloride (98-107) mmol/L Carbon Dioxide (21-32) mmol/L Anion Gap (3-11) BUN (7-18) mg/dl Creatinine (0.6-1.2) mg/dl Est Cr Clr Drug Dosing Est GFR ( Amer) ml/min Est GFR (Non-Af Amer) ml/min BUN/Creatinine Ratio (10-20) Glucose (70-99) mg/dl POC Glucose 508 H* (70-99) mg/dl Lactate (0.4-2.0) mmol/L Calcium (8.5-10.1) mg/dl Magnesium (1.8-2.4) mg/dl Total Bilirubin (0.2-1) mg/dl AST (15-37) U/L ALT (12-78) U/L Alkaline Phosphatase (45-117) U/L Troponin I (0-0.045) ng/ml Total Protein (6.4-8.2) gm/dl Albumin (3.4-5.0) gm/dl Globulin (2.5-4.0) gm/dl Albumin/Globulin Ratio (0.9-2) Beta-Hydroxybutyric Acd (0.2-2.81) mg/dl Procalcitonin (0-0.5) ng/ml COVID-19 Eval Order 06/20/21 06/20/21 06/20/21 Range/Units 22:14 22:14 22:14 WBC (4.8-10.8) K/uL RBC (4.2-5.4) M/uL Hgb (12.0-16.0) g/dL POC Hgb (12.0-16.0) g/dl Hct (37-47) % POC Hct (37-47) % MCV (80-100) fL MCH (25-34) pg MCHC (32-36) g/dL RDW Std Deviation (36.4-46.3) fL RDW Coeff of Taj (11.5-14.5) % Plt Count (130-400) K/uL MPV (7.4-10.4) fL Immature Gran % (Auto) % Neut % (Auto) % Lymph % (Auto) % Gonzales % (Auto) % Eos % (Auto) % Baso % (Auto) % Neut # (Auto) (1.4-6.5) K/uL Lymph # (Auto) (1.2-3.4) K/uL Gonzales # (Auto) (0.11-0.59) K/uL Eos # (Auto) (0-0.5) K/uL Baso # (Auto) (0-0.2) K/uL Immature Gran # (Auto) (0.00-0.02) K/uL Macrocytosis PT 10.1 (9.0-12.0) Seconds INR 1.0 (0.9-1.1) APTT 22.2 (21.0-31.0) Seconds PTT Ratio 0.8 POC pH (7.35-7.45) POC pCO2 (35-46) mmHg POC pO2 (80-95) mmHg POC HCO3 (19-24) mary kate/L POC Total CO2 (24-31) mmol/L POC Base Excess (-9-1.8) mary kate/L POC ABG O2 Sat (90-95) % POC Sodium (135-144) mmol/L Sodium 155 H (136-145) mmol/L POC Potassium (3.3-5.0) mmol/L Potassium 4.1 (3.5-5.1) mmol/L Chloride 119 H (98-107) mmol/L Carbon Dioxide 29 (21-32) mmol/L Anion Gap 6.0 (3-11) BUN 48 H (7-18) mg/dl Creatinine 2.62 H (0.6-1.2) mg/dl Est Cr Clr Drug Dosing Not Reportable Est GFR ( Amer) 20.5 ml/min Est GFR (Non-Af Amer) 17.7 ml/min BUN/Creatinine Ratio 18.4 (10-20) Glucose 712 H* (70-99) mg/dl POC Glucose (70-99) mg/dl Lactate (0.4-2.0) mmol/L Calcium 8.9 (8.5-10.1) mg/dl Magnesium 3.1 H (1.8-2.4) mg/dl Total Bilirubin 0.4 (0.2-1) mg/dl AST 13 L (15-37) U/L ALT 17 (12-78) U/L Alkaline Phosphatase 89 (45-117) U/L Troponin I 0.044 (0-0.045) ng/ml Total Protein 6.0 L (6.4-8.2) gm/dl Albumin 2.1 L (3.4-5.0) gm/dl Globulin 3.9 (2.5-4.0) gm/dl Albumin/Globulin Ratio 0.5 L (0.9-2) Beta-Hydroxybutyric Acd 0.99 (0.2-2.81) mg/dl Procalcitonin 18.64 H (0-0.5) ng/ml COVID-19 Eval Order 06/20/21 06/21/21 06/21/21 Range/Units 22:39 00:01 00:25 WBC (4.8-10.8) K/uL RBC (4.2-5.4) M/uL Hgb (12.0-16.0) g/dL POC Hgb (12.0-16.0) g/dl Hct (37-47) % POC Hct (37-47) % MCV (80-100) fL MCH (25-34) pg MCHC (32-36) g/dL RDW Std Deviation (36.4-46.3) fL RDW Coeff of Taj (11.5-14.5) % Plt Count (130-400) K/uL MPV (7.4-10.4) fL Immature Gran % (Auto) % Neut % (Auto) % Lymph % (Auto) % Gonzales % (Auto) % Eos % (Auto) % Baso % (Auto) % Neut # (Auto) (1.4-6.5) K/uL Lymph # (Auto) (1.2-3.4) K/uL Gonzales # (Auto) (0.11-0.59) K/uL Eos # (Auto) (0-0.5) K/uL Baso # (Auto) (0-0.2) K/uL Immature Gran # (Auto) (0.00-0.02) K/uL Macrocytosis PT (9.0-12.0) Seconds INR (0.9-1.1) APTT (21.0-31.0) Seconds PTT Ratio POC pH (7.35-7.45) POC pCO2 (35-46) mmHg POC pO2 (80-95) mmHg POC HCO3 (19-24) mary kate/L POC Total CO2 (24-31) mmol/L POC Base Excess (-9-1.8) mary kate/L POC ABG O2 Sat (90-95) % POC Sodium (135-144) mmol/L Sodium (136-145) mmol/L POC Potassium (3.3-5.0) mmol/L Potassium (3.5-5.1) mmol/L Chloride (98-107) mmol/L Carbon Dioxide (21-32) mmol/L Anion Gap (3-11) BUN (7-18) mg/dl Creatinine (0.6-1.2) mg/dl Est Cr Clr Drug Dosing Est GFR ( Amer) ml/min Est GFR (Non-Af Amer) ml/min BUN/Creatinine Ratio (10-20) Glucose (70-99) mg/dl POC Glucose 519 H* (70-99) mg/dl Lactate 2.7 H* (0.4-2.0) mmol/L Calcium (8.5-10.1) mg/dl Magnesium (1.8-2.4) mg/dl Total Bilirubin (0.2-1) mg/dl AST (15-37) U/L ALT (12-78) U/L Alkaline Phosphatase (45-117) U/L Troponin I (0-0.045) ng/ml Total Protein (6.4-8.2) gm/dl Albumin (3.4-5.0) gm/dl Globulin (2.5-4.0) gm/dl Albumin/Globulin Ratio (0.9-2) Beta-Hydroxybutyric Acd (0.2-2.81) mg/dl Procalcitonin (0-0.5) ng/ml COVID-19 Eval Order Covid19 at [facility] 06/21/21 Range/Units 00:27 WBC (4.8-10.8) K/uL RBC (4.2-5.4) M/uL Hgb (12.0-16.0) g/dL POC Hgb (12.0-16.0) g/dl Hct (37-47) % POC Hct (37-47) % MCV (80-100) fL MCH (25-34) pg MCHC (32-36) g/dL RDW Std Deviation (36.4-46.3) fL RDW Coeff of Taj (11.5-14.5) % Plt Count (130-400) K/uL MPV (7.4-10.4) fL Immature Gran % (Auto) % Neut % (Auto) % Lymph % (Auto) % Gonzales % (Auto) % Eos % (Auto) % Baso % (Auto) % Neut # (Auto) (1.4-6.5) K/uL Lymph # (Auto) (1.2-3.4) K/uL Gonzales # (Auto) (0.11-0.59) K/uL Eos # (Auto) (0-0.5) K/uL Baso # (Auto) (0-0.2) K/uL Immature Gran # (Auto) (0.00-0.02) K/uL Macrocytosis PT (9.0-12.0) Seconds INR (0.9-1.1) APTT (21.0-31.0) Seconds PTT Ratio POC pH (7.35-7.45) POC pCO2 (35-46) mmHg POC pO2 (80-95) mmHg POC HCO3 (19-24) mary kate/L POC Total CO2 (24-31) mmol/L POC Base Excess (-9-1.8) mary kate/L POC ABG O2 Sat (90-95) % POC Sodium (135-144) mmol/L Sodium (136-145) mmol/L POC Potassium (3.3-5.0) mmol/L Potassium (3.5-5.1) mmol/L Chloride (98-107) mmol/L Carbon Dioxide (21-32) mmol/L Anion Gap (3-11) BUN (7-18) mg/dl Creatinine (0.6-1.2) mg/dl Est Cr Clr Drug Dosing Est GFR ( Amer) ml/min Est GFR (Non-Af Amer) ml/min BUN/Creatinine Ratio (10-20) Glucose (70-99) mg/dl POC Glucose (70-99) mg/dl Lactate 1.7 (0.4-2.0) mmol/L Calcium (8.5-10.1) mg/dl Magnesium (1.8-2.4) mg/dl Total Bilirubin (0.2-1) mg/dl AST (15-37) U/L ALT (12-78) U/L Alkaline Phosphatase (45-117) U/L Troponin I (0-0.045) ng/ml Total Protein (6.4-8.2) gm/dl Albumin (3.4-5.0) gm/dl Globulin (2.5-4.0) gm/dl Albumin/Globulin Ratio (0.9-2) Beta-Hydroxybutyric Acd (0.2-2.81) mg/dl Procalcitonin (0-0.5) ng/ml COVID-19 Eval Order Imaging Data Attestation: I personally reviewed and interpreted this imaging study as follows: MDM Narrative Prior records/ancillary studies reviewed. Triage Nursing notes reviewed. Additional history obtained from EMS and nursing. The patient's history was concerning for increased confusion who is currently being treated for a UTI and hyperglycemia who was given [facility] the [facility]. Differential diagnosis: Etiologies such as sepsis, UTI, pneumonia, metabolic, electrolyte abno rmalities, cardiac sources, intracerebral event, toxicologic, neurologic, as well as others were entertained. Physical examination: As above. Pertinent findings were hyperglycemia and low O2 sats. Vital signs reviewed and revealed low oxygen saturation ER treatment provided: IV fluid resuscitation with Normal saline solution, 2000 mL bolus. Insulin Blood and urine cultures Antibiotics: Rocephin An order was placed for continuous cardiac monitoring. The monitor shows a rate of 60-1 10 with a sinus rhythm. On reassessment the patient vital signs improved. Diagnostics interpretation by me: ECG: Ordered for altered mental status EKG: Normal sinus, right bundle branch block, left anterior fascicular block, rate of 94, no acute ST-T wave changes. Impression right bundle branch block with a left anterior fascicular block interpreted by myself The labs revealed anemia, elevated procalcitonin LFTs revealed. Cardiac enzymes were 0.044. Serum Lactate measurement was elevated and repeat was negative. Blood and urine cultures are pending. Urine culture was [facility] from the [facility] and this was reviewed. She was sensitive to Rocephin. She is received this in the past. This was discussed with the pharmacist who agrees with giving Rocephin. ABG was reviewed Imaging studies: CT HEAD: No intracranial hemorrhage, mass effect or midline shift. There is no abnormal extra axial fluid collection. No evidence of acute infarct. Moderate periventricular white matter hypodensities are most consistent with chronic microangiopathy. The visualized paranasal sinuses and mastoid air cells are clear. No fracture. Radiologist: Melvi Quiñonez MD CT CHEST Without Contrast: A 1 cm left upper lobe mass is most consistent with malignancy. No consolidation. The heart size is within normal limits. Atherosclerosis without aneurysm. No fracture. Radiologist: Melvi Quiñonez MD Preliminary Findings Only See Final Report For Complete Findings CT ABDOMEN & PELVIS Without Contrast: Nonobstructing right renal calculi. The left kidney is atrophic compared to the right. No hydronephrosis. 1.4 cm left adrenal adenoma. The remaining solid organs are within normal limits. Cholecystectomy. There are 2 right anterior abdominal wall hernias which contain loops of normal caliber bowel. No obstruction. Diverticulosis. No fracture. Radiologist: Melvi Qiuñonez MD Consultation: A consultation was placed with the hospitalist. The case was discussed and diagnostics were reviewed. The patient was evaluated in the ER for further treatment. Exam and history seem consistent with UTI with sepsis with altered mental status with hyperglycemia without DKA. Patient was medicated as above. She was given fluids antibiotics and insulin. ABG was reviewed. She was not in DKA. Medicine was consulted. Patient was reassessed multiple times. She remained stable. Vital signs improved.
[2021-06-21] MEDS ORDERED: NovoLIN-R INSULIN PER UNIT CHARGE IV STA (02:01)
[2021-06-21] MEDS ORDERED: POTASSIUM CHLORIDE 20 MEQ in SODIUM CHLORIDE 0.45 % 1,000 ML IV SCH (02:30)
--- NOTE | 2021-06-21 02:33 | History & Physical Report ---
Date of Service June 21, 2021 Assessment & Plan (1) AMS (altered mental status): Plan: Mattie Harris is a 70-year-old female with past medical history significant for Crohn's disease, hypothyroidism, Parkinson's, hypertension, type 2 diabetes; who presented from detention earlier today for increased confusion in the setting of hyperglycemia. Altered mental status -Likely secondary to hyperglycemia in the setting of an infection without diabetic ketoacidosis -Received 10 units of insulin IV in ED, with correction of glucose to 508; additional 10 units of insulin given with correction of glucose to 400s -Uncorrected sodium of 155 in ED (corrected 165) indicating dehydration in the setting this hyperglycemia -Negative ketones, no anion gap -Potassium 4.1 in ED -Started on 1/2NS at 200 mL/h with 20 mEq of KCl -As hyperglycemia continues to correct into 200-300 range will transition to D5 1/2NS -BMPs, VBG, Phos q4h -Start insulin drip -Maintain NPO until improved mental status Urinary tract infection: -Urine culture from 06/17 demonstrating E. coli with multidrug resistant -Had been utilizing meropenem over the last several days -In ED received ceftriaxone (E. coli sensitive to this per report) Acute kidney injury: -Likely in the setting of dehydration from hyperglycemia -Creatinine 2.62 on admission -Continue to monitor with labs as following correction of hyperglycemia Seizure disorder: -Transition oral Keppra to IV Keppra Other chronic medical problems: -Holding remaining home medications until improved mental status Diet: NPO CODE STATUS: DNR/DNI DVT prophylaxis: Lovenox (2) Acute UTI: (3) Diabetes mellitus: (4) Hypothyroidism: (5) Crohn's disease: (6) Colitis: (7) Acute kidney injury: (8) Hyperglycemia without ketosis: History of Present Illness Chief Complaint: Altered mental status Primary Care Provider: Sandra Scott DO Mattie Harris is a 70-year-old female with past medical history significant for Crohn's disease, hypothyroidism, Parkinson's, hypertension, type 2 diabetes; who presented from detention earlier today for increased confusion in the setting of hyperglycemia. Of note patient recently has been on meropenem for a urinary tract infection, urine culture results from [facility] dated 06/17 demonstrate multidrug-resistant E. coli sensitive to ceftriaxone, cefepime, cefazolin, Zosyn, gentamicin. Upon presentation to EMS patient was responsive only to pain, with some resolution and improvement in the ED, with improvement in responsiveness to verbal stimuli. Of note, on presentation had a blood glucose level of 712; for this she received 10 units of IV insulin, as well as received 2 L bolus of normal saline. Received additional 10 units of IV insulin with partial correction of blood glucose in the ED. Allergies Allergy/AdvReac Type Severity Reaction Status Date / Time Cipro Allergy Severe RASH Unverified 07/01/18 14:03 ciprofloxacin Allergy Severe RASH Verified 06/20/21 23:19 Penicillins Allergy Intermediate HIVES Verified 06/20/21 23:19 Sulfa (Sulfonamide Allergy Intermediate HIVES Verified 06/20/21 23:19 Antibiotics) latex Allergy Unknown Unknown Verified 06/20/21 23:19 cephalexin [From Keflex] Allergy Unknown Unverified 06/20/21 23:19 green pepper Allergy Verified 06/21/21 11:06 adhesive AdvReac Severe "THEY EAT Verified 06/20/21 23:19 MY SKIN." Iodinated Contrast Media AdvReac Intermediate Vomiting Verified 06/20/21 23:19 Quinolones AdvReac Mild YEAST Verified 06/20/21 23:19 INFECTION Cephalosporins AdvReac Unknown Unknown Verified 06/20/21 23:19 Ba Pepper AdvReac Intermediate GREEN Uncoded 03/16/21 14:43 PEPPER = MIGRAINE HEADACHE Home Medications Medication Instructions Recorded Confirmed Type acetaminophen 325 mg tablet 650 mg PO Q4 PRN 06/20/21 06/20/21 History (Tylenol) aspirin 81 mg tablet,delayed 81 mg PO DAILY 06/20/21 06/20/21 History release atorvastatin 10 mg tablet (Lipitor) 10 mg PO HS 06/20/21 06/20/21 History bumetanide 1 mg tablet 1 mg PO QAM 06/20/21 06/20/21 History cholecalciferol (vitamin D3) 25 25 mcg PO DAILY 06/20/21 06/20/21 History mcg (1,000 unit) tablet (Vitamin D3) citalopram 20 mg tablet 20 mg PO HS 06/20/21 06/20/21 History cyanocobalamin (vitamin B-12) 1,000 mcg PO DAILY 06/20/21 06/20/21 History 1,000 mcg tablet (Vitamin B-12) ertapenem 1 gram solution for 1 g IM UD 06/20/21 06/20/21 History injection famotidine 20 mg tablet 20 mg PO BID 06/20/21 06/20/21 History fluticasone furoate 100 1 ea INHALATION DAILY 06/20/21 06/20/21 History mcg-vilanterol 25 mcg/dose inhalation powder (Breo Ellipta) folic acid 1 mg tablet 1 mg PO DAILY 06/20/21 06/20/21 History heparin (porcine) 5,000 unit/mL 5,000 unit SUBCUT BID 06/20/21 06/20/21 History injection solution insulin aspart U-100 100 unit/mL 12 unit SUBCUT .ONCE TODAY 06/20/21 06/20/21 History subcutaneous solution (Novolog U-100 Insulin aspart) isosorbide dinitrate 20 mg tablet 20 mg PO TID 06/20/21 06/20/21 History levetiracetam 500 mg tablet 500 mg PO AMPM 06/20/21 06/20/21 History levothyroxine 25 mcg tablet 25 mcg PO DAILY 06/20/21 06/20/21 History magnesium hydroxide 400 mg/5 mL 30 ml PO DAILY PRN 06/20/21 06/20/21 History oral suspension (Milk of Magnesia) magnesium oxide 400 mg PO DAILY 06/20/21 06/20/21 History methotrexate sodium 2.5 mg tablet 15 mg PO .QFRI 06/20/21 06/20/21 History pantoprazole 40 mg tablet,delayed 40 mg PO DAILY 06/20/21 06/20/21 History release (Protonix) ranolazine 500 mg tablet,extended 500 mg PO AMHS 06/20/21 06/20/21 History release,12 hr rivastigmine 1 patch TOPICAL DAILY 06/20/21 06/20/21 History Past Med/Surg History Medical History (Updated 06/24/21 @ 17:02 by Vik Pacheco MD) Acute asthma exacerbation Acute kidney injury Anemia Asthma Atrial fibrillation with RVR Chest pain Chronic kidney disease Colitis Crohn's disease Decreased oral intake Diabetes mellitus GI bleeding Hypernatremia Hypertension Hypothyroidism Palliative care encounter Personal history of DVT (deep vein thrombosis) Pneumonia POLST (Physician Orders for Life-Sustaining Treatment) Pulmonary embolism Weakness Family History Other Family history non-contributory Social History Smoking Status: Unknown if ever smoked Second Hand Exposure: No; Hx Alcohol Use: No Hx Substance Use: No Preferred Language: [place] Communication Ability: Impaired Devops Required: No Beliefs That Will Affect Care: None Current Living Situation: Residential Current Living Situation Comment: Per patient (Patient is confused) Feels Safe at Home: Yes Assistive Devices: Oxygen - Continuous Review of Systems Review of Systems: Unobtainable due to reduced consciousness Physical Exam Constitutional: + altered mental status, + frail appearing, + diaphoretic and + lethargic Eyes: PERRL and normal accommodation Respiratory: normal respiratory effort; no respiratory distress, no labored breathing, no retractions and does not use accessory muscles Auscultation: lungs clear to auscultation bilaterally; no crackles, no rales and no wheezes Cardiovascular: Rate/Rhythm: regular rate and regular rhythm Vessels: normal peripheral pulses; no JVD Extremities: + pedal edema; no calf tenderness Gastrointestinal (Abdomen): Inspection/Auscultation: normal bowel sounds; no abdominal edema Percussion/Palpation: + abdomen tender and abdomen soft; no guarding and abdomen not rigid Skin: + turgor decreased; no rashes, no ecchymosis, no erythema and no excoriations Neurologic: normal touch/pain/proprioception, deep tendon reflexes 2+ bilaterally, plantar reflexes intact bilaterally, moves all extremities and + obtunded Responsive to verbal stimuli Psychiatric: Orientation: + not alert and + not oriented x 3 Results & Data Results & Data ([facility]) Vital Signs (Past 12 Hours) Vital Signs Temp Pulse Resp BP Pulse Ox 06/21/21 02:00 82 22 153/88 H 99 06/21/21 01:30 151/96 H 100 06/21/21 01:01 119/72 100 06/21/21 00:45 125/72 100 06/21/21 00:30 140/65 100 06/21/21 00:15 93 H 13 130/101 H 99 06/21/21 00:00 121/75 100 06/20/21 23:48 88 30 H 133/100 100 06/20/21 23:30 137/83 97 06/20/21 23:15 89 26 H 138/72 98 06/20/21 23:00 88 30 H 139/77 85 L 06/20/21 22:45 90 29 H 144/77 H 06/20/21 22:15 92 H 22 132/92 06/20/21 22:14 95 06/20/21 22:11 21 96 06/20/21 22:00 99 H 27 H 147/84 H 100 06/20/21 21:45 91 H 27 H 143/91 H 100 06/20/21 21:32 93 H 30 H 147/96 H 89 L 06/20/21 21:27 90 06/20/21 21:20 36.9 C 94 H 20 164/72 H 92 06/20/21 21:03 36.8 C 93 H 30 H 160/94 H 90 Laboratory Results 06/21/21 06/21/21 06/21/21 Range/Units 03:08 02:17 02:04 WBC (4.8-10.8) K/uL RBC (4.2-5.4) M/uL Hgb (12.0-16.0) g/dL POC Hgb (12.0-16.0) g/dl Hct (37-47) % POC Hct (37-47) % MCV (80-100) fL MCH (25-34) pg MCHC (32-36) g/dL RDW Std Deviation (36.4-46.3) fL RDW Coeff of Taj (11.5-14.5) % Plt Count (130-400) K/uL MPV (7.4-10.4) fL Immature Gran % (Auto) % Neut % (Auto) % Lymph % (Auto) % [place] % (Auto) % Eos % (Auto) % Baso % (Auto) % Neut # (Auto) (1.4-6.5) K/uL Lymph # (Auto) (1.2-3.4) K/uL [place] # (Auto) (0.11-0.59) K/uL Eos # (Auto) (0-0.5) K/uL Baso # (Auto) (0-0.2) K/uL Immature Gran # (Auto) (0.00-0.02) K/uL Macrocytosis PT (9.0-12.0) Seconds INR (0.9-1.1) APTT (21.0-31.0) Seconds PTT Ratio POC pH (7.35-7.45) POC pCO2 (35-46) mmHg POC pO2 (80-95) mmHg POC HCO3 (19-24) mary kate/L POC Total CO2 (24-31) mmol/L POC Base Excess (-9-1.8) mary kate/L POC ABG O2 Sat (90-95) % POC Sodium (135-144) mmol/L Sodium (136-145) mmol/L POC Potassium (3.3-5.0) mmol/L Potassium (3.5-5.1) mmol/L Chloride (98-107) mmol/L Carbon Dioxide (21-32) mmol/L Anion Gap (3-11) BUN (7-18) mg/dl Creatinine (0.6-1.2) mg/dl Est Cr Clr Drug Dosing Est GFR ( Amer) ml/min Est GFR (Non-Af Amer) ml/min BUN/Creatinine Ratio (10-20) Glucose (70-99) mg/dl POC Glucose 385 H* 439 H* (70-99) mg/dl Lactate (0.4-2.0) mmol/L Calcium (8.5-10.1) mg/dl Magnesium (1.8-2.4) mg/dl Total Bilirubin (0.2-1) mg/dl AST (15-37) U/L ALT (12-78) U/L Alkaline Phosphatase (45-117) U/L Troponin I (0-0.045) ng/ml Total Protein (6.4-8.2) gm/dl Albumin (3.4-5.0) gm/dl Globulin (2.5-4.0) gm/dl Albumin/Globulin Ratio (0.9-2) Beta-Hydroxybutyric Acd (0.2-2.81) mg/dl Procalcitonin (0-0.5) ng/ml Urine Color Yellow Urine Appearance Cloudy A (Clear) Urine pH 5.0 (4.5-7.5) Ur Specific [place] 1.028 (1.000-1.030) Urine Protein Trace H (Negative) Urine Glucose (UA) 3+ H (Negative) Urine Ketones Negative (Negative) Urine Blood Trace H (Negative) Urine Nitrite Negative (Negative) Urine Bilirubin Negative (Negative) Urine Urobilinogen Negative (Negative) Ur Leukocyte Esterase Negative (Negative) Urine WBC (Auto) 1-5 (0-5) /hpf Urine RBC (Auto) 5-10 H (0-4) /hpf U Hyaline Cast (Auto) 0 (0-5) /lpf U Epithel Cells (Auto) 0-5 (0-5) /lpf Urine Bacteria (Auto) Negative (Negative) COVID-19 Eval Order SARS-CoV-2 (PCR) (Negative) 06/21/21 06/21/21 06/21/21 Range/Units 01:13 00:27 00:25 WBC (4.8-10.8) K/uL RBC (4.2-5.4) M/uL Hgb (12.0-16.0) g/dL POC Hgb (12.0-16.0) g/dl Hct (37-47) % POC Hct (37-47) % MCV (80-100) fL MCH (25-34) pg MCHC (32-36) g/dL RDW Std Deviation (36.4-46.3) fL RDW Coeff of Taj (11.5-14.5) % Plt Count (130-400) K/uL MPV (7.4-10.4) fL Immature Gran % (Auto) % Neut % (Auto) % Lymph % (Auto) % [place] % (Auto) % Eos % (Auto) % Baso % (Auto) % Neut # (Auto) (1.4-6.5) K/uL Lymph # (Auto) (1.2-3.4) K/uL [place] # (Auto) (0.11-0.59) K/uL Eos # (Auto) (0-0.5) K/uL Baso # (Auto) (0-0.2) K/uL Immature Gran # (Auto) (0.00-0.02) K/uL Macrocytosis PT (9.0-12.0) Seconds INR (0.9-1.1) APTT (21.0-31.0) Seconds PTT Ratio POC pH (7.35-7.45) POC pCO2 (35-46) mmHg POC pO2 (80-95) mmHg POC HCO3 (19-24) mary kate/L POC Total CO2 (24-31) mmol/L POC Base Excess (-9-1.8) mary kate/L POC ABG O2 Sat (90-95) % POC Sodium (135-144) mmol/L Sodium (136-145) mmol/L POC Potassium (3.3-5.0) mmol/L Potassium (3.5-5.1) mmol/L Chloride (98-107) mmol/L Carbon Dioxide (21-32) mmol/L Anion Gap (3-11) BUN (7-18) mg/dl Creatinine (0.6-1.2) mg/dl Est Cr Clr Drug Dosing Est GFR ( Amer) ml/min Est GFR (Non-Af Amer) ml/min BUN/Creatinine Ratio (10-20) Glucose (70-99) mg/dl POC Glucose 471 H* 519 H* (70-99) mg/dl Lactate 1.7 (0.4-2.0) mmol/L Calcium (8.5-10.1) mg/dl Magnesium (1.8-2.4) mg/dl Total Bilirubin (0.2-1) mg/dl AST (15-37) U/L ALT (12-78) U/L Alkaline Phosphatase (45-117) U/L Troponin I (0-0.045) ng/ml Total Protein (6.4-8.2) gm/dl Albumin (3.4-5.0) gm/dl Globulin (2.5-4.0) gm/dl Albumin/Globulin Ratio (0.9-2) Beta-Hydroxybutyric Acd (0.2-2.81) mg/dl Procalcitonin (0-0.5) ng/ml Urine Color Urine Appearance (Clear) Urine pH (4.5-7.5) Ur Specific [place] (1.000-1.030) Urine Protein (Negative) Urine Glucose (UA) (Negative) Urine Ketones (Negative) Urine Blood (Negative) Urine Nitrite (Negative) Urine Bilirubin (Negative) Urine Urobilinogen (Negative) Ur Leukocyte Esterase (Negative) Urine WBC (Auto) (0-5) /hpf Urine RBC (Auto) (0-4) /hpf U Hyaline Cast (Auto) (0-5) /lpf U Epithel Cells (Auto) (0-5) /lpf Urine Bacteria (Auto) (Negative) COVID-19 Eval Order SARS-CoV-2 (PCR) (Negative) 06/21/21 06/21/21 06/20/21 Range/Units 00:01 00:01 22:39 WBC (4.8-10.8) K/uL RBC (4.2-5.4) M/uL Hgb (12.0-16.0) g/dL POC Hgb (12.0-16.0) g/dl Hct (37-47) % POC Hct (37-47) % MCV (80-100) fL MCH (25-34) pg MCHC (32-36) g/dL RDW Std Deviation (36.4-46.3) fL RDW Coeff of Taj (11.5-14.5) % Plt Count (130-400) K/uL MPV (7.4-10.4) fL Immature Gran % (Auto) % Neut % (Auto) % Lymph % (Auto) % [place] % (Auto) % Eos % (Auto) % Baso % (Auto) % Neut # (Auto) (1.4-6.5) K/uL Lymph # (Auto) (1.2-3.4) K/uL [place] # (Auto) (0.11-0.59) K/uL Eos # (Auto) (0-0.5) K/uL Baso # (Auto) (0-0.2) K/uL Immature Gran # (Auto) (0.00-0.02) K/uL Macrocytosis PT (9.0-12.0) Seconds INR (0.9-1.1) APTT (21.0-31.0) Seconds PTT Ratio POC pH (7.35-7.45) POC pCO2 (35-46) mmHg POC pO2 (80-95) mmHg POC HCO3 (19-24) mary kate/L POC Total CO2 (24-31) mmol/L POC Base Excess (-9-1.8) mary kate/L POC ABG O2 Sat (90-95) % POC Sodium (135-144) mmol/L Sodium (136-145) mmol/L POC Potassium (3.3-5.0) mmol/L Potassium (3.5-5.1) mmol/L Chloride (98-107) mmol/L Carbon Dioxide (21-32) mmol/L Anion Gap (3-11) BUN (7-18) mg/dl Creatinine (0.6-1.2) mg/dl Est Cr Clr Drug Dosing Est GFR ( Amer) ml/min Est GFR (Non-Af Amer) ml/min BUN/Creatinine Ratio (10-20) Glucose (70-99) mg/dl POC Glucose (70-99) mg/dl Lactate 2.7 H* (0.4-2.0) mmol/L Calcium (8.5-10.1) mg/dl Magnesium (1.8-2.4) mg/dl Total Bilirubin (0.2-1) mg/dl AST (15-37) U/L ALT (12-78) U/L Alkaline Phosphatase (45-117) U/L Troponin I (0-0.045) ng/ml Total Protein (6.4-8.2) gm/dl Albumin (3.4-5.0) gm/dl Globulin (2.5-4.0) gm/dl Albumin/Globulin Ratio (0.9-2) Beta-Hydroxybutyric Acd (0.2-2.81) mg/dl Procalcitonin (0-0.5) ng/ml Urine Color Urine Appearance (Clear) Urine pH (4.5-7.5) Ur Specific [place] (1.000-1.030) Urine Protein (Negative) Urine Glucose (UA) (Negative) Urine Ketones (Negative) Urine Blood (Negative) Urine Nitrite (Negative) Urine Bilirubin (Negative) Urine Urobilinogen (Negative) Ur Leukocyte Esterase (Negative) Urine WBC (Auto) (0-5) /hpf Urine RBC (Auto) (0-4) /hpf U Hyaline Cast (Auto) (0-5) /lpf U Epithel Cells (Auto) (0-5) /lpf Urine Bacteria (Auto) (Negative) COVID-19 Eval Order Covid19 at [facility] SARS-CoV-2 (PCR) NEGATIVE (Negative) 06/20/21 06/20/21 06/20/21 Range/Units 22:14 22:14 22:14 WBC (4.8-10.8) K/uL RBC (4.2-5.4) M/uL Hgb (12.0-16.0) g/dL POC Hgb (12.0-16.0) g/dl Hct (37-47) % POC Hct (37-47) % MCV (80-100) fL MCH (25-34) pg MCHC (32-36) g/dL RDW Std Deviation (36.4-46.3) fL RDW Coeff of Taj (11.5-14.5) % Plt Count (130-400) K/uL MPV (7.4-10.4) fL Immature Gran % (Auto) % Neut % (Auto) % Lymph % (Auto) % [place] % (Auto) % Eos % (Auto) % Baso % (Auto) % Neut # (Auto) (1.4-6.5) K/uL Lymph # (Auto) (1.2-3.4) K/uL [place] # (Auto) (0.11-0.59) K/uL Eos # (Auto) (0-0.5) K/uL Baso # (Auto) (0-0.2) K/uL Immature Gran # (Auto) (0.00-0.02) K/uL Macrocytosis PT 10.1 (9.0-12.0) Seconds INR 1.0 (0.9-1.1) APTT 22.2 (21.0-31.0) Seconds PTT Ratio 0.8 POC pH (7.35-7.45) POC pCO2 (35-46) mmHg POC pO2 (80-95) mmHg POC HCO3 (19-24) mary kate/L POC Total CO2 (24-31) mmol/L POC Base Excess (-9-1.8) mary kate/L POC ABG O2 Sat (90-95) % POC Sodium (135-144) mmol/L Sodium 155 H (136-145) mmol/L POC Potassium (3.3-5.0) mmol/L Potassium 4.1 (3.5-5.1) mmol/L Chloride 119 H (98-107) mmol/L Carbon Dioxide 29 (21-32) mmol/L Anion Gap 6.0 (3-11) BUN 48 H (7-18) mg/dl Creatinine 2.62 H (0.6-1.2) mg/dl Est Cr Clr Drug Dosing Not Reportable Est GFR ( Amer) 20.5 ml/min Est GFR (Non-Af Amer) 17.7 ml/min BUN/Creatinine Ratio 18.4 (10-20) Glucose 712 H* (70-99) mg/dl POC Glucose (70-99) mg/dl Lactate (0.4-2.0) mmol/L Calcium 8.9 (8.5-10.1) mg/dl Magnesium 3.1 H (1.8-2.4) mg/dl Total Bilirubin 0.4 (0.2-1) mg/dl AST 13 L (15-37) U/L ALT 17 (12-78) U/L Alkaline Phosphatase 89 (45-117) U/L Troponin I 0.044 (0-0.045) ng/ml Total Protein 6.0 L (6.4-8.2) gm/dl Albumin 2.1 L (3.4-5.0) gm/dl Globulin 3.9 (2.5-4.0) gm/dl Albumin/Globulin Ratio 0.5 L (0.9-2) Beta-Hydroxybutyric Acd 0.99 (0.2-2.81) mg/dl Procalcitonin 18.64 H (0-0.5) ng/ml Urine Color Urine Appearance (Clear) Urine pH (4.5-7.5) Ur Specific [place] (1.000-1.030) Urine Protein (Negative) Urine Glucose (UA) (Negative) Urine Ketones (Negative) Urine Blood (Negative) Urine Nitrite (Negative) Urine Bilirubin (Negative) Urine Urobilinogen (Negative) Ur Leukocyte Esterase (Negative) Urine WBC (Auto) (0-5) /hpf Urine RBC (Auto) (0-4) /hpf U Hyaline Cast (Auto) (0-5) /lpf U Epithel Cells (Auto) (0-5) /lpf Urine Bacteria (Auto) (Negative) COVID-19 Eval Order SARS-CoV-2 (PCR) (Negative) 06/20/21 06/20/21 06/20/21 Range/Units 22:14 21:52 21:07 WBC 4.41 L (4.8-10.8) K/uL RBC 3.14 L (4.2-5.4) M/uL Hgb 10.9 L (12.0-16.0) g/dL POC Hgb 11.2 L (12.0-16.0) g/dl Hct 35.8 L (37-47) % POC Hct 33 L (37-47) % MCV 114.0 H (80-100) fL MCH 34.7 H (25-34) pg MCHC 30.4 L (32-36) g/dL RDW Std Deviation 70.0 H (36.4-46.3) fL RDW Coeff of Taj 17.1 H (11.5-14.5) % Plt Count 134 (130-400) K/uL MPV 10.8 H (7.4-10.4) fL Immature Gran % (Auto) 0.7 % Neut % (Auto) 67.3 % Lymph % (Auto) 15.0 % [place] % (Auto) 16.8 % Eos % (Auto) 0.0 % Baso % (Auto) 0.2 % Neut # (Auto) 2.97 (1.4-6.5) K/uL Lymph # (Auto) 0.66 L (1.2-3.4) K/uL [place] # (Auto) 0.74 H (0.11-0.59) K/uL Eos # (Auto) 0.00 (0-0.5) K/uL Baso # (Auto) 0.01 (0-0.2) K/uL Immature Gran # (Auto) 0.03 H (0.00-0.02) K/uL Macrocytosis Present PT (9.0-12.0) Seconds INR (0.9-1.1) APTT (21.0-31.0) Seconds PTT Ratio POC pH 7.43 (7.35-7.45) POC pCO2 50 H (35-46) mmHg POC pO2 133 H (80-95) mmHg POC HCO3 33 H (19-24) mary kate/L POC Total CO2 35 H (24-31) mmol/L POC Base Excess 9.0 H (-9-1.8) mary kate/L POC ABG O2 Sat 99.0 H (90-95) % POC Sodium 152 H (135-144) mmol/L Sodium (136-145) mmol/L POC Potassium 4.0 (3.3-5.0) mmol/L Potassium (3.5-5.1) mmol/L Chloride (98-107) mmol/L Carbon Dioxide (21-32) mmol/L Anion Gap (3-11) BUN (7-18) mg/dl Creatinine (0.6-1.2) mg/dl Est Cr Clr Drug Dosing Est GFR ( Amer) ml/min Est GFR (Non-Af Amer) ml/min BUN/Creatinine Ratio (10-20) Glucose (70-99) mg/dl POC Glucose 508 H* (70-99) mg/dl Lactate (0.4-2.0) mmol/L Calcium (8.5-10.1) mg/dl Magnesium (1.8-2.4) mg/dl Total Bilirubin (0.2-1) mg/dl AST (15-37) U/L ALT (12-78) U/L Alkaline Phosphatase (45-117) U/L Troponin I (0-0.045) ng/ml Total Protein (6.4-8.2) gm/dl Albumin (3.4-5.0) gm/dl Globulin (2.5-4.0) gm/dl Albumin/Globulin Ratio (0.9-2) Beta-Hydroxybutyric Acd (0.2-2.81) mg/dl Procalcitonin (0-0.5) ng/ml Urine Color Urine Appearance (Clear) Urine pH (4.5-7.5) Ur Specific [place] (1.000-1.030) Urine Protein (Negative) Urine Glucose (UA) (Negative) Urine Ketones (Negative) Urine Blood (Negative) Urine Nitrite (Negative) Urine Bilirubin (Negative) Urine Urobilinogen (Negative) Ur Leukocyte Esterase (Negative) Urine WBC (Auto) (0-5) /hpf Urine RBC (Auto) (0-4) /hpf U Hyaline Cast (Auto) (0-5) /lpf U Epithel Cells (Auto) (0-5) /lpf Urine Bacteria (Auto) (Negative) COVID-19 Eval Order SARS-CoV-2 (PCR) (Negative) Diagnostic Findings CT HEAD: No intracranial hemorrhage, mass effect or midline shift. There is no abnormal extra axial fluid collection. No evidence of acute infarct. Moderate periventricular white matter hypodensities are most consistent with chronic microangiopathy. The visualized paranasal sinuses and mastoid air cells are clear. No fracture. Radiologist: Melvi Quiñonez MD CT CHEST Without Contrast: A 1 cm left upper lobe mass is most consistent with malignancy. No consolidation. The heart size is within normal limits. Atherosclerosis without aneurysm. No fracture. Radiologist: Melvi Quiñonez MD CT ABDOMEN & PELVIS Without Contrast: Nonobstructing right renal calculi. The left kidney is atrophic compared to the right. No hydronephrosis. 1.4 cm left adrenal adenoma. The remaining solid organs are within normal limits. Cholecystectomy. There are 2 right anterior abdominal wall hernias which contain loops of normal caliber bowel. No obstruction. Diverticulosis. No fracture. Radiologist: Melvi Quiñonez MD Medications Administered Home Medication List Medication Instructions Recorded acetaminophen 325 mg tablet 650 mg PO Q4 PRN 06/20/21 (Tylenol) aspirin 81 mg tablet,delayed 81 mg PO DAILY 06/20/21 release atorvastatin 10 mg tablet (Lipitor) 10 mg PO HS 06/20/21 bumetanide 1 mg tablet 1 mg PO QAM 06/20/21 cholecalciferol (vitamin D3) 25 25 mcg PO DAILY 06/20/21 mcg (1,000 unit) tablet (Vitamin D3) citalopram 20 mg tablet 20 mg PO HS 06/20/21 cyanocobalamin (vitamin B-12) 1,000 mcg PO DAILY 06/20/21 1,000 mcg tablet (Vitamin B-12) ertapenem 1 gram solution for 1 g IM UD 06/20/21 injection famotidine 20 mg tablet 20 mg PO BID 06/20/21 fluticasone furoate 100 1 ea INHALATION DAILY 06/20/21 mcg-vilanterol 25 mcg/dose inhalation powder (Breo Ellipta) folic acid 1 mg tablet 1 mg PO DAILY 06/20/21 heparin (porcine) 5,000 unit/mL 5,000 unit SUBCUT BID 06/20/21 injection solution insulin aspart U-100 100 unit/mL 12 unit SUBCUT .ONCE TODAY 06/20/21 subcutaneous solution (Novolog U-100 Insulin aspart) isosorbide dinitrate 20 mg tablet 20 mg PO TID 06/20/21 levetiracetam 500 mg tablet 500 mg PO AMPM 06/20/21 levothyroxine 25 mcg tablet 25 mcg PO DAILY 06/20/21 magnesium hydroxide 400 mg/5 mL 30 ml PO DAILY PRN 06/20/21 oral suspension (Milk of Magnesia) magnesium oxide 400 mg PO DAILY 06/20/21 methotrexate sodium 2.5 mg tablet 15 mg PO .QFRI 06/20/21 pantoprazole 40 mg tablet,delayed 40 mg PO DAILY 06/20/21 release (Protonix) ranolazine 500 mg tablet,extended 500 mg PO AMHS 06/20/21 release,12 hr rivastigmine 1 patch TOPICAL DAILY 06/20/21 Code Status & VTE Plan VTE Prophylaxis Plan VTE Prophylaxis will be ordered: Yes Supervising Physician Co-Signing Physician Notes Attending addendum: I have physically seen this patient, have supervised the medical residents activities, and agree with the H&P unless as otherwise noted. Assessment and Plan: Hyperglycemia- glucose 712 upon admission. Status post 10 units of regular insulin IV, with improvement to 508 Second round of 10 units of regular insulin IV, improvement to low 400s Placing on half-normal saline with KCl 20 mEq at 200 mils per hour, and adjust per protocol Follow serial BMP, magnesium, VBG and phosphorus at 4-hour intervals Insulin drip per protocol N.p.o. until patient's mental status is no longer altered and able to respond Urinary tract infection- Multidrug-resistant E. coli noted from urine culture on 06/17. Continue ceftriaxone 2 g IV daily Acute kidney injury- Creatinine 2.60 upon admission, with baseline 0.92 IV fluids as noted, and follow serial labs as noted Remaining orders and notations as noted Resident Activity Tracking Resident Involvement: Resident Care Provided Care Provided: Adult Hospital Medicine
[2021-06-21 02:36] LABS: Appearance Urine Cloudy (Clear); Bacteria Urine Automated Negative (Negative); Bilirubin Urine Negative (Negative); Blood Urine Trace (Negative); Cast Urine Automated 0 /lpf (0-5); Color Urine Yellow; Epithelial Cell Urine Auto 0-5 /lpf (0-5); Glucose Urine UA 3+ (Negative); Ketones Urine Negative (Negative); Leukocyte Esterase Urine Negative (Negative); Nitrite Urine Negative (Negative); Protein Urine Trace (Negative); Specific Gravity Urine 1.028 (1.000-1.030); Urobilinogen Urine Negative (Negative)
[2021-06-21] MEDS ORDERED: ENOXAPARIN INJ 40 MG/0.4 ML SYR SQ SCH (03:45)
[2021-06-21] MEDS ORDERED: GLUCOSE 10 TABS/TUBE PO PRN (03:45)
[2021-06-21] MEDS ORDERED: GLUCOSE 40% GEL 15 GM TUBE PO PRN (03:45)
[2021-06-21] MEDS ORDERED: GLUCAGON FOR INJ 1 MG VIAL SQ PRN (03:45)
[2021-06-21 04:01] LABS: Basophils # (auto) 0.01 K/uL (0-0.2); Basophils % (auto) 0.2 %; Hematocrit (blood only) 36.9 % (37-47); Hemoglobin 11.3 g/dL (12.0-16.0); Immature Granulocytes # (auto) 0.05 K/uL (0.00-0.02); Immature Granulocytes % (auto) 0.8 %; Lymphocytes # (auto) 1.27 K/uL (1.2-3.4); Lymphocytes % (auto) 20.6 %; Mean Corpuscular Hemoglobin 34.7 pg (25-34); Mean Corpuscular Hgb Conc 30.6 g/dL (32-36); Mean Corpuscular Volume 113.2 fL (80-100); Mean Platelet Volume 11.1 fL (7.4-10.4); Monocytes # (auto) 0.98 K/uL (0.11-0.59); Monocytes % (auto) 15.9 %; Neutrophils # (auto) 3.87 K/uL (1.4-6.5); Neutrophils % (auto) 62.5 %; Platelet Count 120 K/uL (130-400); RDW Coefficient of Variation 17.1 % (11.5-14.5); RDW Standard Deviation 69.6 fL (36.4-46.3); Red Blood Count 3.26 M/uL (4.2-5.4); White Blood Count 6.18 K/uL (4.8-10.8)
[2021-06-21] MEDS ORDERED: PHARMACY GLYCEMIC MGMT CONSULT STA (04:11)
[2021-06-21] MEDS ORDERED: STAT IV Infusion **Titration per Protocol STA ×2 (04:13)
[2021-06-21] MEDS ORDERED: PENDING D5 1/2NS+20mEq KCL IVF SCH (04:15)
[2021-06-21] MEDS ORDERED: INSULIN REGULAR 250 UNITS in SODIUM CHLORIDE 0.9% 247.5 ML IV SCH ×2 (04:15→04:45)
[2021-06-21 04:23] LABS: Macrocytosis Present
[2021-06-21 04:28] LABS: BUN Creatinine Ratio 19.4 (10-20); Calcium 8.7 mg/dl (8.5-10.1); Creatinine Clr Calc Pharmacy 12.8 ml/min; Est GFR (African American) 23.5 ml/min; Est GFR (Non-African American) 20.3 ml/min; Magnesium 3.2 mg/dl (1.8-2.4); Phosphorus 2.8 mg/dl (2.5-4.9); Potassium 4.2 mmol/L (3.5-5.1)
[2021-06-21] MEDS ORDERED: NovoLIN-R BOLUS FROM BAG IV ONE ×2 (04:45→06:15)
[2021-06-21 04:53] LABS: Beta-Hydroxybutyrate 0.65 mg/dl (0.2-2.81)
[2021-06-21] MEDS: SODIUM CHLOR 0.45% + 20MEQ KCL 20 MEQ/1,000 ML BAG IV SCH ×2 (05:06→10:58)
--- NOTE | 2021-06-21 06:43 | XRay Report ---
XR chest 1V portable CLINICAL HISTORY: SEPSIS COMPARISON STUDY: Chest radiograph March 16, 2021. FINDINGS: There is no pneumothorax or pleural effusion. Old left second rib fracture is noted. There is no evidence for pulmonary edema. There is no consolidation. Note is made of a double density of th e aortic arch with an overlying 4.4 cm density. IMPRESSION: Abnormal contour of the aortic arch suspicious for a mass. Chest CT is recommended. ACT 112: Negative or not required by law. Electronically signed by: Alejo Mott M.D. 06/21/2021 6:42 AM
--- NOTE | 2021-06-21 06:57 | CT Scan Report ---
CT OF THE HEAD WITHOUT CONTRAST CLINICAL HISTORY: Altered mental status. COMPARISON STUDY: Head CT March 16, 2021. TECHNIQUE: Helical axial images of the head were obtained without IV contrast. Automated exposure con trol was utilized for the study. A dose lowering technique was utilized adhering to the principles o f ALARA. FINDINGS: No acute intracranial hemorrhage, midline shift or mass effect is present. The ventricular system is unremarkable. The basal cisterns are patent. No extra-axial collections are present. White matter hypodensities are unchanged and suggest small vessel disease. There are no findings to suggest acute dural sinus thrombosis or acute territorial infarct. No significant calvarial abnormalities ar e present. There are postoperative findings within the sinuses. IMPRESSION: No acute intracranial findings. No change in appearance of the brain. ACT 112: Negative or not required by law. Electronically signed by: Alejo Mott M.D. 06/21/2021 6:56 AM
[2021-06-21 07:16] LABS: Estimated Average Glucose 214 mg/dl; Hemoglobin A1C 9.1 % (4.5-5.6)
[2021-06-21] MEDS: INSULIN ASPART 100 UNITS/ML 3 ML PEN SC SCH ×4 (07:29→20:29)
[2021-06-21] MEDS: HEPARIN SOD 5,000 UNIT/0.5 ML VIAL SC SCH ×2 (07:32→20:29)
[2021-06-21] MEDS: levETIRAcetam 500 MG in 0.9 % SODIUM CHLORIDE 100 ML IV SCH ×2 (07:32→20:47)
--- NOTE | 2021-06-21 07:39 | CT Scan Report ---
CT chest diagnostic wo con CLINICAL HISTORY: Unresponsive patient. Sepsis. Abnormal chest x-ray suspicious for a mediastinal mas s. COMPARISON STUDY: Chest x-ray dated 06/20/2021, CT scan dated 10/01/2018 CT DOSE: TECHNIQUE: CT of the thorax was performed from the thoracic inlet to the lung bases. Images are revi ewed in the axial, sagittal, and coronal planes. IV contrast was not administered for this examinatio n. A dose lowering technique was utilized adhering to the principles of ALARA. FINDINGS: Thyroid: Imaged portions of the thyroid gland are normal in appearance. Thoracic aorta: There is ectasia of the ascending thoracic aorta which measures 42 mm. Heart: There are coronary artery calcifications. There is no significant pericardial effusion Lungs and pleural spaces: There are no pleural effusions. There is a 4.6 mm left lower lobe lung cyst . There are dependent atelectatic changes. There is a 7 mm groundglass right lower lobe pulmonary nod ule. There is a 5 mm groundglass right middle lobe pulmonary nodule. There are a few scattered left u pper lobe pulmonary micronodules.. there is a lobulated 5.5 cm left upper lobe pulmonary mass abuttin g the mediastinum. This is viewed as highly suspicious for malignancy. Mediastinum: There are no pathologically enlarged mediastinal lymph nodes. Misa: There is no evidence of pathologic hilar adenopathy given the limitations of a noncontrast stud y Axilla: There is no evidence of pathologic axillary lymphadenopathy. Upper abdomen: There is a 9 mm left adrenal myelolipoma. There is right-sided nephrolithiasis. Skeletal structures: There are no lytic or blastic osseous lesions. IMPRESSION: 1. 5.5 cm lobulated left upper lobe pulmonary mass abutting the mediastinum. This should be presumed neoplastic unless proven otherwise. Pulmonary consultation recommended ACT 112: Negative or not required by law. Electronically signed by: Fady Pineda M.D. 06/21/2021 7:37 AM
--- NOTE | 2021-06-21 07:44 | Hospitalist Progress Note ---
Date of Service June 21, 2021 Assessment & Plan (1) AMS (altered mental status): Plan: Mattie Harris is a 70-year-old female with past medical history significant for Crohn's disease, hypothyroidism, Parkinson's, hypertension, type 2 diabetes; who presented from [facility] earlier today for increased confusion in the setting of hyperglycemia. Hyperosmolar hyperglycemic state Likely triggered by urinary tract infection (below) in the setting of poorly- controlled DM2 and poor nutritional status Patient without ketones, anion gap Received 10u of insulin IV in ED - BSG improved to 508; additional 10u of insulin given - BSG improved to 400s Corrected sodium on arrival 165, indicating dehydration in the setting this hyperglycemia; patient with signs of volume depletion Potassium on arrival 4.1 Continue insulin gtt Patient initially placed on 1/2NSS at 200mL/hr with 20mEq KCl BSG improved to sub-300; IVF changed to D5 1/2NSS at same rate BMPs, VBG, Phos q4h Maintain NPO until AMS improves Phos repletion not indicated unless phos falls below 1.0 Hypernatremia In the setting of (and likely secondary to) chronic poor PO intake as endorsed by patient's family members Na continues gradual improvement at appropriate rate Continue administration of free water balanced with IVF necessary for treatment of HHS - currently D5 1/2NSS Atrial fibrillation Patient found in afib in AM of 06/21, had been in NSR in ED Unclear if 2/2 HHS, if patient had been going in and out of afib prior to admission, or if this represents actual new-onset afib; less likely the latter Discussed with Dr. Rodrigues - given lack of hemodynamic instability or overt symptoms clearly linked to afib, patient doesn't appear to require urgent cardioversion Hesitant to rate-control at this time, as HR has largely stayed under 110, patient has demonstrated gradual but consistent clinical improvement Additionally, would like to avoid risks a/w blunting patient's ongoing physiologic response to HHS treatment and fluid/electrolyte shifts with rate control meds Continue close hemodynamic monitoring, continue careful monitoring and repletion of potassium Urinary tract infection Urine culture from 06/17 demonstrating E. coli with multidrug resistant Had been utilizing meropenem over the last several days In ED received ceftriaxone (E. coli sensitive to this per report) Acute kidney injury Likely in the setting of dehydration from hyperglycemia Creatinine 2.62 on admission Continue to monitor with labs as following correction of hyperglycemia Seizure disorder Continue keppra IV; plan to transition back to home dose oral keppra when AMS improves Other chronic medical problems Holding remaining home medications until improved mental status FEN: NPO Code status: DNR/DNI DVT ppx: lovenox Isolation: none Consults: none Dispo: PCU (2) Acute UTI: (3) Diabetes mellitus: (4) Hypothyroidism: (5) Crohn's disease: (6) Colitis: (7) Acute kidney injury: (8) Hyperglycemia without ketosis: Admission and Anticipated Discharge Date Admission Date: June 21, 2021 Supervising Physician Co-Signing Physician Notes I personally examined the patient and verified all syed points of history and exam, discussed case, and agree with decision making with Dr Singh. More awake and alert, does not know where she is but is at least able to voice this. At first does not recognize her sisters, but once they take off their masks she is able to name them. Her 1 sister notes that she has not been drinking well for quite a while since being put on thickened liquids. 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 Vitals noted, in general she is awake and alert but disoriented. No distress. HEENT normocephalic atraumatic mucous membranes moist. Breathing unlabored no accessory muscle use good effort. Skin shows no rashes no pallor or icterus. Neuro without focal deficits. Metabolic encephalopathypresent on admissiondue to volume depletion from both hypernatremic dehydration and HHS. Seems to be improving. Supportive care. Uncertain baselineneed to discuss further with family. HHS/hyperglycemic dehydration with subsequent acute renal failureIV fluids, insulin, supportive care. Improving nicely. Hypernatremic dehydrationlikely preceded HHS/hyperglycemic dehydration, likely was related to poor p.o. intake from her thickened liquids. Follow-up for swallowing evaluation here, but may need to have discussions with patient and family about permissive aspirationparticularly if she refuses to eat and drink to the point of getting this hypernatremic from poor intake. UTIquestion if she was septic prior to admission, but she seems mostly sick from the volume depletion above now, not septic. Continue antibiotics. Lung massappreciate pulmonary involvement. Does appear to be new from February. New onset A. fibecho, TSH once she is more baseline, rate is actually reasonable given her volume depletionwould not escalate rate control right now given that some of her rate is likely a compensatory tachycardia. Will warrant anticoagulation, but not emergentlyparticularly given that she is going to have a bronchoscopy for the lung mass likely on Thursday, can continue subcu heparin for now. Otherwise as above Subjective Patient seen and evaluated at bedside this morning. Responsive to tactile and verbal stimuli, turns head to voice, when asked if she is in pain, responded "no". Appeared to fall back asleep, when asked further questions, turned her head a bit to voice but did not answer questions. Further ROS unobtainable. Review of Systems Review of Systems: See HPI Physical Exam Physical Exam: Constitutional: laying in bed with eyes closed HEENT: NCAT, mucous membranes dry CV: irregular rhythm, no murmur appreciated Resp: coarse inspiratory rhonchi appreciated in all brown except left lower lobe, no crackles appreciated, good air movement GI: soft, nondistended, nontender Neuro: stuporous, GCS 8 (E3 V4 M1), no focal deficits appreciated Results & Data Results & Data ([facility]) Vital Signs (Past 12 Hours) Vital Signs Temp Pulse Pulse Resp BP BP Pulse Ox 06/21/21 05:38 118 H 28 H 134/96 92 06/21/21 05:21 96 06/21/21 05:19 126/87 06/21/21 03:57 06/21/21 03:45 06/21/21 03:35 36.9 C 101 H 102 H 16 147/76 H 06/21/21 03:00 103 H 26 H 169/84 H 95 06/21/21 02:30 100 H 24 148/78 H 100 06/21/21 02:00 82 22 153/88 H 99 06/21/21 01:30 151/96 H 100 06/21/21 01:01 119/72 100 06/21/21 00:45 125/72 100 06/21/21 00:30 140/65 100 06/21/21 00:15 93 H 13 130/101 H 99 06/21/21 00:00 121/75 100 06/20/21 23:48 88 30 H 133/100 100 06/20/21 23:30 137/83 97 06/20/21 23:15 89 26 H 138/72 98 06/20/21 23:00 88 30 H 139/77 85 L 06/20/21 22:45 90 29 H 144/77 H 06/20/21 22:15 92 H 22 132/92 06/20/21 22:14 95 06/20/21 22:11 21 96 06/20/21 22:00 99 H 27 H 147/84 H 100 06/20/21 21:45 91 H 27 H 143/91 H 100 06/20/21 21:32 93 H 30 H 147/96 H 89 L 06/20/21 21:27 90 06/20/21 21:20 36.9 C 94 H 20 164/72 H 92 06/20/21 21:03 36.8 C 93 H 30 H 160/94 H 90 Pulse Ox 06/21/21 05:38 06/21/21 05:21 06/21/21 05:19 06/21/21 03:57 98 06/21/21 03:45 98 06/21/21 03:35 06/21/21 03:00 06/21/21 02:30 06/21/21 02:00 06/21/21 01:30 06/21/21 01:01 06/21/21 00:45 06/21/21 00:30 06/21/21 00:15 06/21/21 00:00 06/20/21 23:48 06/20/21 23:30 06/20/21 23:15 06/20/21 23:00 06/20/21 22:45 06/20/21 22:15 06/20/21 22:14 06/20/21 22:11 06/20/21 22:00 06/20/21 21:45 06/20/21 21:32 06/20/21 21:27 06/20/21 21:20 06/20/21 21:03 Resident Activity Tracking Resident Involvement: Resident Care Provided Care Provided: Adult [facility]
--- NOTE | 2021-06-21 07:52 | CT Scan Report ---
CT OF THE ABDOMEN AND PELVIS WITHOUT CONTRAST CLINICAL HISTORY: Altered mental status. COMPARISON STUDY: CT of the abdomen and pelvis March 16, 2021. TECHNIQUE: Axial images of the abdomen and pelvis were obtained without IV contrast. Images were revi ewed in the axial, sagittal, and coronal planes. Automated exposure control was utilized for the chastity dy. A dose lowering technique was utilized adhering to the principles of ALARA. FINDINGS: Please note that the chest CT will be reported separately. Several pulmonary nodules within the lower lungs are depicted on that exam. Please see that report for further description. Multiple right renal calculi measure up to 8 mm. No hydronephrosis. There are no ureteral calculi. Moderate le ft renal atrophy is noted. There is a 2 mm calculus within the upper pole of the left kidney. Evaluat ion of the abdomen and pelvis is suboptimal on this unenhanced exam. Fat-containing left adrenal lesi on is benign. Small right adrenal nodule is unchanged. This is also likely benign. Unenhanced images of the liver, spleen and pancreas are unremarkable. Diverticula of the second portion the duodenum is noted. Note is made of 2 large bowel containing ventral hernias. There is no resultant bowel obstruc tion. There is colonic diverticulosis without evidence for acute diverticulitis. There is extensive a ortoiliac atherosclerotic plaque. 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 No acute frac ture is identified within the visualized skeletal structures. The appendix is normal. IMPRESSION: 1. No acute process within the abdomen or pelvis on unenhanced exam. 2. Bilateral nephrolithiasis. No ureteral calculi. No hydronephrosis. 3. Redemonstration of two large bowel containing ventral hernias. No bowel obstruction. ACT 112: Negative or not required by law. Electronically signed by: Alejo Mott M.D. 06/21/2021 7:50 AM
[2021-06-21 08:44] LABS: BUN Creatinine Ratio 19.2 (10-20); Calcium 8.8 mg/dl (8.5-10.1); Creatinine Clr Calc Pharmacy 24.3 ml/min; Est GFR (African American) 25.6 ml/min; Est GFR (Non-African American) 22.1 ml/min; Phosphorus 2.2 mg/dl (2.5-4.9); Potassium 3.7 mmol/L (3.5-5.1)
[2021-06-21] MEDS ORDERED: PHARMACY GLYCEMIC MGMT CONSULT SCH (08:45)
[2021-06-21 08:59] LABS: Beta-Hydroxybutyrate 0.7 mg/dl (0.2-2.81)
[2021-06-21] MEDS ORDERED: HEPARIN SOD (PORCINE) 5,000 UNITS/ML VIAL SQ SCH (09:00)
--- NOTE | 2021-06-21 09:09 | Electrocardiogram Report ---
Test Reason : Blood Pressure : / mmHG Vent. Rate : 094 BPM Atrial Rate : 094 BPM P-R Int : 148 ms QRS Dur : 122 ms QT Int : 386 ms P-R-T Axes : 034 -70 011 degrees QTc Int : 482 ms Normal sinus rhythm Right bundle branch block Left anterior fascicular block Possible Old Lateral infarct (cited on or before 16-MAR-2021) Abnormal ECG When compared with ECG of 16-MAR-2021 15:17, No significant change was found Confirmed by Jimbo Patel ([id number]) on 06/21/2021 9:09:04 AM Referred By: Lopez Zamora Confirmed By:Jimbo Patel
--- NOTE | 2021-06-21 10:08 | Pharmacy Report ---
Pharmacy Glycemic Short Note 2 - Date of Service June 21, 2021 - Glycemic Short BSG Results (Last 24 hours): 06/20/21 06/20/21 06/21/21 21:07 22:14 00:25 Glucose 712 H* POC Glucose 508 H* 519 H* 06/21/21 06/21/21 06/21/21 01:13 02:04 03:08 Glucose POC Glucose 471 H* 439 H* 385 H* 06/21/21 06/21/21 06/21/21 03:51 04:23 04:28 Glucose 379 H* POC Glucose 418 H* 391 H* 06/21/21 06/21/21 06/21/21 05:11 06:01 07:10 Glucose 310 H* POC Glucose 364 H* 368 H* 06/21/21 06/21/21 06/21/21 07:15 08:06 09:13 Glucose POC Glucose 347 H* 294 H 274 H OUTPATIENT ANTIDIABETIC REGIMEN: * Unclear. Med rec states Novolog 12 units SQ x 1 dose 06/20/21 ASSESSMENT: * Type 2 diabetic admitted to Tele bed for mental status changes, dehydration, WILBERT, hyperglycemia, likely HHS * Initial labs: Glu 712, Na 155, corrected Na 165-167, AG 6, Bicarb 29. Calculated effective serum osmo ~350 * Patient was given 2 L NS in ED. IV insulin infusion was started and continues this AM. Current maint IVF 1/2 NS + 20KCl @200cc/hr * I do not see orders for f/u chemistry today, Q4-6 hr labs recommended initially. PLAN FOR INPATIENT GLYCEMIC CONTROL: * Hold outpatient oral diabetes medications * Continue IV insulin drip at this time. Ideally would like to keep BSGs 200- 300 range until mental status improves to baseline. Current goal range on insulin infusion 200-250 mg/dL. * Monitor electrolytes closely (Q4-6 hrs initially), with particular attention to Na and K. Would like to avoid large osmolar shifts in 24 hrs. Dextrose has been added to current maint IVFs to prevent BSG from dropping too rapidly and to maintain BSG in goal range for time being. PLAN FOR DISCHARGE: * to be determined.
[2021-06-21] MEDS: D5W AND 1/2NSS + 20MEQ KCL 20 MEQ/1,000 ML BAG IV SCH ×3 (10:27→21:22)
[2021-06-21] MEDS: POTASSIUM CHLORIDE / WTR 10 MEQ/100 ML PLCT IV SCH ×4 (10:27→13:47)
[2021-06-21 12:39] LABS: BUN Creatinine Ratio 23.1 (10-20); Calcium 8.6 mg/dl (8.5-10.1); Creatinine Clr Calc Pharmacy 29.8 ml/min; Est GFR (African American) 32.7 ml/min; Est GFR (Non-African American) 28.2 ml/min; Potassium 4.2 mmol/L (3.5-5.1)
--- NOTE | 2021-06-21 13:31 | Pulmonary Consultation ---
Date of Consultation June 21, 2021 Assessment & Plan (1) Lung mass: 70-year-old female with a past medical history of Parkinson's disease, Diabetes mellitus type 2, hypertension and seizure disorder who presented to the hospital due to altered mental status and hyperglycemia. There is concern for urinary tract infection. She is also found to be in atrial fibrillation with rapid ventricular response. Lung mass: Left upper lobe lung mass is highly suspicious for malignancy. There may be surrounding satellite nodules and possibly nodules noted on the contralateral side. Unclear whether these represent metastatic deposits. Biopsy would be necessary to help diagnose the lesion. We will need to touch base with the family with regards to the best course of action and whether they would like to pursue a biopsy especially in light of her possible dementia history. We will await until the acute issues are improved including the hyponatremia, hyperglycemia, atrial fibrillation and urinary tract infection. Atrial fibrillation with rapid ventricular response: Recommend maximizing her electrolytes. I placed a consult for cardiology. Heparin infusion can be initiated and easily discontinued if bronchoscopy is pursued on Thursday or Thursday. Hypernatremia: I would suggest careful correction of hypernatremia especially in light of her hyperosmolar state. She is profoundly dehydrated. Continue with half-normal saline infusion. Thank you for the consultation. Will follow along with you. (2) AMS (altered mental status): (3) Acute UTI: (4) Hyperglycemia without ketosis: (5) Atrial fibrillation with RVR: (6) Hypernatremia: History of Present Illness Reason for Consultation: Left upper lobe lung mass Attending Physician: Rony Benson DO History of Present Illness 70-year-old female with a past medical history of Crohn's disease, seizure disorder, Parkinson's disease, essential hypertension, osteoporosis, diabetes mellitus type 2, coronary artery disease, peripheral vascular disease and osteoarthritis presenting to the hospital from [facility] due to confusion and hyperglycemia. She is currently on an insulin drip. Her sodium levels are very elevated and most recently was 159. She is being treated for urinary tract infection. History is unobtainable from the patient given her altered mental status. She does arouse and open her eyes spontaneously. She is able to tell her first name. No family is available at bedside. Chart review was completed along with discussion with the hospitalist. She is also currently in atrial fibrillation with rapid ventricular response. CT of her chest was obtained due to concerns of a possible mass seen on chest x-ray. CT chest demonstrated a 5.5 cm lobulated left upper lobe pulmonary mass abutting the mediastinum. Smaller groundglass nodules were seen in the right lung. No significant mediastinal or hilar adenopathy was noted. Allergies Allergy/AdvReac Type Severity Reaction Status Date / Time Cipro Allergy Severe RASH Unverified 07/01/18 14:03 ciprofloxacin Allergy Severe RASH Verified 06/20/21 23:19 Penicillins Allergy Intermediate HIVES Verified 06/20/21 23:19 Sulfa (Sulfonamide Allergy Intermediate HIVES Verified 06/20/21 23:19 Antibiotics) latex Allergy Unknown Unknown Verified 06/20/21 23:19 cephalexin [From Keflex] Allergy Unknown Unverified 06/20/21 23:19 green pepper Allergy Verified 06/21/21 11:06 adhesive AdvReac Severe "THEY EAT Verified 06/20/21 23:19 MY SKIN." Iodinated Contrast Media AdvReac Intermediate Vomiting Verified 06/20/21 23:19 Quinolones AdvReac Mild YEAST Verified 06/20/21 23:19 INFECTION Cephalosporins AdvReac Unknown Unknown Verified 06/20/21 23:19 Ba Pepper AdvReac Intermediate GREEN Uncoded 03/16/21 14:43 PEPPER = MIGRAINE HEADACHE Home Medications Medication Instructions Recorded Confirmed Type acetaminophen 325 mg tablet 650 mg PO Q4 PRN 06/20/21 06/20/21 History (Tylenol) aspirin 81 mg tablet,delayed 81 mg PO DAILY 06/20/21 06/20/21 History release atorvastatin 10 mg tablet (Lipitor) 10 mg PO HS 06/20/21 06/20/21 History bumetanide 1 mg tablet 1 mg PO QAM 06/20/21 06/20/21 History cholecalciferol (vitamin D3) 25 25 mcg PO DAILY 06/20/21 06/20/21 History mcg (1,000 unit) tablet (Vitamin D3) citalopram 20 mg tablet 20 mg PO HS 06/20/21 06/20/21 History cyanocobalamin (vitamin B-12) 1,000 mcg PO DAILY 06/20/21 06/20/21 History 1,000 mcg tablet (Vitamin B-12) ertapenem 1 gram solution for 1 g IM UD 06/20/21 06/20/21 History injection famotidine 20 mg tablet 20 mg PO BID 06/20/21 06/20/21 History fluticasone furoate 100 1 ea INHALATION DAILY 06/20/21 06/20/21 History mcg-vilanterol 25 mcg/dose inhalation powder (Breo Ellipta) folic acid 1 mg tablet 1 mg PO DAILY 06/20/21 06/20/21 History heparin (porcine) 5,000 unit/mL 5,000 unit SUBCUT BID 06/20/21 06/20/21 History injection solution insulin aspart U-100 100 unit/mL 12 unit SUBCUT .ONCE TODAY 06/20/21 06/20/21 History subcutaneous solution (Novolog U-100 Insulin aspart) isosorbide dinitrate 20 mg tablet 20 mg PO TID 06/20/21 06/20/21 History levetiracetam 500 mg tablet 500 mg PO AMPM 06/20/21 06/20/21 History levothyroxine 25 mcg tablet 25 mcg PO DAILY 06/20/21 06/20/21 History magnesium hydroxide 400 mg/5 mL 30 ml PO DAILY PRN 06/20/21 06/20/21 History oral suspension (Milk of Magnesia) magnesium oxide 400 mg PO DAILY 06/20/21 06/20/21 History methotrexate sodium 2.5 mg tablet 15 mg PO .QFRI 06/20/21 06/20/21 History pantoprazole 40 mg tablet,delayed 40 mg PO DAILY 06/20/21 06/20/21 History release (Protonix) ranolazine 500 mg tablet,extended 500 mg PO AMHS 06/20/21 06/20/21 History release,12 hr rivastigmine 1 patch TOPICAL DAILY 06/20/21 06/20/21 History Patient History Medical History (Updated 06/21/21 @ 13:30 by Chaz Uriarte MD) Acute asthma exacerbation Acute kidney injury Anemia Asthma Atrial fibrillation with RVR Chest pain Chronic kidney disease Colitis Crohn's disease Diabetes mellitus GI bleeding Hypernatremia Hypertension Hypothyroidism Personal history of DVT (deep vein thrombosis) Pneumonia Pulmonary embolism Family History Other Family history non-contributory Social History Smoking Status: Unknown if ever smoked Second Hand Exposure: No; Hx Alcohol Use: No Hx Substance Use: No Preferred Language: Urdu Communication Ability: Effective [employer] Consultant Required: No Beliefs That Will Affect Care: None Current Living Situation: Jail Current Living Situation Comment: Per patient (Patient is confused) Other Information That Helps Us Care for You: No Feels Safe at Home: Yes Assistive Devices: Glasses Review of Systems Review of Systems: Review of systems largely unobtainable given the patient's altered mental status. Physical Exam Physical Exam: Constitutional: Patient is lethargic and laying in bed. She does not appear to be in any significant distress. Eyes: Pupils are equal round and reactive to light. Conjunctivae are normal. Anicteric sclera. Ears nose, mouth and throat: Mallampati class 2. Normal posterior oropharynx. Uvula is midline. Neck: Trachea is midline. Visual inspection is normal. Respiratory: Clear to auscultation bilaterally. No use of accessory muscles. No significant clubbing noted. Cardiovascular: Irregularly irregular. No murmurs. No edema. Gastrointestinal: Normal bowel sounds, soft, nontender and nondistended. No hepatosplenomegaly noted. Musculoskeletal: No cyanosis. Patient is able to move all extremities. Strength is 5 out of 5 in the upper and lower extremities. Skin: No rashes, warm dry and intact. Neurologic: No obvious focal neurological deficits seen. Psychiatric: Mentation is poor and is difficult to obtain a psychiatric exam. Results & Data Results & Data ([facility]) Vital Signs (Past 12 Hours) Vital Signs Temp Pulse Pulse Resp BP BP Pulse Ox 06/21/21 07:55 102 H 26 H 146/77 H 92 06/21/21 05:38 118 H 28 H 134/96 92 06/21/21 05:21 96 06/21/21 05:19 126/87 06/21/21 03:57 06/21/21 03:45 06/21/21 03:35 98.4 F 101 H 102 H 16 147/76 H 06/21/21 03:00 103 H 26 H 169/84 H 95 06/21/21 02:30 100 H 24 148/78 H 100 06/21/21 02:00 82 22 153/88 H 99 06/21/21 01:30 151/96 H 100 Pulse Ox 06/21/21 07:55 06/21/21 05:38 06/21/21 05:21 07/23/21 05:19 06/21/21 03:57 98 06/21/21 03:45 98 06/21/21 03:35 06/21/21 03:00 06/21/21 02:30 06/21/21 02:00 06/21/21 01:30 Vital signs, labs and imaging personally reviewed PG Care Time/CCT Total # of Minutes Spent Total Time Spent with Patient: Total time spent is greater than 50% in coordination of care (as documented) at patient's floor/unit and/or counseling patient: Coding Level of Care Code 42439 Initial Inpt Care Lvl 3 Diagnoses Lung mass R91.8 AMS (altered mental status) R41.82 Acute UTI N39.0 Hyperglycemia without ketosis R73.9 Atrial fibrillation with RVR I48.91 Hypernatremia E87.0
--- NOTE | 2021-06-21 15:15 | Cardiology Consultation ---
Date of Consultation June 21, 2021 Assessment & Plan (1) Atrial fibrillation with RVR: -would consider starting a heparin drip. -would consider starting intravenous amiodarone. -may convert as her electrolyte abnormalities improved. -clearly needs long-term anticoagulation. (2) CAD (coronary artery disease): -no records available for review. -on ranolazine and long-acting nitrate as an outpatient. (3) Hypertension: -medications currently on hold. (4) Hypercholesterolemia: -atorvastatin currently on hold. History of Present Illness Attending Physician: Rony Benson DO History of Present Illness Mrs. Harris is a 70-year-old female admitted earlier today with mental status changes, urinary tract infection, and hyper osmolar hyperglycemia. The patient developed atrial fibrillation after her admission. This consultation was ordered to assist in her management. The patient is unable to give a history due to mental status changes. Her chart was thoroughly reviewed. Apparently, over the last several days, the patient demonstrated a decrease in her function and mentation. Suspect the patient has coronary artery disease as ranolazine is on her medication list. There are no cardiology notes for review. Past medical and surgical history 1. Coronary artery disease 2. Hypertension next 3. Hypercholesterolemia 4. Chronic renal failure 5. Diabetes mellitus 6. Hypothyroidism 7. Crohn's disease 8. Parkinson's disease 9. Asthma 10. Seizure disorder 11. History of DVT/PE 12. History of lower GI bleed Social history She is a resident a senior care in [place]. No tobacco alcohol Family history Unobtainable Review of systems Unobtainable Allergies Allergy/AdvReac Type Severity Reaction Status Date / Time Cipro Allergy Severe RASH Unverified 07/01/18 14:03 ciprofloxacin Allergy Severe RASH Verified 06/20/21 23:19 Penicillins Allergy Intermediate HIVES Verified 06/20/21 23:19 Sulfa (Sulfonamide Allergy Intermediate HIVES Verified 06/20/21 23:19 Antibiotics) latex Allergy Unknown Unknown Verified 06/20/21 23:19 cephalexin [From Keflex] Allergy Unknown Unverified 06/20/21 23:19 green pepper Allergy Verified 06/21/21 11:06 adhesive AdvReac Severe "THEY EAT Verified 06/20/21 23:19 MY SKIN." Iodinated Contrast Media AdvReac Intermediate Vomiting Verified 06/20/21 23:19 Quinolones AdvReac Mild YEAST Verified 06/20/21 23:19 INFECTION Cephalosporins AdvReac Unknown Unknown Verified 06/20/21 23:19 Ba Pepper AdvReac Intermediate GREEN Uncoded 03/16/21 14:43 PEPPER = MIGRAINE HEADACHE Home Medications Medication Instructions Recorded Confirmed Type acetaminophen 325 mg tablet 650 mg PO Q4 PRN 06/20/21 06/20/21 History (Tylenol) aspirin 81 mg tablet,delayed 81 mg PO DAILY 06/20/21 06/20/21 History release atorvastatin 10 mg tablet (Lipitor) 10 mg PO HS 06/20/21 06/20/21 History bumetanide 1 mg tablet 1 mg PO QAM 06/20/21 06/20/21 History cholecalciferol (vitamin D3) 25 25 mcg PO DAILY 06/20/21 06/20/21 History mcg (1,000 unit) tablet (Vitamin D3) citalopram 20 mg tablet 20 mg PO HS 06/20/21 06/20/21 History cyanocobalamin (vitamin B-12) 1,000 mcg PO DAILY 06/20/21 06/20/21 History 1,000 mcg tablet (Vitamin B-12) ertapenem 1 gram solution for 1 g IM UD 06/20/21 06/20/21 History injection famotidine 20 mg tablet 20 mg PO BID 06/20/21 06/20/21 History fluticasone furoate 100 1 ea INHALATION DAILY 06/20/21 06/20/21 History mcg-vilanterol 25 mcg/dose inhalation powder (Breo Ellipta) folic acid 1 mg tablet 1 mg PO DAILY 06/20/21 06/20/21 History heparin (porcine) 5,000 unit/mL 5,000 unit SUBCUT BID 06/20/21 06/20/21 History injection solution insulin aspart U-100 100 unit/mL 12 unit SUBCUT .ONCE TODAY 06/20/21 06/20/21 History subcutaneous solution (Novolog U-100 Insulin aspart) isosorbide dinitrate 20 mg tablet 20 mg PO TID 06/20/21 06/20/21 History levetiracetam 500 mg tablet 500 mg PO AMPM 06/20/21 06/20/21 History levothyroxine 25 mcg tablet 25 mcg PO DAILY 06/20/21 06/20/21 History magnesium hydroxide 400 mg/5 mL 30 ml PO DAILY PRN 06/20/21 06/20/21 History oral suspension (Milk of Magnesia) magnesium oxide 400 mg PO DAILY 06/20/21 06/20/21 History methotrexate sodium 2.5 mg tablet 15 mg PO .QFRI 06/20/21 06/20/21 History pantoprazole 40 mg tablet,delayed 40 mg PO DAILY 06/20/21 06/20/21 History release (Protonix) ranolazine 500 mg tablet,extended 500 mg PO AMHS 06/20/21 06/20/21 History release,12 hr rivastigmine 1 patch TOPICAL DAILY 06/20/21 06/20/21 History Patient History Medical History (Updated 06/21/21 @ 15:24 by Francois Douglas MD) Acute asthma exacerbation Acute kidney injury Anemia Asthma Atrial fibrillation with RVR Chest pain Chronic kidney disease Colitis Crohn's disease Diabetes mellitus GI bleeding Hypernatremia Hypertension Hypothyroidism Personal history of DVT (deep vein thrombosis) Pneumonia Pulmonary embolism Family History Other Family history non-contributory Social History Smoking Status: Unknown if ever smoked Second Hand Exposure: No; Hx Alcohol Use: No Hx Substance Use: No Preferred Language: Serbian Communication Ability: Effective Exped[employer] Supervisor Required: No Beliefs That Will Affect Care: None Current Living Situation: Prison Current Living Situation Comment: Per patient (Patient is confused) Other Information That Helps Us Care for You: No Feels Safe at Home: Yes Assistive Devices: Glasses Physical Exam Physical Exam: In general this is an obese white female lying supine in bed, minimally responsive. HEENT exam notes dry mucous membranes. Neck is supple with full carotid upstrokes. No obvious bruits. Jugular venous pressure cannot be assessed. Cardiovascular exam reveals irregular irregular rhythm with distant heart sounds. No obvious murmurs. Lungs are clear anteriorly. Abdomen is obese without bruits. Extremities reveal intact radial artery pulses bilaterally. There is trace pretibial edema. Results & Data ([facility]) Vital Signs (Past 12 Hours) Vital Signs Temp Pulse Pulse Resp BP BP Pulse Ox 06/21/21 07:55 102 H 26 H 146/77 H 92 06/21/21 05:38 118 H 28 H 134/96 92 06/21/21 05:21 96 06/21/21 05:19 126/87 06/21/21 03:57 06/21/21 03:45 06/21/21 03:35 36.9 C 101 H 102 H 16 147/76 H Pulse Ox 06/21/21 07:55 06/21/21 05:38 06/21/21 05:21 06/21/21 05:19 06/21/21 03:57 98 06/21/21 03:45 98 06/21/21 03:35 Laboratory Results CBC notes hemoglobin 11.3, hematocrit 36.9, white count 6.18, platelet count [id number]. Electrolytes note a sodium 159, potassium 4.2, chloride 129, bicarb 30, BUN 41, creatinine 1.78, and phosphorus level low at 1.6. Diagnostic Findings EKG notes atrial fibrillation with a rapid ventricular response. There is a right bundle branch block and left anterior hemiblock. Chest x-ray notes a large left upper lobe mass. CT scan of the chest notes of 5.5 cm mass in the left upper lobe adjacent to the mediastinum. PG Care Time/CCT Total # of Minutes Spent Total Time Spent with Patient: Total time spent is greater than 50% in coordination of care (as documented) at patient's floor/unit and/or counseling patient: Coding Level of Care Code 27393 Initial Inpt Care Lvl 3 Diagnoses Atrial fibrillation with RVR I48.91 CAD (coronary artery disease) I25.10 Hypertension I10 Hypertension type: essential hypertension Hypercholesterolemia E78.00 (1) Hypertension Hypertension type: essential hypertension Qualified Code(s): I10 - Essential (primary) hypertension
--- NOTE | 2021-06-21 16:26 | Electrocardiogram Report ---
Test Reason : Blood Pressure : / mmHG Vent. Rate : 109 BPM Atrial Rate : 208 BPM P-R Int : 000 ms QRS Dur : 116 ms QT Int : 400 ms P-R-T Axes : 000 -67 005 degrees QTc Int : 538 ms Atrial fibrillation with rapid ventricular response Right bundle branch block Left anterior fascicular block Bifascicular block Possible Lateral infarct (cited on or before 16-MAR-2021) Cannot rule out Inferior infarct (masked by fascicular block?) , age undetermined Abnormal ECG When compared with ECG of 20-JUN-2021 21:11, Atrial fibrillation has replaced Sinus rhythm Inverted T waves have replaced nonspecific T wave abnormality in Anterior leads QT has lengthened Confirmed by Francois Douglas ([id number]) on 06/21/2021 4:26:38 PM Referred By: Lopez Zamora Confirmed By:Francois Douglas
[2021-06-21 17:04] LABS: BUN Creatinine Ratio 19.7 (10-20); Calcium 8.2 mg/dl (8.5-10.1); Creatinine Clr Calc Pharmacy 28.7 ml/min; Est GFR (African American) 31.2 ml/min; Est GFR (Non-African American) 26.9 ml/min; Phosphorus 1.4 mg/dl (2.5-4.9)
[2021-06-21 17:16] LABS: Beta-Hydroxybutyrate 0.66 mg/dl (0.2-2.81); Potassium 5.4 mmol/L (3.5-5.1)
--- NOTE | 2021-06-21 17:53 | Billing Data ---
Date of Service June 21, 2021 Coding Level of Care Code 94480 Subseq Hosp Care Lvl 3
[2021-06-21 20:42] LABS: BUN Creatinine Ratio 20.8 (10-20); Creatinine Clr Calc Pharmacy 30.8 ml/min; Est GFR (African American) 34.1 ml/min; Est GFR (Non-African American) 29.4 ml/min; Phosphorus 0.9 mg/dl (2.5-4.9); Potassium 4.5 mmol/L (3.5-5.1)
[2021-06-21 20:52] LABS: Beta-Hydroxybutyrate 0.63 mg/dl (0.2-2.81)
[2021-06-22 01:08] LABS: BUN Creatinine Ratio 20.6 (10-20); Calcium 7.9 mg/dl (8.5-10.1); Est GFR (African American) 36.9 ml/min; Est GFR (Non-African American) 31.8 ml/min; Magnesium 2.7 mg/dl (1.8-2.4); Potassium 4.5 mmol/L (3.5-5.1)
[2021-06-22 01:14] LABS: Phosphorus 0.7 mg/dl (2.5-4.9)
[2021-06-22] MEDS ORDERED: POTASSIUM PHOS 3 MMOL/1 ML INFUSION IV STA (01:29)
[2021-06-22] MEDS ORDERED: POTASSIUM PHOSPHATE 21 MMOL in SODIUM CHLORIDE 0.9% 500 ML IV STA (01:41)
[2021-06-22] MEDS: D5W AND 1/2NSS + 20MEQ KCL 20 MEQ/1,000 ML BAG IV SCH ×4 (02:11→16:26)
[2021-06-22] MEDS: INSULIN ASPART 100 UNITS/ML 3 ML PEN SC SCH ×4 (08:30→23:56)
[2021-06-22] MEDS: levETIRAcetam 500 MG in 0.9 % SODIUM CHLORIDE 100 ML IV SCH ×2 (08:31→22:11)
[2021-06-22] MEDS: HEPARIN SOD 5,000 UNIT/0.5 ML VIAL SC SCH ×2 (08:31→20:53)
--- NOTE | 2021-06-22 09:41 | Hospitalist Progress Note ---
Date of Service June 22, 2021 Assessment & Plan (1) AMS (altered mental status): Plan: Mattie Harris is a 70-year-old female with past medical history significant for Crohn's disease, hypothyroidism, Parkinson's, hypertension, type 2 diabetes; who presented from [facility] earlier today for increased confusion in the setting of hyperglycemia. Hyperosmolar hyperglycemic state, DM2 Likely triggered by urinary tract infection (below) in the setting of poorly- controlled DM2 and poor nutritional status Patient without ketones, anion gap Received 10u of insulin IV in ED - BSG improved to 508; additional 10u of insulin given - BSG improved to 400s Corrected sodium on arrival 165, indicating dehydration in the setting this hyperglycemia; patient with signs of volume depletion; potassium on arrival 4.1 Patient initially placed on 1/2NSS at 200mL/hr with 20mEq KCl 06/21: BSG improved to sub-300; IVF changed to D5 1/2NSS at same rate 06/22: HHS largely resolved; will transition from insulin gtt to insulin subq Given 24h insulin requirement, will start with lantus 30u bid Will cover with ISS until patient restarts PO intake; at that time, will divide 60u novolog across meals Trend daily BMP, phos (q4h labs no longer necessary) Maintain NPO until AMS improves Phos repletion not indicated unless phos falls below 1.0 Hypernatremia In the setting of (and likely secondary to) chronic poor PO intake as endorsed by patient's family members Na continues gradual improvement at appropriate rate 06/22: given resolution of HHS, fluids converted to D5 1/4NSS @ 150mL/hr Hypoxia Patient with episode of hypoxia (06/22) to 77; placed on 1L O2 via NC with improvement to 84, 2L resulted in adequate oxygenation Assessed at that time, noted to be without LLL breath sounds CXR without acute new findings (mass again noted); CT without evidence of pneumonia Unclear etiology of this episode of hypoxia; will continue to monitor Atrial fibrillation Patient found in afib in AM of 06/21, had been in NSR in ED Unclear if 2/2 HHS, if patient had been going in and out of afib prior to admission, or if this represents actual new-onset afib; less likely the latter Discussed with Dr. Rodrigues - given lack of hemodynamic instability or overt symptoms clearly linked to afib, patient doesn't appear to require urgent cardioversion Hesitant to rate-control at this time, as HR has largely stayed under 110, patient has demonstrated gradual but consistent clinical improvement Additionally, would like to avoid risks a/w blunting patient's ongoing physiologic response to HHS treatment and fluid/electrolyte shifts with rate control meds Continue close hemodynamic monitoring, continue careful monitoring and repletion of potassium Urinary tract infection Urine culture from 06/17 demonstrating E. coli with multidrug resistant Had been utilizing meropenem over the last several days In ED received ceftriaxone (E. coli sensitive to this per report) Acute kidney injury Likely in the setting of dehydration from hyperglycemia Creatinine 2.62 on admission Continue to monitor with labs as following correction of hyperglycemia Seizure disorder Continue keppra IV; plan to transition back to home dose oral keppra when AMS improves Other chronic medical problems Holding remaining home medications until improved mental status FEN: NPO Code status: DNR/DNI DVT ppx: lovenox Isolation: none Consults: none Dispo: med/surg (2) Acute UTI: (3) Diabetes mellitus: (4) Hypothyroidism: (5) Crohn's disease: (6) Colitis: (7) Acute kidney injury: (8) Hyperglycemia without ketosis: Admission and Anticipated Discharge Date Admission Date: June 21, 2021 Supervising Physician Co-Signing Physician Notes I personally examined the patient and verified all syed points of history and exam, discussed case, and agree with decision making with Dr Singh. Awake and talkative, still seems easily confused. Denies shortness of breath. Denies any pain. Vitals noted, in general she is awake and alert but disoriented. No distress. HEENT normocephalic atraumatic mucous membranes moist. Breathing unlabored no accessory muscle use good effort faint wheeze base right, clear but somewhat diminished throughout otherwise. Skin shows no rashes no pallor or icterus. Neuro without focal deficits. Metabolic encephalopathypresent on admissiondue to volume depletion from both hypernatremic dehydration and HHS. Showing improvement. Continue supportive care. Uncertain baselineneed to discuss further with family. HHS/hyperglycemic dehydration with subsequent acute renal failurewill it somewhat impossible to completely tease apart from the hypernatremic dehydration, this problem appears to essentially have resolvedwe will change fluids to focus more on the free water deficit, switch insulin to subcu. Hypernatremic dehydrationlikely preceded HHS/hyperglycemic dehydration, likely was related to poor p.o. intake from her thickened liquids. Switch fluids to more hypotonic to replace water deficit given that her HHS type physiology seems to be improved. Dysphagia/aspiration riskin discussions with nursing, she still at the bedside appears to be high risk for aspiration. Unfortunately to that end we will need to keep her n.p.o. pending formal speech evaluation. Given that she was not doi ng well on modified diet at SNF, we may have to have discussions with family about diet as tolerated with permissive aspiration. Hypoxiamild, I wonder if she is aspirating saliva versus atelectasis versus other. Exams have been waxing and waning throughout the day suggesting some degree of aspiration versus mucus. Dr. Singh ordered CT to rule out anything subtle in acute such as a developing basilar pneumonia that would not be seen on x-rayfortunately there were no acute findings. UTIquestion if she was septic prior to admission, but she seems mostly sick from the volume depletion above now, not septic. Continue antibiotics. Lung massappreciate pulmonary involvement. Does appear to be new from February. New onset A. fibecho, TSH once she is more baseline, rate is actually elza sonable given her volume depletion. Currently on subcu heparin for DVT prophylaxis. Discussed stroke prophylaxis with sister at the bedside yesterday. Otherwise as above Subjective Patient seen and evaluated at bedside this morning. Patient is alert this morning but is apparently a bit agitated, demanding to get out of bed despite not having the strength to get out of bed. Patient does not remember family visiting yesterday and demands to see her sister. Patient is oriented to person only but does not have other signs of confusion. Denies pain, chills, SOB, or other symptoms, although ROS is limited by patient's willingness to answer questions. Review of Systems Review of Systems: See HPI Physical Exam Physical Exam: Constitutional: laying in bed with eyes closed HEENT: NCAT, mucous membranes dry CV: irregular rhythm, no murmur appreciated Resp: coarse lung sounds appreciated in all brown except left lower lobe, no crackles appreciated, good air movement Neuro: awake, alert, no focal deficits appreciated Results & Data Results & Data ([facility]) Vital Signs (Past 12 Hours) Vital Signs Temp Pulse Pulse Resp BP Pulse Ox 06/22/21 07:42 36.5 C 116 H 20 133/79 94 06/22/21 05:00 36.4 C L 92 H 22 141/69 H 96 06/21/21 23:59 113 H 06/21/21 23:10 37.1 C 110 H 25 H 142/88 H 96 Resident Activity Tracking Resident Involvement: Resident Care Provided Care Provided: Adult Hospital Medicine
[2021-06-22 10:41] LABS: Hematocrit (blood only) 35.8 % (37-47); Hemoglobin 10.8 g/dL (12.0-16.0); Mean Corpuscular Hgb Conc 30.2 g/dL (32-36); Mean Corpuscular Volume 112.6 fL (80-100); Mean Platelet Volume 12.1 fL (7.4-10.4); Platelet Count 116 K/uL (130-400); RDW Coefficient of Variation 17.1 % (11.5-14.5); RDW Standard Deviation 69.6 fL (36.4-46.3); Red Blood Count 3.18 M/uL (4.2-5.4)
[2021-06-22 10:45] LABS: Basophils # (auto) 0.01 K/uL (0-0.2); Basophils % (auto) 0.1 %; Echinocytes 1+; Eosinophils # (auto) 0.12 K/uL (0-0.5); Eosinophils % (auto) 1.2 %; Immature Granulocytes # (auto) 0.08 K/uL (0.00-0.02); Immature Granulocytes % (auto) 0.8 %; Lymphocytes # (auto) 1.95 K/uL (1.2-3.4); Lymphocytes % (auto) 18.9 %; Macrocytosis Present; Monocytes # (auto) 1.15 K/uL (0.11-0.59); Monocytes % (auto) 11.2 %; Neutrophils # (auto) 6.99 K/uL (1.4-6.5); Neutrophils % (auto) 67.8 %
--- NOTE | 2021-06-22 10:45 | Pharmacy Report ---
Pharmacy Glycemic Short Note 2 - Date of Service June 22, 2021 - Glycemic Short BSG Results (Last 24 hours): 06/21/21 06/21/21 06/21/21 10:17 11:05 11:58 Glucose 230 H POC Glucose 257 H 236 H 06/21/21 06/21/21 06/21/21 12:15 13:06 14:07 Glucose POC Glucose 208 H 252 H 305 H* 06/21/21 06/21/21 06/21/21 15:08 16:22 16:32 Glucose 316 H* POC Glucose 319 H* 340 H* 06/21/21 06/21/21 06/21/21 17:10 18:06 19:20 Glucose POC Glucose 344 H* 326 H* 291 H 06/21/21 06/21/21 06/21/21 20:02 20:14 21:07 Glucose 307 H* POC Glucose 336 H* 308 H* 06/21/21 06/21/21 06/22/21 22:09 23:06 00:05 Glucose POC Glucose 342 H* 302 H* 288 H 06/22/21 06/22/21 06/22/21 00:24 01:09 03:06 Glucose 279 H POC Glucose 256 H 255 H 06/22/21 06/22/21 06/22/21 05:31 07:31 09:46 Glucose POC Glucose 218 H 207 H 204 H OUTPATIENT ANTIDIABETIC REGIMEN: * Per [facility] records: * Levemir 10 units AM, 40 units PM * Novolog 20 units AM, 34 units PM, 10 units HS * Glipizide ASSESSMENT: 06/22: * Severe hyperglycemia resolved on IV insulin infusion. Current rate of 5 mls/hr. Patient continues on D5 / NS @ 200 mls/hr. She has received ~8 L of fluid thus far (typically 8-10 L required for HHS). Goal range of 200 - 250 mg/dL has been utilized to avoid correcting electrolytes too quickly. * Most recent labs show improvement; serum osmo: 326, NA/corrected NA: 153/155. Mental status seems improved but patient is agitated - uncertain if she is at baseline. * Since hyperosmolar state is slowly resolving and BSG has been at goal since AM labs, I will decrease goal range on insulin infusion to aim for BSG ~ 200 mg/dL. Will hold off on overlapping SQ basal insulin until patient is able to resume a diet. 06/21: * Type 2 diabetic admitted to Tele bed for mental status changes, dehydration, WILBERT, hyperglycemia, likely HHS * Initial labs: Glu 712, Na 155, corrected Na 165-167, AG 6, Bicarb 29. Ca lculated effective serum osmo ~350 * Patient was given 2 L NS in ED. IV insulin infusion was started and continues this AM. Current maint IVF 12/01 NS + 20KCl @200cc/hr * I do not see orders for f/u chemistry today, Q4-6 hr labs recommended initially. PLAN FOR INPATIENT GLYCEMIC CONTROL: * Hold outpatient oral diabetes medications * Continue IV insulin drip * Goal range: 150 - 200 mg/dL SQ insulin recommendations once hyperosmolar state has resolved (serum osmolality < 315) and/or near resolution with diet advanced: * Levemir 40 units SQ x 1 dose * Novolog ACHS or q6 with CF 15 and CR 5 * Overnight checks at 00, 04 PLAN FOR DISCHARGE: * A1c = 9.1% * to be determined
[2021-06-22 10:53] LABS: BUN Creatinine Ratio 18.8 (10-20); Calcium 7.7 mg/dl (8.5-10.1); Creatinine Clr Calc Pharmacy 35.3 ml/min; Est GFR (African American) 44.9 ml/min; Est GFR (Non-African American) 38.7 ml/min; Magnesium 2.5 mg/dl (1.8-2.4); Phosphorus 1.9 mg/dl (2.5-4.9); Potassium 5.4 mmol/L (3.5-5.1)
--- NOTE | 2021-06-22 12:38 | Cardiology Progress Note ---
Date of Service June 22, 2021 Assessment & Plan Admission and Anticipated Discharge Date Admission Date: June 21, 2021 Subjective She notes that she feels better this morning. She is unaware of any palpitations or fluttering. She denies any lightheadedness or dizziness. She notes that she wants to go home. She has a lot of bruising on her lower extremities. I did question her about falls and she really could not give me a good answer. She is laying flat without appearing to be short of breath. Results & Data ([facility]) Vital Signs (Past 12 Hours) Vital Signs Temp Pulse Pulse Resp BP Pulse Ox 06/22/21 11:18 36.8 C 102 H 20 130/69 98 06/22/21 08:00 118 H 06/22/21 07:42 36.5 C 116 H 20 133/79 94 06/22/21 05:00 36.4 C L 92 H 22 141/69 H 96 she is lying flat in no acute distress HEENT 2+ carotid upstrokes Lungs: Clear to auscultation bilaterally no rales rhonchi or wheezing Heart: Irregular rate and rhythm no appreciable murmurs Abdomen: Soft nontender distended positive bowel sounds Extremities: No clubbing cyanosis or edema Impressions: 1. Paroxysmal atrial fibrillation with a rapid ventricular response which is asymptomatic 2. Elevated [id number] score including her age, female gender, coronary artery disease, hypertension 3. Coronary disease by cardiac catheterization February 2012 with total occlusion of the mid LAD after D2 and a 70% mid circumflex lesion into OM 2; 50 to 75% ostial D1 disease into a large vessel; moderate RCA disease not considered a surgical candidate by CT surgery at [facility] 4. History of normal LV function with severe inferior hypokinesis 5. hypertension 6 History of seizures and frequent falls 7 severe arthritis 8. Parkinson's disease I would add metoprolol 25 mg twice daily to slow her heart rate down. She appears to have adequate blood pressure room. She is feeling better with treatment for her urinary tract infection and HH NK. The discussion of anticoagulation is very challenging. She is not a great historian. The question really comes to her risk of falls she has a history of Parkinson's disease she is at a history of seizures and falls in the past. It is my understanding that she is at a senior living facility and I would contact them with regards to her risk of falls to make a decision with regards to anticoagulation. Based on what is documented in the chart it would appear that the risk outweighs the benefit. She is known to have coronary artery disease that would consider nonoperable for medical therapy. At this point she is not having any anginal symptoms. As she becomes more stable her outpatient cardiac regimen can be reinitiated.
[2021-06-22 12:47] LABS: BUN Creatinine Ratio 18.6 (10-20); Calcium 7.8 mg/dl (8.5-10.1); Creatinine Clr Calc Pharmacy 38.3 ml/min; Est GFR (African American) 49.6 ml/min; Est GFR (Non-African American) 42.8 ml/min; Magnesium 2.5 mg/dl (1.8-2.4); Potassium 4.9 mmol/L (3.5-5.1)
[2021-06-22] MEDS: METOPROLOL TARTRATE 1 MG/ML VIAL IV SCH ×3 (12:50→23:51)
[2021-06-22 12:59] LABS: Phosphorus 1.4 mg/dl (2.5-4.9)
--- NOTE | 2021-06-22 15:59 | XRay Report ---
XR chest 1V portable CLINICAL HISTORY: hypoxia COMPARISON STUDY: Chest radiograph and chest CT June 20, 2021. FINDINGS: Incidental note is made of an old left clavicular fracture and multiple old left rib fractu res. There is no pneumothorax or pleural effusion. Left upper lobe mass is better depicted on chest C T of June 20, 2021. There is no consolidation to suggest pneumonia. Cardiomegaly is noted. Is no evid ence for pulmonary edema. IMPRESSION: 1. Left upper lobe mass highly suggestive of a neoplasm, better depicted on chest CT of June 20, 2021 . 2. No acute findings within the chest. ACT 112: Negative or not required by law. Electronically signed by: Alejo Mott M.D. 06/22/2021 3:58 PM
[2021-06-22] MEDS: D5W AND 1/4NSS + 20MEQ KCL 20 MEQ/1,000 ML BAG IV SCH ×2 (17:25→23:49)
--- NOTE | 2021-06-22 17:49 | CT Scan Report ---
CT OF THE CHEST WITHOUT IV CONTRAST CLINICAL HISTORY: hypoxia, diminished breath sounds base left COMPARISON STUDY: Chest CT June 20, 2021. Chest radiograph performed earlier today. CT DOSE: 733.05 mGy.cm TECHNIQUE: Axial images of the chest were obtained without IV contrast. Images were reviewed in the axial, sagittal, and coronal planes. IV contrast was not administered for this examination. Automat ed exposure control was utilized for the study. A dose lowering technique was utilized adhering to t he principles of ALARA. FINDINGS: This exam is compromised by respiratory motion. The ascending aorta is mildly dilated, susan suring 4.2 cm. There is moderate cardiomegaly and extensive coronary artery calcification. No enlarge d axillary, mediastinal or hilar lymph nodes are identified. Note is made of a solid lobulated irregu lar left upper lobe mass that measures 5.6 x 3.4 cm. This abuts the mediastinum. This is unchanged si nce prior CT. The remainder of the lungs are suboptimally assessed due to respiratory motion. A cyst within the left lower lobe is noted. A few tiny pulmonary nodules are better depicted on prior examin ation. There are trace bilateral pleural effusions. There is no pneumothorax. No consolidation is peter ntified to suggest pneumonia. Old left clavicular fracture is noted. There are multiple old healed le ft-sided rib fractures. Fat-containing left adrenal nodule is benign. IMPRESSION: 1. Redemonstration of a 5.6 x 3.4 cm solid lobulated left upper lobe mass which abuts the mediastinum . This is consistent with a neoplasm. 2. Remainder of the lungs suboptimally assessed due to respiratory motion. No consolidation to sugges t pneumonia. 3. Trace bilateral pleural effusions. 4. No thoracic lymphadenopathy identified. ACT 112: Negative or not required by law. Electronically signed by: Alejo Mott M.D. 06/22/2021 5:47 PM
--- NOTE | 2021-06-22 18:26 | Billing Data ---
Date of Service June 22, 2021 Coding Level of Care Code 67693 Subseq Hosp Care Lvl 3
[2021-06-22] MEDS: INSULIN GLARGINE SOLOSTAR 100 UNITS/ML 3 ML PEN SQ SCH (20:53)
[2021-06-22] MEDS ORDERED: INSULIN ASPART 100 UNITS/ML 3 ML PEN SC SCH (21:00)
[2021-06-22] MEDS ORDERED: DC IV INSULIN INFUSION 1 EA DEVI ONE (22:00)
[2021-06-23 04:27] LABS: BUN Creatinine Ratio 15.9 (10-20); Calcium 7.1 mg/dl (8.5-10.1); Creatinine Clr Calc Pharmacy 51.4 ml/min; Est GFR (African American) 59.8 ml/min; Est GFR (Non-African American) 51.6 ml/min; Magnesium 2.3 mg/dl (1.8-2.4); Phosphorus 1.8 mg/dl (2.5-4.9); Potassium 5.7 mmol/L (3.5-5.1)
[2021-06-23] MEDS: INSULIN ASPART 100 UNITS/ML 3 ML PEN SC SCH ×4 (06:24→20:15)
[2021-06-23] MEDS: D5W AND 1/4NSS + 20MEQ KCL 20 MEQ/1,000 ML BAG IV SCH (06:25)
[2021-06-23] MEDS: METOPROLOL TARTRATE 1 MG/ML VIAL IV SCH ×3 (06:34→17:23)
[2021-06-23] MEDS: HEPARIN SOD 5,000 UNIT/0.5 ML VIAL SC SCH ×2 (07:54→20:15)
[2021-06-23] MEDS: INSULIN GLARGINE SOLOSTAR 100 UNITS/ML 3 ML PEN SQ SCH (07:54)
[2021-06-23] MEDS: levETIRAcetam 500 MG in 0.9 % SODIUM CHLORIDE 100 ML IV SCH (07:54)
[2021-06-23] MEDS: D5W AND 1/4NSS 1,000 ML IV SCH ×2 (08:17→14:52)
[2021-06-23] MEDS ORDERED: INSULIN GLARGINE SOLOSTAR 100 UNITS/ML 3 ML PEN SQ ONE ×2 (09:15)
[2021-06-23] MEDS ORDERED: INSULIN HUMAN REGULAR PER UNIT 7 UNITS in SYRINGE 6.93 ML IV ONE (09:30)
--- NOTE | 2021-06-23 11:23 | Electrocardiogram Report ---
Test Reason : Blood Pressure : / mmHG Vent. Rate : 109 BPM Atrial Rate : 104 BPM P-R Int : 000 ms QRS Dur : 108 ms QT Int : 338 ms P-R-T Axes : 000 -71 019 degrees QTc Int : 455 ms Atrial fibrillation with rapid ventricular response Low voltage QRS Right bundle branch block Left anterior fascicular block Bifascicular block Possible Lateral infarct (cited on or before 16-MAR-2021) Abnormal ECG When compared with ECG of 21-JUN-2021 09:28, T wave inversion no longer evident in Anterior leads QT has shortened Confirmed by Brett Vallejo ([id number]) on 06/23/2021 11:22:58 AM Referred By: Lopez Zamora Confirmed By:Brett Vallejo
--- NOTE | 2021-06-23 12:23 | Pulmonology Progress Note ---
Date of Service June 23, 2021 Assessment & Plan (1) Lung mass: Plan: 70-year-old female with a past medical history of Parkinson's disease, Diabetes mellitus type 2, hypertension and seizure disorder who presented to the hospital due to altered mental status and hyperglycemia. There is concern for urinary tract infection. She is also found to be in atrial fibrillation with rapid ventricular response. Lung mass: Left upper lobe lung mass is highly suspicious for malignancy. There may be surrounding satellite nodules and possibly nodules noted on the contralateral side. Unclear whether these represent metastatic deposits. Biopsy would be necessary to help diagnose the lesion. I spoke with the patient's sister, Lara Mckeon who indicated that the patient was very unlikely to want to pursue a biopsy. She understands that the mass likely represents malignancy. She does not think that her sister would want treatment. She is going to talk to her other sibling and also discuss with the patient. I am going to place a consult for palliative care medicine to evaluate her on Thursday. I think hospice may be a very reasonable approach. Thank you for the consult. If the patient and family wishes to pursue biopsy, we would be happy to assist in obtaining a tissue sample. (2) AMS (altered mental status): (3) Acute UTI: (4) Hyperglycemia without ketosis: (5) Atrial fibrillation with RVR: (6) Hypernatremia: Admission and Anticipated Discharge Date Admission Date: June 21, 2021 Subjective Patient seen and examined this morning. She is more alert and awake today. She knows that she is in the hospital. She denies any pain, fevers or chills. Heart rate is better controlled now that she is on metoprolol. Review of Systems Review of Systems: All systems reviewed & are unremarkable except as noted in HPI & below Physical Exam Physical Exam: Constitutional: Patient is lethargic and laying in bed. She does not appear to be in any significant distress. Eyes: Pupils are equal round and reactive to light. Conjunctivae are normal. Anicteric sclera. Ears nose, mouth and throat: Mallampati class 2. Normal posterior oropharynx. Uvula is midline. Neck: Trachea is midline. Visual inspection is normal. Respiratory: Clear to auscultation bilaterally. No use of accessory muscles. No significant clubbing noted. Cardiovascular: Irregularly irregular. No murmurs. No edema. Gastrointestinal: Normal bowel sounds, soft, nontender and nondistended. No hepatosplenomegaly noted. Musculoskeletal: No cyanosis. Patient is able to move all extremities. Strength is 5 out of 5 in the upper and lower extremities. Skin: No rashes, warm dry and intact. Neurologic: No obvious focal neurological deficits seen. Psychiatric: Alert and awake. Results & Data Results & Data ([facility]) Vital Signs (Past 12 Hours) Vital Signs Temp Pulse Pulse Resp BP BP Pulse Ox 06/23/21 12:02 79 143/70 H 06/23/21 11:05 97.5 F L 79 20 146/51 H 97 06/23/21 08:00 72 06/23/21 07:34 97.9 F 73 16 117/65 97 06/23/21 06:34 69 99/74 L 06/23/21 03:37 97.7 F 81 18 145/66 H 93 vital signs, labs and imaging reviewed PG Care Time/CCT Total # of Minutes Spent Total Time Spent with Patient: Total time spent is greater than 50% in coordination of care (as documented) at patient's floor/unit and/or counseling patient: Coding Level of Care Code 31818 Subseq Hosp Care Lvl 3 Diagnoses Lung mass R91.8 AMS (altered mental status) R41.82 Acute UTI N39.0 Hyperglycemia without ketosis R73.9 Atrial fibrillation with RVR I48.91 Hypernatremia E87.0
--- NOTE | 2021-06-23 13:34 | Pharmacy Report ---
Pharmacy Glycemic Short Note 2 - Date of Service June 23, 2021 - Glycemic Short BSG Results (Last 24 hours): 06/22/21 06/22/21 06/22/21 13:31 16:19 17:27 Glucose POC Glucose 212 H 189 H 190 H 06/22/21 06/22/21 06/23/21 20:41 23:47 03:44 Glucose 237 H POC Glucose 150 H 159 H 06/23/21 06/23/21 06/23/21 06:16 09:52 12:00 Glucose POC Glucose 291 H 264 H 190 H OUTPATIENT ANTIDIABETIC REGIMEN: * Per [facility] records: * Levemir 10 units AM, 40 units PM * Novolog 20 units AM, 34 units PM, 10 units HS * Glipizide ASSESSMENT: 06/23: * Last evening, IV insulin infusion was discontinued and SQ Lantus + Novolog was started. Patient was ordered a dose of 30 units of Lantus. * Severe fasting hyperglycemia this AM. Based on previous IV insulin infusion rates (5 mls/hr = 120 units/day while NPO) and patients home insulin usage (uncontrolled on ~114 units/day), I ordered a one time dose of Lantus 60 units for this morning in addition to an IV insulin bolus. Improvement noted with lunch BSG, however patient is starting a diet. * Continue close monitoring; add overnight BSG checks with coverage 06/22: * Severe hyperglycemia resolved on IV insulin infusion. Current rate of 5 mls/hr. Patient continues on D5 1/2 NS @ 200 mls/hr. She has received ~8 L of fluid thus far (typically 8-10 L required for HHS). Goal range of 200 - 250 mg/dL has been utilized to avoid correcting electrolytes too quickly. * Most recent labs show improvement; serum osmo: 326, NA/corrected NA: 153/155. Mental status seems improved but patient is agitated - uncertain if she is at baseline. * Since hyperosmolar state is slowly resolving and BSG has been at goal since AM labs, I will decrease goal range on insulin infusion to aim for BSG ~ 200 mg/dL. Will hold off on overlapping SQ basal insulin until patient is able to resume a diet. 06/21: * Type 2 diabetic admitted to Tele bed for mental status changes, dehydration, WILBERT, hyperglycemia, likely HHS * Initial labs: Glu 712, Na 155, corrected Na 165-167, AG 6, Bicarb 29. Calculated effective serum osmo ~350 * Patient was given 2 L NS in ED. IV insulin infusion was started and continues this AM. Current maint IVF 12/01 NS + 20KCl @200cc/hr * I do not see orders for f/u chemistry today, Q4-6 hr labs recommended initially. PLAN FOR INPATIENT GLYCEMIC CONTROL: * Hold outpatient oral diabetes medications * Basal * Lantus 60 units SQ this am, then BID per scale: - 20 units for BSG < 140 - 30 units for BSG 140-20 - 35 units for BSG > 200 * Scale will likely need increased on 06/24 - started conservatively due to large "loading dose" of Lantus given this am * Bolus * ACHS + * Correction factor: 10 mg/dL/unit * Carb ratio: 1 unit for every 4 grams CHO PLAN FOR DISCHARGE: * A1c = 9.1% * to be determined
--- NOTE | 2021-06-23 13:53 | Hospitalist Progress Note ---
Date of Service June 23, 2021 Assessment & Plan (1) AMS (altered mental status): Plan: Mattie Harris is a 70yo female with PMHx significant for Crohn's disease, hypothyroidism, Parkinson's, hypertension and T2DM who was admitted to [facility] from [facility] for increased confusion in the setting of HHS, Hypernatremia and UTI. Was also found to have pulmonary mass incidentally on imaging. PRINCE Pulmonary Mass - Pulmonology consulted - appreciate recs - mass is highly suspicious for malignancy; patient currently does not have decision-making capacity but his sister indicated that the patient is unlikely to pursue a biopsy, further work-up or treatment - Palliative care consulted to discuss other treatment options with the family, including Hospice Urinary tract infection, resolving Urine culture from 06/17 demonstrating E. coli with multidrug resistance. Suspect UTI to have triggered HHS and worsening HyperNa (see below). - Had been utilizing meropenem over the last several days - In ED received ceftriaxone (E. coli sensitive to this per report) - no further treatment necessary at this time. Hyperosmolar hyperglycemic state (resolved), T2DM Likely triggered by urinary tract infection in the setting of poorly-controlled T2DM and poor nutritional status. - HHS resolved within 24 hours with use of several doses of IV insulin as well as IVFs - BSG remains <200 over last 24 hours - continue SSI, glycemic consult in place Hypernatremia, resolving In the setting of (and likely secondary to) chronic poor PO intake and UTI, as endorsed by patient's family members. - Na improved from high 150s ( corrected Na was 161 due to initial HHS) to 149 with IVFs - continue IVFs with D5W + 1/4NSS @150cc/hr Hypoxia, resolved Patient with episode of hypoxia (06/22) to 77; placed on 1L O2 via NC with improvement to 84, 2L resulted in adequate oxygenation. Suspect this was secondary to improper placement of SpO2 forehead monitor, as the patient often moves it. - CXR without acute new findings (mass again noted); CT without evidence of pneumonia - continue to monitor with pulse oximetry Atrial fibrillation, resolved Initially presented in a-fib but self-converted to NSR on 06/22, suspect a-fib was triggered in setting of UTI and other above-mentioned conditions. - Cardiology consulted - no plans for intervention at this time Acute kidney injury, resolved Suspect pre-renal injury 2/2 poor PO intake and dehydration from hyperglycemia. - Creatinine 2.62 on admission --> 1.08 today - Continue to monitor BMP Hyperkalemia K 4.9 --> 5.7 today. Suspect due to K-containing IV fluid rescucitation. - removed K from IVFs today - monitor BMP Other Chronic Medical Problems - re-started all home PO medications today FEN: DM2, nectar thick/pureed consistency Code status: DNR/DNI DVT ppx: Heparin 5000 units SQ Q12H Dispo: PCU with tele (2) Acute UTI: (3) Diabetes mellitus: (4) Hypothyroidism: (5) Crohn's disease: (6) Colitis: (7) Acute kidney injury: (8) Hyperglycemia without ketosis: Admission and Anticipated Discharge Date Admission Date: June 21, 2021 Supervising Physician Co-Signing Physician Notes I personally examined the patient and verified all syed points of history and exam, discussed case, and agree with decision making with Dr Ewing. I enter after a very lengthy and thorough family discussion between family and Dr. Ewing. We reiterate the salient pointspermissive aspiration for quality of life, and not working up the cancer further. Vitals noted, in general she is awake and alert but disoriented. No distress. HEENT normocephalic atraumatic mucous membranes moist. Breathing unlabored no accessory muscle use good effort. Skin shows no rashes no pallor or icterus. Neuro without focal deficits. Metabolic encephalopathypresent on admissiondue to volume depletion from both hypernatremic dehydration and HHS. Showing overall improvement. Continue supportive care. HHS/hyperglycemic dehydration with subsequent acute renal failurewill it somewhat impossible to completely tease apart from the hypernatremic dehydration, this problem appears to essentially have resolvedfluids now mostly to correct free water deficit. Insulin subcuwill need to titrate morefor now appears to need to tighten bolus. Hypernatremic dehydrationlikely preceded HHS/hyperglycemic dehydration, likely was related to poor p.o. intake from her thickened liquids. Continue to replace free water deficit. Dysphagia/aspiration riskafter discussions with family, permissive aspirationdiet as tolerated. Discussed with nursing. Hypoxiamild, probably aspiration related UTIquestion if she was septic prior to admission, but she seems mostly sick from the volume depletion above now, not septic. Continue antibiotics. Lung massalmost certainly cancer. Given her overall status, family is choosing to evaluate quality of life, and does not want this worked up further. That appears completely reasonable. New onset Herminio mancini, TSH once she is more baseline, rate is actually reasonable given her volume depletion. Currently on subcu heparin for DVT prophylaxis. Consider full anticoagulation for stroke prophylaxis moving forwa rd. Otherwise as above dispositionas she continues to move towards more stability with her fluid status, plan will be to discharge to SNF. Family lives in the [facility], and therefore they would prefer her to go to skilled closer to where they live so that they can visit more easily. Subjective No acute events overnight. Remains confused and A+Ox1 only. However she has maintained O2 sats >90% overnight and into this morning without issues. Denies pain. Remainder of HPI and ROS limited by mental status. Review of Systems Review of Systems: Unobtainable due to cognitive status Physical Exam Physical Exam: General: A&O to self only. NAD. Cooperative, but appears confused. HEENT: Atraumatic, normocephalic. Pulm: Mild end-expiratory wheezes in bases bilaterally but has adequate air movement. -rales, -rhonchi. Symmetrical chest rise. No increase work of breathing. No respiratory distress. Cardiac: RRR, -mrg. Radial pulses intact and symmetrical. No LE edema. Abdominal: soft, non-tender, non-distended, BS x 4 Skin: warm, dry, no rash Results & Data Results & Data ([facility]) Vital Signs (Past 12 Hours) Vital Signs Temp Pulse Pulse Resp BP BP Pulse Ox 06/23/21 12:02 79 143/70 H 06/23/21 11:05 36.4 C L 79 20 146/51 H 97 06/23/21 08:00 72 06/23/21 07:34 36.6 C 73 16 117/65 97 06/23/21 06:34 69 99/74 L 06/23/21 03:37 36.5 C 81 18 145/66 H 93 Resident Activity Tracking Resident Involvement: Resident Care Provided Care Provided: Adult Hospital Medicine
[2021-06-23] MEDS: ISOSORBIDE DINITRATE 20 MG TAB PO SCH (17:23)
--- NOTE | 2021-06-23 18:49 | Billing Data ---
Date of Service June 23, 2021 Coding Level of Care Code 19231 Subseq Hosp Care Lvl 3
--- NOTE | 2021-06-23 18:50 | Billing Data ---
Date of Service June 23, 2021 Coding Level of Care Code 61540 Subseq Hosp Care Lvl 3
[2021-06-23] MEDS: SODIUM CHLORIDE 0.45 % 1,000 ML IV SCH (20:14)
[2021-06-23] MEDS: ATORVASTATIN 10 MG TAB PO SCH (20:15)
[2021-06-23] MEDS: levETIRAcetam 500 MG TAB PO SCH (20:15)
[2021-06-23] MEDS: CITALOPRAM 20 MG TAB PO SCH (20:15)
[2021-06-23] MEDS: FAMOTIDINE 20 MG TAB PO SCH (20:15)
[2021-06-23] MEDS ORDERED: INSULIN GLARGINE SOLOSTAR 100 UNITS/ML 3 ML PEN SC ONE (21:00)
[2021-06-24] MEDS ORDERED: INSULIN ASPART 100 UNITS/ML 3 ML PEN SC SCH
[2021-06-24] MEDS: INSULIN ASPART 100 UNITS/ML 3 ML PEN SC SCH ×6 (00:46→20:48)
[2021-06-24] MEDS: METOPROLOL TARTRATE 1 MG/ML VIAL IV SCH ×4 (01:18→17:17)
[2021-06-24] MEDS: SODIUM CHLORIDE 0.45 % 1,000 ML IV SCH ×3 (03:41→17:22)
[2021-06-24] MEDS: DEXTROSE 50% 50 ML SYRINGE IV PRN (04:58)
[2021-06-24] MEDS: LEVOTHYROXINE SODIUM 25 MCG TABLET PO SCH (05:30)
[2021-06-24 07:01] LABS: BUN Creatinine Ratio 13.9 (10-20); Est GFR (African American) 70.7 ml/min; Magnesium 2.2 mg/dl (1.8-2.4); Phosphorus 2.3 mg/dl (2.5-4.9); Potassium 4.3 mmol/L (3.5-5.1)
--- NOTE | 2021-06-24 07:23 | Hospitalist Progress Note ---
Date of Service June 24, 2021 Assessment & Plan (1) AMS (altered mental status): Plan: Mattie Harris is a 70yo female with PMHx significant for Crohn's disease, hypothyroidism, Parkinson's, hypertension and T2DM who was admitted to [facility] from [facility] for increased confusion in the setting of HHS, Hypernatremia and UTI. Was also found to have pulmonary mass incidentally on imaging. Dysphagia, Malnutrition, Goals of Care Patient is a longstanding aspiration risk but has not been eating/drinking due to not liking the nectar-thick consistency of her diet, which is by and large the major cause of below-mentioned medical problems that brought her to the hospital. We had a goals of care discussion yesterday, with both of the patient's next of kin (sisters) present, and they decided to proceed with a regular-consistency diet despite risks of aspiration. - Palliative care consulted for more in-depth discussion of goals of care - continue aspiration precautions PRINCE Pulmonary Mass - Pulmonology consulted - appreciate recs - mass is highly suspicious for malignancy; patient currently does not have decision-making capacity but both her sisters (and herself) indicated that would not like to pursue a biopsy, further work-up or treatment - Palliative care consulted as mentioned above Urinary tract infection, resolved Urine culture from 06/17 demonstrating E. coli with multidrug resistance. Suspect UTI to have triggered HHS and worsening HyperNa (see below). - Had been utilizing meropenem over the last several days - In ED received ceftriaxone (E. coli sensitive to this per report) - no further treatment necessary at this time. Hyperosmolar hyperglycemic state (resolved), T2DM Likely triggered by urinary tract infection in the setting of poorly-controlled T2DM and poor nutritional status. - HHS resolved within 24 hours with use of several doses of IV insulin as well as IVFs - BSG remains <200 over last several days - continue SSI, glycemic consult in place Hypernatremia, resolving In the setting of (and likely secondary to) chronic poor PO intake and UTI, as endorsed by patient's family members. - Na improved from high 150s ( corrected Na was 161 due to initial HHS) to 142 with IVFs - continue IVFs with D5W + 1/2NSS @125cc/hr - encourage PO intake Hypoxia, resolved Patient with episode of hypoxia (06/22) to 77; placed on 1L O2 via NC with improvement to 84, 2L resulted in adequate oxygenation. Suspect this was secondary to improper placement of SpO2 forehead monitor, as the patient often moves it. - CXR without acute new findings (mass again noted); CT without evidence of pneumonia - continue to monitor with pulse oximetry Atrial fibrillation, resolved Initially presented in a-fib but self-converted to NSR on 06/22, suspect a-fib was triggered in setting of UTI and other above-mentioned conditions. - Cardiology consulted - no plans for intervention at this time Acute kidney injury, resolved Suspect pre-renal injury 2/2 poor PO intake and dehydration from hyperglycemia. - Creatinine 2.62 on admission --> 0.94 today - IVFs as mentioned above - Continue to monitor BMP Other Chronic Medical Problems - re-started all home PO medications yesterday FEN: DM2 diet, 1/2NSS @125cc/hr Code status: DNR/DNI DVT ppx: Heparin 5000 units SQ Q12H Dispo: PCU with tele, CM to assist with SNF in [facility] (where patient's sisters live) (2) Acute UTI: (3) Diabetes mellitus: (4) Hypothyroidism: (5) Crohn's disease: (6) Colitis: (7) Acute kidney injury: (8) Hyperglycemia without ketosis: Admission and Anticipated Discharge Date Admission Date: June 21, 2021 Supervising Physician Co-Signing Physician Notes Resident Physician Supervision Note: I independently interviewed and examined the patient and verified the syed history and physical, reviewed labs and image studies and agree with resident Dr. Ewing findings and care plan. Subjective No acute events overnight. Mental status improving - now A+O to self and place. She continues to maintain O2 sats >90% overnight and into this morning without issues. Denies fever/chills, chest pain, palpitations, cough, SOB, N/V, abdom inal pain. Review of Systems Review of Systems: All systems reviewed & are unremarkable except as noted in Subjective Physical Exam Physical Exam: General: A&O to self only. NAD. Cooperative, but appears confused. HEENT: Atraumatic, normocephalic. Pulm: Mild end-expiratory wheezes in bases bilaterally but has adequate air movement. -rales, -rhonchi. Symmetrical chest rise. No increase work of breathing. No respiratory distress. Cardiac: RRR, -mrg. Radial pulses intact and symmetrical. No LE edema. Abdominal: soft, non-tender, non-distended, BS x 4 Skin: warm, dry, no rash Results & Data Results & Data ([facility]) Vital Signs (Past 12 Hours) Vital Signs Temp Pulse Pulse Resp BP BP Pulse Ox 06/24/21 05:28 78 95/82 L 06/24/21 03:10 37.0 C 86 21 111/54 L 92 06/24/21 01:18 85 131/47 L 06/23/21 23:06 37.3 C 79 25 H 128/73 100 Resident Activity Tracking Resident Involvement: Resident Care Provided Care Provided: Adult Hospital Medicine
[2021-06-24] MEDS: HEPARIN SOD 5,000 UNIT/0.5 ML VIAL SC SCH ×2 (07:51→19:48)
[2021-06-24] MEDS: FLUTICASONE/VILANTEROL 100/25MCG 14 PUFFS/INHALER INH SCH (07:51)
[2021-06-24] MEDS: ISOSORBIDE DINITRATE 20 MG TAB PO SCH ×3 (07:52→17:19)
[2021-06-24] MEDS: ASPIRIN 81 MG ECTAB PO SCH (07:52)
[2021-06-24] MEDS: FAMOTIDINE 20 MG TAB PO SCH ×2 (07:52→19:48)
[2021-06-24] MEDS: CYANOCOBALAMIN 500 MCG TABLET (VITAMIN B-12) PO SCH (07:52)
[2021-06-24] MEDS: BUMETANIDE 1 MG TAB PO SCH (07:52)
[2021-06-24] MEDS: RANOLAZINE 500 MG ER TAB PO SCH (07:53)
[2021-06-24] MEDS: MAGNESIUM OXIDE 400 MG TAB PO SCH (07:53)
[2021-06-24] MEDS: levETIRAcetam 500 MG TAB PO SCH ×2 (07:53→19:48)
[2021-06-24] MEDS ORDERED: INSULIN GLARGINE SOLOSTAR 100 UNITS/ML 3 ML PEN SC SCH ×3 (09:00→21:00)
--- NOTE | 2021-06-24 10:34 | Pharmacy Report ---
Pharmacy Glycemic Short Note 2 - Date of Service June 24, 2021 - Glycemic Short BSG Results (Last 24 hours): 06/23/21 06/23/21 06/23/21 12:00 17:20 20:09 Glucose POC Glucose 190 H 181 H 209 H 06/24/21 06/24/21 06/24/21 00:19 00:20 00:44 Glucose POC Glucose 61 L* 65 L* 72 06/24/21 06/24/21 06/24/21 04:27 04:56 05:19 Glucose POC Glucose 50 L* 48 L* 111 H 06/24/21 06/24/21 06/24/21 05:40 07:14 07:17 Glucose 196 H POC Glucose 194 H 138 H OUTPATIENT ANTIDIABETIC REGIMEN: * Per [facility] records: * Levemir 10 units AM, 40 units PM * Novolog 20 units AM, 34 units PM, 10 units HS * Glipizide ASSESSMENT: 06/24: * 142 units SQ insulin administer over last 24 hours * BSGs did fall into the 40-60s overnight. I believe this was a combo of excess Novolog given at HS (it appears CF of 4 was used instead of 10) however excess basal insulin may also have contributed (would have had ~95 units basal on board). * Will titrate down basal insulin dose today as a precaution. AM Lantus will be delayed until lunchtime to ensure BSG has recovered. * Novolog CF and CR doses are reasonable considering out-pt requirements and current stressors. Will follow post-prandials today and adjust if needed 06/23: * Last evening, IV insulin infusion was discontinued and SQ Lantus + Novolog was started. Patient was ordered a dose of 30 units of Lantus. * Severe fasting hyperglycemia this AM. Based on previous IV insulin infusion rates (5 mls/hr = 120 units/day while NPO) and patients home insulin usage (uncontrolled on ~114 units/day), I ordered a one time dose of Lantus 60 units for this morning in addition to an IV insulin bolus. Improvement noted with lunch BSG, however patient is starting a diet. * Continue close monitoring; add overnight BSG checks with coverage 06/22: * Severe hyperglycemia resolved on IV insulin infusion. Current rate of 5 mls/hr. Patient continues on D5 1/2 NS @ 200 mls/hr. She has received ~8 L of fluid thus far (typically 8-10 L required for HHS). Goal range of 200 - 250 mg/dL has been utilized to avoid correcting electrolytes too quickly. * Most recent labs show improvement; serum osmo: 326, NA/corrected NA: 153/155. Mental status seems improved but patient is agitated - uncertain if she is at baseline. * Since hyperosmolar state is slowly resolving and BSG has been at goal since AM labs, I will decrease goal range on insulin infusion to aim for BSG ~ 200 mg/dL. Will hold off on overlapping SQ basal insulin until patient is able to resume a diet. 06/21: * Type 2 diabetic admitted to Tele bed for mental status changes, dehydration, WILBERT, hyperglycemia, likely HHS * Initial labs: Glu 712, Na 155, corrected Na 165-167, AG 6, Bicarb 29. Calculated effective serum osmo ~350 * Patient was given 2 L NS in ED. IV insulin infusion was started and continues this AM. Current maint IVF 1/2 NS + 20KCl @200cc/hr * I do not see orders for f/u chemistry today, Q4-6 hr labs recommended initia lly. PLAN FOR INPATIENT GLYCEMIC CONTROL: * Hold outpatient oral diabetes medications * Basal - decrease * Lantus 28 units SQ BID * Bolus -no change * Novolog ACHS + * Correction factor: 10 mg/dL/unit * Carb ratio: 1 unit for every 4 grams CHO PLAN FOR DISCHARGE: * A1c = 9.1% * To be determined - will depend on goals of care. A1c is elevated and adjustments could be made to insulin regimen however discharge plan and diet remain uncertain.
--- NOTE | 2021-06-24 11:28 | Palliative Care Consultation ---
Date of Consultation June 24, 2021 Assessment & Plan (1) Palliative care encounter: This individual is a 70 year old female who presented to the [facility] from [facility] with altered mental status and hyperglycemia. Additional PMH includes: Crohn's disease, hypothyroidism, Parkinson's Disease, hypertension, and DM2. The patient had her hyperglycemia corrected in the ED as her glucose level was 508 and she was placed on an insulin gtt and NPO. She also was found to have a UTI and was given treatment. Palliative Medicine was consulted to discuss overall goals of care. I was able to meet with Diane at the bedside with Dr. Mccartney. The patient was able to converse and hold conversation; however, she had intermittent confusion and was not reliable as a historian. She was able to say that her two sisters have helped care for her and that she would like to move to [place] to be closer to them, which is accurate with the overall goals that have been discussed with family. I was able to talk with Lara, Diane's sister, on the phone at [phone]. We discussed her condition at length and brought up overall goals. Diane on her own was able to say that she would not want heroic measures taken in her care and said "if im that bad, I will just ". Diane did express that she was not scared of her dying time. Lara said that she would like her to be closer to her in [place], but did not have specific facilities that she would want her to be at. This was discussed with case management. Lara was supportive of her being DNR/DNI, but said that if she declines and is not eating, she would not be able to watch her 'stave to '. We talked more about this in detail, with risk vs benefits of feeding tubes and comfort feeding when that time approaches. We did discuss a POLST in detail as well. She is comfortable with her returning to the hospital. See below. (2) Lung mass: (3) Weakness: (4) Decreased oral intake: (5) POLST (Physician Orders for Life-Sustaining Treatment): POLST discussed with patients sister, Lara, over the phone with the following details: DNR/DNI, limited interventions, trial abx and no artificial nutrition/hydration. A copy and original will be placed on the chart. Note will be written indicating that any future hospitalizations to be cleared by family. History of Present Illness Reason for Consultation: Goals of care Requesting Physician: Dr. Uriarte Attending Physician: Nikki Brito MD History of Present Illness This individual is a 70 year old female who presented to the [facility] from [facility] with altered mental status and hyperglycemia. Additional PMH includes: Crohn's disease, hypothyroidism, Parkinson's Disease, hypertension, and DM2. The patient had her hyperglycemia corrected in the ED as her glucose level was 508 and she was placed on an insulin gtt and NPO. She also was found to have a UTI and was given treatment. Palliative Medicine was consulted to discuss overall goals of care. Please see A/P for further information. Thanks for involving Palliative Medicine with this individual. Allergies Allergy/AdvReac Type Severity Reaction Status Date / Time Cipro Allergy Severe RASH Unverified 07/01/18 14:03 ciprofloxacin Allergy Severe RASH Verified 06/20/21 23:19 Penicillins Allergy Intermediate HIVES Verified 06/20/21 23:19 Sulfa (Sulfonamide Allergy Intermediate HIVES Verified 06/20/21 23:19 Antibiotics) latex Allergy Unknown Unknown Verified 06/20/21 23:19 cephalexin [From Keflex] Allergy Unknown Unverified 06/20/21 23:19 green pepper Allergy Verified 06/21/21 11:06 adhesive AdvReac Severe "THEY EAT Verified 06/20/21 23:19 MY SKIN." Iodinated Contrast Media AdvReac Intermediate Vomiting Verified 06/20/21 23:19 Quinolones AdvReac Mild YEAST Verified 06/20/21 23:19 INFECTION Cephalosporins AdvReac Unknown Unknown Verified 06/20/21 23:19 Ba Pepper AdvReac Intermediate GREEN Uncoded 03/16/21 14:43 PEPPER = MIGRAINE HEADACHE Home Medications Medication Instructions Recorded Confirmed Type acetaminophen 325 mg tablet 650 mg PO Q4 PRN 06/20/21 06/20/21 History (Tylenol) aspirin 81 mg tablet,delayed 81 mg PO DAILY 06/20/21 06/20/21 History release atorvastatin 10 mg tablet (Lipitor) 10 mg PO HS 06/20/21 06/20/21 History bumetanide 1 mg tablet 1 mg PO QAM 06/20/21 06/20/21 History cholecalciferol (vitamin D3) 25 25 mcg PO DAILY 06/20/21 06/20/21 History mcg (1,000 unit) tablet (Vitamin D3) citalopram 20 mg tablet 20 mg PO HS 06/20/21 06/20/21 History cyanocobalamin (vitamin B-12) 1,000 mcg PO DAILY 06/20/21 06/20/21 History 1,000 mcg tablet (Vitamin B-12) ertapenem 1 gram solution for 1 g IM UD 06/20/21 06/20/21 History injection famotidine 20 mg tablet 20 mg PO BID 06/20/21 06/20/21 History fluticasone furoate 100 1 ea INHALATION DAILY 06/20/21 06/20/21 History mcg-vilanterol 25 mcg/dose inhalation powder (Breo Ellipta) folic acid 1 mg tablet 1 mg PO DAILY 06/20/21 06/20/21 History heparin (porcine) 5,000 unit/mL 5,000 unit SUBCUT BID 06/20/21 06/20/21 History injection solution insulin aspart U-100 100 unit/mL 12 unit SUBCUT .ONCE TODAY 06/20/21 06/20/21 History subcutaneous solution (Novolog U-100 Insulin aspart) isosorbide dinitrate 20 mg tablet 20 mg PO TID 06/20/21 06/20/21 History levetiracetam 500 mg tablet 500 mg PO AMPM 06/20/21 06/20/21 History levothyroxine 25 mcg tablet 25 mcg PO DAILY 06/20/21 06/20/21 History magnesium hydroxide 400 mg/5 mL 30 ml PO DAILY PRN 06/20/21 06/20/21 History oral suspension (Milk of Magnesia) magnesium oxide 400 mg PO DAILY 06/20/21 06/20/21 History methotrexate sodium 2.5 mg tablet 15 mg PO .QFRI 06/20/21 06/20/21 History pantoprazole 40 mg tablet,delayed 40 mg PO DAILY 06/20/21 06/20/21 History release (Protonix) ranolazine 500 mg tablet,extended 500 mg PO AMHS 06/20/21 06/20/21 History release,12 hr rivastigmine 1 patch TOPICAL DAILY 06/20/21 06/20/21 History Patient History Medical History (Updated 06/24/21 @ 16:21 by PENNIE Swanson) Acute asthma exacerbation Acute kidney injury Anemia Asthma Atrial fibrillation with RVR Chest pain Chronic kidney disease Colitis Crohn's disease Decreased oral intake Diabetes mellitus GI bleeding Hypernatremia Hypertension Hypothyroidism Palliative care encounter Personal history of DVT (deep vein thrombosis) Pneumonia POLST (Physician Orders for Life-Sustaining Treatment) Pulmonary embolism Weakness Family History Other Family history non-contributory Social History Smoking Status: Unknown if ever smoked Second Hand Exposure: No; Hx Alcohol Use: No Hx Substance Use: No Preferred Language: Lao Communication Ability: Impaired Canvas Cutter Machine Required: No Beliefs That Will Affect Care: None Current Living Situation: Assisted Current Living Situation Comment: Per patient (Patient is confused) Feels Safe at Home: Yes Assistive Devices: Oxygen - Continuous Review of Systems Review of Systems: [place] System Assessment Scale: Pain: 0/3 SOB: 0/3 Tiredness: 2/3 Drowsiness: 0/3 Lack of Appetite: 1/3 Palliative Performance Scale: 30% Physical Exam Constitutional: + frail appearing, cooperative and comfortable ENMT: Mouth: + dry oral mucous membranes Respiratory: + cough; no labored breathing and not tachypneic Gastrointestinal (Abdomen): normal bowel sounds, soft, nontender, no hepatosplenomegaly Skin: + pallor Psychiatric: Orientation: alert, oriented to person, oriented to time and cooperative Insight: + limited insight Judgement: + limited judgement Results & Data ([facility]) Vital Signs (Past 12 Hours) Vital Signs Temp Pulse Pulse Resp BP BP Pulse Ox 06/24/21 08:49 77 06/24/21 08:13 36.9 C 19 100 06/24/21 07:53 84 152/110 H 06/24/21 05:28 78 95/82 L 06/24/21 03:10 37.0 C 86 21 111/54 L 92 06/24/21 01:18 85 131/47 L PG Care Time/CCT Total # of Minutes Spent Total Time Spent with Patient: Total time spent is greater than 50% in coordination of care (as documented) at patient's floor/unit and/or counseling patient: 100 minutes with > 50% of that time spent assessing the patient, discussing goals of care and collaborating with IDT Coding Level of Care Code 00814 Initial Inpt Care Lvl 3 Diagnoses Palliative care encounter Z51.5 Lung mass R91.8 Weakness R53.1 Decreased oral intake R63.8 POLST (Physician Orders for Life-Sustaining Treatment) Z78.9 Time Spent (min) 100
[2021-06-24] MEDS ORDERED: INSULIN GLARGINE SOLOSTAR 100 UNITS/ML 3 ML PEN SC ONE (11:30)
--- NOTE | 2021-06-24 15:40 | Pulmonology Progress Note ---
Date of Service June 24, 2021 Assessment & Plan (1) Lung mass: Plan: 70-year-old female with a past medical history of Parkinson's disease, Diabetes mellitus type 2, hypertension and seizure disorder who presented to the hospital due to altered mental status and hyperglycemia. There is concern for urinary tract infection. She is also found to be in atrial fibrillation with rapid ventricular response. CT chest 06/24/2021 personally reviewed: Left upper lobe 6 x 4 cm spiculated nodule Left lower lobe bullae No mediastinal lymphadenopathy --Left upper lobe mass Abutting mediastinum No mediastinal adenopathy Heavy smoker, quit approximately 25 years ago The possibility of it being a lung cancer is very high I did speak with patient's sister who is the decision-maker Lara Mckeon who has made the decision along with the family members not to pursue diagnosis. I agree that this is the right thing to do in a patient who has dementia and poor quality of life with multiple other comorbidities. Palliative care consult also noted. --COPD Patient is on Breo at home Would recommend to change it to Anoro instead if she is able to use the inhalers Plan: No further recommendation from pulmonary perspective. Will sign off. Call with any questions. Please note the above document was generated using voice recognition software. It may contain grammatical, syntax or spelling errors.Any formal questions or co ncerns about the content, text or information contained within the body of this dictation should be directly addressed to the provider for clarification. (2) COPD (chronic obstructive pulmonary disease): Admission and Anticipated Discharge Date Admission Date: June 21, 2021 Subjective Patient seen and examined at bedside. No acute distress, no dizziness overnight. Patient is a poor historian. Denies any chest pain, no shortness of breath, no headache, no nausea Fair appetite. Review of Systems Review of Systems: All systems reviewed & are unremarkable except as noted in Subjective Physical Exam Physical Exam: Constitutional: No acute distress HEENT: EOMI, PERRLA Respiratory system: Decreased entry bilaterally, no wheeze, no rhonchi, crackles bilateral lower lobes CVS: S1-S2 positive, no murmurs or gallops Abdomen: Soft, nontender, nondistended, positive bowel sounds x4, obese Extremities: +2 pulses bilaterally radialis/ dorsalis pedis, no cyanosis, no edema Neuro: Awake alert oriented to self and place Psych: Normal mood and affect G/U: No Ward Results & Data Results & [facility] ([facility]) Vital Signs (Past 12 Hours) Vital Signs Temp Pulse Pulse Resp BP BP Pulse Ox 06/24/21 15:17 36.9 C 81 19 127/71 96 06/24/21 12:27 36.9 C 93 H 19 144/63 H 99 06/24/21 12:23 85 144/63 H 06/24/21 08:49 77 06/24/21 08:13 36.9 C 19 100 06/24/21 07:53 84 152/110 H 06/24/21 05:28 78 95/82 L 06/22/21 10:09 06/24/21 05:40 PG Care Time/CCT Total # of Minutes Spent Total Time Spent with Patient: Total time spent is greater than 50% in coordination of care (as documented) at patient's floor/unit and/or counseling patient: Coding Level of Care Code 30335 Subseq Hosp Care Lvl 3 Diagnoses Lung mass R91.8 COPD (chronic obstructive pulmonary disease) J44.9
[2021-06-24] MEDS: CITALOPRAM 20 MG TAB PO SCH (19:48)
[2021-06-24] MEDS: ATORVASTATIN 10 MG TAB PO SCH (19:48)
[2021-06-25] MEDS: INSULIN ASPART 100 UNITS/ML 3 ML PEN SC SCH ×7 (00:48→23:55)
[2021-06-25] MEDS: METOPROLOL TARTRATE 1 MG/ML VIAL IV SCH ×4 (00:48→17:13)
[2021-06-25] MEDS: SODIUM CHLORIDE 0.45 % 1,000 ML IV SCH ×2 (00:53→09:48)
[2021-06-25] MEDS: CARBOHYDRATES FOR HYPOGLYCEMIA PO PRN ×3 (04:41→11:28)
[2021-06-25] MEDS: LEVOTHYROXINE SODIUM 25 MCG TABLET PO SCH (05:28)
--- NOTE | 2021-06-25 05:39 | Billing Data ---
Date of Service June 25, 2021 Coding Level of Care Code 06487 Initial Inpt Care Lvl 3
[2021-06-25 07:02] LABS: BUN Creatinine Ratio 11.3 (10-20); Calcium 7.7 mg/dl (8.5-10.1); Creatinine Clr Calc Pharmacy 55.3 ml/min; Est GFR (African American) 64.9 ml/min; Magnesium 2.1 mg/dl (1.8-2.4); Potassium 4.2 mmol/L (3.5-5.1)
[2021-06-25] MEDS: HEPARIN SOD 5,000 UNIT/0.5 ML VIAL SC SCH ×2 (08:25→20:38)
[2021-06-25] MEDS: levETIRAcetam 500 MG TAB PO SCH ×2 (08:25→20:38)
[2021-06-25] MEDS: BUMETANIDE 1 MG TAB PO SCH (08:25)
[2021-06-25] MEDS: ASPIRIN 81 MG ECTAB PO SCH (08:25)
[2021-06-25] MEDS: RANOLAZINE 500 MG ER TAB PO SCH (08:25)
[2021-06-25] MEDS: ISOSORBIDE DINITRATE 20 MG TAB PO SCH ×3 (08:25→17:12)
[2021-06-25] MEDS: FAMOTIDINE 20 MG TAB PO SCH ×2 (08:25→20:38)
[2021-06-25] MEDS: MAGNESIUM OXIDE 400 MG TAB PO SCH (08:26)
[2021-06-25] MEDS: FLUTICASONE/VILANTEROL 100/25MCG 14 PUFFS/INHALER INH SCH (08:26)
[2021-06-25] MEDS: CYANOCOBALAMIN 500 MCG TABLET (VITAMIN B-12) PO SCH (08:26)
--- NOTE | 2021-06-25 09:29 | Hospitalist Progress Note ---
Date of Service June 25, 2021 Assessment & Plan (1) AMS (altered mental status): Plan: Mattie Harris is a 70yo female with PMHx significant for Crohn's disease, hypothyroidism, Parkinson's, hypertension and T2DM who was admitted to [facility] from [facility] for increased confusion in the setting of HHS, Hypernatremia and UTI. Was also found to have pulmonary mass incidentally on imaging. Dysphagia, Malnutrition, Goals of Care Patient is a longstanding aspiration risk but has not been eating/drinking due to not liking the nectar-thick consistency of her diet, which is by and large the major cause of below-mentioned medical problems that brought her to the hospital. We had a goals of care discussion yesterday, with both of the patient's next of kin (sisters) present, and they decided to proceed with a regular-consistency diet despite risks of aspiration. - Palliative care consulted for more in-depth discussion of goals of care - appreciate recs - POLST signed that includes DNR/DNI, minimal intervention, can use abx, no artificial fluid/nutrition - regular diet, continue aspiration precautions PRINCE Pulmonary Mass - Pulmonology consulted - appreciate recs - mass is highly suspicious for malignancy; patient currently does not have decision-making capacity but both her sisters (and herself) indicated that would not like to pursue a biopsy, further work-up or treatment - Palliative care consulted as mentioned above Hypernatremia, resolving In the setting of (and likely secondary to) chronic poor PO intake and UTI, as endorsed by patient's family members. - Na improved from high 150s ( corrected Na was 161 due to initial HHS) to 142 with IVFs, remains slightly elevated at 144 today - decreased IVFs to 60cc/hr, still using D5W + 1/2NSS - encourage PO intake Urinary tract infection, resolved Urine culture from 06/17 demonstrating E. coli with multidrug resistance. Suspect UTI to have triggered HHS and worsening HyperNa (see below). - Had been utilizing meropenem over the last several days - In ED received ceftriaxone (E. coli sensitive to this per report) - no further treatment necessary at this time. Hyperosmolar hyperglycemic state (resolved), T2DM Likely triggered by urinary tract infection in the setting of poorly-controlled T2DM and poor nutritional status. - HHS resolved within 24 hours with use of several doses of IV insulin as well as IVFs - BSG remains <200 over last several days - continue SSI, glycemic consult in place Paroxysmal Atrial fibrillation Initially presented in a-fib but self-converted to NSR on 06/22, suspect a-fib was triggered in setting of UTI and other above-mentioned conditions. - Cardiology consulted - no plans for intervention at this time Acute kidney injury, resolved Suspect pre-renal injury 2/2 poor PO intake and dehydration from hyperglycemia. - Creatinine 2.62 on admission --> 0.94 today - IVFs as mentioned above - Continue to monitor BMP Other Chronic Medical Problems - re-started all home PO medications yesterday FEN: DM2 diet, 1/2NSS @125cc/hr Code status: DNR/DNI DVT ppx: Heparin 5000 units SQ Q12H Dispo: PCU with tele, CM to assist with SNF in [facility] (where patient's sisters live) (2) Acute UTI: (3) Diabetes mellitus: (4) Hypothyroidism: (5) Crohn's disease: (6) Colitis: (7) Acute kidney injury: (8) Hyperglycemia without ketosis: Admission and Anticipated Discharge Date Admission Date: June 21, 2021 Supervising Physician Co-Signing Physician Notes Resident Physician Supervision Note: I independently interviewed and examined the patient and verified the syed history and physical, reviewed labs and image studies and agree with resident Dr. Ewing findings and care plan. Subjective No acute events overnight; patient continues to be intermittently confused which is worst in the evenings. This morning she is speaking coherently and oriented to self and place - stable. Denies fever/chills, chest pain, SOB, N/V, abdominal pain, rash. Review of Systems Review of Systems: All systems reviewed & are unremarkable except as noted in Subjective Physical Exam Physical Exam: General: A&O to self and place. NAD. Cooperative. HEENT: Atraumatic, normocephalic. Pulm: LCTAB. -rales, -rhonchi. Symmetrical chest rise. No increase work of breathing. No respiratory distress. Cardiac: RRR, -mrg. Radial pulses intact and symmetrical. No LE edema. Abdominal: soft, non-tender, non-distended, BS x 4 Skin: warm, dry, no rash Results & Data Results & Data ([facility]) Vital Signs (Past 12 Hours) Vital Signs Temp Pulse Pulse Resp BP BP Pulse Ox 06/25/21 08:27 36.6 C 75 18 127/95 99 06/25/21 04:55 37.1 C 77 20 145/84 H 100 06/25/21 00:48 79 127/91 06/24/21 23:46 37.3 C 85 18 127/91 99 Resident Activity Tracking Resident Involvement: Resident Care Provided Care Provided: Adult Hospital Medicine
[2021-06-25] MEDS: DEXTROSE 50% 50 ML SYRINGE IV PRN (12:10)
--- NOTE | 2021-06-25 12:25 | Pharmacy Report ---
Pharmacy Glycemic Short Note 2 - Date of Service June 25, 2021 - Glycemic Short BSG Results (Last 24 hours): 06/24/21 06/24/21 06/24/21 16:17 20:15 23:51 Glucose POC Glucose 84 109 H 73 06/25/21 06/25/21 06/25/21 04:37 05:20 05:21 Glucose POC Glucose 60 L* 363 H* 80 06/25/21 06/25/21 06/25/21 06:02 07:31 11:12 Glucose 80 POC Glucose 192 H 41 L* 06/25/21 06/25/21 06/25/21 11:14 11:40 11:45 Glucose POC Glucose 63 L* 53 L* 63 L* 06/25/21 12:01 Glucose POC Glucose 56 L* OUTPATIENT ANTIDIABETIC REGIMEN: * Per [facility] records: * Levemir 10 units AM, 40 units PM * Novolog 20 units AM, 34 units PM, 10 units HS * Glipizide ASSESSMENT: 06/25: * 52 units SQ administered over last 24 hrs * BSG again fell overnight, however this time it was clearly due to excess basal insulin. Patient have 48 units of basal on board when BSG dropped to 60s. * BSG did recover into the 80s this AM. * Patient again became hypoglycemic pre-lunch today. This was secondary to Novolog correction given this AM for BSG 192. I suspect the BSG of 192 was not accurate given the pattern of prior BSGs. * Will withhold basal until until BSGs consistently > 140. Diet remains poor. * Will decrease Novolog CF and CR doses as well 06/24: * 142 units SQ insulin administer over last 24 hours * BSGs did fall into the 40-60s overnight. I believe this was a combo of excess Novolog given at HS (it appears CF of 4 was used instead of 10) however excess basal insulin may also have contributed (would have had ~95 units basal on board). * Will titrate down basal insulin dose today as a precaution. AM Lantus will be delayed until lunchtime to ensure BSG has recovered. * Novolog CF and CR doses are reasonable considering out-pt requirements and current stressors. Will follow post-prandials today and adjust if needed 06/23: * Last evening, IV insulin infusion was discontinued and SQ Lantus + Novolog was started. Patient was ordered a dose of 30 units of Lantus. * Severe fasting hyperglycemia this AM. Based on previous IV insulin infusion rates (5 mls/hr = 120 units/day while NPO) and patients home insulin usage (uncontrolled on ~114 units/day), I ordered a one time dose of Lantus 60 units for this morning in addition to an IV insulin bolus. Improvement noted with lunch BSG, however patient is starting a diet. * Continue close monitoring; add overnight BSG checks with coverage 06/22: * Severe hyperglycemia resolved on IV insulin infusion. Current rate of 5 mls/hr. Patient continues on D5 1/2 NS @ 200 mls/hr. She has received ~8 L of fluid thus far (typically 8-10 L required for HHS). Goal range of 200 - 250 mg/dL has been utilized to avoid correcting electrolytes too quickly. * Most recent labs show improvement; serum osmo: 326, NA/corrected NA: 153/155. Mental status seems improved but patient is agitated - uncertain if she is at baseline. * Since hyperosmolar state is slowly resolving and BSG has been at goal since AM labs, I will decrease goal range on insulin infusion to aim for BSG ~ 200 mg/dL. Will hold off on overlapping SQ basal insulin until patient is able to resume a diet. 06/21: * Type 2 diabetic admitted to Tele bed for mental status changes, dehydration, WILBERT, hyperglycemia, likely HHS * Initial labs: Glu 712, Na 155, corrected Na 165-167, AG 6, Bicarb 29. Calculated effective serum osmo ~350 * Patient was given 2 L NS in ED. IV insulin infusion was started and continues this AM. Current maint IVF 1/2 NS + 20KCl @200cc/hr * I do not see orders for f/u chemistry today, Q4-6 hr labs recommended initially. PLAN FOR INPATIENT GLYCEMIC CONTROL: * Hold outpatient oral diabetes medications * Basal - decrease * Hold until BSGs > 140 * Bolus -decrease * Novolog Q 4 hrs * Correction factor: 30 mg/dL/unit * Carb ratio: 1 unit for every 10 grams CHO PLAN FOR DISCHARGE: * A1c = 9.1% * To be determined - will depend on goals of care. A1c is elevated and adjustments could be made to insulin regimen however discharge plan and diet remain uncertain.
[2021-06-25] MEDS: ATORVASTATIN 10 MG TAB PO SCH (20:38)
[2021-06-25] MEDS: CITALOPRAM 20 MG TAB PO SCH (20:38)
[2021-06-26] MEDS: SODIUM CHLORIDE 0.45 % 1,000 ML IV SCH (01:53)
[2021-06-26] MEDS: INSULIN ASPART 100 UNITS/ML 3 ML PEN SC SCH ×3 (04:24→13:31)
[2021-06-26] MEDS: LEVOTHYROXINE SODIUM 25 MCG TABLET PO SCH (05:59)
[2021-06-26] MEDS: MAGNESIUM OXIDE 400 MG TAB PO SCH (08:39)
[2021-06-26] MEDS: HEPARIN SOD 5,000 UNIT/0.5 ML VIAL SC SCH (08:39)
[2021-06-26] MEDS: BUMETANIDE 1 MG TAB PO SCH (08:39)
[2021-06-26] MEDS: FAMOTIDINE 20 MG TAB PO SCH (08:39)
[2021-06-26] MEDS: RANOLAZINE 500 MG ER TAB PO SCH (08:39)
[2021-06-26] MEDS: ASPIRIN 81 MG ECTAB PO SCH (08:39)
[2021-06-26] MEDS: levETIRAcetam 500 MG TAB PO SCH (08:39)
[2021-06-26] MEDS: CYANOCOBALAMIN 500 MCG TABLET (VITAMIN B-12) PO SCH (08:39)
[2021-06-26] MEDS: FLUTICASONE/VILANTEROL 100/25MCG 14 PUFFS/INHALER INH SCH (08:40)
[2021-06-26] MEDS: ISOSORBIDE DINITRATE 20 MG TAB PO SCH ×2 (08:40→13:30)
[2021-06-26] MEDS ORDERED: METOPROLOL SUCC 25MG EXT REL TAB PO SCH (09:00)
[2021-06-26 09:57] LABS: BUN Creatinine Ratio 7.9 (10-20); Creatinine Clr Calc Pharmacy 51.6 ml/min; Est GFR (African American) 61.2 ml/min; Est GFR (Non-African American) 52.8 ml/min; Potassium 3.9 mmol/L (3.5-5.1)
[2021-06-26] MEDS ORDERED: PNEUMOCOCCAL Polysaccharide Vaccine 25mcg/0.5mL vial/Syr IM ONE (10:15)
--- NOTE | 2021-06-26 11:20 | Hospitalist Progress Note ---
Date of Service June 26, 2021 Assessment & Plan (1) AMS (altered mental status): Plan: Mattie Harris is a 70yo female with PMHx significant for Crohn's disease, hypothyroidism, Parkinson's, hypertension and T2DM who was admitted to [facility] from [facility] for increased confusion in the setting of HHS, Hypernatremia and UTI. Was also found to have pulmonary mass incidentally on imaging. Dysphagia, Malnutrition, Goals of Care Patient is a longstanding aspiration risk but has not been eating/drinking due to not liking the nectar-thick consistency of her diet, which is by and large the major cause of below-mentioned medical problems that brought her to the hospital. We had a goals of care discussion yesterday, with both of the patient's next of kin (sisters) present, and they decided to proceed with a regular-consistency diet despite risks of aspiration. - Palliative care consulted for more in-depth discussion of goals of care - appreciate recs - POLST signed that includes DNR/DNI, minimal intervention, can use abx, no artificial fluid/nutrition - stopped IVFs today - regular diet, continue aspiration precautions PRINCE Pulmonary Mass - Pulmonology consulted - appreciate recs - mass is highly suspicious for malignancy; patient currently does not have decision-making capacity but both her sisters (and herself) indicated that would not like to pursue a biopsy, further work-up or treatment - Palliative care consulted as mentioned above Hypernatremia, resolving In the setting of (and likely secondary to) chronic poor PO intake and UTI, as endorsed by patient's family members. - Na improved from high 150s ( corrected Na was 161 due to initial HHS) to 142 with IVFs, remains slightly elevated at 146 today - stopped IVFs as stated above - encourage PO intake Urinary tract infection, resolved Urine culture from 06/17 demonstrating E. coli with multidrug resistance. Suspect UTI to have triggered HHS and worsening HyperNa (see below). - Had been utilizing meropenem over the last several days - In ED received ceftriaxone (E. coli sensitive to this per report) - no further treatment necessary at this time. Hyperosmolar hyperglycemic state (resolved), T2DM Likely triggered by urinary tract infection in the setting of poorly-controlled T2DM and poor nutritional status. - HHS resolved within 24 hours with use of several doses of IV insulin as well as IVFs - BSG remains <200 over last several days - continue SSI, glycemic consult in place Paroxysmal Atrial fibrillation Initially presented in a-fib but self-converted to NSR on 06/22, suspect a-fib was triggered in setting of UTI and other above-mentioned conditions. - Cardiology consulted - no plans for intervention at this time - continue Toprol XL 25mg PO QAM Acute kidney injury, resolved Suspect pre-renal injury 2/2 poor PO intake and dehydration from hyperglycemia. Resolved with IVFs - stopped IVFs as stated above - Continue to monitor BMP Other Chronic Medical Problems - continue all home PO medications FEN: DM2 diet, stopped IVFs Code status: DNR/DNI DVT ppx: Heparin 5000 units SQ Q12H Dispo: PCU with tele, CM to assist with [facility] (2) Acute UTI: (3) Diabetes mellitus: (4) Hypothyroidism: (5) Crohn's disease: (6) Colitis: (7) Acute kidney injury: (8) Hyperglycemia without ketosis: Admission and Anticipated Discharge Date Admission Date: June 21, 2021 Subjective No acute events overnight; patient continues to be intermittently confused which is worst in the evenings. This morning she is speaking coherently and oriented to self and place - stable. Denies fever/chills, chest pain, SOB, N/V, abdominal pain, rash. Review of Systems Review of Systems: All systems reviewed & are unremarkable except as noted in Subjective Physical Exam Physical Exam: General: A&O to self and place. NAD. Cooperative. HEENT: Atraumatic, normocephalic. Pulm: LCTAB. -rales, -rhonchi. Symmetrical chest rise. No increase work of breathing. No respiratory distress. Cardiac: RRR, -mrg. Radial pulses intact and symmetrical. No LE edema. Abdominal: soft, non-tender, non-distended, BS x 4 Skin: warm, dry, no rash Results & Data Results & Data ([facility]) Vital Signs (Past 12 Hours) Vital Signs Temp Pulse Resp BP Pulse Ox 06/26/21 07:16 36.4 C L 92 H 16 113/70 95 06/25/21 23:44 37.2 C 85 18 109/64 93 Resident Activity Tracking Resident Involvement: Resident Care Provided Care Provided: Adult [facility]
--- NOTE | 2021-06-26 12:49 | Pharmacy Report ---
Pharmacy Glycemic Short Note 2 - Date of Service June 26, 2021 - Glycemic Short BSG Results (Last 24 hours): 06/25/21 06/25/21 06/25/21 16:22 20:28 23:49 Glucose POC Glucose 94 116 H 94 06/26/21 06/26/21 06/26/21 04:22 07:58 08:01 Glucose 81 POC Glucose 130 H 95 06/26/21 11:37 Glucose POC Glucose 138 H OUTPATIENT ANTIDIABETIC REGIMEN: * Per [facility] records: * Levemir 10 units AM, 40 units PM * Novolog 20 units AM, 34 units PM, 10 units HS * Glipizide ASSESSMENT: 06/26: * 5 units SQ administered over last 24 hrs * 0 units of basal have been administered over last 24 hrs and BSGs have ranged 90-130s this AM * Patient's PO intake nil. Will continue to hold basal insulin, again with the plan to resume only if consistently > 140 * Novolog was adjusted yesterday due to hypoglycemic episode, which was likely due to erroneous BSG result 06/25: * 52 units SQ administered over last 24 hrs * BSG again fell overnight, however this time it was clearly due to excess basal insulin. Patient have 48 units of basal on board when BSG dropped to 60s. * BSG did recover into the 80s this AM. * Patient again became hypoglycemic pre-lunch today. This was secondary to Novolog correction given this AM for BSG 192. I suspect the BSG of 192 was not accurate given the pattern of prior BSGs. * Will withhold basal until until BSGs consistently > 140. Diet remains poor. * Will decrease Novolog CF and CR doses as well 06/24: * 142 units SQ insulin administer over last 24 hours * BSGs did fall into the 40-60s overnight. I believe this was a combo of excess Novolog given at HS (it appears CF of 4 was used instead of 10) however excess basal insulin may also have contributed (would have had ~95 units basal on board). * Will titrate down basal insulin dose today as a precaution. AM Lantus will be delayed until lunchtime to ensure BSG has recovered. * Novolog CF and CR doses are reasonable considering out-pt requirements and current stressors. Will follow post-prandials today and adjust if needed 06/23: * Last evening, IV insulin infusion was discontinued and SQ Lantus + Novolog was started. Patient was ordered a dose of 30 units of Lantus. * Severe fasting hyperglycemia this AM. Based on previous IV insulin infusion rates (5 mls/hr = 120 units/day while NPO) and patients home insulin usage (uncontrolled on ~114 units/day), I ordered a one time dose of Lantus 60 units for this morning in addition to an IV insulin bolus. Improvement noted with lunch BSG, however patient is starting a diet. * Continue close monitoring; add overnight BSG checks with coverage 06/22: * Severe hyperglycemia resolved on IV insulin infusion. Current rate of 5 mls/hr. Patient continues on D5 1/2 NS @ 200 mls/hr. She has received ~8 L of fluid thus far (typically 8-10 L required for HHS). Goal range of 200 - 250 mg/dL has been utilized to avoid correcting electrolytes too quickly. * Most recent labs show improvement; serum osmo: 326, NA/corrected NA: 153/155. Mental status seems improved but patient is agitated - uncertain if she is at baseline. * Since hyperosmolar state is slowly resolving and BSG has been at goal since AM labs, I will decrease goal range on insulin infusion to aim for BSG ~ 200 mg/dL. Will hold off on overlapping SQ basal insulin until patient is able to resume a diet. 06/21: * Type 2 diabetic admitted to Tele bed for mental status changes, dehydration, WILBERT, hyperglycemia, likely HHS * Initial labs: Glu 712, Na 155, corrected Na 165-167, AG 6, Bicarb 29. Calculated effective serum osmo ~350 * Patient was given 2 L NS in ED. IV insulin infusion was started and continues this AM. Current maint IVF 1/2 NS + 20KCl @200cc/hr * I do not see orders for f/u chemistry today, Q4-6 hr labs recommended initially. PLAN FOR INPATIENT GLYCEMIC CONTROL: * Hold outpatient oral diabetes medications * Basal - * Hold until BSGs > 140 consistently (to avoid possibility of erroneous BSG) * Bolus - * Novolog Q 4 hrs * Correction factor: 30 mg/dL/unit * Carb ratio: 1 unit for every 10 grams CHO PLAN FOR DISCHARGE: * A1c = 9.1% * To be determined - will depend on goals of care. A1c is elevated and adjustments could be made to insulin regimen however discharge plan and diet remain uncertain.
--- NOTE | 2021-06-26 13:12 | Discharge Summary ---
Date of Service June 26, 2021 Admission HPI Per Admitting Provider Mattie Harris is a 70-year-old female with past medical history significant for Crohn's disease, hypothyroidism, Parkinson's, hypertension, type 2 diabetes; who presented from half-way earlier today for increased confusion in the setting of hyperglycemia. Of note patient recently has been on meropenem for a urinary tract infection, urine culture results from [facility] dated 06/17 demonstrate multidrug-resistant E. coli sensitive to ceftriaxone, cefepime, cefazolin, Zosyn, gentamicin. Upon presentation to EMS patient was responsive only to pain, with some resolution and improvement in the ED, with improvement in responsiveness to verbal stimuli. Of note, on presentation had a blood glucose level of 712; for this she received 10 units of IV insulin, as well as received 2 L bolus of normal saline. Received additional 10 units of IV insulin with partial correction of blood glucose in the ED. Admission Exam Per Admitting Provider Constitutional: + altered mental status, + frail appearing, + diaphoretic and + lethargic Eyes: PERRL and normal accommodation Respiratory: normal respiratory effort; no respiratory distress, no labored breathing, no retractions and does not use accessory muscles Auscultation: lungs clear to auscultation bilaterally; no crackles, no rales and no wheezes Cardiovascular: Rate/Rhythm: regular rate and regular rhythm Vessels: normal peripheral pulses; no JVD Extremities: + pedal edema; no calf tenderness Gastrointestinal (Abdomen): Inspection/Auscultation: normal bowel sounds; no abdominal edema Percussion/Palpation: + abdomen tender and abdomen soft; no guarding and abdomen not rigid Skin: + turgor decreased; no rashes, no ecchymosis, no erythema and no excoriations Neurologic: normal touch/pain/proprioception, deep tendon reflexes 2+ bilaterally, plantar reflexes intact bilaterally, moves all extremities and + obtunded Responsive to verbal stimuli Psychiatric: Orientation: + not alert and + not oriented x 3 Principal Diagnosis Hyperglycemia Hyperosmolar State Hypernatremia Malnutrition Discharge Exam General: A&O to self and place. NAD. Cooperative. HEENT: Atraumatic, normocephalic. Pulm: LCTAB. -rales, -rhonchi. Symmetrical chest rise. No increase work of abdiel thing. No respiratory distress. Cardiac: RRR, -mrg. Radial pulses intact and symmetrical. No LE edema. Abdominal: soft, non-tender, non-distended, BS x 4 Skin: warm, dry, no rash Discharge Data Allergies Allergy/AdvReac Type Severity Reaction Status Date / Time Cipro Allergy Severe RASH Unverified 07/01/18 14:03 ciprofloxacin Allergy Severe RASH Verified 06/20/21 23:19 Penicillins Allergy Intermediate HIVES Verified 06/20/21 23:19 Sulfa (Sulfonamide Allergy Intermediate HIVES Verified 06/20/21 23:19 Antibiotics) latex Allergy Unknown Unknown Verified 06/20/21 23:19 cephalexin [From Keflex] Allergy Unknown Unverified 06/20/21 23:19 adhesive AdvReac Severe "THEY EAT Verified 06/20/21 23:19 MY SKIN." green pepper AdvReac Intermediate Migraine Verified 06/26/21 10:15 Iodinated Contrast Media AdvReac Intermediate Vomiting Verified 06/20/21 23:19 Quinolones AdvReac Mild YEAST Verified 06/20/21 23:19 INFECTION Cephalosporins AdvReac Unknown Unknown Verified 06/20/21 23:19 Consultations 06/21/21 00:54 ED Decision to Admit Stat 06/21/21 09:12 Consult Pulmonology Routine 06/21/21 13:25 Consult Cardiology Routine 06/23/21 12:23 Consult Palliative Care Routine Ordered Studies 06/20/21 21:42 CT head/brain wo con Urgent 06/20/21 22:17 CT abd pelvis wo con Urgent CT chest diagnostic wo con Urgent 06/22/21 16:05 CT chest diagnostic wo con Urgent Diabetes Follow up Diabetes Follow-up Needed for HgbA1c >9% Hospital Course (1) AMS (altered mental status): Mattie Harris is a 70yo female with PMHx significant for Crohn's disease, hypothyroidism, Parkinson's, hypertension and T2DM who was admitted to [facility] from [facility], from 06/21 - 06/26, for increased confusion in the setting of HHS, Hypernatremia and UTI. Was also found to have pulmonary mass incidentally on imaging. Dysphagia, Malnutrition, Goals of Care Patient is a longstanding aspiration risk but has not been eating/drinking due to not liking the nectar-thick consistency of her diet, which is by and large the major cause of below-mentioned medical problems that brought her to the hospital. We had a goals of care discussion, with both of the patient's next of kin (sisters) present, and they decided to proceed with a regular-consistency diet despite risks of aspiration. - Palliative care consulted for more in-depth discussion of goals of care - appreciate recs - POLST signed that includes DNR/DNI, minimal intervention, can use abx, no artificial fluid/nutrition - regular diet, continue aspiration precautions PRINCE Pulmonary Mass - Pulmonology consulted - appreciate recs - mass is highly suspicious for malignancy; patient currently does not have decision-making capacity but both her sisters (and herself) indicated that would not like to pursue a biopsy, further work-up or treatment - Palliative care consulted as mentioned above Hypernatremia, resolved In the setting of (and likely secondary to) chronic poor PO intake and UTI, as endorsed by patient's family members. - Na improved from high 150s ( corrected Na was 161 due to initial HHS) to 142 with IVFs - stopped IVFs on 06/26 as stated above - encourage PO intake - repeat BMP after discharge Urinary tract infection, resolved Urine culture from 06/17 demonstrating E. coli with multidrug resistance. Suspect UTI to have triggered HHS and worsening HyperNa (see below). - was receiving meropenem before admission. Received one dose of ceftriaxone in ED. Not continued during hospital stay since had completed the treatment course. Hyperosmolar hyperglycemic state (resolved), T2DM Likely triggered by urinary tract infection in the setting of poorly-controlled T2DM and poor nutritional status. - HHS resolved within 24 hours with use of several doses of IV insulin as well as IVFs - BSG remains <200 over last several days - continue home meds after discharge Paroxysmal Atrial fibrillation Initially presented in a-fib but self-converted to NSR on 06/22, suspect a-fib was triggered in setting of UTI and other above-mentioned conditions. - Cardiology consulted - no plans for intervention - started Toprol XL 25mg PO QAM during hospitalization, continue after discharge Acute kidney injury, resolved Suspect pre-renal injury 2/2 poor PO intake and dehydration from hyperglycemia. Resolved with IVFs - stopped IVFs as stated above Other Chronic Medical Problems - continue all home PO medications (2) Acute UTI: (3) Diabetes mellitus: (4) Hypothyroidism: (5) Crohn's disease: (6) Colitis: (7) Acute kidney injury: (8) Hyperglycemia without ketosis: Total Time Total Time Spent Total Time Spent (In Minutes): 30 minutes Discharge Plan Discharge Items Patient Disposition: Transfer Inpatient Rehab Fac Reason For Visit: ALTERED MENTAL STATUS Discharge Diagnosis: HHS Hypernatremia Malnutrition Condition on Discharge: Fair Activity: Per Instructions section Non-emergency contact: Primary Care Provider Call non-emergency contact if: you have any medication questions and your symptoms worsen Follow-up/Referrals: Sandra Scott, [Primary Care Provider] - Diet: Carb Consistent or DM2 Addtl Attending Provider Instructions: Mattie Harris is a 70yo female with PMHx significant for Crohn's disease, hyp othyroidism, Parkinson's, hypertension and T2DM who was admitted to [facility] from [facility], from 06/21 - 06/26, for increased confusion in the setting of HHS, Hypernatremia and UTI. Was also found to have pulmonary mass incidentally on imaging. Dysphagia, Malnutrition, Goals of Care Patient is a longstanding aspiration risk but has not been eating/drinking due t o not liking the nectar-thick consistency of her diet, which is by and large the major cause of below-mentioned medical problems that brought her to the hospital. We had a goals of care discussion, with both of the patient's next of kin (sisters) present, and they decided to proceed with a regular-consistency diet despite risks of aspiration. - Palliative care consulted for more in-depth discussion of goals of care - appreciate recs - POLST signed that includes DNR/DNI, minimal intervention, can use abx, no artificial fluid/nutrition - stopped IVFs on 06/26 - regular diet, continue aspiration precautions PRINCE Pulmonary Mass - Pulmonology consulted - appreciate recs - mass is highly suspicious for malignancy; patient currently does not have decision-making capacity but both her sisters (and herself) indicated that would not like to pursue a biopsy, further work-up or treatment - Palliative care consulted as mentioned above Hypernatremia, resolved In the setting of (and likely secondary to) chronic poor PO intake and UTI, as endorsed by patient's family members. - Na improved from high 150s ( corrected Na was 161 due to initial HHS) to 142 with IVFs - stopped IVFs on 06/26 as stated above - encourage PO intake - repeat BMP after discharge Urinary tract infection, resolved Urine culture from 06/17 demonstrating E. coli with multidrug resistance. Suspect UTI to have triggered HHS and worsening HyperNa (see below). - Had been utilizing meropenem over the last several days before admission - In ED received ceftriaxone (E. coli sensitive to this per report) - no further treatment necessary at this time. Hyperosmolar hyperglycemic state (resolved), T2DM Likely triggered by urinary tract infection in the setting of poorly-controlled T2DM and poor nutritional status. - HHS resolved within 24 hours with use of several doses of IV insulin as well as IVFs - BSG remains <200 over last several days - continue home meds after discharge Paroxysmal Atrial fibrillation Initially presented in a-fib but self-converted to NSR on 06/22, suspect a-fib was triggered in setting of UTI and other above-mentioned conditions. - Cardiology consulted - no plans for intervention - started Toprol XL 25mg PO QAM during hospitalization, continue after discharge Acute kidney injury, resolved Suspect pre-renal injury 2/2 poor PO intake and dehydration from hyperglycemia. Resolved with IVFs - stopped IVFs as stated above Other Chronic Medical Problems - continue all home PO medications Pending Studies at Discharge: No Stand-Alone Forms: My [facility] Skilled Items Lines: None Urinary Catheter: No Medications and DC Order Prescriptions: New metoprolol succinate 25 mg tablet extended release 24 hr 25 mg PO DAILY Qty: 30 RF: 0 Continued acetaminophen [Tylenol] 325 mg Tablet 650 mg PO Q4 PRN (Reason: Fever Or Pain) RF: 0 atorvastatin [Lipitor] 10 mg Tablet 10 mg PO HS RF: 0 levetiracetam 500 mg tablet 500 mg PO AMPM RF: 0 cyanocobalamin (vitamin B-12) [Vitamin B-12] 1,000 mcg Tablet 1,000 mcg PO DAILY RF: 0 aspirin 81 mg Tablet,Delayed Release (Dr/Ec) 81 mg PO DAILY RF: 0 levothyroxine 25 mcg tablet 25 mcg PO DAILY RF: 0 citalopram 20 mg tablet 20 mg PO HS RF: 0 famotidine 20 mg Tablet 20 mg PO BID RF: 0 magnesium hydroxide [Milk of Magnesia] 400 mg/5 mL Suspension 30 ml PO DAILY PRN (Reason: .NO BM 3 DAYS) RF: 0 methotrexate sodium 2.5 mg tablet 15 mg PO .QFRI RF: 0 insulin aspart U-100 [Novolog U-100 Insulin aspart] 100 unit/mL Solution 12 unit SUBCUT .ONCE TODAY RF: 0 pantoprazole [Protonix] 40 mg Tablet,Delayed Release (Dr/Ec) 40 mg PO DAILY RF: 0 isosorbide dinitrate 20 mg tablet 20 mg PO TID RF: 0 bumetanide 1 mg tablet 1 mg PO QAM RF: 0 folic acid 1 mg Tablet 1 mg PO DAILY RF: 0 heparin (porcine) 5,000 unit/mL solution 5,000 unit subcut BID RF: 0 ranolazine 500 mg tablet extended release 12 hr 500 mg PO AMHS RF: 0 cholecalciferol (vitamin D3) [Vitamin D3] 25 mcg (1,000 unit) Tablet 25 mcg PO DAILY RF: 0 rivastigmine 4.6 mg/24 hour patch 24 hour 1 patch topical DAILY RF: 0 Breo Ellipta 100-25 mcg/dose blister with device 1 ea INHALATION DAILY RF: 0 magnesium oxide 400 mg magnesium Tablet 400 mg PO DAILY RF: 0 Discontinued ertapenem 1 gram recon soln 1 g IM UD RF: 0 Discharge Orders: Discharge Order (Routine); Ordered 06/26/21 Ordered By: Elvis Rice/Other Patient Handouts: A1C, Managing Type 2 Diabetes Admission Data Admit Date/Time: 06/21/21 02:28 Attending Provider: Nikki Brito Admit Provider: Gab Kelly Primary Care Provider: Sandra Scott Other Providers: Will Ross ; Chaz Uriarte ; Moody Osorio ; Jimbo Patel ; Francois Douglas ; Chetan Zhou ; Adolfo Rodrigues ; Pascual Jimenez Jr ; Pantera Sanchez ; Susana Calvo ; Jaylin Jeffers ; Tylor Carbajal ; Tylor Saunders ; Juan Francisco Shetty ; Jigar Serrano Jennifer M. ; Aidan Castellanos ; Vicente Munoz ; Sanjiv Caballero ; Tami Ovalle Other Interventions: Discharge Summary Assessment (RN) Last Done: 06/26/21 13:36 Supervising Physician Co-Signing Physician Notes Resident Physician Supervision Note: I independently interviewed and examined the patient and verified the syed history and physical, reviewed labs and image studies and agree with resident Dr. Ewing findings and care plan. Resident Activity Tracking Resident Involvement: Resident Care Provided Care Provided: Adult [facility] Medicine
[2021-06-28] MEDS ORDERED: metHOTREXate sodium 2.5 MG TAB PO SCH (09:00)
== END 2021-06-26 14:57 | DRG 637 ==
LOC: ED 20:57 → 1E 06-21 02:28 → SUATTDRO 06-21 02:28 → 1E 06-21 03:18 → 2E 06-21 18:36 → 3W 06-25 10:56